=== PATIENT | female | born 1975 | race African-American/Black ===

== ENCOUNTER 2017-05-07 16:53 | Inpatient (IN) | payer BC, OTHER, SELFPAY ==
[2017-05-07 18:22] LABS: #Eosinphils 0.1 thou/uL (0.0-0.7); #Lymphocytes 1.4 thou/uL (1.20-3.40); #Monocytes 0.5 thou/uL (0.11-0.59); #Neutrophils 3.9 thou/uL (1.40-6.50); %Basophils 0.2 % (0.0-1.0); %Eosinophils 0.9 % (0.0-10.0); %Lymphocytes 23.3 % (21.0-51.0); %Monocytes 8.3 % (0.0-10.0); %Neutrophils 67.3 % (42.0-75.0); Hemoglobin 13.8 g/dL (12.0-16.0); Mean Corpuscular HGB CONC 28.8 g/dL (32.0-36.0); Mean Corpuscular Hemoglobin 28.3 pg (27.0-31.0); Mean Corpuscular Volume 98.5 fl (81.0-99.0); Mean Platelet Volume 9.6 fL (7.4-10.4); Platelet Count 177 thou/uL (130-400); RBC Distribution Width 19.5 % (11.5-14.5); Red Blood Cell (RBC) Count 4.88 mill/uL (4.20-5.40); White Blood Cell (WBC) Count 5.8 thou/uL (4.8-10.8)
[2017-05-07 18:35] LABS: ALT (SGPT) 21 U/L (8-55); AST (SGOT) 17 U/L (5-34); Albumin 3.6 g/dL (3.5-5.0); Alkaline Phosphatase 88 U/L (40-150); Anion Gap 17 mmol/L (10-20); BUN (Urea Nitrogen) 10 mg/dL (7.0-18.7); Bilirubin, Total 16.3 mg/dL (0.2-1.2); CK (CPK) 46 U/L (29-168); Calc. Creatinine Clearance 0 mL/min (70-130); Calcium 9.3 mg/dL (7.8-10.44); Carbon Dioxide 29 mmol/L (22-29); Chloride 101 mmol/L (98-107); Estimated GFR-MDRD 64; Globulin 2.8 g/dL (2.4-3.5); Glucose 80 mg/dL (70-105); Lipase 5 U/L (8-78); Magnesium 1.7 mg/dL (1.6-2.6); Phosphorus 3.1 mg/dL (2.3-4.7); Potassium 3.2 mmol/L (3.5-5.1); Protein, Total 6.4 g/dL (6.0-8.3); Sodium 144 mmol/L (136-145)
[2017-05-07 18:43] LABS: Base Excess-Venous -3.4 mmol/L (-30.0-30.0); Bicarbonate (HCO3v) 21.4 mmol/L (1.0-85.0); CO2 Tension (PvCO2) 36.6 mmHg (41.0-51.0); Calcium, Ionized 0.74 mmol/L (1.12-1.32); O2 Tension (PvO2) 35.2 mmHg (35.0-45.0); Potassium 3.1 mmol/L (3.4-4.7); T. Carbon Dioxide 22.5 mmol/L (1.0-85.0); pH (Venous) 7.374 (7.35-7.45); vO2 Saturation-calc 66.5 % (0.0-100.0)
[2017-05-07 18:45] LABS: Anisocytosis SLIGHT = 6-15 cells (100X) (0-5/hpf); MDiff Complete? YES; Ovalocytes SLIGHT = 2-5 cells (100X) (0-1/hpf); PLT Morphology Comment Appears Adequate; Polychromasia SLIGHT = 2-3 cells (100X) (0-2/hpf); Target Cells SLIGHT = 2-5 cells (100X) (0-1/hpf)
[2017-05-07 18:47] LABS: CKMB 1.5 ng/mL (0-6.6)
--- NOTE | 2017-05-07 19:09 | RAD ---
PORTABLE CHEST: 05/07/17 HISTORY: Mental status change. No comparison. There is cardiomegaly. There is vascular congestion. The lungs are poorly evaluated on this portable projection due to soft tissue attenuation. The lung bases cannot be adequately assessed. IMPRESSION: Suboptimal exam. There is cardiomegaly with evidence of vascular congestion. Upright PA and lateral v iews are recommended. POS: [facility]
[2017-05-07 19:30] LABS: Bilirubin Large (Negative); Blood, Urine Moderate (Negative); Clarity CLOUDY (Clear); Glucose, Urine (Dipstick) Negative (Negative); Leukocyte Small (Negative); Protein, Urine (Dipstick) 300 mg/dL (Neg-Trace); Specific Gravity, Urine 1.027 (1.002-1.036)
[2017-05-07 19:34] LABS: Bacteria/HPF None Seen HPF (None Seen)
[2017-05-07 19:39] LABS: Pathc Cast-AUWi Flag 5.01 (0-2.49)
[2017-05-07] MEDS ORDERED: Furosemide 100 MG/10 ML VIAL ONE (19:40)
[2017-05-07 19:51] LABS: Nitrite Unable to Interpret (Negative)
[2017-05-07 19:52] LABS: Hyaline Casts/LPF 7-10 HYALINE CAST LPF (0-3 Hyaline)
[2017-05-07] MEDS ORDERED: Nitroglycerin 2% Ointment 1 INCH/1 GM Packet ONE (20:10)
[2017-05-07 21:22] LABS: Troponin I 0.029 ng/mL (< 0.028)
[2017-05-07] MEDS ORDERED: Ondansetron ODT 4 MG TAB SL PRN (22:24)
[2017-05-07] MEDS ORDERED: Ondansetron HCl/PF 4 MG/2 ML Vial IVP PRN (22:24)
[2017-05-07] MEDS ORDERED: Potassium Chloride 20 MEQ TAB PO SCH (22:30)
[2017-05-07 23:53] LABS: BHCG - Serum Negative (NEGATIVE); Pregs Control Background? CLEAR/WHITE (CLR/WHITE); Pregs Control Bar Appear? YES (CONTROL BAR)
[2017-05-07] MEDS ORDERED: Insulin Regular 300 UNITS/3 ML VIAL SC PRN ×2 (23:54)
[2017-05-07] MEDS ORDERED: Bisacodyl 10 MG SUPP PR PRN (23:54)
[2017-05-07] MEDS ORDERED: Dextrose 50% Abboject 50 ML SYRINGE SLOW IVP PRN (23:54)
[2017-05-07] MEDS ORDERED: Dextrose 5% in Water 1,000 ML IV PRN (23:54)
[2017-05-07] MEDS ORDERED: Senokot 8.6 MG TAB PO PRN (23:54)
[2017-05-07] MEDS ORDERED: Calcium Carbonate 500 MG ChewTAB PO PRN (23:54)
[2017-05-08] MEDS ORDERED: hydrALAZINE 20 MG/ML VIAL SLOW IVP PRN (00:12)
--- NOTE | 2017-05-08 00:28 | HP ---
DATE OF ADMISSION: 05/07/2017 The patient was seen and examined on 05/07/2017. PRIMARY CARE PHYSICIAN: Dr. Skinner. CHIEF COMPLAINT: Generalized weakness with anasarca of 2-3 months' duration. HISTORY OF PRESENT ILLNESS: The patient is a 42-year-old morbidly obese -Trist[place] female with a BMI 80.5; diabetes mellitus, type 2; hypertension; hyperlipidemia; and suspected obstructive sleep apnea, not on CPAP; who presented to the emergency room with above complaints. Over the last 3 months or so, the patient has generalized weakness with shortness of breath on exerti on and generalized body swelling. Six months ago, she could walk. Over the last few weeks, the day ent is unable to walk due to shortness of breath. The shortness of breath comes on mild exertion. S he also noticed bilateral lower extremity swelling along with abdominal distention. Her shortness of breath was also worse on lying down. Over the last three weeks. The patient also noticed some yell owness of her eye. She felt nauseous; however, denies any vomiting. She denies any chest pain, palp itations, lightheadedness, dizziness or syncope. She also had mechanical fall in the last few weeks without any loss of consciousness. She also reports losing hair. PAST MEDICAL HISTORY: 1. Hypertension. 2. Diabetes mellitus, type 2. 3. Anxiety. 4. Degenerative joint disease. 5. Depression. 6. Morbid obesity. 7. Suspected obstructive sleep apnea. PAST SURGICAL HISTORY: Reviewed with the patient and none. ALLERGIES: No known drug allergies. CURRENT HOME MEDICATIONS: The patient does not remember any of her home medications. According to [facility] ER list, the patient is on lisinopril, metformin, clonazepam, meloxicam, iron, aspirin, fish oil, and Paxil. SOCIAL HISTORY: The patient currently lives at home. No smoking, alcohol or drug use. She has neve r been admitted to the hospital. FAMILY HISTORY: Negative for premature coronary artery disease. REVIEW OF SYSTEMS: The following complete review of systems was negative, unless otherwise mentioned in the HPI or below: Constitutional: Weight loss or gain, ability to conduct usual activities. Skin: Rash, itching. Eyes: Double vision, pain. ENT/Mouth: Nose bleeding, neck stiffness, pain, tenderness. Cardiovascular: Palpitations, dyspnea on exertion, orthopnea. Respiratory: Shortness of breath, wheezing, cough, hemoptysis, fever or night sweats. Gastrointestinal: Poor appetite, abdominal pain, heartburn, nausea, vomiting, constipation, or diarr hea. Genitourinary: Urgency, frequency, dysuria, nocturia. Musculoskeletal: Pain, swelling. Neurologic/Psychiatric: Anxiety, depression. Allergy/Immunologic: Skin rash, bleeding tendency. PHYSICAL EXAMINATION: VITAL SIGNS: In the emergency room showed temperature 98.1, respirations 22, pulse of 110, blood pre ssure 146/102 with O2 saturation 95% on 2 liter nasal cannula. GENERAL: A 42-year-old female, in mild respiratory distress, able to complete short sentences. She is saturating 95% on 2 liter nasal cannula at this time. HEENT: Head atraumatic, normocephalic. Sclerae anicteric. Moist mucous membrane, no oral lesion. NECK: Supple. No JVD appreciated, probably due to body habitus. No carotid bruits. LUNGS: Showed diminished air entry at bases. No significant accessory muscles use noted. There was scattered rhonchi and without any wheezing. Lungs were symmetrical. CARDIOVASCULAR: Heart S1, S2 present, regular. Heart sounds were distant, probably due to body habi tus. No murmur, rubs, or gallops appreciated. ABDOMEN: Soft, nontender, bowel sounds present, no rebound, guarding. No costovertebral angle tende rness. EXTREMITIES: 2-3+ edema in bilateral lower extremities with some questionable calf tenderness. SKIN: Warm and dry. LYMPH NODES: No palpable lymph nodes in the neck. PERIPHERAL VASCULAR: Radial pulses palpable bilaterally. MUSCULOSKELETAL: No joint swelling or tenderness. LABORATORY FINDINGS AND IMAGING: Troponins in the indeterminate range. BNP 1643. Total bilirubin 1 6.3 with normal AST, ALT, alkaline phosphatase. Potassium of 3.1 with normal magnesium. WBC was 5.8 with hemoglobin 13.8. Urinalysis showed 7-10 wbc's with hyaline casts, large amount of bilirubin, s mall leukocyte esterase. EKG by my review showed sinus rhythm with low voltage. Chest x-ray by my r lilia showed pulmonary vascular congestion with cardiomegaly. Exam was suboptimal. IMPRESSION: 1. Generalized weakness, multifactorial. 2. New onset congestive heart failure. 3. Elevated bilirubin, probably due to passive hepatic congestion, rule out hepatic pathology. 4. Hypokalemia. 5. Indeterminate troponins. 6. Morbid obesity with a BMI 80.5. 7. Suspected sleep apnea. The patient never had a sleep study done. 8. Recent immobilization with bilateral lower extremity swelling with tenderness rule out deep venou s thrombosis. 9. Diabetes mellitus, type 2. 10. Anxiety. 11. Hypertension. 12. Hyperlipidemia. 13. Degenerative joint disease. 14. Chronic kidney disease, stage 2. PLAN: The patient will be monitored on the telemetry unit. Cardiology, GI will be consulted. We wi ll get right upper quadrant ultrasound with Doppler to rule out hepatic pathology. Echocardiogram wi ll be done on an urgent basis in a.m. We will also rule out DVT. We will monitor labs on a daily ba sis. We will check TSH, cortisol, iron profile as well as hepatitis panel. Replace potassium. We w ill continue diuretics. Fluid restriction. Repeat troponins in a.m. Plan of care was discussed with the patient in detail. She stated understanding.
[2017-05-08] MEDS ORDERED: traMADol HCl 50 MG TAB PO SCH (04:45)
[2017-05-08 05:33] LABS: INR-International Normal Ratio 1.3; PTT 27.6 SEC (22.9-36.1); Prothrombin Time 16.2 SEC (12.0-14.7)
[2017-05-08 05:39] LABS: ALT (SGPT) 23 U/L (8-55); AST (SGOT) 16 U/L (5-34); Albumin 3.6 g/dL (3.5-5.0); Alkaline Phosphatase 85 U/L (40-150); Anion Gap 16 mmol/L (10-20); BUN (Urea Nitrogen) 10 mg/dL (7.0-18.7); BUN/Creatinine Ratio 9.26; Bilirubin, Direct Greater than 10.0 mg/dL (0.1-0.3); Calc. Creatinine Clearance 237 mL/min (70-130); Calcium 9.3 mg/dL (7.8-10.44); Carbon Dioxide 30 mmol/L (22-29); Chloride 101 mmol/L (98-107); Estimated GFR-MDRD 67; Glucose 84 mg/dL (70-105); Iron 73 ug/dL (50-170); Iron Binding Capacity, Total 315 mcg/dL (265-497); Magnesium 1.5 mg/dL (1.6-2.6); Potassium 2.8 mmol/L (3.5-5.1); Protein, Total 6.3 g/dL (6.0-8.3); Sodium 144 mmol/L (136-145); Troponin I 0.021 ng/mL (< 0.028)
[2017-05-08 05:57] LABS: Eosinophils 1 % (0-10); Ferritin 83.58 ng/mL (10-291); Hemoglobin 13.9 g/dL (12.0-16.0); Hypochromia SLIGHT = 6-15 cells (100X) (0-5/hpf); Lymphocytes 18 % (21-51); MDiff Complete? YES; Mean Corpuscular HGB CONC 29.5 g/dL (32.0-36.0); Mean Corpuscular Volume 98.3 fl (81.0-99.0); Mean Platelet Volume 9.9 fL (7.4-10.4); Monocytes 15 % (0-10); Neutrophil 66 % (42-75); PLT Morphology Comment Appears Adequate; Platelet Count 155 thou/uL (130-400); RBC Distribution Width 19.4 % (11.5-14.5); Red Blood Cell (RBC) Count 4.79 mill/uL (4.20-5.40); White Blood Cell (WBC) Count 5.6 thou/uL (4.8-10.8)
[2017-05-08] MEDS ORDERED: Furosemide 40 MG/4 ML VIAL SLOW IVP SCH (06:00)
[2017-05-08] MEDS ORDERED: Magnesium Sulfate 2 GM in Sodium Chloride 0.9% 100 ML IVPB SCH (06:00)
[2017-05-08] MEDS ORDERED: Potassium Chloride 20 MEQ TAB PO SCH ×5 (06:00→09:30)
[2017-05-08 06:10] LABS: HBCM Index 0.06 S/CO (0-0.79); HBSAg Index 0.21 S/CO (0-0.99); Hep A IgM AB Non-Reactive (NonReactive); Hep A IgM S/CO 0.09 S/CO (0-0.79); Hep B Surf Ag Non-Reactive S/CO (NonReactive); Hep C IgG Ab Non-Reactive (NonReactive); Hep C Index 0.31 S/CO (0-0.79); Hepatitis B Core IGM Abs Non-Reactive (NonReactive)
[2017-05-08] MEDS ORDERED: Magnesium 2 GM/NS 0.9% 100 ML 2 GM in Premix Bag 1 BAG IVPB SCH (06:30)
[2017-05-08] MEDS: Furosemide 20 MG/2 ML VIAL SLOW IVP SCH ×2 (06:40→16:26)
--- NOTE | 2017-05-08 07:40 | ULT ---
BILATERAL LOWER EXTREMITY VENOUS DOPPLER ULTRASOUND: HISTORY: Bilateral lower extremity edema and pain. TECHNIQUE: Stephenson scale ultrasound with color flow and spectral Doppler imaging of the deep venous systems of the lower extremities performed bilaterally. FINDINGS: There is good flow, compression, and augmentation noted in the common femoral, femoral, deep femoral, popliteal, posterior tibial, and greater saphenous veins. IMPRESSION: No evidence of deep vein thrombosis in either lower extremity. POS: [facility]
--- NOTE | 2017-05-08 09:11 | ULT ---
GALLBLADDER ULTRASOUND: INDICATION: Abnormal liver function enzymes with abdominal distention and nausea. FINDINGS: Abnormal increased echogenicity of the gallbladder lumen present indicating sludge and stones. There is gallbladder wall thickening at 5 mm with evidence of pericholecystic fluid. Naik's sign is rep orted as positive by the chamber worker. The common duct is normal at 3 mm. There is prominent volume within the liver without a discrete liver lesion evident. There is mild ascites. Incidental right p leural fluid is seen. IMPRESSION: 1. Abnormal gallbladder as above, with positive Naik's sign elicited. Recommended clinical correl ation for signs/symptoms of acute cholecystitis. 2. Additional details are described above. POS: [facility]
--- NOTE | 2017-05-08 09:13 | PDOC.PN ---
- Subjective Encounter Start Date: 05/08/17 Encounter Start Time: 08:45 Subjective: f/u for dyspnea and LE edema and concern for CHF. Receiving Lasix -: IV and diuresing with less SOB. No prior hx of CHF, CAD but admits to d/c -: of home BP and DM meds in last 3 weeks. - Objective Resuscitation Status: Resuscitation Status FULL:Full Resuscitation MAR Reviewed: Yes Vital Signs & Weight: Vital Signs (12 hours) Temp Pulse Resp BP Pulse Ox 05/08/17 08:00 97.6 F 85 18 135/86 98 05/08/17 03:35 97.9 F 88 18 136/79 92 L 05/07/17 23:44 95 05/07/17 22:30 97.6 F 89 18 95 05/07/17 22:27 97.6 F 89 18 156/97 H 95 Weight Weight 498 lb 14.497 oz I&O: 05/07/17 05/08/17 05/09/17 06:59 06:59 06:59 Intake Total 600 Output Total 3275 Balance -2675 Result Diagrams: 05/08/17 04:18 05/08/17 04:18 Additional Labs: Accuchecks 05/08/17 05:31 POC Glucose 86 Laboratory Tests 05/07/17 05/07/17 05/07/17 18:03 18:03 18:03 POC Venous Potassium Creatinine 1.12 H Total Bilirubin 16.3 H Troponin I 0.040 H B-Natriuretic Peptide 1643.6 H TSH 3rd Generation Cortisol Hepatitis A IgM Ab Hep Bs Antigen Hep B Core IgM Ab Hepatitis C Antibody 05/07/17 05/07/17 05/08/17 18:40 20:32 04:18 POC Venous Potassium 3.1 L Creatinine Total Bilirubin 16.0 H Troponin I 0.029 H B-Natriuretic Peptide TSH 3rd Generation Cortisol Hepatitis A IgM Ab Hep Bs Antigen Hep B Core IgM Ab Hepatitis C Antibody 05/08/17 05/08/17 05/08/17 04:18 04:18 04:18 POC Venous Potassium Creatinine Total Bilirubin Troponin I 0.021 B-Natriuretic Peptide TSH 3rd Generation 2.0483 Cortisol 13.30 Hepatitis A IgM Ab Non-Reactive Hep Bs Antigen Non-Reactive Hep B Core IgM Ab Non-Reactive Hepatitis C Antibody Non-Reactive Radiology Reviewed by me: Yes (LE venous dopp - neg; 2D echo - pending) EKG Reviewed by me: Yes (Tele - SR) Phys Exam - Physical Examination Constitutional: NAD HEENT: PERRLA, oral pharynx no lesions Neck: no JVD, supple diminished in bases, basilar crackles Cardiovascular: RRR landmarks difficult to palpate due to body habitus Gastrointestinal: soft, non-tender, positive bowel sounds Musculoskeletal: pulses present, edema present Neurological: normal sensation, moves all 4 limbs Psychiatric: A&O x 3 Skin: normal turgor, cap refill <2 seconds Dx/Plan (1) CHF (congestive heart failure) Code(s): I50.9 - HEART FAILURE, UNSPECIFIED Status: Acute Qualifiers: Congestive heart failure type: unspecified congestive heart failure type Congestive heart failure chronicity: acute Qualified Code(s): I50.9 - Heart failure, unspecified Comment: 2D Echo pending, Lasix 20mg IV q12h, Cardiology consult, ? cardiac cath , ASA daily (2) Dyspnea Code(s): R06.00 - DYSPNEA, UNSPECIFIED Status: Acute Qualifiers: Dyspnea type: dyspnea on exertion Qualified Code(s): R06.09 - Other forms of dyspnea Comment: Multifactorial given morbid obesity and likely CHF, 02 supplementation and Lasix (3) Hypokalemia Code(s): E87.6 - HYPOKALEMIA Status: Acute Comment: KCL 40meq TID, repeat K + level in am (4) HTN (hypertension) Code(s): I10 - ESSENTIAL (PRIMARY) HYPERTENSION Status: Chronic Qualifiers: Hypertension type: essential hypertension Qualified Code(s): I10 - Essential (primary) hypertension Comment: Non-compliance with home regimen, titrate BP meds and adjust as clinically indicated (5) DM II (diabetes mellitus, type II), controlled Code(s): E11.9 - TYPE 2 DIABETES MELLITUS WITHOUT COMPLICATIONS Status: Chronic Comment: Check A1C, ISS, ADA, hold Metformin given hyperbilirubinemia (6) Morbid (severe) obesity due to excess calories Code(s): E66.01 - MORBID (SEVERE) OBESITY DUE TO EXCESS CALORIES Status: Chronic (7) Hyperbilirubinemia Code(s): E80.6 - OTHER DISORDERS OF BILIRUBIN METABOLISM Status: Acute Comment: ? etiology, likely due to hepatic congestion as LFT's and Lipase wnl, serial monitoring, GI consult for recommendations, SABRINA luu pending - Plan PT/OT, respiratory therapy, out of bed/ambulate Stable overall -: 2D echo pending -: SABRINA luu pending -: Cardiology and GI consult pending -: Continue Lasix 20mg IV q12h * KCL 40meq TID * AM lab: CMP, A1C
[2017-05-08] MEDS: Docusate 100 MG CAP PO SCH ×2 (09:55→22:17)
[2017-05-08] MEDS: Aspirin 325 MG TAB PO SCH (09:55)
[2017-05-08] MEDS: Famotidine 20 MG TAB PO SCH ×2 (09:55→22:17)
[2017-05-08] MEDS: Enoxaparin Sodium 40 MG/0.4 ML SYRINGE SC SCH (09:56)
[2017-05-08] MEDS: Nystatin Powder 15 GM BOT TOP SCH ×2 (11:30→22:18)
--- NOTE | 2017-05-08 13:47 | CON ---
DATE OF SERVICE: 05/08/2017 REASON FOR CONSULTATION: Possible heart failure. HISTORY OF PRESENT ILLNESS: Ms. Townsend is a 42-year-old female who comes to the hospital for a sensation of increased bloating and just retaining fluid all over. She is about 500 pounds and 5 feet 3 inches tall with a BMI above 80. She states for the last 2-3 days she has notice d that there is a lot of fluid accumulating in her belly, in her face, in her arms and legs. She saw her PCP who sent her over to the hospital for admission. She was admitted and blood work showed an elevated BNP at 1643. She was getting some IV diuresis and Cardiology has been consulted. On my tatiana luation, she denies any chest pain, tightness, pressure. She only admits to abdominal bloating and j ust a feeling like she is accumulating fluid. After some diuresis she already feels better. PAST MEDICAL HISTORY: 1. Hypertension. 2. Type 2 diabetes. 3. Anxiety. 4. Osteoarthritis. 5. Depression. 6. Morbid obesity, BMI above 80. 7. Obstructive sleep apnea, most likely severe. PAST SURGICAL HISTORY: None. ALLERGIES: No known drug allergies. OUTPATIENT MEDICATIONS: 1. Metformin 500 mg b.i.d. 2. Clonazepam. 3. Paxil. 4. Woodruff 3 fish oil. 5. Mobic. 6. Lisinopril 40 mg a day. 7. Iron 325 mg. 8. Aspirin 81 a day. ALLERGIES: No known drug allergies. SOCIAL HISTORY: No alcohol, tobacco or drugs. Lives at home on her own. FAMILY HISTORY: Noncontributory. REVIEW OF SYSTEMS: Twelve point review of systems are noted, it is all negative unless noted in the history of present illness. PHYSICAL EXAMINATION: VITAL SIGNS: Temperature 97.6, pulse 85, respiration rate 18, satting 98% on 2 liters, blood pressur e 129/79. GENERAL: Awake, alert, oriented x3, in no distress. HEENT: Normocephalic, atraumatic. NECK: Supple, but short, cannot assess for JVD. LUNGS: Lungs are so distant I cannot really hear them. CARDIOVASCULAR: Distant heart sounds, cannot really assess accurately any heart sounds. ABDOMEN: Prominent, did not appreciate any tenderness on palpation, but it is difficult to assess wh ere the actual organs are. EXTREMITIES: 3+ edema, this seems chronic. LABORATORY WORK: Reviewed. Sodium 144, potassium is 3.2, down to 2.8, chloride 101, carbon dioxide 30, anion gap of 16, BUN of 10, creatinine 1.08, GFR 67, glucose of 84, calcium 9.3, phosphorus 4.0, magnesium 1.5. Iron 73, total iron binding capacity of 315, total bilirubin of 16, direct bilirubin was greater than assay limit. Troponin was 0.04, 0.02. BNP was 1643. TSH was 2. Cortisol was 13. was negative. Albumin of 3.6. Lipase was less than assay limit. UA showed trace ketones , moderate blood, large amount of bilirubin, 7-10 white cells, 7-10 red cells, no bacteria. Beta hyd roxybutyrate was normal. Hepatitis B serologies were normal. Lower extremity ultrasound was reviewed. No DVTs. Abdominal ultrasound, positive for cholecystitis. Chest x-ray; suboptimal exam, cardiomegaly with vascular congestion. ASSESSMENT AND PLAN: 1. Congestive heart failure, unclear if this is systolic or diastolic. Echocardiogram is very poor quality given the patient's body habitus and I am unable to evaluate any other major cardiac structur es with any accuracy. Would recommend a MUGA scan to evaluate this further. I already spoke with [facility], we may be able to do this despite her weight. 2. Elevated bilirubin: This is much higher than expected for just hepatic congestion from heart jayy lure. Most likely this is related to the issues with her gallbladder. Would recommend consultation with Gastroenterology. She may not be a good candidate for surgery given her size. 3. I would continue IV diuresis for now. 4. Further recommendations per results of MUGA scan. Thank you for letting us participate in the care of your patient. We will follow.
--- NOTE | 2017-05-08 15:23 | NM ---
MUGA SCAN: Date: 05/08/17 HISTORY: LV function. RADIOPHARMACEUTICAL: 27 mCi technetium-99m labeled RBCs injected intravenously. FINDINGS: A satisfactory separation of the ventricles was not possible to evaluate left ventricular ejection fr action. No definite evidence of significant left ventricular wall motion abnormalities is seen. IMPRESSION: Nondiagnostic exam. POS: [facility]
[2017-05-08] MEDS: Potassium Chloride 20 MEQ TAB PO SCH ×2 (16:27→22:17)
[2017-05-08] MEDS: Acetaminophen 325 MG TAB PO PRN (17:53)
[2017-05-08] MEDS ORDERED: FLU VACC QS2017-18 36 mo. & older 0.5 ML SYRINGE IM ONE (21:00)
--- NOTE | 2017-05-08 23:41 | CON ---
DATE OF CONSULTATION: 05/08/2017 REFERRING PHYSICIAN: Dr. Renato Vásquez. REASON FOR CONSULTATION: Hyperbilirubinemia. HISTORY OF PRESENT ILLNESS: Ms. Earnestine Townsend is a very pleasant 42-year-old black female who i s morbidly obese. She says she used to weigh more than 350 pounds before. The patient developed inc reasing pedal edema and anasarca over the last one month. She also gives history of orthopnea and dy spnea. She is not ambulating for the last couple of weeks. Before 2 weeks, she has ambulated reason ably well. The patient has no abdominal pain, no nausea and vomiting. She was hospitalized basicall y because of the generalized anasarca and weakness. On admission, her liver function tests showed a bilirubin of 60 mg percent and direct bilirubin 10 mg. Interestingly, her AST, ALT and alkaline phos phatase normal. She had an abdominal sonogram which shows biliary sludge and possible small stones. The patient has no prior history of liver disease. There is no family history of liver disease. Th e patient does not smoke or drink alcohol. Since admission, she has been aggressively diuresed and s he is actually feeling better at the present time. She tells me she did have some mild abdominal dis comfort yesterday, but since the diuresis, she is actually feeling better. She has no relevant histo ry. ALLERGIES: None. SOCIAL HISTORY: The patient does not smoke or drink alcohol. MEDICAL ILLNESSES: 1. Morbid obesity. 2. Hypertension. 3. Diabetes. 4. Anxiety. 5. Depression. 6. Degenerative joint disease. 7. Possible sleep apnea. SURGERIES: None. FAMILY HISTORY: Her obesity runs inside of the family. No history of any cancer or liver disease in the family. MEDICATIONS: List reviewed here in the hospital. REVIEW OF SYSTEMS: Ten-point system reviewed. Constitutional: No history of weight loss, no fever, but does have evidence of weight gain and fatigue. Respiratory: No history of chronic cough, hemop tysis, but does have shortness of breath. Cardiovascular: History of dyspnea on exertion and also o rthopnea. No PND. No chest pain. No palpitations. Gastrointestinal: No abdominal pain, no nausea , no vomiting. Her bowel movements are fairly regular. No hematochezia or melena. Genitourinary: No frequent urination, nocturia, or dysuria. Musculoskeletal: Has some back pain and arthralgias. Neuropsychiatric: Anxiety and depression. PHYSICAL EXAMINATION: GENERAL: She is morbidly obese. Her weight is probably more than 500 pounds. She actually appears comfortable. She is awake, alert, and communicative. She is deeply jaundiced. VITAL SIGNS: Afebrile, pulse is 85, blood pressure 135/86. HEENT: Conjunctivae are deeply icteric. NECK: Supple. CARDIAC: First and second heart sounds normal. LUNGS: Fairly clear except for basilar rales. ABDOMEN: A pendulous and flabby. Abdomen is nontender even on deep palpation. There is no organome zayra or masses. EXTREMITIES: Reveal no edema. LABORATORY DATA: Shows CBC: WBC today was 5600, hemoglobin 13.9, hematocrit 47.1, MCV 98.3, platele t count 155,000, polymorphs 66, lymphocytes 18, monocytes 15%. Chemistry panel shows sodium 144, pot assium slightly low at 2.8, chloride 101, bicarb 30, BUN 10, creatinine 1.08, glucose is 84, calcium 9.3, bilirubin is 16, direct bilirubin is 10 mg percent, AST 16, ALT 23, alkaline phosphatase 85, tro ponin 0.029. Abdominal sonogram shows biliary sludge and small stones. CLINICAL IMPRESSION: 1. A 42-year-old morbidly obese black female with anasarca over the last month or so. She has gaine d large amount of weight probably a month or two months ago. She was ambulating before, but she is n ot able to ambulate because of anasarca and weight gain. 2. Abnormal LFTs, especially hyperbilirubinemia without any elevation of liver enzymes. 3. Anasarca. 4. Diabetes. 5. Hypertension. 6. Depression/anxiety. OVERALL IMPRESSION: The patient has normal LFTs except for high bilirubin level. She is also deeply jaundiced. I am not sure the reason for her hyperbilirubinemia. She does not hemolyze as she has n ormal CBC. It is possible that she could have, sounds like Anne-Julio C syndrome. Other possibilit ies include drug-induced elevation of bilirubin. I really cannot think of the condition where the pe ople present with hyperbilirubinemia except for Gilbert's or Anne-Julio C syndrome. 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 At the present time, I see no reason to r erliny worry about this. I will follow along with you and make further recommendations [facility].
[2017-05-09] MEDS: Furosemide 20 MG/2 ML VIAL SLOW IVP SCH ×2 (05:50→14:43)
[2017-05-09 06:21] LABS: Hemoglobin A1c 4.7 % (4.0-6.0)
[2017-05-09 06:23] LABS: #Eosinphils 0.1 thou/uL (0.0-0.7); #Lymphocytes 1.7 thou/uL (1.20-3.40); #Monocytes 0.7 thou/uL (0.11-0.59); #Neutrophils 3.4 thou/uL (1.40-6.50); %Basophils 0.2 % (0.0-1.0); %Eosinophils 1.3 % (0.0-10.0); %Lymphocytes 28.8 % (21.0-51.0); %Monocytes 11.4 % (0.0-10.0); %Neutrophils 58.3 % (42.0-75.0); Hemoglobin 12.2 g/dL (12.0-16.0); Mean Corpuscular HGB CONC 28.9 g/dL (32.0-36.0); Mean Corpuscular Hemoglobin 29.1 pg (27.0-31.0); Mean Platelet Volume 9.4 fL (7.4-10.4); Platelet Count 169 thou/uL (130-400); RBC Distribution Width 19.8 % (11.5-14.5); Red Blood Cell (RBC) Count 4.18 mill/uL (4.20-5.40); White Blood Cell (WBC) Count 5.9 thou/uL (4.8-10.8)
[2017-05-09 06:31] LABS: ALT (SGPT) 21 U/L (8-55); AST (SGOT) 14 U/L (5-34); Albumin 3.6 g/dL (3.5-5.0); Alkaline Phosphatase 87 U/L (40-150); Anion Gap 12 mmol/L (10-20); BUN (Urea Nitrogen) 11 mg/dL (7.0-18.7); Bilirubin, Total 14.6 mg/dL (0.2-1.2); Calc. Creatinine Clearance 203 mL/min (70-130); Calcium 9.3 mg/dL (7.8-10.44); Carbon Dioxide 35 mmol/L (22-29); Chloride 101 mmol/L (98-107); Estimated GFR-MDRD 58; Globulin 2.5 g/dL (2.4-3.5); Glucose 89 mg/dL (70-105); Magnesium 1.5 mg/dL (1.6-2.6); Potassium 3.5 mmol/L (3.5-5.1); Protein, Total 6.1 g/dL (6.0-8.3); Sodium 144 mmol/L (136-145)
[2017-05-09] MEDS: Ondansetron ODT 4 MG TAB PO PRN ×2 (07:44→22:55)
[2017-05-09] MEDS: Potassium Chloride 20 MEQ TAB PO SCH ×3 (09:06→17:58)
[2017-05-09] MEDS: Docusate 100 MG CAP PO SCH ×2 (09:06→22:56)
[2017-05-09] MEDS: Famotidine 20 MG TAB PO SCH ×2 (09:06→22:55)
[2017-05-09] MEDS: Aspirin 325 MG TAB PO SCH (09:06)
[2017-05-09] MEDS: Enoxaparin Sodium 40 MG/0.4 ML SYRINGE SC SCH (09:06)
[2017-05-09] MEDS: Nystatin Powder 15 GM BOT TOP SCH ×2 (09:07→22:57)
--- NOTE | 2017-05-09 12:40 | PDOC.PN ---
- Subjective Encounter Start Date: 05/09/17 Encounter Start Time: 10:00 Subjective: feels weak, no sob -: has amb nearly 160ft with rw -: no chest pain or palp - Objective Resuscitation Status: Resuscitation Status FULL:Full Resuscitation MAR Reviewed: Yes Vital Signs & Weight: Vital Signs (12 hours) Temp Pulse Resp BP Pulse Ox 05/09/17 11:15 97.8 F 94 20 120/68 93 L 05/09/17 07:30 97.5 F L 83 122/84 99 05/09/17 03:34 97.8 F 86 16 130/97 H 92 L Weight Weight 480 lb 9.723 oz I&O: 05/08/17 05/09/17 05/10/17 06:59 06:59 06:59 Intake Total 1640 Output Total 6125 Balance -4485 Result Diagrams: 05/09/17 05:43 05/09/17 05:43 Additional Labs: Accuchecks 05/09/17 05/09/17 05/08/17 11:15 05:53 20:51 POC Glucose 91 101 88 05/08/17 05/08/17 17:16 11:07 POC Glucose 93 93 Phys Exam - Physical Examination HEENT: PERRLA, moist MMs Neck: no JVD, supple Respiratory: no wheezing, no rales distant breath sounds Cardiovascular: RRR, no significant murmur Gastrointestinal: soft, non-tender, positive bowel sounds Musculoskeletal: pulses present, edema present Neurological: non-focal, moves all 4 limbs lethargic but oriented well Dx/Plan (1) CHF (congestive heart failure) Code(s): I50.9 - HEART FAILURE, UNSPECIFIED Status: Acute Qualifiers: Congestive heart failure type: unspecified congestive heart failure type Congestive heart failure chronicity: acute Qualified Code(s): I50.9 - Heart failure, unspecified (2) Hyperbilirubinemia Code(s): E80.6 - OTHER DISORDERS OF BILIRUBIN METABOLISM Status: Acute Comment: unclear etiology (3) DM II (diabetes mellitus, type II), controlled Code(s): E11.9 - TYPE 2 DIABETES MELLITUS WITHOUT COMPLICATIONS Status: Chronic Qualifiers: Diabetes mellitus complication status: with other specified complication Diabetes mellitus prison insulin use: without buttermaker use Qualified Code( s): E11.69 - Type 2 diabetes mellitus with other specified complication (4) HTN (hypertension) Code(s): I10 - ESSENTIAL (PRIMARY) HYPERTENSION Status: Chronic Qualifiers: Hypertension type: essential hypertension Qualified Code(s): I10 - Essential (primary) hypertension Comment: Non-compliance with home regimen, titrate BP meds and adjust as clinically indicated (5) Morbid (severe) obesity due to excess calories Code(s): E66.01 - MORBID (SEVERE) OBESITY DUE TO EXCESS CALORIES Status: Chronic - Plan on lasix 20mg iv q12h -: will add small dose of coreg and lisinopril -: mobilize more as tolerated -: further w/u per cardiology advice * . Review of Systems - Medications/Allergies Allergies/Adverse Reactions: Allergies Allergy/AdvReac Type Severity Reaction Status Date / Time No Known Allergies Allergy Verified 05/07/17 22:49 Medications: Current Medications Acetaminophen (Tylenol) 650 mg PO Q6H PRN PRN Reason: Pain Last Admin: 05/08/17 17:53 Dose: 650 mg Aspirin (Aspirin) 325 mg PO DAILY [facility] Last Admin: 05/09/17 09:06 Dose: 325 mg Bisacodyl (Dulcolax) 10 mg [place] Q24H PRN PRN Reason: Constipation Calcium Carbonate (Tums) 1,000 mg PO Q4H PRN PRN Reason: Heartburn or Indigestion Dextrose/Water (Dextrose 50%) 25 gm SLOW IVP PRN PRN PRN Reason: Hypoglycemia Docusate Sodium (Colace) 100 mg PO BID [facility] Last Admin: 05/09/17 09:06 Dose: 100 mg Enoxaparin Sodium (Lovenox) 40 mg SC 0900 [facility] Last Admin: 05/09/17 09:06 Dose: 40 mg Famotidine (Pepcid) 20 mg PO BID [facility] Last Admin: 05/09/17 09:06 Dose: 20 mg Furosemide (Lasix) 20 mg SLOW IVP 0600,1400 [facility] Last Admin: 05/09/17 05:50 Dose: 20 mg Glucagon (Glucagon) 1 mg IM PRN PRN PRN Reason: Hypoglycemia Hydralazine HCl (Apresoline) 10 mg SLOW IVP Q4H PRN PRN Reason: SBP Greater Than 180 Dextrose/Water (D5w) 1,000 mls @ 0 mls/hr IV .Q0M PRN; As Directed PRN Reason: Hypoglycemia Insulin Human Regular (Humulin R) 0 units SC .MILD SLIDING SCALE PRN PRN Reason: Mild Correctional Scale Insulin Human Regular (Humulin R) 0 units SC .BEDTIME SLIDING SC PRN PRN Reason: Bedtime Correctional Scale Nystatin (Mycostatin Powder) 0 gm TOP BID [facility] Last Admin: 05/09/17 09:07 Dose: 1 applic Ondansetron HCl (Zofran Odt) 4 mg PO Q6H PRN PRN Reason: Nausea/Vomiting Last Admin: 05/09/17 07:44 Dose: 4 mg Ondansetron HCl (Zofran) 4 mg IVP Q6H PRN PRN Reason: Nausea/Vomiting Potassium Chloride (K-Dur) 40 meq PO TID-WM [facility] Last Admin: 05/09/17 11:58 Dose: 40 meq Senna (Senokot) 2 tab PO HSPRN PRN PRN Reason: Constipation Sodium Chloride (Flush - Normal Saline) 10 ml IVF Q12HR [facility] Last Admin: 05/09/17 07:47 Dose: 10 ml Sodium Chloride (Flush - Normal Saline) 10 ml IVF PRN PRN PRN Reason: Saline Flush
--- NOTE | 2017-05-09 16:31 | PDOC.CTH ---
Cardiology Progress Note - Subjective She is doing better. She has diuresed well. - Objective Vital Signs Temp Pulse Resp BP Pulse Ox 05/09/17 11:15 97.8 F 94 20 120/68 93 L 05/09/17 07:30 97.5 F L 83 18 122/84 99 Weight 480 lb 9.723 oz 05/08/17 05/09/17 05/10/17 06:59 06:59 06:59 Intake Total 1640 Output Total 6125 Balance -4485 - Physical Examination General/Neuro: alert & oriented x3, NAD Neck: no JVD present Lungs: unlabored respirations Heart: RRR Abdomen: NT/ND Extremities: + edema B (2+) - Telemetry Telemetry Rhythm: NSR - Labs Result Diagrams: 05/09/17 05:43 05/09/17 05:43 Troponin/CKMB CK-MB (CK-2) 1.5 ng/mL (0-6.6) 05/07/17 18:03 Troponin I 0.021 ng/mL (< 0.028) 05/08/17 04:18 - Assessment/Plan 1. Anasarca 2. Possible LV dysfunction however LV function difficult to assess given body habitus 3. Morbid obesity 4. Hyperbilirrubinemia 5. Gallstones. PLAN: - Conitnue IV diuresis. - Will treat for LV dysfunction with BB and ACEI as BP allows. - Cannot risk stratify with any stress testing modality or [facility] due to her weight. - Conservative therapy. LENCHO would be too risky due to her weight. - The little amount of LV that is seen on echo would suggest that if there is LV dysfunction it is mild to moderate.
[2017-05-09] MEDS: Carvedilol 3.125 MG TAB PO SCH (17:58)
[2017-05-09] MEDS: Acetaminophen 325 MG TAB PO PRN (22:55)
--- NOTE | 2017-05-10 00:21 | PRG ---
DATE OF SERVICE: 05/09/2017 SUBJECTIVE: This is a 42-year-old female who is morbidly obese. She was hospitaliz ed because of anasarca, recent weight gain. She was noted to have an elevated bilirubin level and sh e also jaundice. The jaundice is painless. She has no abdominal pain. No nausea or vomiting. Her bilirubin level is slightly coming down today. WBC down to 14.6 from 16. Her liver enzymes are norm al. AST 14, ALT 21, alkaline phosphatase of 87. PHYSICAL EXAMINATION: GENERAL: She is morbidly obese, appears comfortable. She is not short-winded, afebrile. VITAL SIGN S: Pulse is 94, blood pressure 120/68. CARDIOVASCULAR AND LUNGS: Within normal limits. ABDOMEN: Soft. Nontender. No organomegaly. CLINICAL IMPRESSION: Hyperbilirubinemia, etiology unclear. The patient could have possibly somethin g like Anne-Julio C syndrome. is completely normal. There may be some element of hepatic con gestion on top of her other problems. The patient is asymptomatic, dyspnea, no further recommendatio ns except for watching her LFTs periodically.
[2017-05-10] MEDS: Ondansetron HCl/PF 4 MG/2 ML Vial IVP PRN (02:36)
[2017-05-10] MEDS: Furosemide 20 MG/2 ML VIAL SLOW IVP SCH ×2 (04:52→14:18)
[2017-05-10 09:23] LABS: ALT (SGPT) 20 U/L (8-55); AST (SGOT) 12 U/L (5-34); Albumin 3.7 g/dL (3.5-5.0); Alkaline Phosphatase 83 U/L (40-150); Anion Gap 14 mmol/L (10-20); BUN (Urea Nitrogen) 13 mg/dL (7.0-18.7); Bilirubin, Total 13.6 mg/dL (0.2-1.2); Calc. Creatinine Clearance 179 mL/min (70-130); Calcium 9.6 mg/dL (7.8-10.44); Carbon Dioxide 34 mmol/L (22-29); Chloride 100 mmol/L (98-107); Estimated GFR-MDRD 51; Globulin 2.7 g/dL (2.4-3.5); Glucose 83 mg/dL (70-105); Protein, Total 6.4 g/dL (6.0-8.3); Sodium 144 mmol/L (136-145)
[2017-05-10] MEDS: Lisinopril 2.5 MG TAB PO SCH (09:40)
[2017-05-10] MEDS: Docusate 100 MG CAP PO SCH ×2 (09:40→20:11)
[2017-05-10] MEDS: Potassium Chloride 20 MEQ TAB PO SCH (09:40)
[2017-05-10] MEDS: Aspirin 325 MG TAB PO SCH (09:40)
[2017-05-10] MEDS: Carvedilol 3.125 MG TAB PO SCH ×2 (09:40→17:42)
[2017-05-10] MEDS: Ondansetron ODT 4 MG TAB PO PRN (09:40)
[2017-05-10] MEDS: Famotidine 20 MG TAB PO SCH ×2 (09:40→20:10)
[2017-05-10] MEDS: Enoxaparin Sodium 40 MG/0.4 ML SYRINGE SC SCH (09:41)
[2017-05-10] MEDS: Nystatin Powder 15 GM BOT TOP SCH ×2 (09:41→20:11)
--- NOTE | 2017-05-10 11:11 | PDOC.PN ---
- Subjective Encounter Start Date: 05/10/17 Encounter Start Time: 10:00 Subjective: breathing better, no chest pain or palp - Objective Resuscitation Status: Resuscitation Status FULL:Full Resuscitation MAR Reviewed: Yes Vital Signs & Weight: Vital Signs (12 hours) Temp Pulse Resp BP Pulse Ox 05/10/17 09:40 81 05/10/17 08:59 97.3 F L 81 21 H 126/90 98 05/10/17 03:57 98.0 F 94 20 126/76 96 Weight Weight 478 lb 3.2 oz I&O: 05/09/17 05/10/17 05/11/17 06:59 06:59 06:59 Intake Total 1640 1200 Output Total 6194 2050 Balance -2456 -850 Result Diagrams: 05/09/17 05:43 05/10/17 05:04 Additional Labs: Accuchecks 05/10/17 05/09/17 05/09/17 05:32 20:51 17:08 POC Glucose 103 109 103 05/09/17 11:15 POC Glucose 91 Phys Exam - Physical Examination HEENT: PERRLA, moist MMs Neck: no JVD, supple Respiratory: no wheezing, no rales Cardiovascular: RRR, no significant murmur Gastrointestinal: soft, non-tender, positive bowel sounds Musculoskeletal: pulses present, edema present Neurological: non-focal, moves all 4 limbs Psychiatric: A&O x 3 Dx/Plan (1) CHF (congestive heart failure) Code(s): I50.9 - HEART FAILURE, UNSPECIFIED Status: Acute Qualifiers: Congestive heart failure type: unspecified congestive heart failure type Congestive heart failure chronicity: acute Qualified Code(s): I50.9 - Heart failure, unspecified (2) Hyperbilirubinemia Code(s): E80.6 - OTHER DISORDERS OF BILIRUBIN METABOLISM Status: Acute Comment: unclear etiology (3) DM II (diabetes mellitus, type II), controlled Code(s): E11.9 - TYPE 2 DIABETES MELLITUS WITHOUT COMPLICATIONS Status: Chronic Qualifiers: Diabetes mellitus complication status: with other specified complication Diabetes mellitus fpc insulin use: without dedicated intermodal truck driver use Qualified Code( s): E11.69 - Type 2 diabetes mellitus with other specified complication (4) HTN (hypertension) Code(s): I10 - ESSENTIAL (PRIMARY) HYPERTENSION Status: Chronic Qualifiers: Hypertension type: essential hypertension Qualified Code(s): I10 - Essential (primary) hypertension Comment: Non-compliance with home regimen, titrate BP meds and adjust as clinically indicated (5) Morbid (severe) obesity due to excess calories Code(s): E66.01 - MORBID (SEVERE) OBESITY DUE TO EXCESS CALORIES Status: Chronic Comment: bmi of 77 - Plan is on asp, coreg, lisinopril -: may switch iv lasix to po -: to ambulate as tolerated, oob to chair -: dc plan per cardio advice -: has life threatening obesity * . Review of Systems - Medications/Allergies Allergies/Adverse Reactions: Allergies Allergy/AdvReac Type Severity Reaction Status Date / Time No Known Allergies Allergy Verified 05/07/17 22:49 Medications: Current Medications Acetaminophen (Tylenol) 650 mg PO Q6H PRN PRN Reason: Pain Last Admin: 05/09/17 22:55 Dose: 650 mg Aspirin (Aspirin) 325 mg PO DAILY [facility] Last Admin: 05/10/17 09:40 Dose: 325 mg Bisacodyl (Dulcolax) 10 mg [place] Q24H PRN PRN Reason: Constipation Calcium Carbonate (Tums) 1,000 mg PO Q4H PRN PRN Reason: Heartburn or Indigestion Carvedilol (Coreg) 3.125 mg PO BID[facility] Last Admin: 05/10/17 09:40 Dose: 3.125 mg Dextrose/Water (Dextrose 50%) 25 gm SLOW IVP PRN PRN PRN Reason: Hypoglycemia Docusate Sodium (Colace) 100 mg PO BID [facility] Last Admin: 05/10/17 09:40 Dose: 100 mg Enoxaparin Sodium (Lovenox) 40 mg SC 0900 [facility] Last Admin: 05/10/17 09:41 Dose: 40 mg Famotidine (Pepcid) 20 mg PO BID [facility] Last Admin: 05/10/17 09:40 Dose: 20 mg Furosemide (Lasix) 20 mg SLOW IVP 0600,1400 [facility] Last Admin: 05/10/17 04:52 Dose: 20 mg Glucagon (Glucagon) 1 mg IM PRN PRN PRN Reason: Hypoglycemia Hydralazine HCl (Apresoline) 10 mg SLOW IVP Q4H PRN PRN Reason: SBP Greater Than 180 Dextrose/Water (D5w) 1,000 mls @ 0 mls/hr IV .Q0M PRN; As Directed PRN Reason: Hypoglycemia Insulin Human Regular (Humulin R) 0 units SC .MILD SLIDING SCALE PRN PRN Reason: Mild Correctional Scale Insulin Human Regular (Humulin R) 0 units SC .BEDTIME SLIDING SC PRN PRN Reason: Bedtime Correctional Scale Lisinopril (Zestril) 2.5 mg PO DAILY [facility] Last Admin: 05/10/17 09:40 Dose: 2.5 mg Nystatin (Mycostatin Powder) 0 gm TOP BID [facility] Last Admin: 05/10/17 09:41 Dose: 1 applic Ondansetron HCl (Zofran Odt) 4 mg PO Q6H PRN PRN Reason: Nausea/Vomiting Last Admin: 05/10/17 09:40 Dose: 4 mg Ondansetron HCl (Zofran) 4 mg IVP Q6H PRN PRN Reason: Nausea/Vomiting Last Admin: 05/10/17 02:36 Dose: 4 mg Potassium Chloride (K-Dur) 40 meq PO TID-WM [facility] Last Admin: 05/10/17 09:40 Dose: 40 meq Senna (Senokot) 2 tab PO HSPRN PRN PRN Reason: Constipation Last Admin: 05/10/17 09:40 Dose: 2 tab Sodium Chloride (Flush - Normal Saline) 10 ml IVF Q12HR [facility] Last Admin: 05/10/17 09:41 Dose: 10 ml Sodium Chloride (Flush - Normal Saline) 10 ml IVF PRN PRN PRN Reason: Saline Flush Last Admin: 05/09/17 14:43 Dose: 10 ml
--- NOTE | 2017-05-10 14:52 | PRG ---
DATE OF SERVICE: 05/10/2017 HOSPITAL VISIT NOTE HISTORY OF PRESENT ILLNESS: This is a 42-year-old black female, who was morbidly obese, admitted to the hospital with anasarca and recent weight gain. The patient had abdominal pain. No nausea or vom iting. On admission, she was found to have hyperbilirubinemia. Her serum bilirubin 60 mg percent. Interestingly, her liver function tests were normal. The patient does have a biliary sludge and poss ible gallstones. However, she is not tender over the right upper quadrant. She has been diuresed ag gressively. She was feeling short-winded when she came in, but now her breathing is much better. As mentioned earlier, she has no abdominal pain, no nausea, no vomiting. PHYSICAL EXAMINATION: GENERAL: She is morbidly obese. She is icteric. VITAL SIGNS: Afebrile. Pulse is 80 and blood pressure is 112/77. CARDIOVASCULAR SYSTEM AND LUNGS: Within normal limits. ABDOMEN: Soft. Abdomen is nontender. LABORATORY DATA: Today shows chem.-7 is normal. Potassium 4. Her bilirubin down to 13.6. Her AST is 12, ALT is 20, alkaline phosphatase is 83. CLINICAL IMPRESSION: 1. Hyperbilirubinemia, etiology unclear. 2. No abdominal pain, nausea, vomiting. RECOMMENDATIONS: Follow up liver function tests and continue diuresis.
--- NOTE | 2017-05-10 16:39 | PDOC.CTH ---
Cardiology Progress Note - Subjective She is doing better. Her breathing is better. - Objective Vital Signs Temp Pulse Resp BP Pulse Ox 05/10/17 12:27 97.4 F L 80 19 112/77 100 05/10/17 09:40 81 05/10/17 08:59 97.3 F L 81 21 H 126/90 98 Weight 478 lb 3.2 oz 05/09/17 05/10/17 05/11/17 06:59 06:59 06:59 Intake Total 1640 1200 Output Total 0547 2054 Balance -2915 -850 - Physical Examination General/Neuro: alert & oriented x3, NAD Neck: no JVD present Lungs: unlabored respirations Heart: RRR Abdomen: NT/ND Extremities: + edema B (2+) - Telemetry Telemetry Rhythm: NSR - Labs Result Diagrams: 05/09/17 05:43 05/10/17 05:04 Troponin/CKMB CK-MB (CK-2) 1.5 ng/mL (0-6.6) 05/07/17 18:03 Troponin I 0.021 ng/mL (< 0.028) 05/08/17 04:18 - Assessment/Plan 1. Anasarca 2. Possible LV dysfunction however LV function difficult to assess given body habitus 3. Morbid obesity 4. Hyperbilirrubinemia 5. Gallstones. PLAN: - Creatinine is starting to rise, likely getting dry, difficult to say due to body habitus. Will hold lasix. Repeat BNP. - Will treat for LV dysfunction with BB and ACEI as BP allows. - Cannot risk stratify with any stress testing modality or [facility] due to her weight. - Conservative therapy.
[2017-05-11] MEDS: Acetaminophen 325 MG TAB PO PRN ×2 (03:58→11:41)
[2017-05-11 05:09] LABS: ALT (SGPT) 19 U/L (8-55); AST (SGOT) 15 U/L (5-34); Albumin 3.5 g/dL (3.5-5.0); Alkaline Phosphatase 78 U/L (40-150); Anion Gap 10 mmol/L (10-20); BUN (Urea Nitrogen) 14 mg/dL (7.0-18.7); Bilirubin, Total 11.8 mg/dL (0.2-1.2); Calc. Creatinine Clearance 194 mL/min (70-130); Calcium 9.6 mg/dL (7.8-10.44); Carbon Dioxide 37 mmol/L (22-29); Chloride 100 mmol/L (98-107); Estimated GFR-MDRD 55; Globulin 2.6 g/dL (2.4-3.5); Glucose 99 mg/dL (70-105); Potassium 4.4 mmol/L (3.5-5.1); Protein, Total 6.1 g/dL (6.0-8.3); Sodium 143 mmol/L (136-145)
[2017-05-11] MEDS: Enoxaparin Sodium 40 MG/0.4 ML SYRINGE SC SCH (08:44)
[2017-05-11] MEDS: Famotidine 20 MG TAB PO SCH ×2 (08:44→21:50)
[2017-05-11] MEDS: Docusate 100 MG CAP PO SCH ×2 (08:45→21:50)
[2017-05-11] MEDS: Aspirin 325 MG TAB PO SCH (08:45)
[2017-05-11] MEDS: Lisinopril 2.5 MG TAB PO SCH (08:45)
[2017-05-11] MEDS: Carvedilol 3.125 MG TAB PO SCH ×2 (08:45→16:56)
[2017-05-11] MEDS: Potassium Chloride 20 MEQ TAB PO SCH (08:45)
[2017-05-11] MEDS: Furosemide 40 MG TAB PO SCH ×2 (08:45→14:46)
[2017-05-11] MEDS: Nystatin Powder 15 GM BOT TOP SCH ×2 (08:46→21:51)
[2017-05-11] MEDS ORDERED: Furosemide 20 MG TAB PO SCH (09:00)
--- NOTE | 2017-05-11 13:04 | PDOC.PN ---
- Subjective Encounter Start Date: 05/11/17 Encounter Start Time: 10:30 Subjective: more awake now, no sob - Objective Resuscitation Status: Resuscitation Status FULL:Full Resuscitation MAR Reviewed: Yes Vital Signs & Weight: Vital Signs (12 hours) Temp Pulse Resp BP BP Pulse Ox 05/11/17 12:00 97.6 F 79 18 107/72 99 05/11/17 08:45 76 132/94 H 05/11/17 08:00 97.7 F 76 12 132/94 H 98 05/11/17 06:31 96 05/11/17 04:26 97.7 F 96 20 115/77 99 Weight Weight 464 lb 1 oz I&O: 05/10/17 05/11/17 05/12/17 06:59 06:59 06:59 Intake Total 1200 1500 Output Total 2050 1875 Balance -850 -375 Result Diagrams: 05/09/17 05:43 05/11/17 03:59 Additional Labs: Accuchecks 05/11/17 05/11/17 05/10/17 11:40 06:37 19:55 POC Glucose 94 95 104 05/10/17 16:09 POC Glucose 99 Phys Exam - Physical Examination HEENT: PERRLA, moist MMs Neck: no JVD, supple Respiratory: no wheezing, no rales Cardiovascular: RRR, no significant murmur Gastrointestinal: soft, non-tender, positive bowel sounds Musculoskeletal: pulses present, edema present Neurological: non-focal, moves all 4 limbs Psychiatric: A&O x 3 Dx/Plan (1) CHF (congestive heart failure) Code(s): I50.9 - HEART FAILURE, UNSPECIFIED Status: Acute Qualifiers: Congestive heart failure type: unspecified congestive heart failure type Congestive heart failure chronicity: acute Qualified Code(s): I50.9 - Heart failure, unspecified (2) Hyperbilirubinemia Code(s): E80.6 - OTHER DISORDERS OF BILIRUBIN METABOLISM Status: Acute Comment: unclear etiology (3) DM II (diabetes mellitus, type II), controlled Code(s): E11.9 - TYPE 2 DIABETES MELLITUS WITHOUT COMPLICATIONS Status: Chronic Qualifiers: Diabetes mellitus complication status: with other specified complication Diabetes mellitus half-way insulin use: without half-way use Qualified Code( s): E11.69 - Type 2 diabetes mellitus with other specified complication (4) HTN (hypertension) Code(s): I10 - ESSENTIAL (PRIMARY) HYPERTENSION Status: Chronic Qualifiers: Hypertension type: essential hypertension Qualified Code(s): I10 - Essential (primary) hypertension Comment: Non-compliance with home regimen, titrate BP meds and adjust as clinically indicated (5) Morbid (severe) obesity due to excess calories Code(s): E66.01 - MORBID (SEVERE) OBESITY DUE TO EXCESS CALORIES Status: Chronic Comment: bmi of 77 - Plan oral lasix -: to amb more with PT -: dc plan in 24hrs -: has lost 34lbs and is down to 464 lbs from 498lbs -: jil is 11, continue asp, coreg and lisinopril * . Review of Systems - Medications/Allergies Allergies/Adverse Reactions: Allergies Allergy/AdvReac Type Severity Reaction Status Date / Time No Known Allergies Allergy Verified 05/07/17 22:49 Medications: Current Medications Acetaminophen (Tylenol) 650 mg PO Q6H PRN PRN Reason: Pain Last Admin: 05/11/17 11:41 Dose: 650 mg Aspirin (Aspirin) 325 mg PO DAILY [facility] Last Admin: 05/11/17 08:45 Dose: 325 mg Bisacodyl (Dulcolax) 10 mg [place] Q24H PRN PRN Reason: Constipation Calcium Carbonate (Tums) 1,000 mg PO Q4H PRN PRN Reason: Heartburn or Indigestion Carvedilol (Coreg) 3.125 mg PO BID-[facility] Last Admin: 05/11/17 08:45 Dose: 3.125 mg Dextrose/Water (Dextrose 50%) 25 gm SLOW IVP PRN PRN PRN Reason: Hypoglycemia Docusate Sodium (Colace) 100 mg PO BID [facility] Last Admin: 05/11/17 08:45 Dose: 100 mg Enoxaparin Sodium (Lovenox) 40 mg SC 0900 [facility] Last Admin: 05/11/17 08:44 Dose: 40 mg Famotidine (Pepcid) 20 mg PO BID [facility] Last Admin: 05/11/17 08:44 Dose: 20 mg Furosemide (Lasix) 40 mg PO 0900,1400 [facility] Last Admin: 05/11/17 08:45 Dose: 40 mg Glucagon (Glucagon) 1 mg IM PRN PRN PRN Reason: Hypoglycemia Hydralazine HCl (Apresoline) 10 mg SLOW IVP Q4H PRN PRN Reason: SBP Greater Than 180 Dextrose/Water (D5w) 1,000 mls @ 0 mls/hr IV .Q0M PRN; As Directed PRN Reason: Hypoglycemia Insulin Human Regular (Humulin R) 0 units SC .MILD SLIDING SCALE PRN PRN Reason: Mild Correctional Scale Insulin Human Regular (Humulin R) 0 units SC .BEDTIME SLIDING SC PRN PRN Reason: Bedtime Correctional Scale Lisinopril (Zestril) 2.5 mg PO DAILY [facility] Last Admin: 05/11/17 08:45 Dose: 2.5 mg Nystatin (Mycostatin Powder) 0 gm TOP BID [facility] Last Admin: 05/11/17 08:46 Dose: 1 applic Ondansetron HCl (Zofran Odt) 4 mg PO Q6H PRN PRN Reason: Nausea/Vomiting Last Admin: 05/10/17 09:40 Dose: 4 mg Ondansetron HCl (Zofran) 4 mg IVP Q6H PRN PRN Reason: Nausea/Vomiting Last Admin: 05/10/17 02:36 Dose: 4 mg Potassium Chloride (K-Dur) 20 meq PO QAM-WM [facility] Last Admin: 05/11/17 08:45 Dose: 20 meq Senna (Senokot) 2 tab PO HSPRN PRN PRN Reason: Constipation Last Admin: 05/10/17 09:40 Dose: 2 tab Sodium Chloride (Flush - Normal Saline) 10 ml IVF Q12HR [facility] Last Admin: 05/11/17 08:46 Dose: 10 ml Sodium Chloride (Flush - Normal Saline) 10 ml IVF PRN PRN PRN Reason: Saline Flush Last Admin: 05/09/17 14:43 Dose: 10 ml
--- NOTE | 2017-05-11 17:36 | PDOC.CTH ---
Cardiology Progress Note - Subjective She is doing better. No new issues. She has been walking with PT. - Objective Vital Signs Temp Pulse Resp BP BP Pulse Ox 05/11/17 16:00 97.6 F 81 16 101/70 100 05/11/17 12:00 97.6 F 79 18 107/72 99 05/11/17 08:45 76 132/94 H 05/11/17 08:00 97.7 F 76 12 132/94 H 98 05/11/17 06:31 96 Weight 464 lb 1 oz 05/10/17 05/11/17 05/12/17 06:59 06:59 06:59 Intake Total 1200 1500 Output Total 2050 1875 Balance -850 -375 - Physical Examination General/Neuro: alert & oriented x3, NAD, other: (jaundiced.) Neck: no JVD present Lungs: unlabored respirations Heart: RRR Abdomen: NT/ND Extremities: + edema B (1+) - Labs Result Diagrams: 05/09/17 05:43 05/11/17 03:59 Troponin/CKMB CK-MB (CK-2) 1.5 ng/mL (0-6.6) 05/07/17 18:03 Troponin I 0.021 ng/mL (< 0.028) 05/08/17 04:18 - Assessment/Plan 1. Anasarca 2. Possible LV dysfunction however LV function difficult to assess given body habitus 3. Morbid obesity 4. Hyperbilirrubinemia 5. Gallstones. PLAN: - BNP better, creatinine stable. She is feeling better. - Continue BB and ACEI. Cannot up titrate due to borderline low BP. - Cannot risk stratify with any stress testing modality or [facility] due to her weight. - Conservative therapy. - Bilirrubin till high. - May discharge home at any time from cardiac perspective. - Follow up in one month.
[2017-05-11] MEDS: Ondansetron ODT 4 MG TAB PO PRN (17:38)
[2017-05-12] MEDS: Acetaminophen 325 MG TAB PO PRN (00:49)
--- NOTE | 2017-05-12 04:26 | PRG ---
DATE OF SERVICE: 05/11/2017 SUBJECTIVE: This is a 42-year-old black female who is morbidly obese with hypertension, diabetes robert litus. The patient was hospitalized because of anasarca. She was found to have elevated bilirubin l evel of 16 mg percent. Her liver transaminases are normal. She has no abdominal pain, no nausea or vomiting. Her bilirubin is trending down from 16 to 11.6 today. Her liver function tests remain nor mal. PHYSICAL EXAMINATION: GENERAL: She is obese, appears comfortable. VITAL SIGNS: Stable. She is still icteric. CARDIOVASCULAR: Within normal limits. LUNGS: Within normal limits. ABDOMEN: Soft to palpate. No organomegaly. No tenderness. No masses. CLINICAL IMPRESSION: Hyperbilirubinemia, etiology unclear. Her liver function tests are normal. Bi lirubin seems to be coming down with her diuresis. RECOMMENDATIONS: No GI further recommendations, follow up the bilirubin level periodically to make s ure it comes back to normal.
[2017-05-12 05:11] LABS: ALT (SGPT) 19 U/L (8-55); AST (SGOT) 15 U/L (5-34); Albumin 3.5 g/dL (3.5-5.0); Alkaline Phosphatase 71 U/L (40-150); Anion Gap 12 mmol/L (10-20); BUN (Urea Nitrogen) 16 mg/dL (7.0-18.7); Bilirubin, Total 11.1 mg/dL (0.2-1.2); Calc. Creatinine Clearance 189 mL/min (70-130); Calcium 9.6 mg/dL (7.8-10.44); Carbon Dioxide 37 mmol/L (22-29); Chloride 98 mmol/L (98-107); Estimated GFR-MDRD 56; Globulin 2.5 g/dL (2.4-3.5); Glucose 94 mg/dL (70-105); Potassium 4.5 mmol/L (3.5-5.1); Sodium 142 mmol/L (136-145)
[2017-05-12] MEDS: Carvedilol 3.125 MG TAB PO SCH ×2 (08:41→17:15)
[2017-05-12] MEDS: Furosemide 40 MG TAB PO SCH (08:41)
[2017-05-12] MEDS: Aspirin 325 MG TAB PO SCH (08:41)
[2017-05-12] MEDS: Docusate 100 MG CAP PO SCH ×2 (08:42→20:27)
[2017-05-12] MEDS: Lisinopril 2.5 MG TAB PO SCH (08:42)
[2017-05-12] MEDS: Potassium Chloride 20 MEQ TAB PO SCH (08:43)
[2017-05-12] MEDS: Enoxaparin Sodium 40 MG/0.4 ML SYRINGE SC SCH (08:43)
[2017-05-12] MEDS: Famotidine 20 MG TAB PO SCH ×2 (08:43→20:27)
[2017-05-12] MEDS: Nystatin Powder 15 GM BOT TOP SCH ×2 (08:43→20:28)
--- NOTE | 2017-05-12 11:27 | PDOC.PN ---
- Subjective Encounter Start Date: 05/12/17 Encounter Start Time: 10:00 Subjective: c/o right breast extreme swelling and abd swelling -: is amb in room now - Objective Resuscitation Status: Resuscitation Status FULL:Full Resuscitation MAR Reviewed: Yes Vital Signs & Weight: Vital Signs (12 hours) Temp Pulse Resp BP BP Pulse Ox 05/12/17 08:42 77 105/73 05/12/17 07:55 97.9 F 77 16 105/73 96 05/12/17 05:12 97.9 F 77 18 102/71 97 05/12/17 00:54 97.8 F 75 18 108/81 98 Weight Weight 464 lb 1 oz I&O: 05/11/17 05/12/17 05/13/17 06:59 06:59 06:59 Intake Total 1500 1560 Output Total 1875 2600 Balance -375 -1040 Result Diagrams: 05/09/17 05:43 05/12/17 04:44 Additional Labs: Accuchecks 05/12/17 05/11/17 05/11/17 05:43 19:48 16:34 POC Glucose 84 100 79 05/11/17 11:40 POC Glucose 94 Phys Exam - Physical Examination HEENT: PERRLA, moist MMs Neck: no JVD, supple Respiratory: no wheezing, no rales Cardiovascular: RRR, no significant murmur Gastrointestinal: soft, non-tender, positive bowel sounds edema of abd wall and right breast Musculoskeletal: pulses present, edema present Neurological: non-focal, moves all 4 limbs Psychiatric: A&O x 3 Dx/Plan (1) CHF (congestive heart failure) Code(s): I50.9 - HEART FAILURE, UNSPECIFIED Status: Acute Qualifiers: Congestive heart failure type: unspecified congestive heart failure type Congestive heart failure chronicity: acute Qualified Code(s): I50.9 - Heart failure, unspecified (2) Hyperbilirubinemia Code(s): E80.6 - OTHER DISORDERS OF BILIRUBIN METABOLISM Status: Acute Comment: unclear etiology (3) DM II (diabetes mellitus, type II), controlled Code(s): E11.9 - TYPE 2 DIABETES MELLITUS WITHOUT COMPLICATIONS Status: Chronic Qualifiers: Diabetes mellitus complication status: with other specified complication Diabetes mellitus rn long term care insulin use: without rn long term care use Qualified Code( s): E11.69 - Type 2 diabetes mellitus with other specified complication (4) HTN (hypertension) Code(s): I10 - ESSENTIAL (PRIMARY) HYPERTENSION Status: Chronic Qualifiers: Hypertension type: essential hypertension Qualified Code(s): I10 - Essential (primary) hypertension Comment: Non-compliance with home regimen, titrate BP meds and adjust as clinically indicated (5) Morbid (severe) obesity due to excess calories Code(s): E66.01 - MORBID (SEVERE) OBESITY DUE TO EXCESS CALORIES Status: Chronic Comment: bmi of 77 - Plan start lasix drip as sbp is around 100-110 -: still has lot of anasarca, has lost nearly 34lbs this hosp -: has started to amb now -: will need diuresis for another 36hrs with close monitoring of her renal fun -: -ction, she lives alone with min support at home * . Review of Systems - Medications/Allergies Allergies/Adverse Reactions: Allergies Allergy/AdvReac Type Severity Reaction Status Date / Time No Known Allergies Allergy Verified 05/07/17 22:49 Medications: Current Medications Acetaminophen (Tylenol) 650 mg PO Q6H PRN PRN Reason: Pain Last Admin: 05/12/17 00:49 Dose: 650 mg Aspirin (Aspirin) 325 mg PO DAILY [facility] Last Admin: 05/12/17 08:41 Dose: 325 mg Bisacodyl (Dulcolax) 10 mg [place] Q24H PRN PRN Reason: Constipation Calcium Carbonate (Tums) 1,000 mg PO Q4H PRN PRN Reason: Heartburn or Indigestion Carvedilol (Coreg) 3.125 mg PO BID-[facility] Last Admin: 05/12/17 08:41 Dose: 3.125 mg Dextrose/Water (Dextrose 50%) 25 gm SLOW IVP PRN PRN PRN Reason: Hypoglycemia Docusate Sodium (Colace) 100 mg PO BID [facility] Last Admin: 05/12/17 08:42 Dose: 100 mg Enoxaparin Sodium (Lovenox) 40 mg SC 0900 [facility] Last Admin: 05/12/17 08:43 Dose: 40 mg Famotidine (Pepcid) 20 mg PO BID [facility] Last Admin: 05/12/17 08:43 Dose: 20 mg Glucagon (Glucagon) 1 mg IM PRN PRN PRN Reason: Hypoglycemia Hydralazine HCl (Apresoline) 10 mg SLOW IVP Q4H PRN PRN Reason: SBP Greater Than 180 Dextrose/Water (D5w) 1,000 mls @ 0 mls/hr IV .Q0M PRN; As Directed PRN Reason: Hypoglycemia Furosemide 100 mg/ Sodium (Chloride) 110 mls @ 4.4 mls/hr IVPB INF [facility] PRN Reason: 4 MG/HR Insulin Human Regular (Humulin R) 0 units SC .MILD SLIDING SCALE PRN PRN Reason: Mild Correctional Scale Insulin Human Regular (Humulin R) 0 units SC .BEDTIME SLIDING SC PRN PRN Reason: Bedtime Correctional Scale Lisinopril (Zestril) 2.5 mg PO DAILY [facility] Last Admin: 05/12/17 08:42 Dose: 2.5 mg Nystatin (Mycostatin Powder) 0 gm TOP BID [facility] Last Admin: 05/12/17 08:43 Dose: 1 applic Ondansetron HCl (Zofran Odt) 4 mg PO Q6H PRN PRN Reason: Nausea/Vomiting Last Admin: 05/11/17 17:38 Dose: 4 mg Ondansetron HCl (Zofran) 4 mg IVP Q6H PRN PRN Reason: Nausea/Vomiting Last Admin: 05/10/17 02:36 Dose: 4 mg Potassium Chloride (K-Dur) 20 meq PO QAM-WM [facility] Last Admin: 05/12/17 08:43 Dose: 20 meq Senna (Senokot) 2 tab PO HSPRN PRN PRN Reason: Constipation Last Admin: 05/10/17 09:40 Dose: 2 tab Sodium Chloride (Flush - Normal Saline) 10 ml IVF Q12HR [facility] Last Admin: 05/11/17 21:51 Dose: 10 ml Sodium Chloride (Flush - Normal Saline) 10 ml IVF PRN PRN PRN Reason: Saline Flush Last Admin: 05/09/17 14:43 Dose: 10 ml
[2017-05-12] MEDS ORDERED: Furosemide 100 MG in Sodium Chloride 0.9% 100 ML IVPB SCH (11:30)
[2017-05-12] MEDS ORDERED: Bumetanide 1 MG/4 ML VIAL IVP SCH (11:45)
[2017-05-12] MEDS ORDERED: Furosemide 100 mg/100 ml in NS IVPB SCH (15:15)
[2017-05-12 16:34] LABS: Anion Gap 13 mmol/L (10-20); BUN (Urea Nitrogen) 17 mg/dL (7.0-18.7); Calc. Creatinine Clearance 197 mL/min (70-130); Calcium 9.7 mg/dL (7.8-10.44); Carbon Dioxide 35 mmol/L (22-29); Chloride 98 mmol/L (98-107); Estimated GFR-MDRD 58; Glucose 96 mg/dL (70-105); Potassium 4.6 mmol/L (3.5-5.1); Sodium 141 mmol/L (136-145)
[2017-05-12] MEDS: Ondansetron ODT 4 MG TAB PO PRN (17:15)
[2017-05-12 17:40] LABS: Creatinine, Urine Less than 20.00 mg/dL (47-110); Protein, Urine Random Quant 24 mg/dL
--- NOTE | 2017-05-13 01:04 | CON ---
DATE OF CONSULTATION: 05/12/2017 REASON FOR CONSULTATION: Proteinuria, elevated creatinine, and massive anasarca. HISTORY OF PRESENT ILLNESS: This is a very pleasant 42-year-old female, who was admitted on 05/07/19 8 with a creatinine of around 1 with generalized weakness and anasarca. The patient has a history of diabetes mellitus and severe morbid obesity. The patient had the failed diuretic therapy. The day ent has orthopnea, PND, and severe dyspnea on minimal exertion. PAST MEDICAL HISTORY: Significant for morbid obesity, hypertension, anxiety, degenerative joint dise ase, depression, and sleep apnea. PAST SURGICAL HISTORY: HOME MEDICATIONS: Reviewed. ALLERGIES: Reviewed. REVIEW OF SYSTEMS: Fifteen-point review of systems was performed and negative except positives noted above GENERAL: Weakness. HEAD: Headache- NECK: No swelling or lumps. NOSE: No epistaxis or discharge. EYES: No diplopia or pain. 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 NEUROPSYCHIATIC SYSTEMS: No suicidal ideation. No ideation. SKIN: Denies any rash or ulcer. CONSTITUTIONAL: No fever or chills. PHYSICAL EXAMINATION: GENERAL: Patient is awake and alert. VITAL SIGNS: Afebrile, pulse 70, breathing 16, blood pressure was 110/70. GENERAL APPEARANCE AND MENTAL STATUS: Fair. HEAD/NECK: Normocephalic. Atraumatic. EYES: EOMI. No deformity. EARS: Clear. No ulcers. NOSE: Intact. No lesions. MOUTH: Clear. No discharge. THROAT: Clear. No exudate. LUNGS: Clear. No crackles. CARDIAC: S1, S2. No rub. ABDOMEN: Benign. BS+. GENITALIA/RECTUM: Olson absent. BACK/EXTREMITIES: Lower extremities 4+ edema. Ulcer-. NEUROLOGICAL: Alert and motor intact. SKIN: Rash- Bruise-. LYMPHATICS: Edema- Ulcer-. LABORATORY DATA: Show creatinine was 1.2, potassium was 4.5. ASSESSMENT AND RECOMMENDATIONS: 1. Acute kidney injury with chronic kidney disease due to massive edema and proteinuria, most likely due to diabetic nephropathy versus underlying . I agree with Lasix drip at 4-6 mg per hour and gradually titrate upward as tolerated by blood pressure and also start Bumex. 2. Anemia, stable. 3. Hypertension, stable. 4. Metabolic alkalosis. We would recommend getting a blood gas. 5. Anemia, stable. 6. Medications based on glomerular filtration rate are appropriate. No indication for dialysis at t his time. Overall, prognosis is extremely poor.
[2017-05-13] MEDS: Acetaminophen 325 MG TAB PO PRN (05:50)
[2017-05-13 06:27] LABS: ALT (SGPT) 20 U/L (8-55); AST (SGOT) 16 U/L (5-34); Albumin 3.6 g/dL (3.5-5.0); Alkaline Phosphatase 75 U/L (40-150); Anion Gap 14 mmol/L (10-20); BUN (Urea Nitrogen) 17 mg/dL (7.0-18.7); Bilirubin, Total 10.4 mg/dL (0.2-1.2); Calc. Creatinine Clearance 191 mL/min (70-130); Calcium 9.9 mg/dL (7.8-10.44); Carbon Dioxide 36 mmol/L (22-29); Chloride 97 mmol/L (98-107); Estimated GFR-MDRD 56; Globulin 2.7 g/dL (2.4-3.5); Glucose 90 mg/dL (70-105); Potassium 4.6 mmol/L (3.5-5.1); Protein, Total 6.3 g/dL (6.0-8.3); Sodium 142 mmol/L (136-145)
[2017-05-13] MEDS: Famotidine 20 MG TAB PO SCH ×2 (07:58→20:49)
[2017-05-13] MEDS: Enoxaparin Sodium 40 MG/0.4 ML SYRINGE SC SCH (07:58)
[2017-05-13] MEDS: Docusate 100 MG CAP PO SCH ×2 (07:58→20:49)
[2017-05-13] MEDS: Carvedilol 3.125 MG TAB PO SCH ×2 (07:58→18:15)
[2017-05-13] MEDS: Potassium Chloride 20 MEQ TAB PO SCH (07:58)
[2017-05-13] MEDS: Aspirin 325 MG TAB PO SCH (07:59)
[2017-05-13] MEDS: Lisinopril 2.5 MG TAB PO SCH (07:59)
[2017-05-13] MEDS: Nystatin Powder 15 GM BOT TOP SCH ×2 (08:00→20:49)
--- NOTE | 2017-05-13 10:15 | PDOC.PN ---
- Subjective Encounter Start Date: 05/13/17 Encounter Start Time: 07:15 Subjective: no sob, has diuresed overnight well -: adviced to turn towards right lat position to let her left breast edema rec -: -ramin - Objective Resuscitation Status: Resuscitation Status FULL:Full Resuscitation MAR Reviewed: Yes Vital Signs & Weight: Vital Signs (12 hours) Temp Pulse Resp BP BP Pulse Ox 05/13/17 08:00 98.2 F 79 05/13/17 07:59 78 97/65 05/13/17 06:00 97.9 F 80 18 96/64 99 05/13/17 04:00 98.1 F 82 18 95/65 99 05/13/17 02:00 97.9 F 89 18 94/64 98 05/13/17 00:00 98.1 F 90 18 96/64 98 Weight Weight 464 lb 1 oz I&O: 05/12/17 05/13/17 05/14/17 06:59 06:59 06:59 Intake Total 1560 1409.2 Output Total 2600 7650 Balance -1040 -6240.8 Result Diagrams: 05/09/17 05:43 05/13/17 05:32 Additional Labs: Accuchecks 05/13/17 05/12/17 05/12/17 05:49 20:11 16:49 POC Glucose 94 77 104 05/12/17 11:29 POC Glucose 85 Phys Exam - Physical Examination HEENT: PERRLA, moist MMs Neck: no JVD, supple Respiratory: no wheezing, no rales Cardiovascular: RRR, no significant murmur Gastrointestinal: soft, non-tender, positive bowel sounds Musculoskeletal: pulses present, edema present Neurological: non-focal, moves all 4 limbs Psychiatric: A&O x 3 Dx/Plan (1) CHF (congestive heart failure) Code(s): I50.9 - HEART FAILURE, UNSPECIFIED Status: Acute Qualifiers: Qualified Code(s): I50.9 - Heart failure, unspecified (2) Hyperbilirubinemia Code(s): E80.6 - OTHER DISORDERS OF BILIRUBIN METABOLISM Status: Acute Comment: unclear etiology (3) DM II (diabetes mellitus, type II), controlled Code(s): E11.9 - TYPE 2 DIABETES MELLITUS WITHOUT COMPLICATIONS Status: Chronic Qualifiers: Diabetes mellitus complication status: with other specified complication Diabetes mellitus [facility] insulin use: without supervisor intermediates use Qualified Code( s): E11.69 - Type 2 diabetes mellitus with other specified complication (4) HTN (hypertension) Code(s): I10 - ESSENTIAL (PRIMARY) HYPERTENSION Status: Chronic Qualifiers: Hypertension type: essential hypertension Qualified Code(s): I10 - Essential (primary) hypertension Comment: Non-compliance with home regimen, titrate BP meds and adjust as clinically indicated (5) Morbid (severe) obesity due to excess calories Code(s): E66.01 - MORBID (SEVERE) OBESITY DUE TO EXCESS CALORIES Status: Chronic Comment: bmi of 77 (6) Anasarca Code(s): R60.1 - GENERALIZED EDEMA Status: Acute - Plan still has massive anasarca -: continue lasix drip, watch for renal function -: sbp around 90's and stable -: to mobilize oob to chair and ambulate -: small dose of coreg, hold lisinopril for now * . Review of Systems - Medications/Allergies Allergies/Adverse Reactions: Allergies Allergy/AdvReac Type Severity Reaction Status Date / Time No Known Allergies Allergy Verified 05/07/17 22:49 Medications: Current Medications Acetaminophen (Tylenol) 650 mg PO Q6H PRN PRN Reason: Pain Last Admin: 05/13/17 05:50 Dose: 650 mg Aspirin (Aspirin) 325 mg PO DAILY [facility] Last Admin: 05/13/17 07:59 Dose: 325 mg Bisacodyl (Dulcolax) 10 mg [place] Q24H PRN PRN Reason: Constipation Calcium Carbonate (Tums) 1,000 mg PO Q4H PRN PRN Reason: Heartburn or Indigestion Carvedilol (Coreg) 3.125 mg PO BID-[facility] Last Admin: 05/13/17 07:58 Dose: 3.125 mg Dextrose/Water (Dextrose 50%) 25 gm SLOW IVP PRN PRN PRN Reason: Hypoglycemia Docusate Sodium (Colace) 100 mg PO BID [facility] Last Admin: 05/13/17 07:58 Dose: 100 mg Enoxaparin Sodium (Lovenox) 40 mg SC 0900 [facility] Last Admin: 05/13/17 07:58 Dose: 40 mg Famotidine (Pepcid) 20 mg PO BID [facility] Last Admin: 05/13/17 07:58 Dose: 20 mg Glucagon (Glucagon) 1 mg IM PRN PRN PRN Reason: Hypoglycemia Hydralazine HCl (Apresoline) 10 mg SLOW IVP Q4H PRN PRN Reason: SBP Greater Than 180 Dextrose/Water (D5w) 1,000 mls @ 0 mls/hr IV .Q0M PRN; As Directed PRN Reason: Hypoglycemia Furosemide 100 mg/ Sodium (Chloride) 110 mls @ 3.3 mls/hr IVPB INF [facility] PRN Reason: 3 MG/HR Insulin Human Regular (Humulin R) 0 units SC .MILD SLIDING SCALE PRN PRN Reason: Mild Correctional Scale Insulin Human Regular (Humulin R) 0 units SC .BEDTIME SLIDING SC PRN PRN Reason: Bedtime Correctional Scale Lisinopril (Zestril) 2.5 mg PO DAILY [facility] Last Admin: 05/13/17 07:59 Dose: 2.5 mg Nystatin (Mycostatin Powder) 0 gm TOP BID [facility] Last Admin: 05/13/17 08:00 Dose: 1 applic Ondansetron HCl (Zofran Odt) 4 mg PO Q6H PRN PRN Reason: Nausea/Vomiting Last Admin: 05/12/17 17:15 Dose: 4 mg Ondansetron HCl (Zofran) 4 mg IVP Q6H PRN PRN Reason: Nausea/Vomiting Last Admin: 05/10/17 02:36 Dose: 4 mg Potassium Chloride (K-Dur) 20 meq PO QAM-WM [facility] Last Admin: 05/13/17 07:58 Dose: 20 meq Senna (Senokot) 2 tab PO HSPRN PRN PRN Reason: Constipation Last Admin: 05/10/17 09:40 Dose: 2 tab Sodium Chloride (Flush - Normal Saline) 10 ml IVF Q12HR [facility] Last Admin: 05/13/17 08:00 Dose: 10 ml Sodium Chloride (Flush - Normal Saline) 10 ml IVF PRN PRN PRN Reason: Saline Flush Last Admin: 05/09/17 14:43 Dose: 10 ml
--- NOTE | 2017-05-13 10:27 | PRG ---
DATE OF SERVICE: 05/13/2017 SUBJECTIVE: This is a 42-year-old female being seen for acute kidney injury and massive edema. The patient denies any nausea, vomiting or chest pain. The patient has lost 6 pounds. PHYSICAL EXAMINATION: GENERAL: The patient is awake, alert. VITAL SIGNS: Afebrile, pulse 79, breathing at 16, blood pressure 97/65. OBJECTIVE: See above. Awake, alert, in no acute distress. GENERAL APPEARANCE AND MENTAL STATUS: Fair. HEAD/NECK: Normocephalic. Atraumatic. EYES: EOMI. No deformity. EARS: Clear. No ulcers. NOSE: Intact. No lesions. MOUTH: Clear. No discharge. THROAT: Clear. No exudate. LUNGS: Clear. No crackles. CARDIAC: S1, S2. No rub. ABDOMEN: Benign. BS+. GENITALIA/RECTUM: Olson absent. BACK/EXTREMITIES: Edema 3+ which appears improved. Ulcer- NEUROLOGICAL: Alert and motor intact. SKIN: Rash- Bruise- LYMPHATICS: Edema- Ulcer- LABORATORY: Creatinine 1.2, potassium 4.6, bicarbonate 36. ASSESSMENT AND RECOMMENDATIONS: 1. Chronic kidney disease stage 3, stable. 2. Hypertension, stable. 3. Edema, decrease the Lasix to 4 mg per hour.
[2017-05-14] MEDS: Ondansetron HCl/PF 4 MG/2 ML Vial IVP PRN ×2 (00:10→22:46)
[2017-05-14] MEDS: Acetaminophen 325 MG TAB PO PRN ×2 (05:41→10:00)
[2017-05-14] MEDS: Furosemide 100 MG in Sodium Chloride 0.9% 100 ML IVPB SCH (05:41)
[2017-05-14 06:27] LABS: Anion Gap 13 mmol/L (10-20); BUN (Urea Nitrogen) 17 mg/dL (7.0-18.7); Calc. Creatinine Clearance 191 mL/min (70-130); Calcium 9.9 mg/dL (7.8-10.44); Carbon Dioxide 37 mmol/L (22-29); Chloride 94 mmol/L (98-107); Estimated GFR-MDRD 57; Glucose 87 mg/dL (70-105); Potassium 4.3 mmol/L (3.5-5.1); Sodium 140 mmol/L (136-145)
[2017-05-14] MEDS: Carvedilol 3.125 MG TAB PO SCH ×2 (09:27→18:10)
[2017-05-14] MEDS: Potassium Chloride 20 MEQ TAB PO SCH (09:27)
[2017-05-14] MEDS: Aspirin 325 MG TAB PO SCH (09:28)
[2017-05-14] MEDS: Docusate 100 MG CAP PO SCH ×2 (09:28→21:30)
[2017-05-14] MEDS: Enoxaparin Sodium 40 MG/0.4 ML SYRINGE SC SCH (09:28)
[2017-05-14] MEDS: Famotidine 20 MG TAB PO SCH ×2 (09:28→21:30)
[2017-05-14] MEDS: Nystatin Powder 15 GM BOT TOP SCH ×2 (09:29→21:30)
--- NOTE | 2017-05-14 12:46 | PDOC.PN ---
- Subjective Encounter Start Date: 05/14/17 Encounter Start Time: 10:00 Subjective: feels better -: is sitting on bed - Objective Resuscitation Status: Resuscitation Status FULL:Full Resuscitation MAR Reviewed: Yes Vital Signs & Weight: Vital Signs (12 hours) Temp Pulse Resp BP Pulse Ox 05/14/17 11:52 97.7 F 77 18 134/84 98 05/14/17 10:07 78 113/78 05/14/17 08:00 98.2 F 84 14 120/74 94 L 05/14/17 06:00 97.8 F 87 16 99/65 94 L 05/14/17 04:41 97.8 F 81 16 94/60 98 05/14/17 02:34 99/65 05/14/17 00:50 97.8 F 81 16 105/70 91 L Weight Weight 461 lb 8 oz I&O: 05/13/17 05/14/17 05/15/17 06:59 06:59 06:59 Intake Total 1409.2 1288 Output Total 7650 4075 Balance -6240.8 -2787 Result Diagrams: 05/09/17 05:43 05/14/17 05:32 Additional Labs: Accuchecks 05/14/17 05/13/17 05/13/17 05:29 20:44 15:53 POC Glucose 91 109 100 Phys Exam - Physical Examination HEENT: PERRLA, moist MMs Neck: no nodes, no JVD Respiratory: no wheezing, no rales Cardiovascular: RRR, no significant murmur Gastrointestinal: soft, non-tender, positive bowel sounds Musculoskeletal: pulses present, edema present Neurological: non-focal, moves all 4 limbs Psychiatric: A&O x 3 Dx/Plan (1) CHF (congestive heart failure) Code(s): I50.9 - HEART FAILURE, UNSPECIFIED Status: Acute Qualifiers: Qualified Code(s): I50.9 - Heart failure, unspecified (2) Hyperbilirubinemia Code(s): E80.6 - OTHER DISORDERS OF BILIRUBIN METABOLISM Status: Acute Comment: unclear etiology (3) DM II (diabetes mellitus, type II), controlled Code(s): E11.9 - TYPE 2 DIABETES MELLITUS WITHOUT COMPLICATIONS Status: Chronic Qualifiers: Diabetes mellitus complication status: with other specified complication Diabetes mellitus penitentiary insulin use: without visual merchandiser use Qualified Code( s): E11.69 - Type 2 diabetes mellitus with other specified complication (4) HTN (hypertension) Code(s): I10 - ESSENTIAL (PRIMARY) HYPERTENSION Status: Chronic Qualifiers: Hypertension type: essential hypertension Qualified Code(s): I10 - Essential (primary) hypertension Comment: Non-compliance with home regimen, titrate BP meds and adjust as clinically indicated (5) Morbid (severe) obesity due to excess calories Code(s): E66.01 - MORBID (SEVERE) OBESITY DUE TO EXCESS CALORIES Status: Chronic Comment: bmi of 77 (6) Anasarca Code(s): R60.1 - GENERALIZED EDEMA Status: Acute - Plan continue lasix drip -: is diuresing well -: still has lot of edema everywhere including right breast -: to amb as tolerated -: small dose of coreg, labs in am * . Review of Systems - Medications/Allergies Allergies/Adverse Reactions: Allergies Allergy/AdvReac Type Severity Reaction Status Date / Time No Known Allergies Allergy Verified 05/07/17 22:49 Medications: Current Medications Acetaminophen (Tylenol) 650 mg PO Q6H PRN PRN Reason: Pain Last Admin: 05/14/17 10:00 Dose: 650 mg Aspirin (Aspirin) 325 mg PO DAILY [facility] Last Admin: 05/14/17 09:28 Dose: 325 mg Bisacodyl (Dulcolax) 10 mg [place] Q24H PRN PRN Reason: Constipation Calcium Carbonate (Tums) 1,000 mg PO Q4H PRN PRN Reason: Heartburn or Indigestion Carvedilol (Coreg) 3.125 mg PO BID-[facility] Last Admin: 05/14/17 09:27 Dose: 3.125 mg Dextrose/Water (Dextrose 50%) 25 gm SLOW IVP PRN PRN PRN Reason: Hypoglycemia Docusate Sodium (Colace) 100 mg PO BID [facility] Last Admin: 05/14/17 09:28 Dose: 100 mg Enoxaparin Sodium (Lovenox) 40 mg SC 0900 [facility] Last Admin: 05/14/17 09:28 Dose: 40 mg Famotidine (Pepcid) 20 mg PO BID [facility] Last Admin: 05/14/17 09:28 Dose: 20 mg Glucagon (Glucagon) 1 mg IM PRN PRN PRN Reason: Hypoglycemia Hydralazine HCl (Apresoline) 10 mg SLOW IVP Q4H PRN PRN Reason: SBP Greater Than 180 Dextrose/Water (D5w) 1,000 mls @ 0 mls/hr IV .Q0M PRN; As Directed PRN Reason: Hypoglycemia Furosemide 100 mg/ Sodium (Chloride) 110 mls @ 3.3 mls/hr IVPB INF [facility] PRN Reason: 3 MG/HR Last Admin: 05/14/17 05:41 Dose: 110 mls Insulin Human Regular (Humulin R) 0 units SC .MILD SLIDING SCALE PRN PRN Reason: Mild Correctional Scale Insulin Human Regular (Humulin R) 0 units SC .BEDTIME SLIDING SC PRN PRN Reason: Bedtime Correctional Scale Nystatin (Mycostatin Powder) 0 gm TOP BID [facility] Last Admin: 05/14/17 09:29 Dose: 1 applic Ondansetron HCl (Zofran Odt) 4 mg PO Q6H PRN PRN Reason: Nausea/Vomiting Last Admin: 05/12/17 17:15 Dose: 4 mg Ondansetron HCl (Zofran) 4 mg IVP Q6H PRN PRN Reason: Nausea/Vomiting Last Admin: 05/14/17 00:10 Dose: 4 mg Potassium Chloride (K-Dur) 20 meq PO QAM-WM [facility] Last Admin: 05/14/17 09:27 Dose: 20 meq Senna (Senokot) 2 tab PO HSPRN PRN PRN Reason: Constipation Last Admin: 05/10/17 09:40 Dose: 2 tab Sodium Chloride (Flush - Normal Saline) 10 ml IVF Q12HR [facility] Last Admin: 05/14/17 09:56 Dose: Not Given Sodium Chloride (Flush - Normal Saline) 10 ml IVF PRN PRN PRN Reason: Saline Flush Last Admin: 05/09/17 14:43 Dose: 10 ml
--- NOTE | 2017-05-14 17:13 | PRG ---
DATE OF SERVICE: 05/14/2017 SUBJECTIVE: This is a 42-year-old female being seen for CKD stage 3 and edema. The patient denies a ny nausea, vomiting, or chest pain. OBJECTIVE: GENERAL: Patient is awake, alert. VITAL SIGNS: Afebrile, pulse 75, respirations 16, blood pressure 180/77. GENERAL APPEARANCE AND MENTAL STATUS: Fair. HEAD/NECK: Normocephalic. Atraumatic. EYES: EOMI. No deformity. EARS: Clear. No ulcers. NOSE: Intact. No lesions. MOUTH: Clear. No discharge. THROAT: Clear. No exudate. LUNGS: Clear. No crackles. CARDIAC: S1, S2. No rub. ABDOMEN: Benign. BS+. GENITALIA/RECTUM: Olson absent. BACK/EXTREMITIES: Edema 0+ Ulcer- NEUROLOGICAL: Alert and motor intact. SKIN: Rash- Bruise- LYMPHATICS: Edema- Ulcer- LABORATORY: Lab show hemoglobin 12.2, creatinine 1.2. ASSESSMENT AND RECOMMENDATIONS: 1. Chronic kidney disease stage 3, stable. 2. Hypertension, stable. 3. Congestive heart failure. 4. Edema, stable. Continue diuresis and Lasix. Can change the Lasix to p.o. in the morning.
[2017-05-15 06:28] LABS: BUN (Urea Nitrogen) 18 mg/dL (7.0-18.7); Calc. Creatinine Clearance 172 mL/min (70-130); Calcium 9.8 mg/dL (7.8-10.44); Estimated GFR-MDRD 52; Glucose 97 mg/dL (70-105)
[2017-05-15 06:37] LABS: Anion Gap 16 mmol/L (10-20); Carbon Dioxide 35 mmol/L (22-29); Chloride 94 mmol/L (98-107); Potassium 4.2 mmol/L (3.5-5.1); Sodium 141 mmol/L (136-145)
[2017-05-15] MEDS: Ondansetron HCl/PF 4 MG/2 ML Vial IVP PRN ×2 (07:14→21:33)
[2017-05-15] MEDS: Potassium Chloride 20 MEQ TAB PO SCH (08:14)
[2017-05-15] MEDS: Carvedilol 3.125 MG TAB PO SCH ×2 (08:14→16:39)
[2017-05-15] MEDS: Docusate 100 MG CAP PO SCH ×2 (08:39→21:33)
[2017-05-15] MEDS: Aspirin 325 MG TAB PO SCH (08:39)
[2017-05-15] MEDS: Nystatin Powder 15 GM BOT TOP SCH ×2 (08:40→21:34)
[2017-05-15] MEDS: Famotidine 20 MG TAB PO SCH ×2 (08:40→21:33)
[2017-05-15] MEDS: Enoxaparin Sodium 40 MG/0.4 ML SYRINGE SC SCH (08:40)
--- NOTE | 2017-05-15 09:47 | PRG ---
DATE OF SERVICE: 05/15/2017 SUBJECTIVE: This is a 42-year-old female being seen for congestive heart failure and massive edema. The patient denies any nausea, vomiting or chest pain. OBJECTIVE: GENERAL: Patient is awake, alert. VITAL SIGNS: Afebrile, pulse 75, breathing 16, blood pressure 102/65. GENERAL APPEARANCE AND MENTAL STATUS: Fair. HEAD/NECK: Normocephalic. Atraumatic. EYES: EOMI. No deformity. EARS: Clear. No ulcers. NOSE: Intact. No lesions. MOUTH: Clear. No discharge. THROAT: Clear. No exudate. LUNGS: Clear. No crackles. CARDIAC: S1, S2. No rub. ABDOMEN: Benign. BS+. GENITALIA/RECTUM: Olson absent. BACK/EXTREMITIES: Edema 0+ Ulcer- NEUROLOGICAL: Alert and motor intact. SKIN: Rash- Bruise- LYMPHATICS: Edema- Ulcer- LABORATORY: Hemoglobin 12.2, creatinine 1.2. RECOMMENDATIONS: 1. Acute kidney injury with chronic kidney disease due to cardiorenal syndrome. 2. Massive edema. Continue diuresis. Proteinuria controlled. The patient is not a candidate for a renal biopsy. 3. Hypertension, stable. Continue Lasix drip, can be changed to p.o. at appropriate time. I would follow the creatinine closely. If creatinine increases to more than 1.6, I would decrease the Lasix.
[2017-05-15] MEDS: Furosemide 100 MG in Sodium Chloride 0.9% 100 ML IVPB SCH (11:15)
--- NOTE | 2017-05-15 12:19 | PDOC.PN ---
- Subjective Encounter Start Date: 05/15/17 Encounter Start Time: 08:45 Subjective: feels better - Objective Resuscitation Status: Resuscitation Status FULL:Full Resuscitation MAR Reviewed: Yes Vital Signs & Weight: Vital Signs (12 hours) Temp Pulse Resp BP Pulse Ox 05/15/17 11:50 97.7 F 84 18 123/85 05/15/17 08:00 97.6 F 75 18 108/65 99 05/15/17 04:20 95 05/15/17 04:11 98.1 F 78 18 100/68 96 05/15/17 00:43 97.9 F 80 18 110/68 97 Weight Weight 452 lb 4.8 oz I&O: 05/14/17 05/15/17 05/16/17 06:59 06:59 06:59 Intake Total 1288 830 Output Total 4285 6075 [id number] Result Diagrams: 05/09/17 05:43 05/15/17 05:39 Additional Labs: Accuchecks 05/15/17 05/15/17 05/14/17 11:04 04:14 19:43 POC Glucose 116 H 112 H 114 H 05/14/17 05/14/17 15:53 11:30 POC Glucose 105 89 Phys Exam - Physical Examination HEENT: PERRLA, moist MMs Neck: no JVD, supple Respiratory: no wheezing, no rales Cardiovascular: RRR, no significant murmur Gastrointestinal: soft, non-tender, positive bowel sounds Musculoskeletal: pulses present, edema present Neurological: non-focal, moves all 4 limbs Psychiatric: A&O x 3 Dx/Plan (1) CHF (congestive heart failure) Code(s): I50.9 - HEART FAILURE, UNSPECIFIED Status: Acute Qualifiers: Qualified Code(s): I50.9 - Heart failure, unspecified (2) Hyperbilirubinemia Code(s): E80.6 - OTHER DISORDERS OF BILIRUBIN METABOLISM Status: Acute Comment: unclear etiology (3) DM II (diabetes mellitus, type II), controlled Code(s): E11.9 - TYPE 2 DIABETES MELLITUS WITHOUT COMPLICATIONS Status: Chronic Qualifiers: Diabetes mellitus complication status: with other specified complication Diabetes mellitus continuous churn buttermaker insulin use: without shelter use Qualified Code( s): E11.69 - Type 2 diabetes mellitus with other specified complication (4) HTN (hypertension) Code(s): I10 - ESSENTIAL (PRIMARY) HYPERTENSION Status: Chronic Qualifiers: Hypertension type: essential hypertension Qualified Code(s): I10 - Essential (primary) hypertension Comment: Non-compliance with home regimen, titrate BP meds and adjust as clinically indicated (5) Morbid (severe) obesity due to excess calories Code(s): E66.01 - MORBID (SEVERE) OBESITY DUE TO EXCESS CALORIES Status: Chronic Comment: bmi of 77 (6) Anasarca Code(s): R60.1 - GENERALIZED EDEMA Status: Acute - Plan continue lasix drip -: diuresing well -: has lost a total of around 50lbs since admission -: small dose of coreg -: to amb as tolerated * . Review of Systems - Medications/Allergies Allergies/Adverse Reactions: Allergies Allergy/AdvReac Type Severity Reaction Status Date / Time No Known Allergies Allergy Verified 05/07/17 22:49 Medications: Current Medications Acetaminophen (Tylenol) 650 mg PO Q6H PRN PRN Reason: Pain Last Admin: 05/14/17 10:00 Dose: 650 mg Aspirin (Aspirin) 325 mg PO DAILY [facility] Last Admin: 05/15/17 08:39 Dose: 325 mg Bisacodyl (Dulcolax) 10 mg [place] Q24H PRN PRN Reason: Constipation Calcium Carbonate (Tums) 1,000 mg PO Q4H PRN PRN Reason: Heartburn or Indigestion Carvedilol (Coreg) 3.125 mg PO BID-[facility] Last Admin: 05/15/17 08:14 Dose: 3.125 mg Dextrose/Water (Dextrose 50%) 25 gm SLOW IVP PRN PRN PRN Reason: Hypoglycemia Docusate Sodium (Colace) 100 mg PO BID [facility] Last Admin: 05/15/17 08:39 Dose: 100 mg Enoxaparin Sodium (Lovenox) 40 mg SC 0900 [facility] Last Admin: 05/15/17 08:40 Dose: 40 mg Famotidine (Pepcid) 20 mg PO BID [facility] Last Admin: 05/15/17 08:40 Dose: 20 mg Glucagon (Glucagon) 1 mg IM PRN PRN PRN Reason: Hypoglycemia Hydralazine HCl (Apresoline) 10 mg SLOW IVP Q4H PRN PRN Reason: SBP Greater Than 180 Dextrose/Water (D5w) 1,000 mls @ 0 mls/hr IV .Q0M PRN; As Directed PRN Reason: Hypoglycemia Furosemide 100 mg/ Sodium (Chloride) 110 mls @ 3.3 mls/hr IVPB INF MAKENZIE PRN Reason: 3 MG/HR Last Admin: 05/15/17 11:15 Dose: 110 mls Insulin Human Regular (Humulin R) 0 units SC .MILD SLIDING SCALE PRN PRN Reason: Mild Correctional Scale Insulin Human Regular (Humulin R) 0 units SC .BEDTIME SLIDING SC PRN PRN Reason: Bedtime Correctional Scale Nystatin (Mycostatin Powder) 0 gm TOP BID [facility] Last Admin: 05/15/17 08:40 Dose: 1 applic Ondansetron HCl (Zofran Odt) 4 mg PO Q6H PRN PRN Reason: Nausea/Vomiting Last Admin: 05/12/17 17:15 Dose: 4 mg Ondansetron HCl (Zofran) 4 mg IVP Q6H PRN PRN Reason: Nausea/Vomiting Last Admin: 05/15/17 07:14 Dose: 4 mg Potassium Chloride (K-Dur) 20 meq PO QAM-WM [facility] Last Admin: 05/15/17 08:14 Dose: 20 meq Senna (Senokot) 2 tab PO HSPRN PRN PRN Reason: Constipation Last Admin: 05/10/17 09:40 Dose: 2 tab Sodium Chloride (Flush - Normal Saline) 10 ml IVF Q12HR [facility] Last Admin: 05/15/17 10:21 Dose: Not Given Sodium Chloride (Flush - Normal Saline) 10 ml IVF PRN PRN PRN Reason: Saline Flush Last Admin: 05/09/17 14:43 Dose: 10 ml
[2017-05-16] MEDS: Acetaminophen 325 MG TAB PO PRN ×2 (00:09→21:25)
[2017-05-16 06:14] LABS: BUN (Urea Nitrogen) 18 mg/dL (7.0-18.7); Calc. Creatinine Clearance 168 mL/min (70-130); Estimated GFR-MDRD 50; Glucose 77 mg/dL (70-105)
[2017-05-16 06:24] LABS: Anion Gap 17 mmol/L (10-20); Carbon Dioxide 36 mmol/L (22-29); Chloride 92 mmol/L (98-107); Sodium 141 mmol/L (136-145)
[2017-05-16] MEDS: Docusate 100 MG CAP PO SCH ×2 (07:55→21:25)
[2017-05-16] MEDS: Aspirin 325 MG TAB PO SCH (07:55)
[2017-05-16] MEDS: Enoxaparin Sodium 40 MG/0.4 ML SYRINGE SC SCH (07:55)
[2017-05-16] MEDS: Carvedilol 3.125 MG TAB PO SCH ×2 (07:55→17:14)
[2017-05-16] MEDS: Famotidine 20 MG TAB PO SCH ×2 (07:55→21:25)
[2017-05-16] MEDS: Potassium Chloride 20 MEQ TAB PO SCH (07:55)
[2017-05-16] MEDS: Nystatin Powder 15 GM BOT TOP SCH ×2 (07:56→21:26)
[2017-05-16] MEDS ORDERED: Furosemide 100 MG in Sodium Chloride 0.9% 100 ML IVPB SCH (09:17)
[2017-05-16] MEDS ORDERED: Furosemide 100 MG in Sodium Chloride 0.9% 90 ML IVPB SCH (09:30)
--- NOTE | 2017-05-16 10:50 | PDOC.PN ---
- Subjective Encounter Start Date: 05/16/17 Encounter Start Time: 10:00 Subjective: breathing better, has amb once in the hallway yesterday -: no dizziness -: left breast edema is receding - Objective Resuscitation Status: Resuscitation Status FULL:Full Resuscitation MAR Reviewed: Yes Vital Signs & Weight: Vital Signs (12 hours) Temp Pulse Resp BP Pulse Ox 05/16/17 08:30 97.6 F 78 20 97 05/16/17 07:44 97.6 F 78 20 115/76 97 05/16/17 05:23 97.9 F 56 L 18 115/79 93 L 05/16/17 05:19 97 05/16/17 00:20 97.8 F 85 18 126/80 97 Weight Weight 441 lb 1.014 oz I&O: 05/15/17 05/16/17 05/17/17 06:59 06:59 06:59 Intake Total 830 1279.2 Output Total 6075 6900 Balance -5245 -5620.8 Result Diagrams: 05/09/17 05:43 05/16/17 04:43 Additional Labs: Accuchecks 05/16/17 05/15/17 05/15/17 03:24 20:50 16:18 POC Glucose 101 101 88 05/15/17 11:04 POC Glucose 116 H Phys Exam - Physical Examination HEENT: PERRLA, moist MMs Neck: no JVD, supple Respiratory: no wheezing, no rales Cardiovascular: RRR, no significant murmur Gastrointestinal: soft, non-tender, positive bowel sounds Musculoskeletal: pulses present, edema present Neurological: non-focal, moves all 4 limbs Psychiatric: A&O x 3 Dx/Plan (1) CHF (congestive heart failure) Code(s): I50.9 - HEART FAILURE, UNSPECIFIED Status: Acute (2) Hyperbilirubinemia Code(s): E80.6 - OTHER DISORDERS OF BILIRUBIN METABOLISM Status: Acute Comment: unclear etiology (3) DM II (diabetes mellitus, type II), controlled Code(s): E11.9 - TYPE 2 DIABETES MELLITUS WITHOUT COMPLICATIONS Status: Chronic Qualifiers: Diabetes mellitus complication status: with other specified complication Diabetes mellitus terminal supervisor insulin use: without terminal supervisor use Qualified Code( s): E11.69 - Type 2 diabetes mellitus with other specified complication (4) HTN (hypertension) Code(s): I10 - ESSENTIAL (PRIMARY) HYPERTENSION Status: Chronic Qualifiers: Hypertension type: essential hypertension Qualified Code(s): I10 - Essential (primary) hypertension Comment: Non-compliance with home regimen, titrate BP meds and adjust as clinically indicated (5) Morbid (severe) obesity due to excess calories Code(s): E66.01 - MORBID (SEVERE) OBESITY DUE TO EXCESS CALORIES Status: Chronic Comment: bmi of 77 (6) Anasarca Code(s): R60.1 - GENERALIZED EDEMA Status: Acute - Plan continue lasix drip, is diuresing well -: renal function is holding up -: has lost sig amount of anasarca, still has around the upper thighs, abd and -: -left breast area -: small dose of coreg, watch for electrolytes * . Review of Systems - Medications/Allergies Allergies/Adverse Reactions: Allergies Allergy/AdvReac Type Severity Reaction Status Date / Time No Known Allergies Allergy Verified 05/07/17 22:49 Medications: Current Medications Acetaminophen (Tylenol) 650 mg PO Q6H PRN PRN Reason: Pain Last Admin: 05/16/17 00:09 Dose: 650 mg Aspirin (Aspirin) 325 mg PO DAILY [facility] Last Admin: 05/16/17 07:55 Dose: 325 mg Bisacodyl (Dulcolax) 10 mg SC Q24H PRN PRN Reason: Constipation Calcium Carbonate (Tums) 1,000 mg PO Q4H PRN PRN Reason: Heartburn or Indigestion Carvedilol (Coreg) 3.125 mg PO BID-[facility] Last Admin: 05/16/17 07:55 Dose: 3.125 mg Dextrose/Water (Dextrose 50%) 25 gm SLOW IVP PRN PRN PRN Reason: Hypoglycemia Docusate Sodium (Colace) 100 mg PO BID [facility] Last Admin: 05/16/17 07:55 Dose: 100 mg Enoxaparin Sodium (Lovenox) 40 mg SC 0900 [facility] Last Admin: 05/16/17 07:55 Dose: 40 mg Famotidine (Pepcid) 20 mg PO BID [facility] Last Admin: 05/16/17 07:55 Dose: 20 mg Glucagon (Glucagon) 1 mg IM PRN PRN PRN Reason: Hypoglycemia Hydralazine HCl (Apresoline) 10 mg SLOW IVP Q4H PRN PRN Reason: SBP Greater Than 180 Dextrose/Water (D5w) 1,000 mls @ 0 mls/hr IV .Q0M PRN; As Directed PRN Reason: Hypoglycemia Furosemide 100 mg/ Sodium (Chloride) 100 mls @ 2 mls/hr IVPB INF MAKENZIE PRN Reason: 2 MG/HR Insulin Human Regular (Humulin R) 0 units SC .MILD SLIDING SCALE PRN PRN Reason: Mild Correctional Scale Insulin Human Regular (Humulin R) 0 units SC .BEDTIME SLIDING SC PRN PRN Reason: Bedtime Correctional Scale Nystatin (Mycostatin Powder) 0 gm TOP BID [facility] Last Admin: 05/16/17 07:56 Dose: 1 applic Ondansetron HCl (Zofran Odt) 4 mg PO Q6H PRN PRN Reason: Nausea/Vomiting Last Admin: 05/12/17 17:15 Dose: 4 mg Ondansetron HCl (Zofran) 4 mg IVP Q6H PRN PRN Reason: Nausea/Vomiting Last Admin: 05/15/17 21:33 Dose: 4 mg Potassium Chloride (K-Dur) 20 meq PO QAM-WM [facility] Last Admin: 05/16/17 07:55 Dose: 20 meq Senna (Senokot) 2 tab PO HSPRN PRN PRN Reason: Constipation Last Admin: 05/10/17 09:40 Dose: 2 tab Sodium Chloride (Flush - Normal Saline) 10 ml IVF Q12HR [facility] Last Admin: 05/15/17 21:47 Dose: 10 ml Sodium Chloride (Flush - Normal Saline) 10 ml IVF PRN PRN PRN Reason: Saline Flush Last Admin: 05/09/17 14:43 Dose: 10 ml
--- NOTE | 2017-05-16 12:10 | PRG ---
DATE OF SERVICE: 05/16/2017 SUBJECTIVE: This is a 42-year-old female being seen for massive edema. The patient continues to diu rese and feels better. PHYSICAL EXAMINATION: GENERAL: Patient is awake, alert. VITAL SIGNS: Afebrile, pulse 70, breathing at 16, blood pressure 115/76. HEAD/NECK: Normocephalic. Atraumatic. EYES: EOMI. No deformity. EARS: Clear. No ulcers. NOSE: Intact. No lesions. MOUTH: Clear. No discharge. THROAT: Clear. No exudate. LUNGS: Clear. No crackles. CARDIAC: S1, S2. No rub. ABDOMEN: Benign. BS+. GENITALIA/RECTUM: Olson absent. BACK/EXTREMITIES: Edema 0+ Ulcer- NEUROLOGICAL: Alert and motor intact. SKIN: Rash- Bruise- LYMPHATICS: Edema- Ulcer- LABORATORY DATA: Show hemoglobin 12.2, creatinine 1.3. ASSESSMENT AND PLAN: 1. Chronic kidney disease stage 3, stable. 2. Hypertension, stable. 3. Edema, improving. Continue Lasix drip. We will book jacket cover machine operator to p.o. Lasix Thursday.
[2017-05-16] MEDS: Ondansetron ODT 4 MG TAB PO PRN (21:25)
[2017-05-17 05:22] LABS: BUN (Urea Nitrogen) 18 mg/dL (7.0-18.7); Calc. Creatinine Clearance 160 mL/min (70-130); Calcium 10.1 mg/dL (7.8-10.44); Estimated GFR-MDRD 49; Glucose 83 mg/dL (70-105)
[2017-05-17 05:31] LABS: Anion Gap 16 mmol/L (10-20); Carbon Dioxide 36 mmol/L (22-29); Chloride 93 mmol/L (98-107); Sodium 141 mmol/L (136-145)
[2017-05-17] MEDS: Carvedilol 3.125 MG TAB PO SCH ×2 (08:09→16:48)
[2017-05-17] MEDS: Aspirin 325 MG TAB PO SCH (08:09)
[2017-05-17] MEDS: Famotidine 20 MG TAB PO SCH ×2 (08:09→21:19)
[2017-05-17] MEDS: Enoxaparin Sodium 40 MG/0.4 ML SYRINGE SC SCH (08:10)
[2017-05-17] MEDS: Potassium Chloride 20 MEQ TAB PO SCH (08:10)
[2017-05-17] MEDS: Docusate 100 MG CAP PO SCH ×2 (08:10→21:19)
--- NOTE | 2017-05-17 10:00 | PRG ---
DATE OF SERVICE: 05/17/2017 SUBJECTIVE: This is a 42-year-old female being seen for acute kidney injury. The patient denies any nausea, vomiting or chest pain. PHYSICAL EXAMINATION: GENERAL: Patient is awake, alert. VITAL SIGNS: Afebrile, pulse 84, breathing at 16, blood pressure 105/60. OBJECTIVE: See above. Awake, alert, in no acute distress. GENERAL APPEARANCE AND MENTAL STATUS: Fair. HEAD/NECK: Normocephalic. Atraumatic. EYES: EOMI. No deformity. EARS: Clear. No ulcers. NOSE: Intact. No lesions. MOUTH: Clear. No discharge. THROAT: Clear. No exudate. LUNGS: Clear. No crackles. CARDIAC: S1, S2. No rub. ABDOMEN: Benign. BS+. GENITALIA/RECTUM: Olson absent. BACK/EXTREMITIES: Lower extremities show 3+ edema. Ulcer-. NEUROLOGICAL: Alert and motor intact. SKIN: Rash- Bruise-. LYMPHATICS: Edema- Ulcer-. LABORATORY DATA: Show creatinine was 1.4. ASSESSMENT AND RECOMMENDATIONS: 1. Acute kidney injury with chronic kidney disease stage 3, stable. 2. Hypertension, stable. 3. Congestive heart failure, improving. Continue IV Lasix. Can change to p.o. Lasix 20 b.i.d.
[2017-05-17] MEDS: Nystatin Powder 15 GM BOT TOP SCH ×2 (10:57→21:19)
--- NOTE | 2017-05-17 11:05 | PDOC.PN ---
- Subjective Encounter Start Date: 05/17/17 Encounter Start Time: 09:30 Subjective: no sob, has amb in hallway yesterday -: LE edema has almost resolved, still has right breast and abd wall edema - Objective Resuscitation Status: Resuscitation Status FULL:Full Resuscitation MAR Reviewed: Yes Vital Signs & Weight: Vital Signs (12 hours) Temp Pulse Resp BP Pulse Ox 05/17/17 07:15 98.0 F 84 16 105/68 93 L 05/17/17 04:34 96 05/17/17 04:24 98.3 F 80 20 147/84 H 96 05/17/17 00:00 98.3 F 82 20 111/74 96 Weight Weight 439 lb I&O: 05/16/17 05/17/17 05/18/17 06:59 06:59 06:59 Intake Total 1279.2 1608 Output Total 6900 4250 Balance -5620.8 -2642 Result Diagrams: 05/09/17 05:43 05/17/17 04:30 Additional Labs: Accuchecks 05/17/17 05/16/17 05/16/17 05:32 19:59 16:08 POC Glucose 90 102 93 05/16/17 11:06 POC Glucose 95 Phys Exam - Physical Examination HEENT: PERRLA, moist MMs Neck: no JVD, supple Respiratory: no wheezing, no rales Cardiovascular: RRR, no significant murmur Gastrointestinal: soft, no distention, positive bowel sounds Musculoskeletal: pulses present, edema present Neurological: non-focal, moves all 4 limbs Psychiatric: A&O x 3 Dx/Plan (1) CHF (congestive heart failure) Code(s): I50.9 - HEART FAILURE, UNSPECIFIED Status: Acute (2) Hyperbilirubinemia Code(s): E80.6 - OTHER DISORDERS OF BILIRUBIN METABOLISM Status: Acute Comment: unclear etiology (3) DM II (diabetes mellitus, type II), controlled Code(s): E11.9 - TYPE 2 DIABETES MELLITUS WITHOUT COMPLICATIONS Status: Chronic Qualifiers: Diabetes mellitus complication status: with other specified complication Diabetes mellitus jail insulin use: without rn palliative care use Qualified Code( s): E11.69 - Type 2 diabetes mellitus with other specified complication (4) HTN (hypertension) Code(s): I10 - ESSENTIAL (PRIMARY) HYPERTENSION Status: Chronic Qualifiers: Hypertension type: essential hypertension Qualified Code(s): I10 - Essential (primary) hypertension Comment: Non-compliance with home regimen, titrate BP meds and adjust as clinically indicated (5) Morbid (severe) obesity due to excess calories Code(s): E66.01 - MORBID (SEVERE) OBESITY DUE TO EXCESS CALORIES Status: Chronic Comment: bmi of 77 (6) Anasarca Code(s): R60.1 - GENERALIZED EDEMA Status: Acute - Plan is diuresing well -: will switch to oral lasix in am -: slight change in creatinine this am -: to amb more -: dc plan in 24-36hrs, has lifethreatening obesity with anasarca * . Review of Systems - Medications/Allergies Allergies/Adverse Reactions: Allergies Allergy/AdvReac Type Severity Reaction Status Date / Time No Known Allergies Allergy Verified 05/07/17 22:49 Medications: Current Medications Acetaminophen (Tylenol) 650 mg PO Q6H PRN PRN Reason: Pain Last Admin: 05/16/17 21:25 Dose: 650 mg Aspirin (Aspirin) 325 mg PO DAILY [facility] Last Admin: 05/17/17 08:09 Dose: 325 mg Bisacodyl (Dulcolax) 10 mg [place] Q24H PRN PRN Reason: Constipation Calcium Carbonate (Tums) 1,000 mg PO Q4H PRN PRN Reason: Heartburn or Indigestion Carvedilol (Coreg) 3.125 mg PO BID-[facility] Last Admin: 05/17/17 08:09 Dose: 3.125 mg Dextrose/Water (Dextrose 50%) 25 gm SLOW IVP PRN PRN PRN Reason: Hypoglycemia Docusate Sodium (Colace) 100 mg PO BID [facility] Last Admin: 05/17/17 08:10 Dose: 100 mg Enoxaparin Sodium (Lovenox) 40 mg SC 0900 [facility] Last Admin: 05/17/17 08:10 Dose: 40 mg Famotidine (Pepcid) 20 mg PO BID [facility] Last Admin: 05/17/17 08:09 Dose: 20 mg Glucagon (Glucagon) 1 mg IM PRN PRN PRN Reason: Hypoglycemia Hydralazine HCl (Apresoline) 10 mg SLOW IVP Q4H PRN PRN Reason: SBP Greater Than 180 Dextrose/Water (D5w) 1,000 mls @ 0 mls/hr IV .Q0M PRN; As Directed PRN Reason: Hypoglycemia Furosemide 100 mg/ Sodium (Chloride) 100 mls @ 2 mls/hr IVPB INF MAKENZIE PRN Reason: 2 MG/HR Last Admin: 05/16/17 15:20 Dose: 100 mls Insulin Human Regular (Humulin R) 0 units SC .MILD SLIDING SCALE PRN PRN Reason: Mild Correctional Scale Insulin Human Regular (Humulin R) 0 units SC .BEDTIME SLIDING SC PRN PRN Reason: Bedtime Correctional Scale Nystatin (Mycostatin Powder) 0 gm TOP BID [facility] Last Admin: 05/17/17 10:57 Dose: 1 applic Ondansetron HCl (Zofran Odt) 4 mg PO Q6H PRN PRN Reason: Nausea/Vomiting Last Admin: 05/16/17 21:25 Dose: 4 mg Ondansetron HCl (Zofran) 4 mg IVP Q6H PRN PRN Reason: Nausea/Vomiting Last Admin: 05/15/17 21:33 Dose: 4 mg Potassium Chloride (K-Dur) 20 meq PO QAM-WM [facility] Last Admin: 05/17/17 08:10 Dose: 20 meq Senna (Senokot) 2 tab PO HSPRN PRN PRN Reason: Constipation Last Admin: 05/10/17 09:40 Dose: 2 tab Sodium Chloride (Flush - Normal Saline) 10 ml IVF Q12HR [facility] Last Admin: 05/17/17 10:54 Dose: Not Given Sodium Chloride (Flush - Normal Saline) 10 ml IVF PRN PRN PRN Reason: Saline Flush Last Admin: 05/09/17 14:43 Dose: 10 ml
[2017-05-17] MEDS: Ondansetron HCl/PF 4 MG/2 ML Vial IVP PRN (14:35)
[2017-05-17] MEDS: Acetaminophen 325 MG TAB PO PRN (21:26)
[2017-05-18 05:35] LABS: Anion Gap 14 mmol/L (10-20); BUN (Urea Nitrogen) 18 mg/dL (7.0-18.7); Calc. Creatinine Clearance 158 mL/min (70-130); Calcium 9.9 mg/dL (7.8-10.44); Carbon Dioxide 35 mmol/L (22-29); Chloride 94 mmol/L (98-107); Estimated GFR-MDRD 48; Glucose 75 mg/dL (70-105); Sodium 139 mmol/L (136-145)
[2017-05-18] MEDS: Aspirin 325 MG TAB PO SCH (08:36)
[2017-05-18] MEDS: Ondansetron ODT 4 MG TAB PO PRN (08:36)
[2017-05-18] MEDS: Carvedilol 3.125 MG TAB PO SCH ×2 (08:36→16:13)
[2017-05-18] MEDS: Potassium Chloride 20 MEQ TAB PO SCH (08:36)
[2017-05-18] MEDS: Famotidine 20 MG TAB PO SCH ×2 (08:37→20:29)
[2017-05-18] MEDS: Docusate 100 MG CAP PO SCH ×2 (08:37→20:29)
[2017-05-18] MEDS: Enoxaparin Sodium 40 MG/0.4 ML SYRINGE SC SCH (08:37)
[2017-05-18] MEDS: Nystatin Powder 15 GM BOT TOP SCH ×2 (09:45→20:29)
[2017-05-18 11:14] VITALS: BMI 68.5
--- NOTE | 2017-05-18 12:23 | PDOC.PN ---
- Subjective Encounter Start Date: 05/18/17 Encounter Start Time: 10:20 Subjective: feels better, is sitting in chair -: no sob - Objective Resuscitation Status: Resuscitation Status FULL:Full Resuscitation MAR Reviewed: Yes Vital Signs & Weight: Vital Signs (12 hours) Temp Pulse Resp BP BP Pulse Ox 05/18/17 08:00 97.9 F 81 16 125/82 94 L 05/18/17 04:45 97.6 F 74 18 113/75 99 Weight Admit Weight 498 lb 15 oz Weight 424 lb 8 oz I&O: 05/17/17 05/18/17 05/19/17 06:59 06:59 06:59 Intake Total 1608 984 Output Total 2404 3634 P4RC -5542 -1265 Result Diagrams: 05/09/17 05:43 05/18/17 04:28 Additional Labs: Accuchecks 05/18/17 05/18/17 05/17/17 11:58 03:49 20:05 POC Glucose 103 90 207 H 05/17/17 16:11 POC Glucose 79 Phys Exam - Physical Examination HEENT: PERRLA, moist MMs Neck: no JVD, supple Respiratory: no wheezing, no rales Cardiovascular: RRR, no significant murmur Gastrointestinal: soft, non-tender, no distention, positive bowel sounds abd wall edema is receding Musculoskeletal: pulses present, edema present Neurological: non-focal, moves all 4 limbs Psychiatric: A&O x 3 Dx/Plan (1) CHF (congestive heart failure) Code(s): I50.9 - HEART FAILURE, UNSPECIFIED Status: Acute (2) Hyperbilirubinemia Code(s): E80.6 - OTHER DISORDERS OF BILIRUBIN METABOLISM Status: Acute Comment: unclear etiology (3) DM II (diabetes mellitus, type II), controlled Code(s): E11.9 - TYPE 2 DIABETES MELLITUS WITHOUT COMPLICATIONS Status: Chronic Qualifiers: Diabetes mellitus complication status: with other specified complication Diabetes mellitus assistant terminal manager insulin use: without assistant terminal manager use Qualified Code( s): E11.69 - Type 2 diabetes mellitus with other specified complication (4) HTN (hypertension) Code(s): I10 - ESSENTIAL (PRIMARY) HYPERTENSION Status: Chronic Qualifiers: Hypertension type: essential hypertension Qualified Code(s): I10 - Essential (primary) hypertension Comment: Non-compliance with home regimen, titrate BP meds and adjust as clinically indicated (5) Morbid (severe) obesity due to excess calories Code(s): E66.01 - MORBID (SEVERE) OBESITY DUE TO EXCESS CALORIES Status: Chronic Comment: bmi of 77 (6) Anasarca Code(s): R60.1 - GENERALIZED EDEMA Status: Acute - Plan will switch to oral lasix bid -: has responded well to iv lasix drip with loss of nearly 64lbs -: still has abd wall edema mostly post aspect and left breast tip areas -: is amb in hallway -: dc plan in am, has life threatening obesity and needs bariatric surgery * . Counselled her to obtain med insurance, strict diet control and fluid intake as well. Will eventually need cardiac w/u as outpt and needs to f/u with . Has stable hyperbilirubinemia likely passive congestion due to massive anasarca. Will check T.bili in am to see if it has receded, outpt f/u with if needed. Review of Systems - Medications/Allergies Allergies/Adverse Reactions: Allergies Allergy/AdvReac Type Severity Reaction Status Date / Time No Known Allergies Allergy Verified 05/07/17 22:49 Medications: Current Medications Acetaminophen (Tylenol) 650 mg PO Q6H PRN PRN Reason: Pain Last Admin: 05/17/17 21:26 Dose: 650 mg Aspirin (Aspirin) 325 mg PO DAILY [facility] Last Admin: 05/18/17 08:36 Dose: 325 mg Bisacodyl (Dulcolax) 10 mg [place] Q24H PRN PRN Reason: Constipation Calcium Carbonate (Tums) 1,000 mg PO Q4H PRN PRN Reason: Heartburn or Indigestion Carvedilol (Coreg) 3.125 mg [facility]ID[facility] Last Admin: 05/18/17 08:36 Dose: 3.125 mg Dextrose/Water (Dextrose 50%) 25 gm SLOW IVP PRN PRN PRN Reason: Hypoglycemia Docusate Sodium (Colace) 100 mg PO BID [facility] Last Admin: 05/18/17 08:37 Dose: 100 mg Enoxaparin Sodium (Lovenox) 40 mg SC 0900 [facility] Last Admin: 05/18/17 08:37 Dose: 40 mg Famotidine (Pepcid) 20 mg PO BID [facility] Last Admin: 05/18/17 08:37 Dose: 20 mg Glucagon (Glucagon) 1 mg IM PRN PRN PRN Reason: Hypoglycemia Hydralazine HCl (Apresoline) 10 mg SLOW IVP Q4H PRN PRN Reason: SBP Greater Than 180 Dextrose/Water (D5w) 1,000 mls @ 0 mls/hr IV .Q0M PRN; As Directed PRN Reason: Hypoglycemia Furosemide 100 mg/ Sodium (Chloride) 100 mls @ 2 mls/hr IVPB INF MAKENZIE PRN Reason: 2 MG/HR Last Admin: 05/16/17 15:20 Dose: 100 mls Insulin Human Regular (Humulin R) 0 units SC .MILD SLIDING SCALE PRN PRN Reason: Mild Correctional Scale Insulin Human Regular (Humulin R) 0 units SC .BEDTIME SLIDING SC PRN PRN Reason: Bedtime Correctional Scale Last Admin: 05/17/17 21:22 Dose: 2 units Nystatin (Mycostatin Powder) 0 gm TOP BID [facility] Last Admin: 05/17/17 21:19 Dose: Not Given Ondansetron HCl (Zofran Odt) 4 mg PO Q6H PRN PRN Reason: Nausea/Vomiting Last Admin: 05/18/17 08:36 Dose: 4 mg Ondansetron HCl (Zofran) 4 mg IVP Q6H PRN PRN Reason: Nausea/Vomiting Last Admin: 05/17/17 14:35 Dose: 4 mg Potassium Chloride (K-Dur) 20 meq PO QAM-WM [facility] Last Admin: 05/18/17 08:36 Dose: 20 meq Senna (Senokot) 2 tab PO HSPRN PRN PRN Reason: Constipation Last Admin: 05/10/17 09:40 Dose: 2 tab Sodium Chloride (Flush - Normal Saline) 10 ml IVF Q12HR [facility] Last Admin: 05/17/17 21:19 Dose: Not Given Sodium Chloride (Flush - Normal Saline) 10 ml IVF PRN PRN PRN Reason: Saline Flush Last Admin: 05/09/17 14:43 Dose: 10 ml
--- NOTE | 2017-05-19 00:06 | PRG ---
DATE OF SERVICE: 05/18/2017 SUBJECTIVE: Patient was seen and examined at bedside and overnight events noted. Patient denies any shortness of breath or chest pain or palpitation. No history of nausea or vomiting or diarrhea or fever or chills or cramps. OBJECTIVE: GENERAL: This is a morbidly obese female, in no apparent distress. VITAL SIGNS: Temperature 97.9, pulse 80, respiratory rate 16, blood pressure 137/83. HEENT: Atraumatic, normocephalic. Oral mucosa is moist. NECK: Supple. CARDIOVASCULAR: S1, S2 heard. Rate and rhythm regular. RESPIRATORY: Clear to auscultation. GASTROINTESTINAL: Abdomen is soft. MUSCULOSKELETAL: No tenderness. No edema. DERMATOLOGIC: No skin rash. NEUROLOGIC: Alert and awake and oriented x3. No focal neurologic deficits. Moving all the extremities. PSYCHIATRIC: Mood and affect normal. LABORATORY DATA: Potassium is 4.0, BUN is 80, creatinine is 1.4. ASSESSMENT AND PLAN: 1. Acute kidney injury on chronic kidney disease. Renal function is stable. 2. Cardiorenal syndrome, on Lasix. 3. Hypertension. 4. Edema. 5. Overall seems to be better. Monitor renal function. MTDD
[2017-05-19] MEDS: Acetaminophen 325 MG TAB PO PRN ×2 (03:34→10:51)
[2017-05-19 06:35] LABS: Anion Gap 12 mmol/L (10-20); BUN (Urea Nitrogen) 17 mg/dL (7.0-18.7); Calc. Creatinine Clearance 160 mL/min (70-130); Calcium 10.1 mg/dL (7.8-10.44); Carbon Dioxide 37 mmol/L (22-29); Chloride 94 mmol/L (98-107); Estimated GFR-MDRD 51; Glucose 82 mg/dL (70-105); Sodium 139 mmol/L (136-145)
[2017-05-19] MEDS: Furosemide 20 MG TAB PO SCH ×2 (07:45→16:14)
[2017-05-19] MEDS: Aspirin 325 MG TAB PO SCH (07:45)
[2017-05-19] MEDS: Docusate 100 MG CAP PO SCH ×2 (07:45→20:05)
[2017-05-19] MEDS: Famotidine 20 MG TAB PO SCH ×2 (07:45→20:05)
[2017-05-19] MEDS: Enoxaparin Sodium 40 MG/0.4 ML SYRINGE SC SCH (07:46)
[2017-05-19] MEDS: Potassium Chloride 20 MEQ TAB PO SCH (07:46)
[2017-05-19] MEDS: Carvedilol 3.125 MG TAB PO SCH ×2 (07:46→16:15)
[2017-05-19] MEDS: Nystatin Powder 15 GM BOT TOP SCH ×2 (08:53→20:05)
--- NOTE | 2017-05-19 11:47 | PRG ---
Patient Name: ALVARO ARCHIBALD Date of service: 05/19/2017 Subjective: Patient was seen and examined at bedside and overnight events noted. Patient denies any shortness of breath or chest pain or palpitation. No history of nausea or vomiting or diarrhea or fever or chills or cramps. Objective: General: This is a morbidly obese female in no apparent distress. Vital signs: Temperature 97.6, pulse 70, respirations 18, blood pressure 103/60. HEENT: Atraumatic, normocephalic. Oral mucosa is moist. Neck: Supple. Cardiovascular: S1 S2 heard. Rate and rhythm regular. Respiratory: Clear to auscultation. Gastrointestinal: Abdomen is soft. Musculoskeletal: No tenderness. No edema. Dermatologic: No skin rash. Neurologic: Alert and awake and oriented X3. No focal neurologic deficits. Moving all the extremit ies. Psychiatric: Mood and affect normal. LABORATORY DATA: Potassium 4.0, BUN 17, creatinine 1.36. ASSESSMENT AND PLAN: 1. Acute kidney injury on chronic kidney disease stage 3. Renal function shows some improvement wit h good diuresis. Agree with IV Lasix for now and limit fluid and salt intake. 2. Cardiorenal syndrome with good diuresis on Lasix. Renal function is stable. 3. Hypertension. 4. Edema. 5. Morbid obesity. Continue on Lasix, limit fluid and salt intake. We will follow. Monitor renal function and electrol ytes closely.
--- NOTE | 2017-05-19 14:06 | PDOC.PN ---
- Subjective Encounter Start Date: 05/19/17 Encounter Start Time: 09:30 pAtient is seen today, alert and oriented, No other concerns noted. She removed oxygen for pt/OT, she is not on home oxygen,Also on Olson cath, will be reoved. - Objective Resuscitation Status: Resuscitation Status FULL:Full Resuscitation MAR Reviewed: Yes Vital Signs & Weight: Vital Signs (12 hours) Temp Pulse Resp BP BP Pulse Ox 05/19/17 12:00 97.2 F L 83 20 121/79 94 L 05/19/17 08:00 97.6 F 79 16 103/68 98 05/19/17 03:54 98.2 F 86 16 108/73 92 L Weight Admit Weight 498 lb 15 oz Weight 422 lb I&O: 05/18/17 05/19/17 05/20/17 06:59 06:59 06:59 Intake Total 984 480 Output Total 5255 6175 [facility] -[phone] Result Diagrams: 05/09/17 05:43 05/19/17 05:22 Additional Labs: Accuchecks 05/19/17 05/19/17 05/18/17 11:32 05:25 19:31 POC Glucose 87 97 104 05/18/17 16:30 POC Glucose 77 Radiology Reviewed by me: Yes Phys Exam - Physical Examination HEENT: PERRLA, moist MMs Neck: no nodes, no JVD Respiratory: wheezing present (lower base crackles both lungs) Cardiovascular: RRR, no significant murmur Gastrointestinal: soft, non-tender Musculoskeletal: edema present Neurological: non-focal, normal sensation Lymphatic: no nodes Psychiatric: normal affect, A&O x 3 Skin: no rash, normal turgor Dx/Plan (1) Anasarca Code(s): R60.1 - GENERALIZED EDEMA Status: Acute (2) CHF (congestive heart failure) Code(s): I50.9 - HEART FAILURE, UNSPECIFIED Status: Acute Comment: Patient is on Po lasix today, she is diuresing well, She remains on oxygen will wean her off of it, encourage to walk. Continue to Monitor urine output, will d/c Olson, plan discharge home tomorrow. (3) Dyspnea Code(s): R06.00 - DYSPNEA, UNSPECIFIED Status: Acute Qualifiers: Dyspnea type: dyspnea on exertion Qualified Code(s): R06.09 - Other forms of dyspnea Comment: Multifactorial given morbid obesity and likely CHF, 02 supplementation and Lasix (4) Hyperbilirubinemia Code(s): E80.6 - OTHER DISORDERS OF BILIRUBIN METABOLISM Status: Acute Comment: unclear etiology (5) DM II (diabetes mellitus, type II), controlled Code(s): E11.9 - TYPE 2 DIABETES MELLITUS WITHOUT COMPLICATIONS Status: Chronic Qualifiers: Diabetes mellitus complication status: with other specified complication Diabetes mellitus buttermaker insulin use: without intermediate use Qualified Code( s): E11.69 - Type 2 diabetes mellitus with other specified complication Comment: continue with SSI, advised to loose weight for better DM control. (6) HTN (hypertension) Code(s): I10 - ESSENTIAL (PRIMARY) HYPERTENSION Status: Chronic Qualifiers: Hypertension type: essential hypertension Qualified Code(s): I10 - Essential (primary) hypertension Comment: Non-compliance with home regimen, titrate BP meds and adjust as clinically indicated (7) Morbid (severe) obesity due to excess calories Code(s): E66.01 - MORBID (SEVERE) OBESITY DUE TO EXCESS CALORIES Status: Chronic Comment: bmi of 77 - Plan cont current plan of care, PT/OT, social director, respiratory therapy, incentive spirometry, out of bed/ambulate, DVT proph w/lovenox * . - Discharge Day Encounter end time: 09:35 Review of Systems - Review of Systems Constitutional: negative: fever, chills, sweats, weakness, malaise, other Eyes: negative: Pain, Vision Change, Conjunctivae Inflammation, Eyelid Inflammation, Redness, Other ENT: negative: Ear Pain, Ear Discharge, Nose Pain, Nose Discharge, Nose Congestion, Mouth Pain, Mouth Swelling, Throat Pain, Throat Swelling, Other Respiratory: Shortness of Breath, SOB with Excertion, Wheezing. negative: Cough , Dry, Hemoptysis, Pleuritic Pain, Sputum Cardiovascular: negative: chest pain, palpitations, orthopnea, paroxysmal nocturnal dyspnea, edema, light headedness, other Gastrointestinal: negative: Nausea, Vomiting, Abdominal Pain, Diarrhea, Constipation, Melena, Hematochezia, Other Genitourinary: negative: Dysuria, Frequency, Incontinence, Hematuria, Retention , Other Musculoskeletal: negative: Neck Pain, Shoulder Pain, Arm Pain, Back Pain, Hand Pain, Leg Pain, Foot Pain, Other Skin: negative: Rash, Lesions, Boyd, Bruising, Other - Medications/Allergies Allergies/Adverse Reactions: Allergies Allergy/AdvReac Type Severity Reaction Status Date / Time No Known Allergies Allergy Verified 05/07/17 22:49 Medications: Current Medications Acetaminophen (Tylenol) 650 mg PO Q6H PRN PRN Reason: Pain Last Admin: 05/19/17 10:51 Dose: 650 mg Aspirin (Aspirin) 325 mg PO DAILY [facility] Last Admin: 05/19/17 07:45 Dose: 325 mg Bisacodyl (Dulcolax) 10 mg ND Q24H PRN PRN Reason: Constipation Calcium Carbonate (Tums) 1,000 mg PO Q4H PRN PRN Reason: Heartburn or Indigestion Carvedilol (Coreg) 3.125 mg PO BID-[facility] Last Admin: 05/19/17 07:46 Dose: 3.125 mg Dextrose/Water (Dextrose 50%) 25 gm SLOW IVP PRN PRN PRN Reason: Hypoglycemia Docusate Sodium (Colace) 100 mg PO BID [facility] Last Admin: 05/19/17 07:45 Dose: 100 mg Enoxaparin Sodium (Lovenox) 40 mg SC 0900 [facility] Last Admin: 05/19/17 07:46 Dose: 40 mg Famotidine (Pepcid) 20 mg PO BID [facility] Last Admin: 05/19/17 07:45 Dose: 20 mg Furosemide (Lasix) 40 mg PO 0900,1400 [facility] Last Admin: 05/19/17 07:45 Dose: 40 mg Glucagon (Glucagon) 1 mg IM PRN PRN PRN Reason: Hypoglycemia Hydralazine HCl (Apresoline) 10 mg SLOW IVP Q4H PRN PRN Reason: SBP Greater Than 180 Dextrose/Water (D5w) 1,000 mls @ 0 mls/hr IV .Q0M PRN; As Directed PRN Reason: Hypoglycemia Insulin Human Regular (Humulin R) 0 units SC .MILD SLIDING SCALE PRN PRN Reason: Mild Correctional Scale Insulin Human Regular (Humulin R) 0 units SC .BEDTIME SLIDING SC PRN PRN Reason: Bedtime Correctional Scale Last Admin: 05/17/17 21:22 Dose: 2 units Nystatin (Mycostatin Powder) 0 gm TOP BID [facility] Last Admin: 05/19/17 08:53 Dose: 1 applic Ondansetron HCl (Zofran Odt) 4 mg PO Q6H PRN PRN Reason: Nausea/Vomiting Last Admin: 05/18/17 08:36 Dose: 4 mg Ondansetron HCl (Zofran) 4 mg IVP Q6H PRN PRN Reason: Nausea/Vomiting Last Admin: 05/17/17 14:35 Dose: 4 mg Potassium Chloride (K-Dur) 20 meq PO QAM-WM MAKEN[facility] Last Admin: 05/19/17 07:46 Dose: 20 meq Senna (Senokot) 2 tab PO HSPRN PRN PRN Reason: Constipation Last Admin: 05/10/17 09:40 Dose: 2 tab Sodium Chloride (Flush - Normal Saline) 10 ml IVF Q12HR MAKEN[facility]IE Last Admin: 05/19/17 08:53 Dose: 10 ml Sodium Chloride (Flush - Normal Saline) 10 ml IVF PRN PRN PRN Reason: Saline Flush Last Admin: 05/09/17 14:43 Dose: 10 ml
[2017-05-20] MEDS: Ondansetron ODT 4 MG TAB PO PRN (03:34)
[2017-05-20 04:50] LABS: Anion Gap 13 mmol/L (10-20); BUN (Urea Nitrogen) 18 mg/dL (7.0-18.7); Calc. Creatinine Clearance 144 mL/min (70-130); Calcium 10.1 mg/dL (7.8-10.44); Carbon Dioxide 37 mmol/L (22-29); Chloride 94 mmol/L (98-107); Estimated GFR-MDRD 45; Glucose 87 mg/dL (70-105); Potassium 4.1 mmol/L (3.5-5.1); Sodium 140 mmol/L (136-145)
[2017-05-20] MEDS ORDERED: Furosemide 40 MG TAB PO SCH (09:00)
[2017-05-20] MEDS ORDERED: Furosemide 20 MG TAB PO SCH (09:00)
[2017-05-20] MEDS: Enoxaparin Sodium 40 MG/0.4 ML SYRINGE SC SCH (09:33)
[2017-05-20] MEDS: Famotidine 20 MG TAB PO SCH (09:33)
[2017-05-20] MEDS: Docusate 100 MG CAP PO SCH (09:33)
[2017-05-20] MEDS: Potassium Chloride 20 MEQ TAB PO SCH (09:33)
[2017-05-20] MEDS: Carvedilol 3.125 MG TAB PO SCH ×2 (09:33→16:26)
[2017-05-20] MEDS: Aspirin 325 MG TAB PO SCH (09:33)
[2017-05-20] MEDS: Nystatin Powder 15 GM BOT TOP SCH (09:34)
[2017-05-20 11:54] VITALS: BP 145/70; TEMP 97.8
--- NOTE | 2017-05-20 15:38 | DIS ---
DATE OF ADMISSION: 05/07/2017 DATE OF DISCHARGE: 05/20/2017 ADMITTING DIAGNOSIS: Acute hypoxic respiratory failure secondary to volume overload state. DISCHARGE DIAGNOSIS: Acute hypoxic respiratory failure secondary to volume overload state. SECONDARY DIAGNOSES: 1. Anasarca. 2. Hypokalemia. 3. Ydi-YY-iqwixsxvo myocardial infarction. 4. Morbid obesity. 5. Sleep apnea. 6. Type 2 diabetes mellitus. 7. Hypertension. 8. Hyperlipidemia. 9. Chronic kidney disease stage 2. CONSULTANTS INVOLVED IN THIS CARE: 1. Dr. Renetta Britt. 2. Dr. Bianca Mcghee from Cardiology. 3. Dr. Skye Stewart from Nephrology. INVESTIGATIONS DONE DURING THIS ADMISSION: Abdominal ultrasound showing abnormal gallbladder with po sitive Naik sign. The gallbladder wall showed 5 mm thickening. The patient had a MUGA scan left ventricular function, which was nondiagnostic. There was no evidenc e of left wall motion was seen. HISTORY OF PRESENT ILLNESS/HOSPITAL COURSE: In brief, this is a 42-year-old female, morbidly obese, who was weighing more than 350 pounds. The patient developed increasing pedal edema and anasarca over the past 1 month and also has a history of orthopnea and dyspnea. The patient has no abdominal pain, no nausea, no vomiting when she came in but she was hospitalized because of the g eneralized anasarca and weakness and was having low saturations on admission. The patient showed shan irubin of 60 mg percent and direct bilirubin of 10 mg. Her AST and ALT were normal. She had an abdo paris sonogram, which shows biliary sludge and possible small stones, but there was no evidence of ac alatna cholecystitis. There was no suggestion was made for any surgery at that time. GI was consulted for the same reason, who advised to closely follow up, but no surgery was indicated. The patient als o had elevated troponins, most likely from demand ischemia, so the patient was started on aspirin and beta amira. During this admission, the patient was started on a high dose of Lasix of 80 mg IV b. i.d., and showed significant improvement with her diuresis and she was able to lose almost 80 pounds with IV Lasix. So slowly it was changed to p.o. Lasix 40 mg and the patient continued to lose weigh t and had good diuresis. Her breathing also improved and she was able to breathe on room air on the day of the discharge. She was on 40 mg of Lasix with potassium and was continued on beta-blockers an d aspirin. The patient is discharged home in stable condition after physical therapy has evaluated a nd the patient was safe to go home. PHYSICAL EXAMINATION: VITAL SIGNS: Blood pressures are 145/70, heart rate is 87, respiratory rate 16, saturation 97% on ro om air. GENERAL: The patient is a moderately built, morbidly obese. She is alert and oriented x3. HEENT: Atraumatic, normocephalic. PERRLA. Extraocular movements intact. CARDIOVASCULAR: S1, S2 normal. No murmurs, rubs or gallops. LUNGS: Bilateral air entry was equal. No wheezing, no crackles. ABDOMEN: Soft, nontender. No guarding, no rebound tenderness. Bowel sounds normal. MUSCULOSKELETAL: No calf tenderness. No pedal edema. No joint redness. No joint swelling. DISCHARGE MEDICATIONS: 1. Aspirin 81 mg daily. 2. Clonazepam 0.5 mg p.o. b.i.d. 3. Lisinopril 40 mg daily. 4. Paroxetine 40 mg p.o. b.i.d. 5. Coreg 3.125 mg p.o. b.i.d. 6. Lasix 40 mg p.o. daily. 7. Potassium chloride 20 mEq p.o. daily. DISCHARGE INSTRUCTIONS: Continue activity as tolerated. Advised to avoid salt. Advised to continue with the Lasix and be compliant and advised to return to the ER if the patient develops increasing w eight gain of more than 2 pounds in 2-3 days. Advised to continue activity as tolerated. I spent 35 minutes of the patient on the day of discharge.
--- NOTE | 2017-05-20 22:17 | PRG ---
DATE OF SERVICE: 05/20/2017 SUBJECTIVE: Patient was seen and examined at bedside and overnight events noted. Patient denies any shortness of breath or chest pain or palpitation. No history of nausea or vomiting or diarrhea or f ever or chills or cramps. OBJECTIVE: GENERAL: This is a morbidly obese -[place] female in no apparent distress. VITAL SIGNS: Temperature 97.8, pulse 87, respirations 17, blood pressure 161/99. HEENT: Atraumatic, normocephalic. Oral mucosa is moist. NECK: Supple. CARDIOVASCULAR: S1, S2 heard. Rate and rhythm regular. RESPIRATORY: Clear to auscultation. GASTROINTESTINAL: Abdomen is soft. MUSCULOSKELETAL: No tenderness. No edema. DERMATOLOGIC: No skin rash. NEUROLOGIC: Alert and awake and oriented x3. No focal neurologic deficits. Moving all the extremit ies. PSYCHIATRIC: Mood and affect normal. LABORATORY DATA: Potassium is 4.1, BUN is 18, creatinine is 1.5. ASSESSMENT AND PLAN: 1. Acute kidney injury on chronic kidney disease stage 3. Renal function with slight bump in creati nine. We will recommend Lasix 40 mg p.o. daily. 2. Cardiorenal syndrome. Lasix 40 mg daily. 3. Hypertension. 4. Edema. 5. Morbid obesity. 6. Recommend Lasix 40 mg p.o. daily .
--- NOTE | 2017-05-26 07:48 | PQF ---
Cary UMAIRRACHELAN [id number] [place] [id number] CLINICAL DOCUMENTATION CLARIFICATION FORM: POST DISCHARGE Addendum to original discharge summary date: 05/20/2017 Cary [id number] GRIFFIN YE PLEASE DOCUMENT YOUR RESPONSE BELOW YOUR INPUT IS NEEDED TO CORRECTLY CODE A DIAGNOSIS FOR YOUR PATIENT. DATE: 05/26/2017 ATTN: Dr. Ye Please exercise your independent, professional judgment in responding to the clarification form. Clinical indicators are provided on the bottom of this form for your review Please check appropriate box(s) to clarify if the following diagnosis has been ruled in our ruled out: [ ] NSTEMI was a Ruled in diagnosis [x ] NSTEMI due to demand ischemia [ ] Continue to treat [ ] Resolved [ ] NSTEMI was a Ruled out diagnosis [ ] Cannot rule out diagnosis [ ] Other diagnosis (please specify) [ ] Unable to determine In addition, please specify: Present on Admission (POA): [ ] Yes [ ] No [ ] Unable to determine For continuity of documentation, please document condition throughout progress notes and discharge summary. Thank You. CLINICAL INDICATORS - SIGNS / SYMPTOMS / LABS Per discharge summary: Paj-CL-sxpifftku myocardial infarction. Per body of discharge summary: The patient also had elevated troponins, most likely from demand ischemia. RISK FACTORS (per H&P) CHF--Volume Overload. TREATMENTS (per discharge summary) Started on Aspirin and Beta Sabine. (This form is maintained as a part of the permanent medical record) 2014 [employer] All Rights Reserved Adela [email or web address] [phone] YUKI
== END 2017-05-20 17:20 | disposition home or self-care (01) | DRG 280 ==
LOC: ERS 16:53 → 2NO 22:17 → SJJU 05-10 21:53
PROVIDERS: ADMIT Internal Medicine; ATTEND Internal Medicine
DX: I13.0 Hypertensive heart and chronic kidney disease with heart failure and stage 1 through stage 4 chronic kidney disease, or unspecified chronic kidney disease (principal); J96.01 Acute respiratory failure with hypoxia; I21.A1 Myocardial infarction type 2; N17.9 Acute kidney failure, unspecified; Z68.45 Body mass index [BMI] 70 or greater, adult; E11.22 Type 2 diabetes mellitus with diabetic chronic kidney disease; E66.01 Morbid (severe) obesity due to excess calories; I50.9 Heart failure, unspecified; N18.3 Chronic kidney disease, stage 3 (moderate); E78.5 Hyperlipidemia, unspecified; F41.9 Anxiety disorder, unspecified; F32.9 Major depressive disorder, single episode, unspecified; E87.6 Hypokalemia; G47.30 Sleep apnea, unspecified; Z79.84 Long term (current) use of oral hypoglycemic drugs; Z79.82 Long term (current) use of aspirin; Z79.899 Other long term (current) drug therapy
CPT/HCPCS: 36415; 36416; 51702; 71045; 76705; 78472; 80048; 80053; 80069; 80074; 80076; 81003; 81015; 82010; 82330; 82533; 82553; 82570; 82728; 82803; 83036; 83540; 83550; 83690; 83735; 83880; 84100; 84156; 84443; 84484; 84703; 85025; 85610; 85730; 90471; 90682; 90732; 93005; 93010; 93306; 93798; 93970; 94760; 96374; A4216; A9604; G0008; G0009; G8978-GP-CK; G8978-GP-CL; G8979-GP-CI; G8979-GP-CJ; G8987-GO-CL; G8988-GO-CJ; J1650; J1815; J1940; J2405; J3475; J3490; J7050; Q0162; Q2036

== ENCOUNTER 2017-10-12 11:05 | Inpatient (IN) | payer OTHER, SELFPAY ==
[2017-10-12 13:10] LABS: #Basophils 0.1 thou/uL (0.0-0.2); #Eosinphils 0.1 thou/uL (0.0-0.7); #Lymphocytes 1.5 thou/uL (1.20-3.40); #Monocytes 0.6 thou/uL (0.11-0.59); #Neutrophils 3.3 thou/uL (1.40-6.50); %Lymphocytes 26.7 % (21.0-51.0); %Monocytes 10.9 % (0.0-10.0); %Neutrophils 60.4 % (42.0-75.0); Hemoglobin 12.3 g/dL (12.0-16.0); Mean Corpuscular HGB CONC 31.1 g/dL (32.0-36.0); Mean Corpuscular Hemoglobin 30.9 pg (27.0-31.0); Mean Corpuscular Volume 99.5 fL (78.0-98.0); Mean Platelet Volume 8.4 fL (7.4-10.4); Platelet Count 155 thou/uL (130-400); RBC Distribution Width 15.1 % (11.5-14.5); Red Blood Cell (RBC) Count 3.98 mill/uL (4.20-5.40); White Blood Cell (WBC) Count 5.5 thou/uL (4.8-10.8)
[2017-10-12 13:36] LABS: ALT (SGPT) Less than 7 U/L (8-55); AST (SGOT) 9 U/L (5-34); Albumin 3.6 g/dL (3.5-5.0); Alkaline Phosphatase 98 U/L (40-150); Anion Gap 15 mmol/L (10-20); BUN (Urea Nitrogen) 12 mg/dL (7.0-18.7); Bilirubin, Total 15.3 mg/dL (0.2-1.2); CK (CPK) 23 U/L (29-168); Calc. Creatinine Clearance 0 mL/min (70-130); Calcium 9.5 mg/dL (7.8-10.44); Carbon Dioxide 28 mmol/L (22-29); Chloride 105 mmol/L (98-107); Estimated GFR-MDRD 67; Globulin 2.9 g/dL (2.4-3.5); Glucose 74 mg/dL (70-105); Potassium 4.2 mmol/L (3.5-5.1); Protein, Total 6.5 g/dL (6.0-8.3); Sodium 144 mmol/L (136-145)
[2017-10-12 13:42] LABS: CKMB 0.6 ng/mL (0-6.6); Troponin I Less than 0.010 ng/mL (< 0.028)
--- NOTE | 2017-10-12 13:42 | RAD ---
AP VIEW CHEST: HISTORY: Edema, respiratory distress. FINDINGS: AP view chest is obtained on 10/12/17. Comparison is made to previous exam from 05/07/17. FINDINGS: AP view chest demonstrates a suboptimal quality exam due to patient motion and patient's body habitus . Cardiomegaly is seen. Pulmonary vascular congestion is seen. The lateral aspect of the left jackie thorax is not adequately visualized. Repeat chest radiograph recommended. IMPRESSION: Suboptimal chest radiograph. POS: [facility]
[2017-10-12 13:51] LABS: Bilirubin Large (Negative); Blood, Urine Moderate (Negative); Glucose, Urine (Dipstick) Negative (Negative); Leukocyte Trace (Negative); Nitrite Positive (Negative); Protein, Urine (Dipstick) 100 mg/dL (Neg-Trace)
[2017-10-12 13:53] LABS: Clarity Hazy (Clear)
[2017-10-12 13:59] LABS: Specific Gravity, Urine 1.019 (1.002-1.036)
[2017-10-12 14:00] LABS: Bacteria/HPF 4+ HPF (None Seen); Hyaline Casts/LPF NONE SEEN LPF (0-3 Hyaline); WBC/HPF 21-50 HPF (0-3)
[2017-10-12] MEDS ORDERED: Promethazine HCl 25 MG/ML VIAL ONE (16:14)
--- NOTE | 2017-10-12 17:02 | RAD ---
SINGLE VIEW PELVIS: Date: 10/12/17 COMPARISON: None. HISTORY: Pain after rolling off of seat. FINDINGS: Single view of the pelvis shows no evidence of acute fracture or dislocation. No degenerative changes are seen. IMPRESSION: Unremarkable exam. POS: [facility]
--- NOTE | 2017-10-12 17:04 | RAD ---
3 VIEWS LUMBOSACRAL SPINE: Date: 10/12/17 COMPARISON: None. HISTORY: Rolled off seat. Back pain. FINDINGS: Three views of the lumbosacral spine are limited secondary to the patient's large body habitus. The v ertebral bodies demonstrate normal height and alignment without obvious fracture or subluxation. Ther e appears to be intervertebral disc space narrowing at L5-S1, which may represent degenerative change . There also may be small osteophytes at L4-5. IMPRESSION: Degenerative changes of the lumbar spine without acute osseous abnormality. POS: [facility]
[2017-10-12] MEDS ORDERED: Senokot 8.6 MG TAB PO PRN (19:22)
[2017-10-12] MEDS ORDERED: Guaifenesin DM 100-10/5 ML UDCUP PO PRN (19:22)
[2017-10-12] MEDS: Famotidine 20 MG TAB PO SCH (21:58)
[2017-10-12] MEDS: PARoxetine 20 MG TAB PO SCH (21:58)
[2017-10-12] MEDS: Docusate 100 MG CAP PO SCH (21:58)
[2017-10-12 22:17] VITALS: BMI 58.7
[2017-10-12] MEDS: Furosemide 100 MG in Sodium Chloride 0.9% 90 ML IVPB SCH (23:41)
--- NOTE | 2017-10-13 02:31 | HP ---
REASON FOR ADMISSION: Anasarca, likely CHF with diastolic dysfunction. HISTORY OF PRESENT ILLNESS: The patient gives history of feeling hot on her bed and went to sleep on the couch. She normally wakes up at around 7 in the morning. This morning she woke up on the floor and did not realize she was on the floor. She has been also having increasing shortness of breath and fluid retention from last two weeks. The patient complains that her left breast is fully filled with fluid. No complaints of cough or expectoration. No complaints of fever. She normally ambulates inside the house with a rolling walker. She has no complaints of chest pain or palpitation. PAST MEDICAL AND SURGICAL HISTORY: Morbid obesity, prior history of anasarca and being hospitalized here in the month of April and being on Lasix drip with loss of nearly 80 pounds. Hypertension, anxiety, depression, possible sleep apnea. The patient had a MUGA scan to assess for LV function in 04/2017, but was technically difficult and was nondiagnostic. Her echo done in the same month was technically difficult and her ejection fraction could not be assessed on that as well. CURRENT MEDICATIONS: Fish oil daily, citalopram 40 mg twice daily, lisinopril 40 mg daily, Ultram 50 mg twice daily, ferrous sulfate 325 mg daily, potassium chloride 20 mEq daily, clonazepam 0.5 mg twice daily p.r.n. for anxiety, Lasix 40 mg daily, Coreg 3.125 mg daily. ALLERGIES: No known drug allergies. PERSONAL HISTORY: Does not abuse alcohol or drugs. No history of smoking. FAMILY HISTORY: Mother has history of CHF and hypertension. Father has history of prostate cancer. Both parents are living. CODE STATUS: FULL. Power of green belt is her mom, her name is Ms. Chapman. REVIEW OF SYSTEMS: The following complete review of systems was negative, unless otherwise mentioned in the HPI or below: Constitutional: Weight loss or gain, ability to conduct usual activities. Skin: Rash, itching. Eyes: Double vision, pain. ENT/Mouth: Nose bleeding, neck stiffness, pain, tenderness. Cardiovascular: Palpitations, dyspnea on exertion, orthopnea. Respiratory: Shortness of breath, wheezing, cough, hemoptysis, fever or night sweats. Gastrointestinal: Poor appetite, abdominal pain, heartburn, nausea, vomiting, constipation, or diarrhea. Genitourinary: Urgency, frequency, dysuria, nocturia. Musculoskeletal: Pain, swelling. Neurologic/Psychiatric: Anxiety, depression. Allergy/Immunologic: Skin rash, bleeding tendency. PHYSICAL EXAMINATION: GENERAL: The patient is a 42-year-old female who is currently not in any acute distress. VITAL SIGNS: Blood pressure 132/96, pulse 100 per minute, respiratory rate 18 per minute, temperature 97.6 degrees Fahrenheit, saturating 95% on room air. NECK: Supple. No elevated JVD. HEENT: Eyes: Extraocular muscles intact. Pupils reacting to light. Oral cavity mucous membranes are moist. No exudates or congestion. CARDIOVASCULAR: S1, S2 heard. Regular rhythm. RESPIRATORY: Air entry 1+ bilaterally. No rales or rhonchi. ABDOMEN: Soft. Bowel sounds heard. There is abdominal wall edema. EXTREMITIES: There is 2+ peripheral edema. VASCULAR: Peripheral pulses are 1+ bilateral in the upper extremities. No obvious ischemic ulcerations or gangrene seen. CENTRAL NERVOUS SYSTEM: No gross focal deficits noted. The patient moves all 4 extremities. PSYCHIATRIC: The patient is a bit anxious, otherwise no hallucinations or delusions. BREASTS: The patient has enormous dependent edema in the left breast and has gjhz-op-pujbhrjw amount of edema in her right breast as well. LABORATORY AND X-RAY FINDINGS: White count of 5.5, H and H 12 and 39, platelet count 155 with 60% neutrophils, MCV is 99, BUN 12, creatinine 1.0. Total bilirubin 15.3. AST, ALT, alkaline phosphatase within normal limits. First set of cardiac enzymes are negative. BNP is 2778, albumin is 3.6. Chest x-ray done, it is suboptimal, there is cardiomegaly, pulmonary vascular congestion is seen. Lumbar spine three view x-ray shows degenerative changes. Single view pelvic x-ray done was unremarkable. CLINICAL IMPRESSION AND PLAN: The patient will be admitted to telemetry for massive anasarca. The patient likely has diastolic dysfunction. Due to poor body habitus, ejection fraction could not be ascertained even with MUGA scan during her last admission here. She diuresed well with a Lasix drip during her last admission here. Patient's systolic blood pressures usually trends around 100 when she started diuresing. She will be on Lasix drip at 3 or 4 mg an hour. I have discussed her findings with Dr. Cheung who has evaluated the patient during her previous admission here in April. We will continue her on aspirin, Coreg, ferrous sulfate, Paxil as before. Her electrolytes will be closely monitored. The patient on discharge was 413 pounds on 05/20 with admission weight of 498 pounds then. We will try to obtain accurate weight at present. Likely patient has gone back to her original weight based on clinical findings with massive anasarca. The patient has hyperbilirubinemia likely due to Gilbert's?. She has had normal liver enzymes. She has had prior consultation with Dr. Britt as well for the same. Her hepatitis panel was negative then. She has had abdominal ultrasound done then, which showed sludge in her gallbladder and her common duct was 3 mm then. The patient is morbidly obese with multiple medical conditions. I have discussed code status with her, she is currently FULL CODE, but is contemplating DNR once she speaks to her family members. YUKI
[2017-10-13] MEDS: Acetaminophen 325 MG TAB PO PRN ×3 (05:32→22:53)
[2017-10-13 06:05] LABS: #Eosinphils 0.1 thou/uL (0.0-0.7); #Lymphocytes 1.5 thou/uL (1.20-3.40); #Monocytes 0.5 thou/uL (0.11-0.59); #Neutrophils 3.2 thou/uL (1.40-6.50); %Basophils 0.5 % (0.0-1.0); %Eosinophils 2.3 % (0.0-10.0); %Lymphocytes 27.8 % (21.0-51.0); %Monocytes 8.9 % (0.0-10.0); %Neutrophils 60.5 % (42.0-75.0); Mean Corpuscular HGB CONC 30.6 g/dL (32.0-36.0); Mean Corpuscular Hemoglobin 30.9 pg (27.0-31.0); Mean Platelet Volume 8.3 fL (7.4-10.4); Platelet Count 146 thou/uL (130-400); RBC Distribution Width 15.1 % (11.5-14.5); Red Blood Cell (RBC) Count 3.87 mill/uL (4.20-5.40); White Blood Cell (WBC) Count 5.3 thou/uL (4.8-10.8)
[2017-10-13 06:13] LABS: Albumin 3.5 g/dL (3.5-5.0); Anion Gap 11 mmol/L (10-20); BUN (Urea Nitrogen) 12 mg/dL (7.0-18.7); BUN/Creatinine Ratio 11.43; Calc. Creatinine Clearance 167 mL/min (70-130); Calcium 9.5 mg/dL (7.8-10.44); Carbon Dioxide 31 mmol/L (22-29); Chloride 104 mmol/L (98-107); Estimated GFR-MDRD 69; Glucose 95 mg/dL (70-105); Potassium 4.3 mmol/L (3.5-5.1); Sodium 142 mmol/L (136-145)
[2017-10-13] MEDS: Carvedilol 3.125 MG TAB PO SCH ×2 (08:28→18:18)
[2017-10-13] MEDS: Potassium Chloride 20 MEQ TAB PO SCH ×2 (08:28→18:17)
[2017-10-13] MEDS: Ferrous Sulfate 325 MG TAB PO SCH (08:28)
[2017-10-13] MEDS: Docusate 100 MG CAP PO SCH ×2 (08:29→20:21)
[2017-10-13] MEDS: Aspirin 81 mg Enteric Coated Tablet PO SCH (08:29)
[2017-10-13] MEDS: Famotidine 20 MG TAB PO SCH ×2 (08:29→20:21)
[2017-10-13] MEDS: Enoxaparin Sodium 40 MG/0.4 ML SYRINGE SC SCH (08:29)
[2017-10-13] MEDS: Fish Oil 1,000 MG CAP PO SCH (08:30)
[2017-10-13] MEDS: PARoxetine 20 MG TAB PO SCH ×2 (08:30→20:21)
--- NOTE | 2017-10-13 10:33 | PRG ---
DATE OF SERVICE: 10/13/2017 SUBJECTIVE: This is a 42-year-old female being seen for anasarca and edema. The patient denies any nausea, vomiting or chest pain. PHYSICAL EXAMINATION: GENERAL: Patient is resting. VITAL SIGNS: Afebrile, pulse 60, breathing 16, blood pressure 134/91. OBJECTIVE: See above. Awake, alert, in no acute distress. GENERAL APPEARANCE AND MENTAL STATUS: Fair. HEAD/NECK: Normocephalic. Atraumatic. EYES: EOMI. No deformity. EARS: Clear. No ulcers. NOSE: Intact. No lesions. MOUTH: Clear. No discharge. THROAT: Clear. No exudate. LUNGS: Clear. No crackles. CARDIAC: S1, S2. No rub. ABDOMEN: Benign. BS+. GENITALIA/RECTUM: Olson absent. BACK/EXTREMITIES: Edema 0+ Ulcer- NEUROLOGICAL: Alert and motor intact. SKIN: Rash- Bruise- LYMPHATICS: Edema- Ulcer- LABORATORY: Hemoglobin 12. creatinine 1.05. ASSESSMENT AND RECOMMENDATIONS: 1. Chronic kidney disease stage 2, stable. 2. Hypertension, stable. 3. Anasarca. Continue Lasix IV. Can add Zaroxolyn as needed.
--- NOTE | 2017-10-13 11:14 | CON ---
DATE OF CONSULTATION: 10/12/2017 REASON FOR CONSULTATION: Edema. HISTORY OF PRESENT ILLNESS: This is a very pleasant 42-year-old female with a history of recurrent a dmissions, presented to the hospital with anasarca and diastolic dysfunction. The patient was starte d on IV diuretic therapy. The patient denies chest pain, orthopnea, PND. Denies any nausea, vomitin g or chest pain. PAST MEDICAL HISTORY: Morbid obesity, congestive heart failure, hypertension, anemia, anxiety disord er. HOME MEDICATIONS: Reviewed. FAMILY HISTORY: Negative for ESRD. ALLERGIES: Reviewed. REVIEW OF SYSTEMS: Fifteen point review of systems was performed and negative except positives noted above. GENERAL: Weakness- HEAD: Headache- NECK: No swelling or lumps. NOSE: No epistaxis or discharge. EYES: No diplopia or pain. RESPIRATORY: Dyspnea- CARDIOVASCULAR: Chest pain- GASTROINTESTINAL: Nausea- /SENIOR MARKET RESEARCH ANALYST: Hematuria- MUSCULOSKELETAL: No joint pain. NEUROPSYCHIATIC SYSTEMS: No suicidal ideation. No ideation. SKIN: Denies any rash or ulcer. CONSTITUTIONAL: No fever or chills. PHYSICAL EXAMINATION: GENERAL: Patient is awake, alert. VITAL SIGNS: Afebrile, pulse 75, breathing 16, blood pressure was 132/96. OBJECTIVE: See above. Awake, alert, in no acute distress. GENERAL APPEARANCE AND MENTAL STATUS: Fair. HEAD/NECK: Normocephalic. Atraumatic. EYES: EOMI. No deformity. EARS: Clear. No ulcers. NOSE: Intact. No lesions. MOUTH: Clear. No discharge. THROAT: Clear. No exudate. LUNGS: Clear. No crackles. CARDIAC: S1, S2. No rub. ABDOMEN: Benign. BS+. GENITALIA/RECTUM: Olson absent. BACK/EXTREMITIES: Edema 2+ Ulcer- NEUROLOGICAL: Alert and motor intact. SKIN: Rash- Bruise- LYMPHATICS: Edema- Ulcer- LABORATORY: Creatinine 1. ASSESSMENT AND RECOMMENDATIONS: 1. Acute kidney injury with diastolic dysfunction. Start Lasix drip, can give Zaroxolyn as needed. 2. Anemia, stable. 3. Medication based on glomerular filtration rate are appropriate. No indication for dialysis at this time. Overall, prognosis is extremely poor. I would recommend [facility].
--- NOTE | 2017-10-13 12:35 | PDOC.PN ---
- Subjective Encounter Start Date: 10/13/17 Encounter Start Time: 10:00 Subjective: no sob, is feeling better - Objective Resuscitation Status: Resuscitation Status FULL:Full Resuscitation MAR Reviewed: Yes Vital Signs & Weight: Vital Signs (12 hours) Temp Pulse Resp BP Pulse Ox 10/13/17 11:50 97.5 F L 82 18 137/96 H 93 L 10/13/17 08:27 97.4 F L 88 18 138/100 H 98 10/13/17 04:00 97.9 F 86 86 H 134/91 H 95 I&O: 10/12/17 10/13/17 10/14/17 06:59 06:59 06:59 Intake Total 498.6 Output Total 750 Balance -251.4 Result Diagrams: 10/13/17 05:46 10/13/17 05:46 Additional Labs: Accuchecks 10/13/17 10/13/17 10:38 06:05 POC Glucose 91 105 Phys Exam - Physical Examination HEENT: PERRLA, moist MMs Neck: no JVD, supple Respiratory: no wheezing, no rales Cardiovascular: RRR, no significant murmur Gastrointestinal: soft, non-tender, positive bowel sounds Musculoskeletal: pulses present, edema present Neurological: non-focal, moves all 4 limbs Psychiatric: A&O x 3 Dx/Plan (1) Anasarca Code(s): R60.1 - GENERALIZED EDEMA Status: Acute (2) CHF (congestive heart failure) Code(s): I50.9 - HEART FAILURE, UNSPECIFIED Status: Chronic (3) Hyperbilirubinemia Code(s): E80.6 - OTHER DISORDERS OF BILIRUBIN METABOLISM Status: Chronic Comment: unclear etiology (4) DM II (diabetes mellitus, type II), controlled Code(s): E11.9 - TYPE 2 DIABETES MELLITUS WITHOUT COMPLICATIONS Status: Chronic Qualifiers: Diabetes mellitus watermaster insulin use: without watermaster use Diabetes mellitus complication status: with other specified complication Qualified Code (s): E11.69 - Type 2 diabetes mellitus with other specified complication (5) HTN (hypertension) Code(s): I10 - ESSENTIAL (PRIMARY) HYPERTENSION Status: Chronic Qualifiers: Hypertension type: essential hypertension Qualified Code(s): I10 - Essential (primary) hypertension (6) Morbid (severe) obesity due to excess calories Code(s): E66.01 - MORBID (SEVERE) OBESITY DUE TO EXCESS CALORIES Status: Chronic - Plan is on lasix drip -: watch for hypotension -: is diuresing well, to ambulate as tolerated with PT -: not sure if her current weight is accurate -: is on small dose of coreg, asp and iron replacement * . elevate breast over pillows to help drain edema. Review of Systems - Medications/Allergies Allergies/Adverse Reactions: Allergies Allergy/AdvReac Type Severity Reaction Status Date / Time No Known Allergies Allergy Verified 05/07/17 22:49 Medications: Current Medications Acetaminophen (Tylenol) 650 mg PO Q4H PRN PRN Reason: Headache/Fever or Pain Last Admin: 10/13/17 05:32 Dose: 650 mg Aspirin (Ecotrin) 81 mg PO DAILY [facility] Last Admin: 10/13/17 08:29 Dose: 81 mg [facility] Last Admin: 10/13/17 08:28 Dose: 3.125 mg Docusate Sodium (Colace) 100 mg PO BID [facility] Last Admin: 10/13/17 08:29 Dose: 100 mg Enoxaparin Sodium (Lovenox) 40 mg SC 0900 [facility] Last Admin: 10/13/17 08:29 Dose: 40 mg Famotidine (Pepcid) 20 mg PO BID [facility] Last Admin: 10/13/17 08:29 Dose: 20 mg Ferrous Sulfate (Feosol) 325 mg PO QA-[facility] Last Admin: 10/13/17 08:28 Dose: 325 mg Fish Oil (Fish Oil) 1,000 mg PO DAILY [facility] Last Admin: 10/13/17 08:30 Dose: 1,000 mg Guaifenesin/Dextromethorphan (Robitussin Dm) 15 ml PO Q4H PRN PRN Reason: Cough Furosemide 100 mg/ Sodium (Chloride) 100 mls @ 4 mls/hr IVPB INF [facility] PRN Reason: 4 MG/HR Last Admin: 10/12/17 23:41 Dose: 100 mls Paroxetine HCl (Paxil) 40 mg PO BID [facility] Last Admin: 10/13/17 08:30 Dose: 40 mg Potassium Chloride (K-Dur) [facility] Last Admin: 10/13/17 08:28 Dose: 40 meq Senna (Senokot) 2 tab PO HSPRN PRN PRN Reason: Constipation Sodium Chloride (Flush - Normal Saline) 10 ml IVF Q12HR [facility] Last Admin: 10/13/17 08:30 Dose: 10 ml Sodium Chloride (Flush - Normal Saline) 10 ml IVF PRN PRN PRN Reason: Saline Flush
[2017-10-13] MEDS ORDERED: Dextrose 5% in Water 1,000 ML IV PRN (16:09)
[2017-10-13] MEDS ORDERED: Dextrose 50% Abboject 50 ML SYRINGE IVP PRN (16:09)
[2017-10-13] MEDS ORDERED: HumaLOG 300 UNITS/3 ML VIAL SC PRN (16:09)
[2017-10-13] MEDS: Furosemide 100 MG in Sodium Chloride 0.9% 90 ML IVPB SCH (20:17)
[2017-10-14] MEDS: Acetaminophen 325 MG TAB PO PRN ×3 (05:26→20:13)
[2017-10-14 05:47] LABS: Albumin 3.4 g/dL (3.5-5.0); Anion Gap 12 mmol/L (10-20); BUN (Urea Nitrogen) 12 mg/dL (7.0-18.7); BUN/Creatinine Ratio 11.32; Calc. Creatinine Clearance 166 mL/min (70-130); Calcium 9.3 mg/dL (7.8-10.44); Carbon Dioxide 32 mmol/L (22-29); Chloride 102 mmol/L (98-107); Estimated GFR-MDRD 68; Glucose 92 mg/dL (70-105); Phosphorus 3.9 mg/dL (2.3-4.7); Potassium 4.4 mmol/L (3.5-5.1); Sodium 142 mmol/L (136-145)
[2017-10-14] MEDS: Potassium Chloride 20 MEQ TAB PO SCH ×2 (08:35→16:44)
[2017-10-14] MEDS: PARoxetine 20 MG TAB PO SCH ×2 (08:35→20:10)
[2017-10-14] MEDS: Fish Oil 1,000 MG CAP PO SCH (08:35)
[2017-10-14] MEDS: Ferrous Sulfate 325 MG TAB PO SCH (08:35)
[2017-10-14] MEDS: Famotidine 20 MG TAB PO SCH ×2 (08:36→20:10)
[2017-10-14] MEDS: Carvedilol 3.125 MG TAB PO SCH ×2 (08:36→16:44)
[2017-10-14] MEDS: Enoxaparin Sodium 40 MG/0.4 ML SYRINGE SC SCH (08:38)
[2017-10-14] MEDS: Docusate 100 MG CAP PO SCH ×2 (08:38→20:10)
[2017-10-14] MEDS: Aspirin 81 mg Enteric Coated Tablet PO SCH (08:38)
--- NOTE | 2017-10-14 10:39 | PRG ---
DATE OF SERVICE: SUBJECTIVE: This is a 42-year-old female being seen for anasarca. The patient denies any nausea, vo miting or chest pain. PHYSICAL EXAMINATION: GENERAL: Patient is awake, alert. VITAL SIGNS: Afebrile, pulse 87, breathing 16, blood pressure 127/83. OBJECTIVE: See above. Awake, alert, in no acute distress. GENERAL APPEARANCE AND MENTAL STATUS: Fair. HEAD/NECK: Normocephalic. Atraumatic. EYES: EOMI. No deformity. EARS: Clear. No ulcers. NOSE: Intact. No lesions. MOUTH: Clear. No discharge. THROAT: Clear. No exudate. LUNGS: Clear. No crackles. CARDIAC: S1, S2. No rub. ABDOMEN: Benign. BS+. GENITALIA/RECTUM: Olson absent. BACK/EXTREMITIES: Edema 0+ Ulcer- NEUROLOGICAL: Alert and motor intact. SKIN: Rash- Bruise- LYMPHATICS: Edema- Ulcer- LABORATORY: Creatinine 1.06, potassium 4.1. ASSESSMENT AND RECOMMENDATIONS: 1. Stage 1 chronic kidney disease, stable. 2. Hypertension, stable. 3. Anemia, stable. 4. Anasarca, improving. The patient can be changed over to p.o. Lasix in 3 divided doses. I will sign off on this patient. Please reconsult as needed.
--- NOTE | 2017-10-14 11:53 | PDOC.PN ---
- Subjective Encounter Start Date: 10/14/17 Encounter Start Time: 09:10 Subjective: no sob, feels better -: no chest pain or palp - Objective Resuscitation Status: Resuscitation Status DNR:Do Not Resuscitate MAR Reviewed: Yes Vital Signs & Weight: Vital Signs (12 hours) Temp Pulse Resp BP Pulse Ox 10/14/17 08:23 98.6 F 87 20 151/96 H 97 10/14/17 04:00 97.7 F 81 18 127/88 97 10/14/17 01:03 94 L 10/14/17 00:00 98.0 F 102 H 22 H 130/85 97 I&O: 10/13/17 10/14/17 10/15/17 06:59 06:59 06:59 Intake Total 498.6 2238 Output Total 750 4650 Balance -251.4 -2412 Result Diagrams: 10/13/17 05:46 10/14/17 05:03 Additional Labs: Accuchecks 10/14/17 10/13/17 10/13/17 11:25 19:24 16:21 POC Glucose 96 129 H 126 H Phys Exam - Physical Examination HEENT: PERRLA, moist MMs Neck: no JVD, supple Respiratory: no wheezing, no rales Cardiovascular: RRR, no significant murmur Gastrointestinal: soft, positive bowel sounds abd wall edema Musculoskeletal: edema present Neurological: non-focal, moves all 4 limbs -: severe anasarca including b/l breasts, worse on left Dx/Plan (1) Anasarca Code(s): R60.1 - GENERALIZED EDEMA Status: Acute (2) CHF (congestive heart failure) Code(s): I50.9 - HEART FAILURE, UNSPECIFIED Status: Suspected (3) Hyperbilirubinemia Code(s): E80.6 - OTHER DISORDERS OF BILIRUBIN METABOLISM Status: Chronic Comment: unclear etiology (4) DM II (diabetes mellitus, type II), controlled Code(s): E11.9 - TYPE 2 DIABETES MELLITUS WITHOUT COMPLICATIONS Status: Chronic Qualifiers: Diabetes mellitus nursing home insulin use: without terminal operator use Diabetes mellitus complication status: with other specified complication Qualified Code (s): E11.69 - Type 2 diabetes mellitus with other specified complication (5) HTN (hypertension) Code(s): I10 - ESSENTIAL (PRIMARY) HYPERTENSION Status: Chronic Qualifiers: Hypertension type: essential hypertension Qualified Code(s): I10 - Essential (primary) hypertension (6) Morbid (severe) obesity due to excess calories Code(s): E66.01 - MORBID (SEVERE) OBESITY DUE TO EXCESS CALORIES Status: Chronic - Plan diuresing well, on lasix drip, u.output last 24hrs 4650mls -: on asp, coreg -: will likely need cardiac cath to assess lv function and to r/o acs -: previous echo and MUGA was tech not good to assess lv function -: not sure if her weight is ok for cath table * . To ambulate with PT as tolerated. Review of Systems - Medications/Allergies Allergies/Adverse Reactions: Allergies Allergy/AdvReac Type Severity Reaction Status Date / Time No Known Allergies Allergy Verified 05/07/17 22:49 Medications: Current Medications Acetaminophen (Tylenol) 650 mg PO Q4H PRN PRN Reason: Headache/Fever or Pain Last Admin: 10/14/17 05:26 Dose: 650 mg Aspirin (Ecotrin) 81 mg PO DAILY [facility] Last Admin: 10/14/17 08:38 Dose: 81 mg Carvedilol (Coreg) 3.125 mg PO BID-[facility] Last Admin: 10/14/17 08:36 Dose: 3.125 mg Dextrose/Water (Dextrose 50%) 25 gm IVP PRN PRN PRN Reason: HYPOGLYCEMIA PROTOCOL Docusate Sodium (Colace) 100 mg PO BID [facility] Last Admin: 10/14/17 08:38 Dose: 100 mg Enoxaparin Sodium (Lovenox) 40 mg SC 0900 [facility] Last Admin: 10/14/17 08:38 Dose: 40 mg Famotidine (Pepcid) 20 mg PO BID [facility] Last Admin: 10/14/17 08:36 Dose: 20 mg Ferrous Sulfate (Feosol) 325 mg PO QAM-[facility] Last Admin: 10/14/17 08:35 Dose: 325 mg Fish Oil (Fish Oil) 1,000 mg PO DAILY [facility] Last Admin: 10/14/17 08:35 Dose: 1,000 mg Glucagon (Glucagon) 1 mg IM PRN PRN PRN Reason: HYPOGLYCEMIA PROTOCOL Guaifenesin/Dextromethorphan (Robitussin Dm) 15 ml PO Q4H PRN PRN Reason: Cough Furosemide 100 mg/ Sodium (Chloride) 100 mls @ 4 mls/hr IVPB INF [facility] PRN Reason: 4 MG/HR Last Admin: 10/13/17 20:17 Dose: 100 mls Dextrose/Water (D5w) 1,000 mls @ 0 mls/hr IV INF PRN; As Directed PRN Reason: HYPOGLYCEMIA PROTOCOL Insulin Human Lispro (Humalog) 0 units SC .MILD SLIDING SCALE PRN; Protocol PRN Reason: MILD SLIDING SCALE Paroxetine HCl (Paxil) 40 mg PO BID [facility] Last Admin: 10/14/17 08:35 Dose: 40 mg Potassium Chloride (K-Dur) 40 meq PO BID-[facility] Last Admin: 10/14/17 08:35 Dose: 40 meq Senna (Senokot) 2 tab PO HSPRN PRN PRN Reason: Constipation Sodium Chloride (Flush - Normal Saline) 10 ml IVF Q12HR [facility] Last Admin: 10/14/17 08:42 Dose: Not Given Sodium Chloride (Flush - Normal Saline) 10 ml IVF PRN PRN PRN Reason: Saline Flush
--- NOTE | 2017-10-14 18:45 | CON ---
DATE OF SERVICE: 10/14/2017 REASON FOR CONSULTATION: Edema. HISTORY OF PRESENT ILLNESS: Mr. Townsend is a pleasant 42-year-old -[place] female who com es to the hospital for increased swelling. She was admitted back in April for a similar situation . She was placed on a Lasix drip and diuresed about 30 pounds off. She was sent home with p.jun Crow x and actually continued to diurese from what she can tell me about 30 or more pounds. She had an ec hocardiogram back in April which could not see significant LV function. We also ordered a MUGA sc an and because of body habitus, we could not see her LV at all. We could not really give accurate LV function. She is back as she has slowly been accumulating more fluid. She did not even realize beltran t she does not do much. It was her mother who noticed that her legs were more swollen. She was more puffy, so she was brought in for this. She denies any chest pain, tightness, or pressure. Her shor tness of breath is at baseline. PAST MEDICAL HISTORY: 1. Hypertension. 2. Type 2 diabetes. 3. Anxiety. 4. Osteoarthritis. 5. Depression. 6. Morbid obesity. 7. Obstructive sleep apnea, severe, likely. PAST SURGICAL HISTORY: None. ALLERGIES: No known drug allergies. OUTPATIENT MEDICATIONS: Include: 1. Clonazepam. 2. Fish oil. 3. Iron sulfate. 4. Tramadol. 5. Ibuprofen. 6. Celexa 40 mg a day. 7. Carvedilol 3.125 mg b.i.d. 8. Aspirin 81 a day. 9. Lisinopril 40 mg a day. 10. Furosemide 40 mg a day. 11. Potassium chloride 20 mEq every morning. ALLERGIES: No known drug allergies. SOCIAL HISTORY: No alcohol, tobacco or drugs. FAMILY HISTORY: Noncontributory. REVIEW OF SYSTEMS: A 12-point review of systems was done and is all negative unless stated in the hi story of present illness. PHYSICAL EXAMINATION: VITAL SIGNS: Temperature 97.6, pulse 86, respiration rate 20, satting 96% on 2 liters, blood pressur e 156/95. GENERAL: Awake, alert, oriented x3, in no distress. HEENT: Normocephalic, atraumatic. NECK: Supple. LUNGS: Clear. CARDIOVASCULAR: S1, S2, no S3, S4, no murmurs, no rubs. ABDOMEN: Soft, positive bowel sounds. EXTREMITIES: 3+ edema. SKIN: Warm and dry. LABORATORY WORK: Reviewed. CBC was reviewed. Coags were reviewed. Chemistries were reviewed. BNP was 2778, albumin of 3.4. Troponin was negative x1. Since admission, she has diuresed about 10 liters so far. She is negative 2-1/2 liters yesterday, ne gative 5-1/2 liters today. ASSESSMENT AND PLAN: 1. Anasarca. 2. Likely severe diastolic dysfunction. 3. Likely severe obstructive sleep apnea. 4. Morbid obesity. BMI at 58.7 on measurement. She is 342 pounds. She is actually in the 490 poun ds last time when she was seen. I am not sure if this weight is accurate this time or if the inaccur ate one was last time. We would try to get an accurate reading at this point. If her weight is in f act 240, we may be able to do a heart catheterization to make sure that she does not have any ischemi a and also do an LV gram to see we were able to see anything through her body habitus. Otherwise, francisca rob can do this right now, she is unable to lay flat. She may also just be too big for the table not b ecause of the weight because she is so short and the table was very thin and she may fall off the tab le and that would be catastrophic. 5. Continue Lasix for now. 6. Daily basic metabolic profile to make sure she is not getting too hypokalemic and replace as need ed. Thank you for letting us to participate in the care of your patient. We will follow.
[2017-10-14 19:17] LABS: Bilirubin Small (Negative); Blood, Urine Small (Negative); Clarity CLOUDY (Clear); Glucose, Urine (Dipstick) Negative (Negative); Leukocyte Large (Negative); Nitrite Negative (Negative); Protein, Urine (Dipstick) Negative (Neg-Trace); Specific Gravity, Urine 1.009 (1.002-1.036)
[2017-10-14 19:22] LABS: Bacteria/HPF 3+ HPF (None Seen); Hyaline Casts/LPF 0-3 HYALINE CAST LPF (0-3 Hyaline); Squamous Epithelial None Seen HPF (0-3)
[2017-10-14] MEDS: Furosemide 100 MG in Sodium Chloride 0.9% 90 ML IVPB SCH (20:10)
[2017-10-15] MEDS: Acetaminophen 325 MG TAB PO PRN ×3 (00:17→20:03)
[2017-10-15] MEDS: Ciprofloxacin 500 MG TAB PO SCH ×2 (05:30→20:01)
[2017-10-15 05:59] LABS: Albumin 3.3 g/dL (3.5-5.0); Anion Gap 14 mmol/L (10-20); BUN (Urea Nitrogen) 11 mg/dL (7.0-18.7); BUN/Creatinine Ratio 11.46; Calc. Creatinine Clearance 183 mL/min (70-130); Calcium 9.2 mg/dL (7.8-10.44); Carbon Dioxide 31 mmol/L (22-29); Chloride 98 mmol/L (98-107); Estimated GFR-MDRD 76; Glucose 86 mg/dL (70-105); Phosphorus 3.8 mg/dL (2.3-4.7); Potassium 4.2 mmol/L (3.5-5.1); Sodium 139 mmol/L (136-145)
--- NOTE | 2017-10-15 08:58 | PRG ---
DATE OF SERVICE: 10/15/2017 SUBJECTIVE: This is a 42-year-old female being seen for anasarca. The patient denies any nausea, vo miting or chest pain. PHYSICAL EXAMINATION: GENERAL: Patient is awake, alert. VITAL SIGNS: Afebrile, pulse is 81, breathing 16, blood pressure 149/95. OBJECTIVE: See above. Awake, alert, in no acute distress. GENERAL APPEARANCE AND MENTAL STATUS: Fair. HEAD/NECK: Normocephalic. Atraumatic. EYES: EOMI. No deformity. EARS: Clear. No ulcers. NOSE: Intact. No lesions. MOUTH: Clear. No discharge. THROAT: Clear. No exudate. LUNGS: Clear. No crackles. CARDIAC: S1, S2. No rub. ABDOMEN: Benign. BS+. GENITALIA/RECTUM: Olson absent. BACK/EXTREMITIES: Edema 0+ Ulcer- NEUROLOGICAL: Alert and motor intact. SKIN: Rash- Bruise- LYMPHATICS: Edema- Ulcer- LABORATORY: Hemoglobin 12, creatinine 0.96. ASSESSMENT AND RECOMMENDATIONS: 1. Chronic kidney disease stage 2, stable. 2. Hypertension, stable. 3. Edema, improving. Continue p.o. diuretics. I will sign off.
[2017-10-15] MEDS: Potassium Chloride 20 MEQ TAB PO SCH ×2 (09:10→17:39)
[2017-10-15] MEDS: Docusate 100 MG CAP PO SCH ×2 (09:11→20:01)
[2017-10-15] MEDS: Fish Oil 1,000 MG CAP PO SCH (09:12)
[2017-10-15] MEDS: Ferrous Sulfate 325 MG TAB PO SCH (09:12)
[2017-10-15] MEDS: Carvedilol 3.125 MG TAB PO SCH ×2 (09:13→17:38)
[2017-10-15] MEDS: Aspirin 81 mg Enteric Coated Tablet PO SCH (09:13)
[2017-10-15] MEDS: Famotidine 20 MG TAB PO SCH ×2 (09:13→20:01)
[2017-10-15] MEDS: PARoxetine 20 MG TAB PO SCH ×2 (09:13→20:00)
[2017-10-15] MEDS: Enoxaparin Sodium 40 MG/0.4 ML SYRINGE SC SCH (09:14)
--- NOTE | 2017-10-15 11:10 | PDOC.CTH ---
Cardiology Progress Note - Subjective She has diuresed very well on the lasix drip, total of 9L out. - Objective Vital Signs Temp Pulse Resp BP Pulse Ox 10/15/17 08:00 97.7 F 81 22 H 145/95 H 99 10/15/17 07:49 97.7 F 81 22 H 99 10/15/17 03:54 99 Weight 342 lb 1 oz 10/14/17 10/15/17 10/16/17 06:59 06:59 06:59 Intake Total 2238 1617 Output Total 7286 9843 Balance -9491 -8974 - Physical Examination General/Neuro: alert & oriented x3, NAD Neck: no JVD present Lungs: CTA, unlabored respirations Heart: RRR Abdomen: NT/ND Extremities: + edema B (2+) - Labs Result Diagrams: 10/13/17 05:46 10/15/17 04:42 Troponin/CKMB CK-MB (CK-2) 0.6 ng/mL (0-6.6) 10/12/17 13:01 Troponin I Less than 0.010 ng/mL (< 0.028) 10/12/17 13:01 - Assessment/Plan 1. Anasarca. 2. Morbid obesity 3. Likely severe CHAD. 4. Likely diastolic heart faliure 5. Likely RV dysfunction evidenced by hepatic congestion on blood work. PLAN: - Continue IV diuresis. - Her body habitus would make it extremely hard to do a LHC as most of her weight is to the sides. Will hold off on this for now and will only do if emergent. - Will add ACEI to regimen. - Will switch Lasix drip to IV pushes to start to see what dose she will need on discharge.
--- NOTE | 2017-10-15 11:48 | PDOC.PN ---
- Subjective Encounter Start Date: 10/15/17 Encounter Start Time: 09:00 Subjective: no sob or chest pain or palp -: has not ambulated or stood so far - Objective Resuscitation Status: Resuscitation Status DNR:Do Not Resuscitate MAR Reviewed: Yes Vital Signs & Weight: Vital Signs (12 hours) Temp Pulse Resp BP Pulse Ox 10/15/17 08:00 97.7 F 81 22 H 145/95 H 99 10/15/17 07:49 97.7 F 81 22 H 99 10/15/17 03:54 99 Weight Weight 342 lb 1 oz I&O: 10/14/17 10/15/17 10/16/17 06:59 06:59 06:59 Intake Total 2230 1747 Output Total 0789 3046 [facility] -2075 -9202 Result Diagrams: 10/13/17 05:46 10/15/17 04:42 Additional Labs: Accuchecks 10/15/17 10/15/17 10/14/17 11:27 05:46 21:03 POC Glucose 94 96 98 10/14/17 10/14/17 16:39 05:56 POC Glucose 100 96 Phys Exam - Physical Examination HEENT: PERRLA, moist MMs Neck: no JVD, supple Respiratory: no wheezing, no rales Cardiovascular: RRR, no significant murmur Gastrointestinal: soft, non-tender, positive bowel sounds Musculoskeletal: pulses present, edema present Neurological: non-focal, moves all 4 limbs Psychiatric: A&O x 3 -: massive edema of left breast Dx/Plan (1) Anasarca Code(s): R60.1 - GENERALIZED EDEMA Status: Acute (2) CHF (congestive heart failure) Code(s): I50.9 - HEART FAILURE, UNSPECIFIED Status: Suspected (3) Hyperbilirubinemia Code(s): E80.6 - OTHER DISORDERS OF BILIRUBIN METABOLISM Status: Chronic Comment: unclear etiology (4) DM II (diabetes mellitus, type II), controlled Code(s): E11.9 - TYPE 2 DIABETES MELLITUS WITHOUT COMPLICATIONS Status: Chronic Qualifiers: Diabetes mellitus long-term insulin use: without intermediate school teacher use Diabetes mellitus complication status: with other specified complication Qualified Code (s): E11.69 - Type 2 diabetes mellitus with other specified complication (5) HTN (hypertension) Code(s): I10 - ESSENTIAL (PRIMARY) HYPERTENSION Status: Chronic Qualifiers: Hypertension type: essential hypertension Qualified Code(s): I10 - Essential (primary) hypertension (6) Morbid (severe) obesity due to excess calories Code(s): E66.01 - MORBID (SEVERE) OBESITY DUE TO EXCESS CALORIES Status: Chronic - Plan is diuresing very well almost 10lts out last 24hrs -: watch for electrolytes and renal function -: still has massive edema of left breast, counselled to lay on right with darrian -: -vation of left breast to drain fluid away -: PT to ambulate pt in hallway as tolerated (was walking prior to hosp) * . Continue lasix drip need accurate weight of patient, has lost 14 liters in past 48hrs now. will scale back on lasix once she get near euvolemic status. on cipro for uti, asp, coreg. For likely cath on thursday when her orthopnea will be clearing up. Review of Systems - Medications/Allergies Allergies/Adverse Reactions: Allergies Allergy/AdvReac Type Severity Reaction Status Date / Time No Known Allergies Allergy Verified 05/07/17 22:49 Medications: Current Medications Acetaminophen (Tylenol) 650 mg PO Q4H PRN PRN Reason: Headache/Fever or Pain Last Admin: 10/15/17 09:11 Dose: 650 mg Aspirin (Ecotrin) 81 mg PO DAILY [facility] Last Admin: 10/15/17 09:13 Dose: 81 mg Carvedilol (Coreg) 3.125 mg PO BID-[facility] Last Admin: 10/15/17 09:13 Dose: 3.125 mg Ciprofloxacin (Cipro) 500 mg PO 06,1999 [facility] Last Admin: 10/15/17 05:30 Dose: 500 mg Dextrose/Water (Dextrose 50%) 25 gm IVP PRN PRN PRN Reason: HYPOGLYCEMIA PROTOCOL Docusate Sodium (Colace) 100 mg PO BID [facility] Last Admin: 10/15/17 09:11 Dose: Not Given Enoxaparin Sodium (Lovenox) 40 mg SC 899 [facility] Last Admin: 10/15/17 09:14 Dose: 40 mg Famotidine (Pepcid) 20 mg PO BID [facility] Last Admin: 10/15/17 09:13 Dose: 20 mg Ferrous Sulfate (Feosol) 325 mg PO QAM-[facility] Last Admin: 10/15/17 09:12 Dose: 325 mg Fish Oil (Fish Oil) 1,000 mg PO DAILY [facility] Last Admin: 10/15/17 09:12 Dose: Not Given Furosemide (Lasix) 40 mg SLOW IVP 0600,1400 [facility] Glucagon (Glucagon) 1 mg IM PRN PRN PRN Reason: HYPOGLYCEMIA PROTOCOL Guaifenesin/Dextromethorphan (Robitussin Dm) 15 ml PO Q4H PRN PRN Reason: Cough Dextrose/Water (D5w) 1,000 mls @ 0 mls/hr IV INF PRN; As Directed PRN Reason: HYPOGLYCEMIA PROTOCOL Insulin Human Lispro (Humalog) 0 units SC .MILD SLIDING SCALE PRN; Protocol PRN Reason: MILD SLIDING SCALE Paroxetine HCl (Paxil) 40 mg PO BID [facility] Last Admin: 10/15/17 09:13 Dose: 40 mg Potassium Chloride (K-Dur) 40 meq PO BID-[facility] Last Admin: 10/15/17 09:10 Dose: 40 meq Senna (Senokot) 2 tab PO HSPRN PRN PRN Reason: Constipation Sodium Chloride (Flush - Normal Saline) 10 ml IVF Q12HR [facility] Last Admin: 10/15/17 09:16 Dose: Not Given Sodium Chloride (Flush - Normal Saline) 10 ml IVF PRN PRN PRN Reason: Saline Flush
[2017-10-15] MEDS: Furosemide 40 MG/4 ML VIAL SLOW IVP SCH (13:46)
[2017-10-15] MEDS ORDERED: Nitroglycerin 2% Ointment 1 INCH/1 GM Packet TOP SCH (20:00)
[2017-10-16] MEDS: Nitroglycerin 2% Ointment 1 INCH/1 GM Packet TOP SCH ×2 (00:06→05:36)
[2017-10-16] MEDS: Acetaminophen 325 MG TAB PO PRN ×2 (01:41→08:25)
[2017-10-16 05:03] LABS: Albumin 3.3 g/dL (3.5-5.0); Anion Gap 14 mmol/L (10-20); BUN (Urea Nitrogen) 13 mg/dL (7.0-18.7); BUN/Creatinine Ratio 13.54; Calc. Creatinine Clearance 183 mL/min (70-130); Calcium 9.5 mg/dL (7.8-10.44); Carbon Dioxide 35 mmol/L (22-29); Chloride 95 mmol/L (98-107); Estimated GFR-MDRD 76; Glucose 87 mg/dL (70-105); Phosphorus 3.9 mg/dL (2.3-4.7); Potassium 4.5 mmol/L (3.5-5.1); Sodium 139 mmol/L (136-145)
[2017-10-16] MEDS: Ciprofloxacin 500 MG TAB PO SCH ×2 (05:35→20:04)
[2017-10-16] MEDS: Furosemide 40 MG/4 ML VIAL SLOW IVP SCH ×3 (05:35→20:05)
[2017-10-16] MEDS: Potassium Chloride 20 MEQ TAB PO SCH ×2 (08:14→17:13)
[2017-10-16] MEDS: Carvedilol 3.125 MG TAB PO SCH ×2 (08:14→17:13)
[2017-10-16] MEDS: Famotidine 20 MG TAB PO SCH ×2 (08:14→20:05)
[2017-10-16] MEDS: Ferrous Sulfate 325 MG TAB PO SCH (08:15)
[2017-10-16] MEDS: Docusate 100 MG CAP PO SCH ×2 (08:15→20:04)
[2017-10-16] MEDS: Fish Oil 1,000 MG CAP PO SCH (08:15)
[2017-10-16] MEDS: PARoxetine 20 MG TAB PO SCH ×2 (08:15→20:04)
[2017-10-16] MEDS: Aspirin 81 mg Enteric Coated Tablet PO SCH (08:15)
[2017-10-16] MEDS: Enoxaparin Sodium 40 MG/0.4 ML SYRINGE SC SCH (08:15)
--- NOTE | 2017-10-16 15:16 | PDOC.CTH ---
Cardiology Progress Note - Subjective No complaints. Feels she is diuresing. No accurate weight though - Objective Vital Signs Temp Pulse Resp BP Pulse Ox 10/16/17 12:00 97.7 F 81 20 134/81 97 10/16/17 08:10 97.8 F 89 20 98 10/16/17 08:09 97.8 F 89 20 129/83 98 10/16/17 04:00 97.6 F 99 18 114/78 94 L Weight 342 lb 1 oz 10/15/17 10/16/17 10/17/17 06:59 06:59 06:59 Intake Total 1617 1050 Output Total 9850 8400 Balance -5512 -4155 - Physical Examination General/Neuro: alert & oriented x3, NAD Neck: carotid US brisk, no JVD present Heart: RRR Abdomen: NT/ND, soft Extremities: + femoral B Other PE findings: morbidly obese - Labs Result Diagrams: 10/13/17 05:46 10/16/17 04:11 Troponin/CKMB CK-MB (CK-2) 0.6 ng/mL (0-6.6) 10/12/17 13:01 Troponin I Less than 0.010 ng/mL (< 0.028) 10/12/17 13:01 - Assessment/Plan 1. Anasarca. 2. Morbid obesity 3. Likely severe CHAD. 4. Likely diastolic heart faliure 5. Likely RV dysfunction evidenced by hepatic congestion on blood work. No angio at this time per Dr. Valenzuela Continue to diurese. On lasix Add zaroxylyn if no significnat changes
--- NOTE | 2017-10-16 15:34 | PDOC.PN ---
- Subjective Encounter Start Date: 10/16/17 Encounter Start Time: 11:00 Subjective: no sob or palpitation -: has back pain - Objective Resuscitation Status: Resuscitation Status DNR:Do Not Resuscitate MAR Reviewed: Yes Vital Signs & Weight: Vital Signs (12 hours) Temp Pulse Resp BP Pulse Ox 10/16/17 12:00 97.7 F 81 20 134/81 97 10/16/17 08:10 97.8 F 89 20 98 10/16/17 08:09 97.8 F 89 20 129/83 98 10/16/17 04:00 97.6 F 99 18 114/78 94 L Weight Weight 342 lb 1 oz I&O: 10/15/17 10/16/17 10/17/17 06:59 06:59 06:59 Intake Total 1617 1050 Output Total 9850 8400 Balance -8233 -7350 Result Diagrams: 10/13/17 05:46 10/16/17 04:11 Additional Labs: Accuchecks 10/16/17 10/16/17 10/15/17 11:55 06:28 20:38 POC Glucose 103 91 98 10/15/17 16:14 POC Glucose 108 Phys Exam - Physical Examination HEENT: PERRLA, moist MMs Neck: no JVD, supple Respiratory: no wheezing, no rales Cardiovascular: RRR, no significant murmur Gastrointestinal: soft, positive bowel sounds edema++ Musculoskeletal: pulses present, edema present Neurological: non-focal, moves all 4 limbs Psychiatric: A&O x 3 -: massive left breast edema Dx/Plan (1) Anasarca Code(s): R60.1 - GENERALIZED EDEMA Status: Acute (2) CHF (congestive heart failure) Code(s): I50.9 - HEART FAILURE, UNSPECIFIED Status: Suspected (3) Hyperbilirubinemia Code(s): E80.6 - OTHER DISORDERS OF BILIRUBIN METABOLISM Status: Chronic Comment: unclear etiology (4) DM II (diabetes mellitus, type II), controlled Code(s): E11.9 - TYPE 2 DIABETES MELLITUS WITHOUT COMPLICATIONS Status: Chronic Qualifiers: Diabetes mellitus mcc insulin use: without long line teamster use Diabetes mellitus complication status: with other specified complication Qualified Code (s): E11.69 - Type 2 diabetes mellitus with other specified complication (5) HTN (hypertension) Code(s): I10 - ESSENTIAL (PRIMARY) HYPERTENSION Status: Chronic Qualifiers: Hypertension type: essential hypertension Qualified Code(s): I10 - Essential (primary) hypertension (6) Morbid (severe) obesity due to excess calories Code(s): E66.01 - MORBID (SEVERE) OBESITY DUE TO EXCESS CALORIES Status: Chronic - Plan has diuresed a total of 23 liters from admission on iv lasix drip -: switch to lasix iv q8h -: electrolytes and renal function are stable -: still has massive ascites specially her left breast, abd wall & right leg -: accurate weight has not been done so far this admission * . Review of Systems - Medications/Allergies Allergies/Adverse Reactions: Allergies Allergy/AdvReac Type Severity Reaction Status Date / Time No Known Allergies Allergy Verified 05/07/17 22:49 Medications: Current Medications Acetaminophen (Tylenol) 650 mg PO Q4H PRN PRN Reason: Headache/Fever or Pain Last Admin: 10/16/17 08:25 Dose: 650 mg Aspirin (Ecotrin) 81 mg PO DAILY [facility] Last Admin: 10/16/17 08:15 Dose: 81 mg Carvedilol (Coreg) 3.125 mg PO BID-[facility] Last Admin: 10/16/17 08:14 Dose: 3.125 mg Ciprofloxacin (Cipro) 500 mg PO 599,1999 [facility] Last Admin: 10/16/17 05:35 Dose: 500 mg Dextrose/Water (Dextrose 50%) 25 gm IVP PRN PRN PRN Reason: HYPOGLYCEMIA PROTOCOL Docusate Sodium (Colace) 100 mg PO BID [facility] Last Admin: 10/16/17 08:15 Dose: 100 mg Enoxaparin Sodium (Lovenox) 40 mg SC 0900 [facility] Last Admin: 10/16/17 08:15 Dose: 40 mg Famotidine (Pepcid) 20 mg PO BID [facility] Last Admin: 10/16/17 08:14 Dose: 20 mg Ferrous Sulfate (Feosol) 325 mg PO QAM-[facility] Last Admin: 10/16/17 08:15 Dose: 325 mg Fish Oil (Fish Oil) 1,000 mg PO DAILY [facility] Last Admin: 10/16/17 08:15 Dose: 1,000 mg Furosemide (Lasix) 40 mg SLOW IVP Q8HR [facility] Last Admin: 10/16/17 14:09 Dose: 40 mg Glucagon (Glucagon) 1 mg IM PRN PRN PRN Reason: HYPOGLYCEMIA PROTOCOL Guaifenesin/Dextromethorphan (Robitussin Dm) 15 ml PO Q4H PRN PRN Reason: Cough Dextrose/Water (D5w) 1,000 mls @ 0 mls/hr IV INF PRN; As Directed PRN Reason: HYPOGLYCEMIA PROTOCOL Insulin Human Lispro (Humalog) 0 units SC .MILD SLIDING SCALE PRN; Protocol PRN Reason: MILD SLIDING SCALE Paroxetine HCl (Paxil) 40 mg PO BID [facility] Last Admin: 10/16/17 08:15 Dose: 40 mg Potassium Chloride (K-Dur) 40 meq PO BID-[facility] Last Admin: 10/16/17 08:14 Dose: 40 meq Senna (Senokot) 2 tab PO HSPRN PRN PRN Reason: Constipation Sodium Chloride (Flush - Normal Saline) 10 ml IVF Q12HR [facility] Last Admin: 10/16/17 08:16 Dose: 10 ml Sodium Chloride (Flush - Normal Saline) 10 ml IVF PRN PRN PRN Reason: Saline Flush Last Admin: 10/16/17 14:09 Dose: 10 ml Tramadol HCl (Ultram) 50 mg PO Q6H PRN PRN Reason: Moderate Pain (4-6)
[2017-10-16] MEDS: traMADol HCl 50 MG TAB PO PRN (20:09)
[2017-10-17] MEDS: Ciprofloxacin 500 MG TAB PO SCH ×2 (04:18→20:53)
[2017-10-17] MEDS: traMADol HCl 50 MG TAB PO PRN ×3 (04:18→18:18)
[2017-10-17] MEDS: Furosemide 40 MG/4 ML VIAL SLOW IVP SCH (04:18)
[2017-10-17 05:26] LABS: Albumin 3.7 g/dL (3.5-5.0); Anion Gap 15 mmol/L (10-20); BUN (Urea Nitrogen) 14 mg/dL (7.0-18.7); BUN/Creatinine Ratio 13.21; Calc. Creatinine Clearance 166 mL/min (70-130); Calcium 9.6 mg/dL (7.8-10.44); Carbon Dioxide 37 mmol/L (22-29); Chloride 90 mmol/L (98-107); Estimated GFR-MDRD 68; Glucose 79 mg/dL (70-105); Potassium 4.4 mmol/L (3.5-5.1); Sodium 138 mmol/L (136-145)
[2017-10-17] MEDS: Acetaminophen 325 MG TAB PO PRN ×2 (07:52→15:11)
[2017-10-17] MEDS: Docusate 100 MG CAP PO SCH ×2 (07:52→20:53)
[2017-10-17] MEDS: Potassium Chloride 20 MEQ TAB PO SCH ×2 (07:52→18:18)
[2017-10-17] MEDS: PARoxetine 20 MG TAB PO SCH ×2 (07:53→20:54)
[2017-10-17] MEDS: Ferrous Sulfate 325 MG TAB PO SCH (07:53)
[2017-10-17] MEDS: Carvedilol 3.125 MG TAB PO SCH ×2 (07:53→18:19)
[2017-10-17] MEDS: Fish Oil 1,000 MG CAP PO SCH (07:53)
[2017-10-17] MEDS: Aspirin 81 mg Enteric Coated Tablet PO SCH (07:53)
[2017-10-17] MEDS: Famotidine 20 MG TAB PO SCH ×2 (07:54→20:54)
[2017-10-17] MEDS: Enoxaparin Sodium 40 MG/0.4 ML SYRINGE SC SCH (07:54)
[2017-10-17] MEDS: Furosemide 40 MG TAB PO SCH ×2 (10:24→15:11)
--- NOTE | 2017-10-17 12:39 | PDOC.PN ---
- Subjective Encounter Start Date: 10/17/17 Encounter Start Time: 10:00 Subjective: no dizziness or sob -: has not ambulated yet - Objective Resuscitation Status: Resuscitation Status DNR:Do Not Resuscitate MAR Reviewed: Yes Vital Signs & Weight: Vital Signs (12 hours) Temp Pulse Resp BP Pulse Ox 10/17/17 11:36 98.0 F 88 22 H 123/73 98 10/17/17 07:56 98.2 F 104 H 22 H 118/82 92 L 10/17/17 07:45 98.2 F 104 H 22 H 93 L 10/17/17 04:00 98.1 F 102 H 20 141/83 H 96 10/17/17 00:51 96 Weight Weight 342 lb 1 oz I&O: 10/16/17 10/17/17 10/18/17 06:59 06:59 06:59 Intake Total 1050 720 Output Total 8400 43312 [facility] -0702 -54556 Result Diagrams: 10/13/17 05:46 10/17/17 04:03 Additional Labs: Accuchecks 10/17/17 10/17/17 10/16/17 11:39 04:15 20:05 POC Glucose 105 89 109 10/16/17 16:43 POC Glucose 87 Phys Exam - Physical Examination HEENT: PERRLA, moist MMs Neck: no JVD, supple Respiratory: no wheezing, no rales Cardiovascular: RRR, no significant murmur Gastrointestinal: soft, non-tender, positive bowel sounds Musculoskeletal: pulses present, edema present Neurological: non-focal, moves all 4 limbs Psychiatric: normal affect, A&O x 3 -: massive left breast edema still present Dx/Plan (1) Anasarca Code(s): R60.1 - GENERALIZED EDEMA Status: Acute (2) CHF (congestive heart failure) Code(s): I50.9 - HEART FAILURE, UNSPECIFIED Status: Suspected (3) Hyperbilirubinemia Code(s): E80.6 - OTHER DISORDERS OF BILIRUBIN METABOLISM Status: Chronic Comment: unclear etiology (4) DM II (diabetes mellitus, type II), controlled Code(s): E11.9 - TYPE 2 DIABETES MELLITUS WITHOUT COMPLICATIONS Status: Chronic Qualifiers: Diabetes mellitus terminal operations supervisor insulin use: without terminal operations supervisor use Diabetes mellitus complication status: with other specified complication Qualified Code (s): E11.69 - Type 2 diabetes mellitus with other specified complication (5) HTN (hypertension) Code(s): I10 - ESSENTIAL (PRIMARY) HYPERTENSION Status: Chronic Qualifiers: Hypertension type: essential hypertension Qualified Code(s): I10 - Essential (primary) hypertension (6) Morbid (severe) obesity due to excess calories Code(s): E66.01 - MORBID (SEVERE) OBESITY DUE TO EXCESS CALORIES Status: Chronic - Plan has diuresed well on iv lasix, will switch to po bid -: PT needs to ambulate pt as tolerated, she was amb prior to arrival -: still has massive edema over left dependent portions of body incl breast -: pt favours to lay on left side due to right hip pain -: dc planning, prognosis guarded * . Review of Systems - Medications/Allergies Allergies/Adverse Reactions: Allergies Allergy/AdvReac Type Severity Reaction Status Date / Time No Known Allergies Allergy Verified 05/07/17 22:49 Medications: Current Medications Acetaminophen (Tylenol) 650 mg PO Q4H PRN PRN Reason: Headache/Fever or Pain Last Admin: 10/17/17 07:52 Dose: 650 mg Aspirin (Ecotrin) 81 mg PO DAILY [facility] Last Admin: 10/17/17 07:53 Dose: 81 mg Carvedilol (Coreg) 3.125 mg PO BID-[facility] Last Admin: 10/17/17 07:53 Dose: 3.125 mg Ciprofloxacin (Cipro) 500 mg PO 0600,2000 [facility] Last Admin: 10/17/17 04:18 Dose: 500 mg Dextrose/Water (Dextrose 50%) 25 gm IVP PRN PRN PRN Reason: HYPOGLYCEMIA PROTOCOL Docusate Sodium (Colace) 100 mg PO BID [facility] Last Admin: 10/17/17 07:52 Dose: 100 mg Enoxaparin Sodium (Lovenox) 40 mg SC 0900 [facility] Last Admin: 10/17/17 07:54 Dose: 40 mg Famotidine (Pepcid) 20 mg PO BID [facility] Last Admin: 10/17/17 07:54 Dose: 20 mg Ferrous Sulfate (Feosol) 325 mg PO QAM-[facility] Last Admin: 10/17/17 07:53 Dose: 325 mg Fish Oil (Fish Oil) 1,000 mg PO DAILY [facility] Last Admin: 10/17/17 07:53 Dose: 1,000 mg Furosemide (Lasix) 40 mg PO 0900,1400 [facility] Last Admin: 10/17/17 10:24 Dose: 40 mg Glucagon (Glucagon) 1 mg IM PRN PRN PRN Reason: HYPOGLYCEMIA PROTOCOL Guaifenesin/Dextromethorphan (Robitussin Dm) 15 ml PO Q4H PRN PRN Reason: Cough Dextrose/Water (D5w) 1,000 mls @ 0 mls/hr IV INF PRN; As Directed PRN Reason: HYPOGLYCEMIA PROTOCOL Insulin Human Lispro (Humalog) 0 units SC .MILD SLIDING SCALE PRN; Protocol PRN Reason: MILD SLIDING SCALE Paroxetine HCl (Paxil) 40 mg PO BID [facility] Last Admin: 10/17/17 07:53 Dose: 40 mg Potassium Chloride (K-Dur) 40 meq PO BID-[facility] Last Admin: 10/17/17 07:52 Dose: 40 meq Senna (Senokot) 2 tab PO HSPRN PRN PRN Reason: Constipation Sodium Chloride (Flush - Normal Saline) 10 ml IVF Q12HR [facility] Last Admin: 10/17/17 07:54 Dose: 10 ml Sodium Chloride (Flush - Normal Saline) 10 ml IVF PRN PRN PRN Reason: Saline Flush Last Admin: 10/16/17 14:09 Dose: 10 ml Tramadol HCl (Ultram) 50 mg PO Q6H PRN PRN Reason: Moderate Pain (4-6) Last Admin: 10/17/17 10:23 Dose: 50 mg
--- NOTE | 2017-10-17 21:12 | PRG ---
DATE OF SERVICE: 10/17/2017 SUBJECTIVE: Ms. Townsend said she is feeling fine. She breathes fine unless she lays flat on her back. OBJECTIVE: VITAL SIGNS: Blood pressure 125/72, pulse 85 and regular. LUNGS: Clear. CARDIAC: Normal S1, normal S2. ABDOMEN: Soft, nontender. EXTREMITIES: There is only mild edema. The I&O still 5 liters negative yesterday, the day before that she was 13.8 liters negative. ASSESSMENT: Congestive heart failure. Continue to diurese. CO2 is beginning to rise compatible wit h metabolic alkalosis. PLAN: 1. Aspirin. 2. Carvedilol. 3. Furosemide. 4. Potassium. 5. Recommend 1 dose of Diamox tomorrow to help with the metabolic alkalosis.
[2017-10-18] MEDS: traMADol HCl 50 MG TAB PO PRN ×2 (05:39→12:34)
[2017-10-18] MEDS: Ciprofloxacin 500 MG TAB PO SCH ×2 (05:39→19:45)
[2017-10-18 05:43] LABS: Albumin 3.4 g/dL (3.5-5.0); Anion Gap 14 mmol/L (10-20); BUN (Urea Nitrogen) 13 mg/dL (7.0-18.7); BUN/Creatinine Ratio 12.62; Calc. Creatinine Clearance 171 mL/min (70-130); Calcium 9.9 mg/dL (7.8-10.44); Carbon Dioxide 37 mmol/L (22-29); Chloride 90 mmol/L (98-107); Estimated GFR-MDRD 70; Glucose 77 mg/dL (70-105); Phosphorus 3.9 mg/dL (2.3-4.7); Potassium 4.9 mmol/L (3.5-5.1); Sodium 136 mmol/L (136-145)
[2017-10-18] MEDS: Fish Oil 1,000 MG CAP PO SCH (08:17)
[2017-10-18] MEDS: Potassium Chloride 20 MEQ TAB PO SCH ×2 (08:17→16:51)
[2017-10-18] MEDS: Carvedilol 3.125 MG TAB PO SCH ×2 (08:17→16:52)
[2017-10-18] MEDS: Ferrous Sulfate 325 MG TAB PO SCH (08:18)
[2017-10-18] MEDS: Docusate 100 MG CAP PO SCH ×2 (08:18→20:00)
[2017-10-18] MEDS: Aspirin 81 mg Enteric Coated Tablet PO SCH (08:18)
[2017-10-18] MEDS: PARoxetine 20 MG TAB PO SCH ×2 (08:18→20:00)
[2017-10-18] MEDS: Famotidine 20 MG TAB PO SCH ×2 (08:18→20:00)
[2017-10-18] MEDS: Furosemide 40 MG TAB PO SCH ×2 (08:18→14:34)
[2017-10-18] MEDS: Enoxaparin Sodium 40 MG/0.4 ML SYRINGE SC SCH (08:19)
[2017-10-18] MEDS ORDERED: acetaZOLAMIDE Sodium 500 MG in Sodium Chloride 0.9% 50 ML IVPB SCH (09:00)
--- NOTE | 2017-10-18 11:07 | PDOC.PN ---
- Subjective Encounter Start Date: 10/18/17 Encounter Start Time: 10:40 Subjective: no sob or palp -: feels better - Objective Resuscitation Status: Resuscitation Status DNR:Do Not Resuscitate MAR Reviewed: Yes Vital Signs & Weight: Vital Signs (12 hours) Temp Pulse Resp BP BP Pulse Ox 10/18/17 08:00 98.4 F 88 18 121/82 95 10/18/17 04:00 98.6 F 93 18 114/83 95 10/18/17 00:29 95 10/18/17 00:00 98.4 F 65 18 135/83 98 Weight Weight 342 lb 1 oz I&O: 10/17/17 10/18/17 10/19/17 06:59 06:59 06:59 Intake Total 720 1100 Output Total 62236 02549 [facility] -97459 -9039 Result Diagrams: 10/13/17 05:46 10/18/17 04:31 Additional Labs: Accuchecks 10/18/17 10/18/17 10/17/17 10:48 04:31 21:04 POC Glucose 94 84 98 10/17/17 10/17/17 16:32 11:39 POC Glucose 93 105 Phys Exam - Physical Examination HEENT: PERRLA, moist MMs Neck: no JVD, supple Respiratory: no wheezing, no rales Cardiovascular: RRR, no significant murmur Gastrointestinal: soft, no distention, positive bowel sounds Musculoskeletal: pulses present, edema present Neurological: non-focal, moves all 4 limbs Psychiatric: normal affect, A&O x 3 -: left breast edema is better but still present Dx/Plan (1) Anasarca Code(s): R60.1 - GENERALIZED EDEMA Status: Acute (2) CHF (congestive heart failure) Code(s): I50.9 - HEART FAILURE, UNSPECIFIED Status: Suspected (3) Hyperbilirubinemia Code(s): E80.6 - OTHER DISORDERS OF BILIRUBIN METABOLISM Status: Chronic Comment: unclear etiology (4) DM II (diabetes mellitus, type II), controlled Code(s): E11.9 - TYPE 2 DIABETES MELLITUS WITHOUT COMPLICATIONS Status: Chronic Qualifiers: Diabetes mellitus assistant terminal manager insulin use: without assistant terminal manager use Diabetes mellitus complication status: with other specified complication Qualified Code (s): E11.69 - Type 2 diabetes mellitus with other specified complication (5) HTN (hypertension) Code(s): I10 - ESSENTIAL (PRIMARY) HYPERTENSION Status: Chronic Qualifiers: Hypertension type: essential hypertension Qualified Code(s): I10 - Essential (primary) hypertension (6) Morbid (severe) obesity due to excess calories Code(s): E66.01 - MORBID (SEVERE) OBESITY DUE TO EXCESS CALORIES Status: Chronic - Plan is on oral lasix from past 36hrs, still diuresing large amounts of urine -: she still has massive edema but better than before -: counselled her to start ambulating from today -: accurate weight to be checked today when she stands up with PT -: continue current bid lasix, asp, coreg and lisinopril from today * . Review of Systems - Medications/Allergies Allergies/Adverse Reactions: Allergies Allergy/AdvReac Type Severity Reaction Status Date / Time No Known Allergies Allergy Verified 05/07/17 22:49 Medications: Current Medications Acetaminophen (Tylenol) 650 mg PO Q4H PRN PRN Reason: Headache/Fever or Pain Last Admin: 10/17/17 15:11 Dose: 650 mg Aspirin (Ecotrin) 81 mg PO DAILY [facility] Last Admin: 10/18/17 08:18 Dose: 81 mg Carvedilol (Coreg) 3.125 mg PO BID-[facility] Last Admin: 10/18/17 08:17 Dose: 3.125 mg Ciprofloxacin (Cipro) 500 mg PO 0600,2000 [facility] Last Admin: 10/18/17 05:39 Dose: 500 mg Dextrose/Water (Dextrose 50%) 25 gm IVP PRN PRN PRN Reason: HYPOGLYCEMIA PROTOCOL Docusate Sodium (Colace) 100 mg PO BID [facility] Last Admin: 10/18/17 08:18 Dose: 100 mg Enoxaparin Sodium (Lovenox) 40 mg SC 0900 [facility] Last Admin: 10/18/17 08:19 Dose: 40 mg Famotidine (Pepcid) 20 mg PO BID [facility] Last Admin: 10/18/17 08:18 Dose: 20 mg Ferrous Sulfate (Feosol) 325 mg PO QAM-[facility] Last Admin: 10/18/17 08:18 Dose: 325 mg Fish Oil (Fish Oil) 1,000 mg PO DAILY [facility] Last Admin: 10/18/17 08:17 Dose: 1,000 mg Furosemide (Lasix) 40 mg PO 0900,1400 [facility] Last Admin: 10/18/17 08:18 Dose: 40 mg Glucagon (Glucagon) 1 mg IM PRN PRN PRN Reason: HYPOGLYCEMIA PROTOCOL Guaifenesin/Dextromethorphan (Robitussin Dm) 15 ml PO Q4H PRN PRN Reason: Cough Dextrose/Water (D5w) 1,000 mls @ 0 mls/hr IV INF PRN; As Directed PRN Reason: HYPOGLYCEMIA PROTOCOL Acetazolamide Sodium 500 mg/ (Sodium Chloride) 50 mls @ 100 mls/hr IVPB DAILY [facility] Stop: 10/19/17 05:00 Last Admin: 10/18/17 10:13 Dose: 50 mls Insulin Human Lispro (Humalog) 0 units SC .MILD SLIDING SCALE PRN; Protocol PRN Reason: MILD SLIDING SCALE Paroxetine HCl (Paxil) 40 mg PO BID [facility] Last Admin: 10/18/17 08:18 Dose: 40 mg Potassium Chloride (K-Dur) 40 meq PO BID-[facility] Last Admin: 10/18/17 08:17 Dose: 40 meq Senna (Senokot) 2 tab PO HSPRN PRN PRN Reason: Constipation Sodium Chloride (Flush - Normal Saline) 10 ml IVF Q12HR [facility] Last Admin: 10/18/17 08:19 Dose: 10 ml Sodium Chloride (Flush - Normal Saline) 10 ml IVF PRN PRN PRN Reason: Saline Flush Last Admin: 10/16/17 14:09 Dose: 10 ml Tramadol HCl (Ultram) 50 mg PO Q6H PRN PRN Reason: Moderate Pain (4-6) Last Admin: 10/18/17 05:39 Dose: 50 mg
--- NOTE | 2017-10-18 14:58 | PDOC.CTH ---
Cardiology Progress Note - Subjective Feels good, only has shortness of breath if she lays flat on her back. Denies cough, chest pain, N/V/D. Continues to have swelling, improved but persistent. No overnight events. - ROS shortness of breath - Objective Vital Signs Temp Pulse Resp BP BP Pulse Ox 10/18/17 12:00 98.5 F 91 18 120/81 95 10/18/17 08:00 98.4 F 88 18 121/82 95 10/18/17 04:00 98.6 F 93 18 114/83 95 Weight 342 lb 1 oz 10/17/17 10/18/17 10/19/17 06:59 06:59 06:59 Intake Total 720 1100 Output Total 14338 48620 Balance -30452 -8181 - Physical Examination General/Neuro: alert & oriented x3, NAD Neck: no JVD present Lungs: unlabored respirations, other: (Diminished t/o, shallow effort) Heart: RRR, other: (Distant) Abdomen: soft Extremities: other: (Moderate BLE edema, Left breast edema) - Labs Result Diagrams: 10/13/17 05:46 10/18/17 04:31 Troponin/CKMB CK-MB (CK-2) 0.6 ng/mL (0-6.6) 10/12/17 13:01 Troponin I Less than 0.010 ng/mL (< 0.028) 10/12/17 13:01 - Assessment/Plan 1. Anasarca. 2. Morbid obesity 3. Likely severe CHAD. 4. Likely diastolic heart faliure 5. Likely RV dysfunction evidenced by hepatic congestion on blood work. Continues to diurese in large amounts on PO furosemide, x1 dose Diamox, >10 L off last 24 hours. Edema improved, persistent. No angio at this time per .
[2017-10-18] MEDS: Lisinopril 5 MG TAB PO SCH (20:00)
[2017-10-19] MEDS: Ciprofloxacin 500 MG TAB PO SCH ×2 (05:53→21:09)
[2017-10-19 05:55] LABS: Albumin 3.4 g/dL (3.5-5.0); Anion Gap 14 mmol/L (10-20); BUN (Urea Nitrogen) 14 mg/dL (7.0-18.7); Calc. Creatinine Clearance 157 mL/min (70-130); Calcium 9.9 mg/dL (7.8-10.44); Carbon Dioxide 34 mmol/L (22-29); Chloride 90 mmol/L (98-107); Estimated GFR-MDRD 64; Glucose 74 mg/dL (70-105); Phosphorus 3.7 mg/dL (2.3-4.7); Potassium 4.6 mmol/L (3.5-5.1); Sodium 133 mmol/L (136-145)
[2017-10-19] MEDS: traMADol HCl 50 MG TAB PO PRN ×2 (07:40→21:12)
[2017-10-19] MEDS: Ferrous Sulfate 325 MG TAB PO SCH (07:41)
[2017-10-19] MEDS: Docusate 100 MG CAP PO SCH ×2 (07:41→21:09)
[2017-10-19] MEDS: PARoxetine 20 MG TAB PO SCH ×2 (07:41→21:09)
[2017-10-19] MEDS: Aspirin 81 mg Enteric Coated Tablet PO SCH (07:41)
[2017-10-19] MEDS: Fish Oil 1,000 MG CAP PO SCH (07:41)
[2017-10-19] MEDS: Lisinopril 5 MG TAB PO SCH ×2 (07:41→21:09)
[2017-10-19] MEDS: Famotidine 20 MG TAB PO SCH ×2 (07:42→21:09)
[2017-10-19] MEDS: Carvedilol 3.125 MG TAB PO SCH ×2 (07:42→17:18)
[2017-10-19] MEDS: Furosemide 40 MG TAB PO SCH ×2 (07:42→13:22)
[2017-10-19] MEDS: Enoxaparin Sodium 40 MG/0.4 ML SYRINGE SC SCH (07:43)
[2017-10-19] MEDS: Potassium Chloride 20 MEQ TAB PO SCH ×2 (07:45→17:17)
--- NOTE | 2017-10-19 12:26 | PDOC.PN ---
- Subjective Encounter Start Date: 10/19/17 Encounter Start Time: 07:30 Subjective: no sob or dizziness -: she is happy her edema is coming down specially left breast - Objective Resuscitation Status: Resuscitation Status DNR:Do Not Resuscitate MAR Reviewed: Yes Vital Signs & Weight: Vital Signs (12 hours) Temp Pulse Resp BP BP BP Pulse Ox 10/19/17 12:00 98.4 F 89 24 H 142/84 H 95 10/19/17 07:41 91 113/69 10/19/17 07:40 98.4 F 91 20 94 L 10/19/17 07:37 98.4 F 91 20 113/69 94 L 10/19/17 05:00 98.8 F 90 18 121/79 96 Weight Weight 342 lb 1 oz I&O: 10/18/17 10/19/17 10/20/17 06:59 06:59 06:59 Intake Total 1100 1200 Output Total 76963 9600 Balance -9025 -8400 Result Diagrams: 10/13/17 05:46 10/19/17 04:09 Additional Labs: Accuchecks 10/19/17 10/18/17 10/18/17 06:01 19:45 16:54 POC Glucose 78 102 92 Phys Exam - Physical Examination HEENT: PERRLA, moist MMs Neck: no JVD, supple Respiratory: no wheezing, no rales Cardiovascular: RRR, no significant murmur Gastrointestinal: soft, non-tender, positive bowel sounds Musculoskeletal: pulses present, edema present Neurological: non-focal, moves all 4 limbs Psychiatric: normal affect, A&O x 3 -: anasarca is resolving, still has some left breast edema Dx/Plan (1) Anasarca Code(s): R60.1 - GENERALIZED EDEMA Status: Acute (2) CHF (congestive heart failure) Code(s): I50.9 - HEART FAILURE, UNSPECIFIED Status: Suspected (3) Hyperbilirubinemia Code(s): E80.6 - OTHER DISORDERS OF BILIRUBIN METABOLISM Status: Chronic Comment: unclear etiology (4) DM II (diabetes mellitus, type II), controlled Code(s): E11.9 - TYPE 2 DIABETES MELLITUS WITHOUT COMPLICATIONS Status: Chronic Qualifiers: Diabetes mellitus parts counterman insulin use: without parts counterman use Diabetes mellitus complication status: with other specified complication Qualified Code (s): E11.69 - Type 2 diabetes mellitus with other specified complication (5) HTN (hypertension) Code(s): I10 - ESSENTIAL (PRIMARY) HYPERTENSION Status: Chronic Qualifiers: Hypertension type: essential hypertension Qualified Code(s): I10 - Essential (primary) hypertension (6) Morbid (severe) obesity due to excess calories Code(s): E66.01 - MORBID (SEVERE) OBESITY DUE TO EXCESS CALORIES Status: Chronic - Plan has diuresed well (initially on lasix drip then iv now po lasix) -: PT to amb as tolerated -: dc pt when she can ambulate -: change lasix to 40mg at 8am and 20mg at 2pm, this needs to be continued for -: -dc plan. Prognosis guarded, pt body habitus precludes cath to asses cad/ef * . Pt still has not had an accurate weight this admission. Has had massive diuresis and would want to know her weight for dc planning. Needs further counselling reg weight based lasix increase dosing at home to prevent hospitalization or to record thigh or abd circumference as a measure. CM for help with home weighing machine that can record her weight? Review of Systems - Medications/Allergies Allergies/Adverse Reactions: Allergies Allergy/AdvReac Type Severity Reaction Status Date / Time No Known Allergies Allergy Verified 05/07/17 22:49 Medications: Current Medications Acetaminophen (Tylenol) 650 mg PO Q4H PRN PRN Reason: Headache/Fever or Pain Last Admin: 10/17/17 15:11 Dose: 650 mg Aspirin (Ecotrin) 81 mg PO DAILY [facility] Last Admin: 10/19/17 07:41 Dose: 81 mg Carvedilol (Coreg) 3.125 mg PO BID-[facility] Last Admin: 10/19/17 07:42 Dose: 3.125 mg Ciprofloxacin (Cipro) 500 mg PO 599,1999 [facility] Stop: 10/20/17 10:00 Last Admin: 10/19/17 05:53 Dose: 500 mg Dextrose/Water (Dextrose 50%) 25 gm IVP PRN PRN PRN Reason: HYPOGLYCEMIA PROTOCOL Docusate Sodium (Colace) 100 mg PO BID [facility] Last Admin: 10/19/17 07:41 Dose: 100 mg Enoxaparin Sodium (Lovenox) 40 mg SC 0900 [facility] Last Admin: 10/19/17 07:43 Dose: 40 mg Famotidine (Pepcid) 20 mg PO BID [facility] Last Admin: 10/19/17 07:42 Dose: 20 mg Ferrous Sulfate (Feosol) 325 mg PO QAM-[facility] Last Admin: 10/19/17 07:41 Dose: 325 mg Fish Oil (Fish Oil) 1,000 mg PO DAILY [facility] Last Admin: 10/19/17 07:41 Dose: 1,000 mg Furosemide (Lasix) 40 mg PO 0900,1400 [facility] Last Admin: 10/19/17 07:42 Dose: 40 mg Glucagon (Glucagon) 1 mg IM PRN PRN PRN Reason: HYPOGLYCEMIA PROTOCOL Guaifenesin/Dextromethorphan (Robitussin Dm) 15 ml PO Q4H PRN PRN Reason: Cough Dextrose/Water (D5w) 1,000 mls @ 0 mls/hr IV INF PRN; As Directed PRN Reason: HYPOGLYCEMIA PROTOCOL Insulin Human Lispro (Humalog) 0 units SC .MILD SLIDING SCALE PRN; Protocol PRN Reason: MILD SLIDING SCALE Lisinopril (Zestril) 5 mg PO BID [facility] Last Admin: 10/19/17 07:41 Dose: 5 mg Paroxetine HCl (Paxil) 40 mg PO BID [facility] Last Admin: 10/19/17 07:41 Dose: 40 mg Potassium Chloride (K-Dur) 40 meq PO BID-[facility] Last Admin: 10/19/17 07:45 Dose: 40 meq Senna (Senokot) 2 tab PO HSPRN PRN PRN Reason: Constipation Sodium Chloride (Flush - Normal Saline) 10 ml IVF Q12HR [facility] Last Admin: 10/19/17 07:43 Dose: 10 ml Sodium Chloride (Flush - Normal Saline) 10 ml IVF PRN PRN PRN Reason: Saline Flush Last Admin: 10/16/17 14:09 Dose: 10 ml Tramadol HCl (Ultram) 50 mg PO Q6H PRN PRN Reason: Moderate Pain (4-6) Last Admin: 10/19/17 07:40 Dose: 50 mg
--- NOTE | 2017-10-19 17:42 | PDOC.CTH ---
Cardiology Progress Note - Subjective Doing much better. - Objective Vital Signs Temp Pulse Resp BP BP BP Pulse Ox 10/19/17 16:00 98.4 F 98 20 119/75 97 10/19/17 12:00 98.4 F 89 24 H 142/84 H 95 10/19/17 07:41 91 113/69 10/19/17 07:40 98.4 F 91 20 94 L 10/19/17 07:37 98.4 F 91 20 113/69 94 L Weight 342 lb 1 oz 10/18/17 10/19/17 10/20/17 06:59 06:59 06:59 Intake Total 1100 1200 750 Output Total 26530 9600 3150 Balance -5536 -0600 -2400 - Physical Examination General/Neuro: alert & oriented x3, NAD Neck: no JVD present Lungs: CTA, unlabored respirations Heart: RRR Abdomen: NT/ND Extremities: + edema B (1+) - Labs Result Diagrams: 10/13/17 05:46 10/19/17 04:09 Troponin/CKMB CK-MB (CK-2) 0.6 ng/mL (0-6.6) 10/12/17 13:01 Troponin I Less than 0.010 ng/mL (< 0.028) 10/12/17 13:01 - Assessment/Plan 1. Anasarca. 2. Morbid obesity 3. Likely severe CHAD. 4. Likely diastolic heart faliure 5. Likely RV dysfunction evidenced by hepatic congestion on blood work. 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 - Would continue current PO lasix dose and cut back on the fluid restriction to 1999. - May discharge at any time from cardiac perspective.
[2017-10-20 05:27] LABS: Albumin 3.3 g/dL (3.5-5.0); Anion Gap 15 mmol/L (10-20); BUN (Urea Nitrogen) 15 mg/dL (7.0-18.7); BUN/Creatinine Ratio 13.89; Calc. Creatinine Clearance 163 mL/min (70-130); Calcium 9.8 mg/dL (7.8-10.44); Carbon Dioxide 29 mmol/L (22-29); Chloride 93 mmol/L (98-107); Estimated GFR-MDRD 67; Glucose 82 mg/dL (70-105); Potassium 4.3 mmol/L (3.5-5.1); Sodium 133 mmol/L (136-145)
[2017-10-20] MEDS: Ciprofloxacin 500 MG TAB PO SCH (05:54)
[2017-10-20] MEDS: Famotidine 20 MG TAB PO SCH ×2 (08:11→20:48)
[2017-10-20] MEDS: Fish Oil 1,000 MG CAP PO SCH (08:11)
[2017-10-20] MEDS: Furosemide 40 MG TAB PO SCH ×2 (08:11→14:50)
[2017-10-20] MEDS: Docusate 100 MG CAP PO SCH ×2 (08:11→20:43)
[2017-10-20] MEDS: Carvedilol 3.125 MG TAB PO SCH ×2 (08:12→16:19)
[2017-10-20] MEDS: Lisinopril 5 MG TAB PO SCH ×2 (08:13→20:47)
[2017-10-20] MEDS: Aspirin 81 mg Enteric Coated Tablet PO SCH (08:13)
[2017-10-20] MEDS: Potassium Chloride 20 MEQ TAB PO SCH ×2 (08:13→16:19)
[2017-10-20] MEDS: PARoxetine 20 MG TAB PO SCH ×2 (08:13→20:48)
[2017-10-20] MEDS: Ferrous Sulfate 325 MG TAB PO SCH (08:13)
[2017-10-20] MEDS: Enoxaparin Sodium 40 MG/0.4 ML SYRINGE SC SCH (08:14)
[2017-10-20] MEDS: traMADol HCl 50 MG TAB PO PRN (20:48)
--- NOTE | 2017-10-20 22:08 | PDOC.PN ---
- Subjective Encounter Start Date: 10/20/17 Encounter Start Time: 16:15 Doing well. No complaints. Still has Olson and nasal canula oxygen. Has ambulated with PT. - Objective Resuscitation Status: Resuscitation Status DNR:Do Not Resuscitate Vital Signs & Weight: Vital Signs (12 hours) Temp Pulse Resp BP BP BP Pulse Ox 10/20/17 20:47 86 125/80 10/20/17 20:00 98.3 F 86 20 125/80 99 10/20/17 16:14 98.3 F 85 16 127/73 97 10/20/17 11:27 97.9 F 85 20 106/71 96 Weight Weight 342 lb 1 oz I&O: 10/19/17 10/20/17 10/21/17 06:59 06:59 06:59 Intake Total 1200 1000 750 Output Total 9600 7600 3500 Balance -8400 -7630 -1970 Result Diagrams: 10/13/17 05:46 10/20/17 03:50 Additional Labs: Accuchecks 10/20/17 10/20/17 10/20/17 16:17 11:34 04:40 POC Glucose 106 91 88 Phys Exam - Physical Examination Constitutional: NAD Neck: no JVD, supple Respiratory: no wheezing, no rales, no rhonchi Cardiovascular: RRR, no significant murmur Gastrointestinal: soft, non-tender, no distention Dx/Plan (1) Anasarca Code(s): R60.1 - GENERALIZED EDEMA Status: Acute (2) Dyspnea Code(s): R06.00 - DYSPNEA, UNSPECIFIED Status: Acute Qualifiers: Dyspnea type: dyspnea on exertion Qualified Code(s): R06.09 - Other forms of dyspnea Comment: Multifactorial given morbid obesity and likely CHF, 02 supplementation and Lasix (3) DM II (diabetes mellitus, type II), controlled Code(s): E11.9 - TYPE 2 DIABETES MELLITUS WITHOUT COMPLICATIONS Status: Chronic Qualifiers: Diabetes mellitus termite exterminator insulin use: without termite exterminator use Diabetes mellitus complication status: with other specified complication Qualified Code (s): E11.69 - Type 2 diabetes mellitus with other specified complication (4) HTN (hypertension) Code(s): I10 - ESSENTIAL (PRIMARY) HYPERTENSION Status: Chronic Qualifiers: Hypertension type: essential hypertension Qualified Code(s): I10 - Essential (primary) hypertension (5) Hyperbilirubinemia Code(s): E80.6 - OTHER DISORDERS OF BILIRUBIN METABOLISM Status: Chronic Comment: unclear etiology (6) Morbid (severe) obesity due to excess calories Code(s): E66.01 - MORBID (SEVERE) OBESITY DUE TO EXCESS CALORIES Status: Chronic - Plan * Massive volume diuresis. Continuing to diurese. Continue to monitor lytes. * Elevated D-dimer. Doppler. * Need to wean oxygen and DC Olson. * Reviewed records. History of elevated bili. Previously evaluated by GI. Had some GB sludge and thickening. Asymptomatic and numbers are actually better now.
[2017-10-21] MEDS: traMADol HCl 50 MG TAB PO PRN ×3 (04:26→18:58)
[2017-10-21 05:26] LABS: Albumin 3.3 g/dL (3.5-5.0); Anion Gap 15 mmol/L (10-20); BUN (Urea Nitrogen) 17 mg/dL (7.0-18.7); BUN/Creatinine Ratio 16.04; Calc. Creatinine Clearance 166 mL/min (70-130); Calcium 9.8 mg/dL (7.8-10.44); Carbon Dioxide 30 mmol/L (22-29); Chloride 93 mmol/L (98-107); Estimated GFR-MDRD 68; Glucose 94 mg/dL (70-105); Phosphorus 4.4 mg/dL (2.3-4.7); Potassium 4.4 mmol/L (3.5-5.1); Sodium 134 mmol/L (136-145)
--- NOTE | 2017-10-21 07:56 | ULT ---
ULTRASOUND WITH DOPPLER DUPLEX VENOUS LOWER EXTREMITY BILATERAL: Date: 10/21/17 CPT: 92756 ICD-10-PCS: B54D INDICATION: Elevated D-Dimer. Lower extremity edema. TECHNIQUE: Color flow Doppler, spectral waveform analysis of pulsed Doppler, and waggoner-scale imaging with lydia elida and augmentation, were used to evaluate the bilateral common femoral, femoral, popliteal, resident doctor ior tibial, and superficial femoral, veins; and the proximal portions of the profunda femoral and gre ater saphenous, veins. FINDINGS: Appropriate compressibility and flow within the imaged deep vein system of each lower extremity. IMPRESSION: 1. No deep venous thrombosis. 2. Incidental note of mildly prominent lymph nodes of the right inguinal region. Correlate clinicall y. POS: TRENT
[2017-10-21] MEDS: Fish Oil 1,000 MG CAP PO SCH (08:51)
[2017-10-21] MEDS: Furosemide 40 MG TAB PO SCH ×2 (08:52→14:10)
[2017-10-21] MEDS: Ferrous Sulfate 325 MG TAB PO SCH (08:52)
[2017-10-21] MEDS: Lisinopril 5 MG TAB PO SCH ×2 (08:53→20:08)
[2017-10-21] MEDS: Potassium Chloride 20 MEQ TAB PO SCH ×2 (08:53→16:14)
[2017-10-21] MEDS: Carvedilol 3.125 MG TAB PO SCH ×2 (08:53→16:31)
[2017-10-21] MEDS: PARoxetine 20 MG TAB PO SCH ×2 (08:53→20:08)
[2017-10-21] MEDS: Famotidine 20 MG TAB PO SCH ×2 (08:53→20:08)
[2017-10-21] MEDS: Docusate 100 MG CAP PO SCH ×2 (08:53→20:07)
[2017-10-21] MEDS: Aspirin 81 mg Enteric Coated Tablet PO SCH (08:54)
[2017-10-21] MEDS: Ondansetron ODT 4 MG TAB PO PRN ×2 (08:54→16:14)
[2017-10-21] MEDS: Enoxaparin Sodium 40 MG/0.4 ML SYRINGE SC SCH (08:55)
--- NOTE | 2017-10-21 11:50 | PDOC.CTH ---
Cardiology Progress Note - Subjective She is doing much better. She has continued to diurese. - Objective Vital Signs Temp Pulse Resp BP BP BP Pulse Ox 10/21/17 08:53 86 113/80 10/21/17 07:48 98.1 F 86 18 113/80 96 10/21/17 04:00 97.7 F 82 20 107/74 96 10/21/17 00:54 98.4 F 100 20 98/67 93 L Weight 342 lb 1 oz 10/20/17 10/21/17 10/22/17 06:59 06:59 06:59 Intake Total 1000 1200 Output Total 7600 7515 Balance -4611 -1858 - Physical Examination General/Neuro: alert & oriented x3, NAD Neck: no JVD present Lungs: CTA, unlabored respirations Heart: RRR Abdomen: NT/ND Extremities: other: (no edema) - Labs Result Diagrams: 10/13/17 05:46 10/21/17 04:56 Troponin/CKMB CK-MB (CK-2) 0.6 ng/mL (0-6.6) 10/12/17 13:01 Troponin I Less than 0.010 ng/mL (< 0.028) 10/12/17 13:01 - Assessment/Plan 1. Anasarca. 2. Morbid obesity 3. Likely severe CHAD. 4. Likely diastolic heart failure 5. Likely RV dysfunction evidenced by hepatic congestion on blood work. PLAN: - Significant improvement in her edema. - Would switch her Lasix to 40 mg once daily and continue flui9d restriction to 2000 ml daily. - My discharge home any time from cardiac perspective. - Will sign off, please call with any questions.
[2017-10-21] MEDS: Acetaminophen 325 MG TAB PO PRN (20:08)
--- NOTE | 2017-10-21 21:13 | PDOC.PN ---
- Subjective Encounter Start Date: 10/21/17 Encounter Start Time: 14:00 - Objective Resuscitation Status: Resuscitation Status DNR:Do Not Resuscitate MAR Reviewed: Yes Vital Signs & Weight: Vital Signs (12 hours) Temp Pulse Resp BP Pulse Ox 10/21/17 20:08 91 10/21/17 19:59 98.9 F 91 22 H 109/79 94 L Weight Weight 342 lb 1 oz I&O: 10/20/17 10/21/17 10/22/17 06:59 06:59 06:59 Intake Total 1000 1200 720 Output Total 7600 7560 3000 Balance -6600 -6360 -2280 Result Diagrams: 10/13/17 05:46 10/21/17 04:56 Additional Labs: Accuchecks 10/21/17 10/21/17 10/21/17 16:16 11:24 11:18 POC Glucose 82 100 521 H 10/21/17 10/20/17 04:06 20:40 POC Glucose 86 100 Phys Exam - Physical Examination Constitutional: NAD Morbidly obese. HEENT: oral pharynx no lesions Neck: no JVD, supple Respiratory: no wheezing, no rales, no rhonchi Cardiovascular: RRR, no significant murmur Gastrointestinal: soft, non-tender, no distention Musculoskeletal: no edema Psychiatric: normal affect Dx/Plan (1) Anasarca Code(s): R60.1 - GENERALIZED EDEMA Status: Acute (2) Dyspnea Code(s): R06.00 - DYSPNEA, UNSPECIFIED Status: Resolved Qualifiers: Dyspnea type: dyspnea on exertion Qualified Code(s): R06.09 - Other forms of dyspnea (3) DM II (diabetes mellitus, type II), controlled Code(s): E11.9 - TYPE 2 DIABETES MELLITUS WITHOUT COMPLICATIONS Status: Chronic Qualifiers: Diabetes mellitus terminal operator insulin use: without terminal operator use Diabetes mellitus complication status: with other specified complication Qualified Code (s): E11.69 - Type 2 diabetes mellitus with other specified complication Comment: Well controlled. Continue accuchecks. (4) HTN (hypertension) Code(s): I10 - ESSENTIAL (PRIMARY) HYPERTENSION Status: Chronic Qualifiers: Hypertension type: essential hypertension Qualified Code(s): I10 - Essential (primary) hypertension (5) Hyperbilirubinemia Code(s): E80.6 - OTHER DISORDERS OF BILIRUBIN METABOLISM Status: Chronic Comment: unclear etiology. Has been previously evaluated by GI. Suspected Gilbert's or Anne-Julio C. (6) Morbid (severe) obesity due to excess calories Code(s): E66.01 - MORBID (SEVERE) OBESITY DUE TO EXCESS CALORIES Status: Chronic - Plan * DC Wesley today. * Wean oxygen. * Anticipate discharge tomorrow.
[2017-10-22 05:00] LABS: Albumin 3.3 g/dL (3.5-5.0); Anion Gap 14 mmol/L (10-20); BUN (Urea Nitrogen) 17 mg/dL (7.0-18.7); BUN/Creatinine Ratio 16.83; Calc. Creatinine Clearance 174 mL/min (70-130); Calcium 9.8 mg/dL (7.8-10.44); Carbon Dioxide 28 mmol/L (22-29); Chloride 94 mmol/L (98-107); Estimated GFR-MDRD 72; Glucose 70 mg/dL (70-105); Phosphorus 4.1 mg/dL (2.3-4.7); Potassium 4.3 mmol/L (3.5-5.1); Sodium 132 mmol/L (136-145)
[2017-10-22] MEDS: Docusate 100 MG CAP PO SCH (08:41)
[2017-10-22] MEDS: Aspirin 81 mg Enteric Coated Tablet PO SCH (08:41)
[2017-10-22] MEDS: Enoxaparin Sodium 40 MG/0.4 ML SYRINGE SC SCH (08:41)
[2017-10-22] MEDS: Potassium Chloride 20 MEQ TAB PO SCH (08:42)
[2017-10-22] MEDS: PARoxetine 20 MG TAB PO SCH (08:42)
[2017-10-22] MEDS: Ferrous Sulfate 325 MG TAB PO SCH (08:42)
[2017-10-22] MEDS: Carvedilol 3.125 MG TAB PO SCH (08:42)
[2017-10-22] MEDS: Furosemide 40 MG TAB PO SCH (08:42)
[2017-10-22] MEDS: Fish Oil 1,000 MG CAP PO SCH (08:46)
[2017-10-22] MEDS: Famotidine 20 MG TAB PO SCH (10:13)
[2017-10-22 13:18] VITALS: BP 124/81; TEMP 97.8
== END 2017-10-22 13:15 | disposition home or self-care (01) | DRG 291 ==
LOC: ERS 11:05 → 2NO 19:17 → T4-A 10-13 15:38
PROVIDERS: ADMIT Internal Medicine; ATTEND Internal Medicine
DX: I13.0 Hypertensive heart and chronic kidney disease with heart failure and stage 1 through stage 4 chronic kidney disease, or unspecified chronic kidney disease (principal); I50.33 Acute on chronic diastolic (congestive) heart failure; Z68.43 Body mass index [BMI] 50.0-59.9, adult; E87.3 Alkalosis; N17.9 Acute kidney failure, unspecified; E66.01 Morbid (severe) obesity due to excess calories; F41.9 Anxiety disorder, unspecified; F32.9 Major depressive disorder, single episode, unspecified; Z79.82 Long term (current) use of aspirin; E80.6 Other disorders of bilirubin metabolism; N18.2 Chronic kidney disease, stage 2 (mild); D64.9 Anemia, unspecified; E11.22 Type 2 diabetes mellitus with diabetic chronic kidney disease; G47.33 Obstructive sleep apnea (adult) (pediatric); M19.90 Unspecified osteoarthritis, unspecified site; Z79.4 Long term (current) use of insulin
CPT/HCPCS: 36415; 36416; 51702; 71045; 72100; 72170; 80053; 80069; 81001; 81003; 81015; 82553; 83880; 84484; 85025; 85379; 93005; 93010; 93970; 96365; 96375; A4216; G8978-GP-CM; G8979-GP-CK; G8987-GO-CM; G8988-GO-CK; J1120; J1650; J1940; J2270; J2550; J7050; Q0162

== ENCOUNTER 2017-12-10 01:43 | Inpatient (IN) | payer MEDICAID, OTHER ==
[2017-12-10] MEDS ORDERED: Morphine 4 MG/ML VIAL ONE (02:05)
[2017-12-10 02:51] LABS: #Basophils 0.1 thou/uL (0.0-0.2); #Eosinphils 0.1 thou/uL (0.0-0.7); #Lymphocytes 3.6 thou/uL (1.20-3.40); #Monocytes 1.1 thou/uL (0.11-0.59); %Basophils 0.5 % (0.0-1.0); %Eosinophils 0.7 % (0.0-10.0); %Lymphocytes 20.1 % (21.0-51.0); %Monocytes 6.1 % (0.0-10.0); %Neutrophils 72.5 % (42.0-75.0); Hemoglobin 6.7 g/dL (12.0-16.0); Mean Corpuscular HGB CONC 31.9 g/dL (32.0-36.0); Mean Corpuscular Hemoglobin 30.8 pg (27.0-31.0); Mean Corpuscular Volume 96.4 fL (78.0-98.0); Mean Platelet Volume 6.5 fL (7.4-10.4); Platelet Count 589 thou/uL (130-400); RBC Distribution Width 15.4 % (11.5-14.5); Red Blood Cell (RBC) Count 2.17 mill/uL (4.20-5.40); White Blood Cell (WBC) Count 17.9 thou/uL (4.8-10.8)
[2017-12-10 03:05] LABS: ALT (SGPT) 16 U/L (8-55); AST (SGOT) 20 U/L (5-34); Albumin 3.4 g/dL (3.5-5.0); Alkaline Phosphatase 152 U/L (40-150); Anion Gap 15 mmol/L (10-20); BUN (Urea Nitrogen) 53 mg/dL (7.0-18.7); Bilirubin, Total 2.3 mg/dL (0.2-1.2); Calc. Creatinine Clearance 0 mL/min (70-130); Calcium 9.7 mg/dL (7.8-10.44); Carbon Dioxide 16 mmol/L (22-29); Chloride 106 mmol/L (98-107); Estimated GFR-MDRD 32; Glucose 93 mg/dL (70-105); Protein, Total 8.4 g/dL (6.0-8.3); Sodium 130 mmol/L (136-145)
[2017-12-10 03:08] LABS: Potassium 7.2 mmol/L (3.5-5.1)
[2017-12-10 03:09] LABS: CKMB 0.7 ng/mL (0-6.6); Troponin I Less than 0.010 ng/mL (< 0.028)
[2017-12-10] MEDS ORDERED: Lorazepam 2 MG/ML VIAL ONE (03:17)
[2017-12-10] MEDS ORDERED: Calcium Chloride 1 GM/10 ML Abboject SYRINGE ONE (03:31)
[2017-12-10] MEDS ORDERED: Insulin Regular 300 UNITS/3 ML VIAL ONE (03:31)
[2017-12-10] MEDS ORDERED: Dextrose 50% Abboject 50 ML SYRINGE ONE (03:31)
[2017-12-10] MEDS ORDERED: Sodium Bicarb 50 MEQ/50 ML Abboject 8.4% SYRINGE ONE (03:31)
[2017-12-10] MEDS ORDERED: Vancomycin HCl 750 MG in Sodium Chloride 0.9% 250 ML 250 ML IVPB SCH (06:15)
[2017-12-10] MEDS ORDERED: Piperacillin/Tazobactam 3.375 GM in Sodium Chloride 0.9% 100 ML IVPB SCH (06:15)
[2017-12-10 07:58] LABS: Anion Gap 15 mmol/L (10-20); BUN (Urea Nitrogen) 50 mg/dL (7.0-18.7); Calc. Creatinine Clearance 75 mL/min (70-130); Calcium 10.1 mg/dL (7.8-10.44); Carbon Dioxide 18 mmol/L (22-29); Chloride 108 mmol/L (98-107); Estimated GFR-MDRD 38; Glucose 78 mg/dL (70-105); Sodium 134 mmol/L (136-145)
[2017-12-10] MEDS ORDERED: Vancomycin HCl 1.75 GM in Sodium Chloride 0.9% 500 ML IVPB SCH ×2 (08:00→20:00)
[2017-12-10 08:07] LABS: Potassium 6.9 mmol/L (3.5-5.1)
[2017-12-10] MEDS ORDERED: Sodium Chloride 0.9% 1,000 ML IV SCH (08:31)
[2017-12-10] MEDS ORDERED: hydrALAZINE 20 MG/ML VIAL SLOW IVP PRN (08:31)
[2017-12-10] MEDS ORDERED: Acetaminophen 325 MG TAB PO PRN (08:31)
--- NOTE | 2017-12-10 08:38 | HP ---
PRIMARY CARE PHYSICIAN: Dr. Louie Skinner. CHIEF COMPLAINT: Shortness of breath and pain in my hips. HISTORY OF PRESENT ILLNESS: Ms. Moncada is a very pleasant 42-year-old female that has history of hypertension and severe obesity. She was in her usual state of health until about a couple of days ago when she says she has been having severe pain in both of her hips, her right she says is worse th an the left. She says she sees a ad operations specialist in [place], [place], but she believes the wo unds are getting worse and she says the one on the right side tends to bleed all the time. She also has trouble walking and has been off balance. She also says that she woke up this morning short of b reath and could hardly breathe. The pain was also worse and for this reason, she came to the ER for evaluation. In the ER, she was found to be anemic with a hemoglobin of 6.7. She was also found to b e in acute renal failure with a creatinine of twice her baseline and potassium of 7.2. She has been transfused since then, the hyperkalemia has been treated with Kayexalate, calcium chloride, glucose a nd insulin and she is being admitted for further evaluation. When asked if she has heavy cycles, she says it varies depending on "what it is going on". She believes that she is anemic, because of the chronic bleeding from the wound on her right hip. Her mother is at the bedside and believes the same . She denies having any blood in her stools or dark stools and she denies any vomiting. She does ad mahin to some nausea. When asked about her cycle, she is very nonspecific about how many pads she uses per day and in fact she is actually falling asleep off and on during the history. She denies any ch est pain and she denies any lower extremity edema. Otherwise, no other information is obtainable oth er than occasional fevers and chills and she does admit that she has been restricting her fluids. REVIEW OF SYSTEMS: All systems were reviewed and are negative except for that mentioned in history o f present illness. PAST MEDICAL HISTORY: Significant for morbid obesity with a BMI of 44, hypertension, generalized anx iety and depression, probable obesity hypoventilation. PAST SURGICAL HISTORY: Negative. ALLERGIES: No known drug allergies. SOCIAL HISTORY: She is a nonsmoker, nondrinker, no drug use. No children. Her mother lives with he nica and her mother, Adela is her medical power of tax attorney and she wishes to be a FULL CODE. FAMILY HISTORY: Significant for congestive heart failure and hypertension in her mother as well as p rostate cancer. MEDICATIONS: She is not sure of her medications, but says they are the same as when she was recently discharged and these include tramadol 50 mg as needed, clonazepam 0.5 mg twice a day, potassium chlo ride 20 mEq daily, Zestril 40 mg daily, ibuprofen 200 mg daily, Lasix 40 mg daily, iron sulfate 325 m g twice a day, Celexa 40 mg daily, carvedilol 3.125 mg twice a day, aspirin 81 mg a day. PHYSICAL EXAMINATION: GENERAL: She is awake. She is oriented x3; however, very drowsy. She is well-developed. She appea rs well-nourished. VITAL SIGNS: Blood pressure was 122/73, heart rate 96, respiratory rate of 16, temperature is 97.6, O2 sats 97% on room air. HEENT: Pupils are equal, round, and reactive. Extraocular muscles are intact. Her sclerae are anic teric. Throat: There is no erythema, no exudates. NECK: No adenopathy, no bruits. LUNGS: Clear to auscultation. There is no wheezing, no rales, no rhonchi. CARDIOVASCULAR: She had a normal S1, S2. I did not appreciate an S3 or S4. She did have a grade 2/ 6 systolic murmur at the base. No gallops. ABDOMEN: Soft. She had some diffuse tenderness. There is no rebound, no guarding. Positive for fela wel sounds. EXTREMITIES: She had a fairly deep decubitus on the right hip. It is large and there is some what a ppears to be purulent drainage from it and on the left hip, there is a large possibly 10 cm in ellipt ical shaped black eschar. There is also surrounding induration on both of these decubitus and they a re very tender to palpation. In her lower extremities, she has got some mild venous stasis and varic ose veins. Her dorsalis pedis pulses are palpable. NEUROLOGIC: She is a bit drowsy, but the exam is nonfocal. Her muscle strength is 5/5 in both her u pper and lower extremities. SKIN AND INTEGUMENT: She has got fairly good skin turgor and other than the decubitus, there are no other skin lesions. LABORATORY DATA AND IMAGING: Sodium is 130, potassium 7.2, chloride is 106, CO2 is 16, BUN is 53, cr eatinine 2.06, glucose is 93. White blood cell count 17.9, hemoglobin 6.7, hematocrit is 20.9, plate let count is 589. D-dimer is 2.17. She had a chest x-ray that I read by my reading, she had some ca rdiomegaly with some increased pulmonary vascular markings and in her EKG, again my reading, sinus rh ythm, rate was 107, Q-wave in 3 and AVF. ASSESSMENT AND PLAN: This is a pleasant 42-year-old female that came into the hospital with shortnes s of breath and also was found to be severely anemic. Her shortness of breath is likely due to sympt omatic anemia. She also has acute renal failure with hyperkalemia. I suspect the hyperkalemia is a combination of the acute renal failure from volume depletion as well as being on an GAETANO inhibitor and potassium supplementation. She also appears to have an infected decubitus ulcer, which may be contr ibuting to the anemia. 1. Hyperkalemia. She has already received Kayexalate, glucose and insulin in the ER. We will triston nue Kayexalate and also continue to monitor her potassium. Lisinopril and potassium supplementation will be held. 2. Acute renal failure. This is likely due to volume depletion. We will give her IV fluid resuscit ation carefully; however, given her propensity to volume overload and also consult Nephrology. 3. Symptomatic anemia. This appears to be a normocytic normochromic anemia likely due to blood loss from the chronic wounds. We will get iron studies on her, stool guaiac and continue to monitor. Sh darron has already been transfused. 4. Decubitus ulcer. We will get a general surgery consult. Continue Zosyn, which has been started in the ER and add vancomycin. 5. Hypertension. We will treat her with p.r.n. medications and continue carvedilol for now. Lisino pril is on hold. 6. Morbid obesity. She has actually lost some weight from her last hospital stay and this can be fu rther managed as an outpatient and currently it is actually stable. She will also be placed on gastr ointestinal and deep venous thrombosis prophylaxis.
[2017-12-10] MEDS ORDERED: VANCO/ABX IVPB PRN (08:40)
[2017-12-10] MEDS ORDERED: Sodium Bicarbonate 150 MEQ in Dextrose 5% in Water 1,000 ML IV SCH (08:45)
[2017-12-10] MEDS ORDERED: Morphine 4 MG/ML VIAL SLOW IVP PRN (08:45)
--- NOTE | 2017-12-10 08:50 | RAD ---
CHEST 1 VIEW PORTABLE: HISTORY: A 42-year-old female with a history of chest pain and shortness of breath. FINDINGS: Cardiomegaly. Mild vascular congestion without confluent pneumonia or overt edema. IMPRESSION: Cardiomegaly with mild vascular congestion without other acute process. POS: OFF
[2017-12-10 09:09] LABS: Actual Bicarbonate (HCO3a) 20.6 mEq/L (22-28); Base Excess (BEa) -5.3 mEq/L (-2.0 to +3.0); CO2 Tension 42.1 mmHg (35.0-45.0); Hemoglobin (Hb) 7.3 g/dL (12.0-16.0); O2 Tension (PaO2) 78.6 mmHg (80.0-100.0); pH, Arterial 7.31 (7.35-7.45)
[2017-12-10 09:10] LABS: ALV-art Gradient 18.505 (0-20); Calcium, Ionized 1.29 mmol/L (1.12-1.30); Carboxyhemoglobin (COHb) 0.9 gm% (0.0-3.0); Potassium - ABG Lab 6.82 mmol/L (3.70-5.30); Puncture Site L.R
[2017-12-10 09:16] LABS: Iron 17 ug/dL (50-170); Iron Binding Capacity, Total 196 mcg/dL (265-497)
[2017-12-10] MEDS: Heparin 5,000 UNITS/ML VIAL SC SCH ×2 (09:20→21:05)
[2017-12-10] MEDS: Famotidine 20 MG TAB PO SCH ×2 (09:20→21:03)
[2017-12-10] MEDS: Docusate 100 MG CAP PO SCH ×2 (09:20→21:04)
[2017-12-10 09:23] LABS: Potassium 6.8 mmol/L (3.5-5.1)
[2017-12-10] MEDS: Vancomycin HCl 1.75 GM in Sodium Chloride 0.9% 500 ML IVPB SCH ×2 (10:55→21:04)
[2017-12-10 12:49] LABS: Hemoglobin 7.9 g/dL (12.0-16.0)
[2017-12-10 13:04] LABS: Anion Gap 15 mmol/L (10-20); BUN (Urea Nitrogen) 43 mg/dL (7.0-18.7); Calc. Creatinine Clearance 83 mL/min (70-130); Calcium 10.1 mg/dL (7.8-10.44); Carbon Dioxide 16 mmol/L (22-29); Chloride 109 mmol/L (98-107); Estimated GFR-MDRD 42; Glucose 83 mg/dL (70-105); Sodium 133 mmol/L (136-145)
[2017-12-10 13:12] LABS: Potassium 6.9 mmol/L (3.5-5.1)
[2017-12-10] MEDS: Piperacillin/Tazobactam 3.375 GM in Sodium Chloride 0.9% 100 ML IVPB SCH ×2 (14:21→19:36)
[2017-12-10] MEDS: Sodium Bicarbonate 150 MEQ in Dextrose 5% in Water 1,000 ML IV SCH (14:40)
[2017-12-10 18:30] LABS: Hemoglobin 6.9 g/dL (12.0-16.0)
[2017-12-10 18:57] LABS: Iron 20 ug/dL (50-170); Iron Binding Capacity, Total 183 mcg/dL (265-497); LDH 190 U/L (125-220)
[2017-12-10 19:14] LABS: HIV (1/2) Antibody/Antigen Non-Reactive (NonReactive); HIV 1/2 INDEX 0.18 S/CO (<1.00)
[2017-12-10] MEDS: HYDROcodone/Acetaminophen 10/325 mg Tablet PO PRN (19:34)
[2017-12-11 00:23] LABS: Hemoglobin 6.8 g/dL (12.0-16.0)
--- NOTE | 2017-12-11 00:25 | CON ---
DATE OF CONSULTATION: 12/10/2017 CONSULTING PHYSICIAN: Gallo Nguyen M.D. REQUESTING PHYSICIAN: Dionicio Covarrubias M.D. REASON FOR CONSULTATION: Hyperkalemia. IMPRESSION: 1. Hyperkalemia out of proportion with the degree of renal insufficiency in this patient, this hyperkalemia is likely in the context of use of lisinopril compounded by continuous potassium supplementation. 2. Chronic kidney disease, stage 3. 3. Morbid obesity. PLAN: 1. Permanently discontinue potassium supplementation and lisinopril in this patient for now. 2. Discontinue current IV fluid normal saline because of potential re- expansion acidosis that will worsen the hyperkalemia and start this patient on bicarbonate based infusion. This infusion will help to drive the potassium into the cells. 3. Kayexalate. 4. Repeat the potassium level. 5. The patient to be on low potassium diet. 6. If after all the above medical maneuvers has been carried out and over the next 24 hours if patient still remains severely hyperkalemic, hemodialysis might be indicated on a temporary basis. HISTORY OF PRESENT ILLNESS: History is that of a 42-year-old female patient who was brought in with shortness of breath and pain in her hips. The patient noted to have been on lisinopril and potassium supplementation. On presentation , the patient was noted with potassium above 7. The patient has been started on medical treatment for this. However, the potassium still remains around 6.9. As a result of this, decision has been taken to involve Renal in the management of this case. PAST MEDICAL HISTORY: Significant for morbid obesity, hypertension, generalized anxiety, depression. ALLERGIES: No known drug allergies. SOCIAL HISTORY: No alcohol, no tobacco, no illicit drug use. The patient lives with her mother. REVIEW OF SYSTEMS: As documented in the body of the history. The rest highly limited given the fact this patient seems to be very sleepy. LABORATORY INVESTIGATIONS: Significant for the following: Potassium of 7.2 on presentation, creatinine 2.06 with BUN of 53. Sodium of 130, total bilirubin of 2.3. PHYSICAL EXAMINATION: GENERAL: The patient was found to be very somnolent. Noted with the following vital signs. VITAL SIGNS: Afebrile with temperature 98.5, pulse 94, respiratory rate of 18, O2 saturation of 100% with blood pressure 115/56. HEENT: Unremarkable with moist oral mucosa. No conjunctival injection or icterus. NECK: Supple CARDIOVASCULAR SYSTEM: First and second heart sounds were heard. RESPIRATORY SYSTEM: Clear to auscultation. DIGESTIVE SYSTEM: Revealed a benign abdomen with positive bowel sounds. EXTREMITIES: No peripheral edema. SKIN: No new gross rash. LYMPHATICS: No peripheral lymphadenopathy. SUMMARY: A 42-year-old female patient, who presented here with shortness of breath, noted with severe hyperkalemia. Thank you for this consultation. We will follow with you. MTDD
[2017-12-11] MEDS: Piperacillin/Tazobactam 3.375 GM in Sodium Chloride 0.9% 100 ML IVPB SCH ×4 (01:07→17:50)
--- NOTE | 2017-12-11 01:41 | CON ---
DATE OF CONSULTATION: 12/10/2017 REASON FOR CONSULTATION: Pressure ulcerations with fever. HISTORY OF PRESENT ILLNESS: A 42-year-old who has a history of coronary artery disease with previous non-ST segment elevation VT, morbid obesity, type 2 diabetes, and renal insufficiency stage 2, who was admitted in April this year with evidence of volume overload and acute hypoxic respiratory failure. The patient had evaluation by Cardiology who felt that she had severe diastolic dysfunction and severe obstructive sleep apnea. At that time, Nephrology consultation was obtained as well. The impression was acute kidney injury, massive edema, proteinuria, and diabetic nephropathy. She was given Lasix intravenously. The patient had an evaluation by gastroenterology for evaluation of hyperbilirubinemia. 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 Then, in 11/19, she was readmitted with CHF and severe obstructive sleep apnea, anasarca. Previous laboratory results included a negative hepatitis C, chlamydia. Urinalysis showed negative protein. According to the patient's own recollection, she has had chronic ulcerations in the lateral aspect of her gluteal regions and pelvis skin in both right and left side for the past 10 months had been managed by Wound Care over the past few weeks. Reportedly she fell a few times, it is not clear to her why she felt, it looks like she loses her mental state briefly and falls down and has a difficulty in getting up. This time, she is admitted because of pain in the ulcerated areas in the right and left gluteal/hip/pelvis skin region. She had been going to wound care per doctor in [place], [place]. She also had some dyspnea associated with that. She was found to be anemic with a hemoglobin of 6.7 and an increase in creatinine. PAST MEDICAL HISTORY: Includes morbid obesity, diastolic dysfunction associated with cardiomyopathy and edema, renal insufficiency with transient exacerbation, type 2 diabetes. ALLERGIES: None. SOCIAL HISTORY: Used to work for a [employer] and lost her job about a year and a half ago. Lives, I believe in [place] by herself. She is ambulatory and pretty much takes care of her ADLs by herself. She has some family members in the city, who will help her out sometimes. According to the family, she will smoke every other day and no drug use, does not drink alcoholic beverages. FAMILY HISTORY: Some form of cardiomyopathy, hypertension, prostate cancer. CURRENT MEDICATIONS: Tylenol, Colace, Pepcid, heparin, Apresoline, morphine, Zosyn, and vancomycin. PHYSICAL EXAMINATION: VITAL SIGNS: T-max 98.5, BP 115/56, pulse 94, respirations 18, O2 sat 100. SKIN: Shows this ulcerated area in the right hip skin site. There is a yellow scab covering about two-thirds of the wound, some sort of an irregular wound measuring 3 x 2 cm. Surrounding this area, there is a much bigger rim of induration with marked tenderness, might be some cellulitis associated with it as well. In the opposite side and the left side, there is a wider area of dark eschar more round shaped measuring 5 x 5 cm, also with a rim of induration in the skin surrounding this area with marked tenderness. She has a peripheral IV access and she is voiding spontaneously. HEENT: Ocular movements are conjugate. Conjunctivae are somewhat pale. Oral cavity moist with numerous teeth in place with some decay and gum disease. NECK: Supple with no jugular vein distention. No thyromegaly. There is no lymphadenopathy. LUNGS: With symmetric air entry. No wheezing. HEART: S1, S2, regular rate. No S3, S4. ABDOMEN: Soft, not distended or tender, prominent panniculus. No bladder distention. EXTREMITIES: She is able to lift her legs from the bed and fold her knees. She has pretty good strength in the feet and the thigh muscles. LABORATORY DATA: The white cell count 17.9, hemoglobin 6.7, MCV 96, platelets 589 with 72% neutrophils. pH 7.31, pCO2 of 42, pO2 of 78. Sodium 133, creatinine was 1.6, potassium 6.9. GFR 142, bilirubin 2.3. Transaminases normal. Alkaline phosphatase 152 and albumin 3.4. ASSESSMENT: Type 2 diabetes, cardiomyopathy with diastolic dysfunction, hyperbilirubinemia of unknown etiology, severe anemia, ulcerated lesions in the lateral aspect of the hip skin right and left side of unclear etiology, chronic with surrounding induration associated with neutrophilia and a left shift and thrombocytosis, renal insufficiency. DISCUSSION: The differential diagnosis includes the possibility of separate problems associated with her chronic illnesses. For example, diabetic cardiomyopathy and nephropathy and the separate ulcerated areas in the skin of the pelvis secondary to falls and mobility issues versus a complicated inflammatory process in the pelvis with abscess formation, versus a more unifying diagnosis; for example, the patient has hyperbilirubinemia and could have hemolytic anemia and now either an autoimmune process causing this. Her other processes such as sarcoidosis, for example, which can be associated with chronic skin ulcers. At this point, I would recommend a CT and MRI of pelvis without contrast to evaluate the soft tissues. She cannot have contrast CT study because of renal function. We will check anemia workup including a workup for hemolysis and check HIV and an antinuclear antibody as well as rheumatoid factor. Dr. Hatch has been consulted and I would think that biopsy of the areas with submission of the specimen from microscopic pathology evaluation would be helpful to rule out vasculitis or sarcoidosis. YUKI
[2017-12-11 05:41] LABS: #Eosinphils 0.2 thou/uL (0.0-0.7); #Lymphocytes 2.8 thou/uL (1.20-3.40); #Monocytes 0.9 thou/uL (0.11-0.59); #Neutrophils 9.4 thou/uL (1.40-6.50); %Basophils 0.2 % (0.0-1.0); %Eosinophils 1.4 % (0.0-10.0); %Lymphocytes 20.9 % (21.0-51.0); %Neutrophils 70.4 % (42.0-75.0); Hemoglobin 6.8 g/dL (12.0-16.0); Mean Corpuscular HGB CONC 32.3 g/dL (32.0-36.0); Mean Corpuscular Hemoglobin 30.2 pg (27.0-31.0); Mean Corpuscular Volume 93.5 fL (78.0-98.0); Platelet Count 406 thou/uL (130-400); RBC Distribution Width 14.8 % (11.5-14.5); Red Blood Cell (RBC) Count 2.26 mill/uL (4.20-5.40); White Blood Cell (WBC) Count 13.3 thou/uL (4.8-10.8)
[2017-12-11 05:42] LABS: Hemoglobin 6.8 g/dL (12.0-16.0)
[2017-12-11] MEDS: HYDROcodone/Acetaminophen 10/325 mg Tablet PO PRN ×2 (05:44→21:25)
[2017-12-11 06:04] LABS: Anion Gap 11 mmol/L (10-20); BUN (Urea Nitrogen) 32 mg/dL (7.0-18.7); Calc. Creatinine Clearance 98 mL/min (70-130); Calcium 8.6 mg/dL (7.8-10.44); Carbon Dioxide 23 mmol/L (22-29); Chloride 104 mmol/L (98-107); Estimated GFR-MDRD 52; Glucose 88 mg/dL (70-105); Potassium 5.3 mmol/L (3.5-5.1); Sodium 133 mmol/L (136-145)
[2017-12-11] MEDS: Famotidine 20 MG TAB PO SCH ×2 (08:29→21:25)
[2017-12-11] MEDS: Vancomycin HCl 1.75 GM in Sodium Chloride 0.9% 500 ML IVPB SCH ×2 (08:29→23:05)
[2017-12-11] MEDS: Sodium Bicarbonate 150 MEQ in Dextrose 5% in Water 1,000 ML IV SCH ×2 (08:29→23:16)
[2017-12-11] MEDS: Docusate 100 MG CAP PO SCH ×2 (08:30→21:25)
--- NOTE | 2017-12-11 09:41 | PDOC.PN ---
- Subjective Encounter Start Date: 12/11/17 Encounter Start Time: 09:39 Ms. Moncada was seen today in follow-up of hperkalemia, and acute renal failure. she says she feels a bit drowsy. She continues to have pain in both hips. - Objective Resuscitation Status: Resuscitation Status FULL:Full Resuscitation MAR Reviewed: Yes Vital Signs & Weight: Vital Signs (12 hours) Temp Pulse Pulse Resp BP BP Pulse Ox 12/11/17 07:30 98.7 F 103 H 18 95/54 L 96 12/11/17 05:30 97.9 F 98 14 102/57 L 98 12/11/17 04:00 99.3 F 103 H 24 H 124/58 L 92 L 12/11/17 01:47 98.2 F 99 16 112/56 L 98 Weight Admit Weight 257 lb 9.6 oz Weight 257 lb I&O: 12/10/17 12/11/17 12/12/17 06:59 06:59 06:59 Intake Total 1372 240 Output Total 260 Balance 1112 240 Result Diagrams: 12/11/17 05:28 12/11/17 05:28 Phys Exam - Physical Examination Constitutional: NAD HEENT: PERRLA pale sclera Neck: no nodes Respiratory: no wheezing, no rales, no rhonchi, clear to auscultation bilateral Cardiovascular: RRR, no significant murmur, no rub no gallop Gastrointestinal: soft, non-tender, no distention, positive bowel sounds trace pedal edema, she has subcutaneous nodules in the thighs, and abdomen, which are hard Neurological: non-focal, moves all 4 limbs Dx/Plan (1) Hyperkalemia Code(s): E87.5 - HYPERKALEMIA Status: Acute (2) Acute renal failure Status: Acute (3) Decubitus ulcer of hip, right, unstageable Code(s): L89.210 - PRESSURE ULCER OF RIGHT HIP, UNSTAGEABLE Status: Acute (4) Decubitus ulcer of left hip, stage 3 Code(s): L89.223 - PRESSURE ULCER OF LEFT HIP, STAGE 3 Status: Acute (5) Acute blood loss anemia Code(s): D62 - ACUTE POSTHEMORRHAGIC ANEMIA Status: Acute (6) HTN (hypertension) Code(s): I10 - ESSENTIAL (PRIMARY) HYPERTENSION Status: Chronic Qualifiers: Hypertension type: essential hypertension Qualified Code(s): I10 - Essential (primary) hypertension - Plan * Hyperkalemia- improved after kayexalate and IV fluids * Acute kidney injury- improved- but not at baseline- continue IV fluids * Acute blood loss anemia- ? all from the decubitus- she does have iron deficiency anemia, and her stool for occult blood is negative. LDH is normal, and Haptoglobin is pending( to rule out hemolysis). agree with another transfusion of RBC's * Decubitus ulcers- agree with MRI of pelvis to determine the extent, and await surgical debridement * HTN- blood pressure is low ( not controlled)- will therefore hold Carvediolol * Subcutaneous nodule- these are hard, and diffuse, they do not have the usual characteristic of a lipoma- will ask the Surgeon if he/she could biopsy these during the debridement
[2017-12-11 12:21] LABS: Hemoglobin 7.8 g/dL (12.0-16.0)
--- NOTE | 2017-12-11 15:12 | CON ---
DATE OF CONSULTATION: 12/11/2017 CHIEF COMPLAINT: Decubitus wounds. HISTORY OF PRESENT ILLNESS: This is a 42-year-old female with a history of multiple medical problems including morbid obesity who presents with nonhealing wounds to her left and right hips, posterior s acral area. She has had significant weight loss in the last year. She has a history of type 2 diabe bandar, renal insufficiency, and MT. She is only 42 years old. She has been seen in Wound Care for the se chronic wounds, but there is some history of falls secondary to decreased mental status. She is a dmitted for more pain and evidence of infection at these sites. I was consulted for debridement. PAST MEDICAL HISTORY: Morbid obesity, CHF, cardiomyopathy, diastolic dysfunction, renal insufficienc y, type 2 diabetes, chronic open wounds, chronic anemia. MEDICINES: See list. ALLERGIES: None. SOCIAL HISTORY: Lives in [place] by herself. Does smoke. No other drugs. REVIEW OF SYSTEMS: Otherwise, negative. PHYSICAL EXAMINATION: VITAL SIGNS: Blood pressure is 106/57, pulse 90, respirations 18, O2 sat 100% on room air. She is a febrile. HEENT: Sclerae are anicteric. Oropharynx clear. NECK: No lymphadenopathy. CHEST: Clear. HEART: Regular rate and rhythm. ABDOMEN: Soft, nontender. There are multiple subcu masses in the lower abdomen and in the bilateral thighs. There is a large eschar on her left lateral hip without evidence of purulence. There are m ultiple open wounds to the right gluteal area, sacral area with no obvious necrotic tissue. EXTREMITIES: No ischemia or edema to extremities. LABORATORY: White blood cell count is 13, hemoglobin 6.8, platelet count is 406. Sodium 133, potass ium 5.3, creatinine 1.35. ASSESSMENT: Chronic failure to thrive, chronic anemia, chronic renal insufficiency and diastolic hea rt dysfunction, now with nonhealing wounds of uncertain etiology. Her mobility is somewhat limited, but she is not bedbound all the time. PLAN: Dr. Mejia wanted an MRI. She had not been able to tolerate that. We will plan debridement of these wounds and biopsy tomorrow in the operating room.
--- NOTE | 2017-12-11 17:41 | PRG ---
DATE OF SERVICE: 12/11/2017 SUBJECTIVE: The patient is seen and examined, seems to be very sleepy, but arousable, noted with the following vital signs. PHYSICAL EXAMINATION: VITAL SIGNS: Afebrile with temperature 98.2, pulse 103, respiratory rate of 18, O2 sat 100%, blood p ressure 130/59. HEENT: Unremarkable with moist oral mucosa. NECK: Supple, no conjunctival injection or icterus. CARDIOVASCULAR: First and second heart sounds were heard. RESPIRATORY: Clear to auscultation. DIGESTIVE: Revealed a benign abdomen with positive bowel sounds. EXTREMITIES: No peripheral edema. SKIN: No new gross rash. LYMPHATICS: No peripheral lymphadenopathy. LABORATORY INVESTIGATION: Showed hemoglobin of 6.8 with a repeat of 7.8. Chemistry showed a potassi um of 5.3, down from 6.9, creatinine 1.35, BUN of 32. Sodium 133. IMPRESSION: 1. Acute on chronic kidney disease which seems to be improving. 2. Hyperkalemia, which is improving. 3. Hyponatremia. PLAN: 1. Continue current renal supportive measures. 2. The patient may need further transfusion of blood or iron infusion. 3. Patient to continue with low potassium diet. 4. Further management to be dependent on the clinical course.
[2017-12-11 19:13] LABS: Hemoglobin 7.8 g/dL (12.0-16.0)
[2017-12-11 21:36] LABS: Vancomycin, Trough 34.9 ug/mL
[2017-12-11] MEDS: Heparin 5,000 UNITS/ML VIAL SC SCH (21:36)
[2017-12-12] MEDS: Piperacillin/Tazobactam 3.375 GM in Sodium Chloride 0.9% 100 ML IVPB SCH ×5 (00:23→23:44)
[2017-12-12] MEDS: HYDROcodone/Acetaminophen 10/325 mg Tablet PO PRN ×3 (04:00→21:06)
[2017-12-12 06:15] LABS: Anion Gap 12 mmol/L (10-20); BUN (Urea Nitrogen) 19 mg/dL (7.0-18.7); Calc. Creatinine Clearance 125 mL/min (70-130); Calcium 8.5 mg/dL (7.8-10.44); Carbon Dioxide 28 mmol/L (22-29); Chloride 100 mmol/L (98-107); Estimated GFR-MDRD 67; Glucose 87 mg/dL (70-105); Potassium 4.2 mmol/L (3.5-5.1); Sodium 136 mmol/L (136-145)
[2017-12-12] MEDS ORDERED: Fentanyl 100 MCG/2 ML VIAL ONE ×2 (08:00→09:33)
[2017-12-12] MEDS ORDERED: Midazolam HCl 2 mg/2 ml Vial ONE (08:00)
[2017-12-12] MEDS: Docusate 100 MG CAP PO SCH ×2 (09:00→20:56)
[2017-12-12] MEDS ORDERED: PHENYLEPHRINE-NS 100 MCG/ML 10 ML SYRINGE ONE ×2 (09:02→14:50)
[2017-12-12] MEDS ORDERED: SUGAMMADEX SODIUM 200 MG/2 ML VIAL ONE (09:02)
[2017-12-12] MEDS ORDERED: Ondansetron HCl/PF 4 MG/2 ML Vial IVP PRN (09:26)
[2017-12-12] MEDS ORDERED: Promethazine HCl 25 MG/ML VIAL IM PRN (09:26)
[2017-12-12] MEDS ORDERED: Promethazine HCl 25 MG/ML VIAL SLOW IVP PRN (09:26)
[2017-12-12] MEDS: Famotidine 20 MG TAB PO SCH ×2 (10:48→20:56)
[2017-12-12] MEDS: Heparin 5,000 UNITS/ML VIAL SC SCH ×2 (10:55→20:56)
[2017-12-12] MEDS: Sodium Bicarbonate 150 MEQ in Dextrose 5% in Water 1,000 ML IV SCH (11:07)
--- NOTE | 2017-12-12 12:36 | OP ---
DATE OF PROCEDURE: 12/12/2017 PREOPERATIVE DIAGNOSES: Left posterior gluteal sacral decubitus wound and left thigh mass. POSTOPERATIVE DIAGNOSES: Left posterior gluteal sacral decubitus wound and left thigh mass. PROCEDURES: 1. Debridement of skin, subcutaneous tissue, and fat left gluteal sacral decubitus wound. 2. Core needle biopsy of left thigh mass. SURGEON: John Hatch M.D. ANESTHESIA: General. ESTIMATED BLOOD LOSS: Minimal. COMPLICATIONS: None. SPECIMEN: Tissue biopsy cultures sent of left thigh mass and core biopsy obtained of left thigh mass . DESCRIPTION OF PROCEDURE: The patient was taken to the operating room and placed supine on the oper ating room table. After general anesthetic was obtained, she was placed in right lateral decubitus p osition. Her decubitus wound area is prepped and draped in a sterile fashion. Decubitus skin, subcu taneous tissue, and fat debrided down to viable fat. Hemostasis is obtained. The wound was irrigate d. Wet to dry dressing is placed. The patient was then placed supine and has palpable abnormalities in her left thigh. The skin over one of them is prepped and draped in a sterile fashion. A small n ick was made with the scalpel and 3 cores of good tissue were obtained of the palpable abnormality an d sent to path for final diagnosis. The patient is en route to recovery in stable condition. All in strument counts, needle counts, lap counts were correct.
--- NOTE | 2017-12-12 12:36 | PDOC.PN ---
- Subjective Encounter Start Date: 12/12/17 Encounter Start Time: 12:00 Subjective: had debridement this am -: no pain or sob -: eating her lunch - Objective Resuscitation Status: Resuscitation Status FULL:Full Resuscitation MAR Reviewed: Yes Vital Signs & Weight: Vital Signs (12 hours) Temp Pulse Resp BP Pulse Ox 12/12/17 10:35 97.2 F L 83 16 109/63 100 12/12/17 03:45 98.4 F 95 17 108/69 100 Weight Admit Weight 257 lb 9.6 oz Weight 260 lb I&O: 12/11/17 12/12/17 12/13/17 06:59 06:59 06:59 Intake Total 1372 2499 Output Total 260 1700 Balance 1112 799 Result Diagrams: 12/11/17 19:07 12/12/17 05:12 Phys Exam - Physical Examination HEENT: PERRLA, moist MMs Neck: no JVD, supple Respiratory: no wheezing, no rales Cardiovascular: RRR, no significant murmur Gastrointestinal: soft, non-tender, positive bowel sounds Musculoskeletal: no edema, pulses present Neurological: non-focal, moves all 4 limbs Psychiatric: normal affect, A&O x 3 Dx/Plan (1) Decubitus ulcer of hip, right, unstageable Code(s): L89.210 - PRESSURE ULCER OF RIGHT HIP, UNSTAGEABLE Status: Acute Comment: s/p debridement 12/12/17 (2) Decubitus ulcer of left hip, stage 3 Code(s): L89.223 - PRESSURE ULCER OF LEFT HIP, STAGE 3 Status: Acute Comment : s/p debridement 12/12/17 (3) DM II (diabetes mellitus, type II), controlled Code(s): E11.9 - TYPE 2 DIABETES MELLITUS WITHOUT COMPLICATIONS Status: Chronic Qualifiers: Diabetes mellitus fpc insulin use: without superintendent terminal use Diabetes mellitus complication status: with other specified complication Qualified Code (s): E11.69 - Type 2 diabetes mellitus with other specified complication Comment: Well controlled. Continue accuchecks. (4) HTN (hypertension) Code(s): I10 - ESSENTIAL (PRIMARY) HYPERTENSION Status: Chronic Qualifiers: Hypertension type: essential hypertension Qualified Code(s): I10 - Essential (primary) hypertension (5) Hyperbilirubinemia Code(s): E80.6 - OTHER DISORDERS OF BILIRUBIN METABOLISM Status: Chronic Comment: unclear etiology. Has been previously evaluated by GI. Suspected [place] (6) Morbid (severe) obesity due to excess calories Code(s): E66.01 - MORBID (SEVERE) OBESITY DUE TO EXCESS CALORIES Status: Chronic (7) CHF (congestive heart failure) Code(s): I50.9 - HEART FAILURE, UNSPECIFIED Status: Chronic Comment: likely diastolic - Plan is on vanc and zosyn -: likely might need wound vac -: to ambulate as tolerated and to keep off press ulcers -: diabetes is diet controlled -: morphine prn for pain, watch for resp depression, may tx to med floor * . Review of Systems - Medications/Allergies Allergies/Adverse Reactions: Allergies Allergy/AdvReac Type Severity Reaction Status Date / Time No Known Allergies Allergy Verified 05/07/17 22:49 Medications: Current Medications Acetaminophen (Tylenol) 650 mg PO Q4H PRN PRN Reason: Headache/Fever or MILD Pain Hydrocodone Bitart/Acetaminophen ([place] 10/325) 1 tab PO Q4H PRN PRN Reason: Moderate Pain (4-6) Last Admin: 12/12/17 04:00 Dose: 1 tab Hydrocodone Bitart/Acetaminophen ([place] 10/325) 2 tab PO Q4H PRN PRN Reason: Severe Pain (7-10) Last Admin: 12/12/17 10:56 Dose: 2 tab Docusate Sodium (Colace) 100 mg PO BID [facility] Last Admin: 12/12/17 09:00 Dose: Not Given Famotidine (Pepcid) 20 mg PO BID [facility] Last Admin: 12/12/17 10:48 Dose: 20 mg Heparin Sodium (Porcine) (Heparin) 5,000 units SC BID [facility] Last Admin: 12/12/17 10:55 Dose: 5,000 units Hydralazine HCl (Apresoline) 10 mg SLOW IVP Q4H PRN PRN Reason: Systolic BP > 180 Piperacillin Sod/Tazobactam (Sod 3.375 gm/ Sodium Chloride) 100 mls @ 200 mls/ hr IVPB Q6HR [facility] Last Admin: 12/12/17 11:06 Dose: 100 mls Sodium Bicarbonate 150 meq/ (Dextrose/Water) 1,150 mls @ 100 mls/hr IV .[id number] [facility] Last Admin: 12/12/17 11:07 Dose: 1,150 mls Miscellaneous Medication (Pharmacy To Dose) 0 each IVPB DAILYPRN PRN PRN Reason: LABS Morphine Sulfate (Morphine) 2 mg SLOW IVP Q4H PRN PRN Reason: BREAKTHRU MODERATE Pain Last Admin: 12/12/17 04:01 Dose: 2 mg Morphine Sulfate (Morphine) 4 mg SLOW IVP Q4H PRN PRN Reason: BREAKTHRU SEVERE PAIN Last Admin: 12/11/17 12:55 Dose: 4 mg Sodium Chloride (Flush - Normal Saline) 10 ml IVF Q12HR [facility] Last Admin: 12/12/17 10:50 Dose: 10 ml Sodium Chloride (Flush - Normal Saline) 10 ml IVF PRN PRN PRN Reason: Saline Flush
[2017-12-12] MEDS ORDERED: PROPOFOL 200 MG/20 ML VIAL ONE (14:50)
[2017-12-12] MEDS: Morphine 4 MG/ML VIAL SLOW IVP PRN (23:45)
--- NOTE | 2017-12-13 01:17 | PRG ---
DATE OF SERVICE: 12/12/2017 SUBJECTIVE: The patient was seen and examined with no new complaint, had debridement this morning an d noted with the following vital signs. PHYSICAL EXAMINATION: VITAL SIGNS: Afebrile with temperature 97.2, pulse 83, respiratory rate of 16, blood pressure , O2 sat 100%. HEENT: Unremarkable. CARDIOVASCULAR SYSTEM: First and second heart sounds were heard. RESPIRATORY SYSTEM: Clear to auscultation. DIGESTIVE SYSTEM: Revealed a benign abdomen. EXTREMITIES: No peripheral edema. SKIN: No new gross rash. LYMPHATICS: No peripheral lymphadenopathy. IMPRESSION: 1. Acute kidney injury, which seems to have showed some improvement. 2. Anemia, unfortunately no hemoglobin checked today. 3. Decubitus ulcer, status post debridement. PLAN: 1. The patient's hemoglobin needs to be reevaluated, especially status post debridement in this day ent who has been having issues with anemia. 2. Further management to be dependent on the clinical course.
[2017-12-13 05:15] VITALS: BMI 52.7
[2017-12-13] MEDS: Piperacillin/Tazobactam 3.375 GM in Sodium Chloride 0.9% 100 ML IVPB SCH ×4 (05:55→23:16)
[2017-12-13] MEDS: Famotidine 20 MG TAB PO SCH ×2 (09:02→19:59)
[2017-12-13] MEDS: Heparin 5,000 UNITS/ML VIAL SC SCH ×2 (09:02→19:58)
[2017-12-13] MEDS: Morphine 4 MG/ML VIAL SLOW IVP PRN ×3 (09:02→18:34)
[2017-12-13] MEDS: Docusate 100 MG CAP PO SCH ×2 (09:02→19:59)
--- NOTE | 2017-12-13 09:34 | PDOC.GSPN ---
Surgery Progress Note: Subj - Subjective Patient reports: no new complaints Surgery Progress Note: Obj - Vital signs Vital signs: Vital Signs - Most Recent Temp Pulse Resp BP Pulse Ox 98.2 F 92 18 129/74 95 12/13/17 08:00 12/13/17 08:00 12/13/17 08:00 12/13/17 08:00 12/13/17 08:00 - Physical Exam General: no distress Wound: dressing clean,dry,intact Surgery Progress Note: Results - Labs Result Diagrams: 12/11/17 19:07 12/12/17 05:12 Lab results: Laboratory Results - last 24 hr 12/13/17 06:50 POC Glucose 96 Surgery Progress Note: A/P - Problem (1) Decubitus ulcer of left hip, stage 3 Current Visit: Yes Code(s): L89.223 - PRESSURE ULCER OF LEFT HIP, STAGE 3 Status: Acute - Plan Plan: POD 1 debridement decubitus, core biopsy thigh mass -await path -dressing changes
--- NOTE | 2017-12-13 10:51 | PDOC.PN ---
- Subjective Encounter Start Date: 12/13/17 Encounter Start Time: 09:10 Subjective: no sob, pain at surg debridement site is better - Objective Resuscitation Status: Resuscitation Status FULL:Full Resuscitation MAR Reviewed: Yes Vital Signs & Weight: Vital Signs (12 hours) Temp Pulse Resp BP BP BP Pulse Ox 12/13/17 08:00 98.2 F 92 18 129/74 95 12/13/17 05:15 98.1 F 95 16 111/74 93 L 12/13/17 00:00 98.7 F 104 H 20 103/71 96 Weight Admit Weight 257 lb 9.6 oz Weight 309 lb 1.409 oz I&O: 12/12/17 12/13/17 12/14/17 06:59 06:59 06:59 Intake Total 2499 1676 Output Total 1700 1280 Balance 799 396 Result Diagrams: 12/11/17 19:07 12/12/17 05:12 Additional Labs: Accuchecks 12/13/17 06:50 POC Glucose 96 Phys Exam - Physical Examination HEENT: PERRLA, moist MMs Neck: no JVD, supple Respiratory: no wheezing, no rales Cardiovascular: RRR, no significant murmur Gastrointestinal: soft, non-tender, positive bowel sounds Musculoskeletal: pulses present, edema present Neurological: non-focal, moves all 4 limbs Psychiatric: normal affect, A&O x 3 Dx/Plan (1) Decubitus ulcer of left hip, stage 3 Code(s): L89.223 - PRESSURE ULCER OF LEFT HIP, STAGE 3 Status: Acute Comment : s/p debridement 12/12/17 (2) Decubitus ulcer of hip, right, unstageable Code(s): L89.210 - PRESSURE ULCER OF RIGHT HIP, UNSTAGEABLE Status: Acute (3) DM II (diabetes mellitus, type II), controlled Code(s): E11.9 - TYPE 2 DIABETES MELLITUS WITHOUT COMPLICATIONS Status: Chronic Qualifiers: Diabetes mellitus terminal operator insulin use: without residential use Diabetes mellitus complication status: with other specified complication Qualified Code (s): E11.69 - Type 2 diabetes mellitus with other specified complication Comment: Well controlled. Continue accuchecks. (4) HTN (hypertension) Code(s): I10 - ESSENTIAL (PRIMARY) HYPERTENSION Status: Chronic Qualifiers: Hypertension type: essential hypertension Qualified Code(s): I10 - Essential (primary) hypertension (5) Hyperbilirubinemia Code(s): E80.6 - OTHER DISORDERS OF BILIRUBIN METABOLISM Status: Chronic Comment: unclear etiology. Has been previously evaluated by GI. Suspected [place] (6) Morbid (severe) obesity due to excess calories Code(s): E66.01 - MORBID (SEVERE) OBESITY DUE TO EXCESS CALORIES Status: Chronic (7) CHF (congestive heart failure) Code(s): I50.9 - HEART FAILURE, UNSPECIFIED Status: Chronic Comment: likely diastolic - Plan is on zosyn, await culture results -: continue morphine and norco prn, colace, pepcid -: to ambulate in hallway as tolerated -: CM for help with dc plan, has b/l hip decub/lives alone -: ?wound vac per gen surg advice, will place her back on oral lasix * . Review of Systems - Medications/Allergies Allergies/Adverse Reactions: Allergies Allergy/AdvReac Type Severity Reaction Status Date / Time No Known Allergies Allergy Verified 05/07/17 22:49 Medications: Current Medications Acetaminophen (Tylenol) 650 mg PO Q4H PRN PRN Reason: Headache/Fever or MILD Pain Hydrocodone Bitart/Acetaminophen ([place] 10/325) 1 tab PO Q4H PRN PRN Reason: Moderate Pain (4-6) Last Admin: 12/12/17 04:00 Dose: 1 tab Hydrocodone Bitart/Acetaminophen ([place] 10/325) 2 tab PO Q4H PRN PRN Reason: Severe Pain (7-10) Last Admin: 12/12/17 21:06 Dose: 2 tab Docusate Sodium (Colace) 100 mg PO BID [facility] Last Admin: 12/13/17 09:02 Dose: 100 mg Famotidine (Pepcid) 20 mg PO BID [facility] Last Admin: 12/13/17 09:02 Dose: 20 mg Heparin Sodium (Porcine) (Heparin) 5,000 units SC BID [facility] Last Admin: 12/13/17 09:02 Dose: 5,000 units Hydralazine HCl (Apresoline) 10 mg SLOW IVP Q4H PRN PRN Reason: Systolic BP > 180 Piperacillin Sod/Tazobactam (Sod 3.375 gm/ Sodium Chloride) 100 mls @ 200 mls/ hr IVPB Q6HR [facility] Last Admin: 12/13/17 05:55 Dose: 100 mls Miscellaneous Medication (Pharmacy To Dose) 0 each IVPB DAILYPRN PRN PRN Reason: LABS Morphine Sulfate (Morphine) 2 mg SLOW IVP Q4H PRN PRN Reason: BREAKTHRU MODERATE Pain Last Admin: 12/12/17 18:42 Dose: 2 mg Morphine Sulfate (Morphine) 4 mg SLOW IVP Q4H PRN PRN Reason: BREAKTHRU SEVERE PAIN Last Admin: 12/13/17 09:02 Dose: 4 mg Sodium Chloride (Flush - Normal Saline) 10 ml IVF Q12HR [facility] Last Admin: 12/13/17 09:05 Dose: 10 ml Sodium Chloride (Flush - Normal Saline) 10 ml IVF PRN PRN PRN Reason: Saline Flush
[2017-12-13] MEDS: HYDROcodone/Acetaminophen 10/325 mg Tablet PO PRN ×2 (11:58→19:59)
--- NOTE | 2017-12-13 21:21 | PRG ---
DATE OF SERVICE: 12/13/2017 The patient noted with the following vital signs. PHYSICAL EXAMINATION: VITAL SIGNS: Afebrile with temperature 98.1, pulse 99, respiratory rate 18, O2 sat 95%, blood pressu re 120/73. HEENT: Unremarkable. CARDIOVASCULAR: First and second sounds were heard. RESPIRATORY: Clear to auscultation. DIGESTIVE: Revealed a benign abdomen with positive bowel sounds. EXTREMITIES: No peripheral edema. SKIN: No new gross rash. LYMPHATICS: No peripheral lymphadenopathy. IMPRESSION: 1. Acute kidney injury, which seems to have improved. 2. Anemia yet to reevaluate the hemoglobin. PLAN: 1. Check the hemoglobin tomorrow. 2. Renal supportive measures to continue.
[2017-12-14] MEDS: Morphine 4 MG/ML VIAL SLOW IVP PRN ×2 (02:09→20:47)
[2017-12-14] MEDS: HYDROcodone/Acetaminophen 10/325 mg Tablet PO PRN ×4 (04:26→20:00)
[2017-12-14 05:09] LABS: #Eosinphils 0.4 thou/uL (0.0-0.7); #Lymphocytes 2.7 thou/uL (1.20-3.40); #Monocytes 1.1 thou/uL (0.11-0.59); #Neutrophils 5.7 thou/uL (1.40-6.50); %Basophils 0.5 % (0.0-1.0); %Eosinophils 4.3 % (0.0-10.0); %Lymphocytes 26.9 % (21.0-51.0); %Monocytes 11.2 % (0.0-10.0); %Neutrophils 57.1 % (42.0-75.0); Hemoglobin 6.8 g/dL (12.0-16.0); Mean Corpuscular HGB CONC 30.9 g/dL (32.0-36.0); Mean Corpuscular Hemoglobin 29.7 pg (27.0-31.0); Mean Corpuscular Volume 96.2 fL (78.0-98.0); Mean Platelet Volume 6.2 fL (7.4-10.4); Platelet Count 439 thou/uL (130-400); RBC Distribution Width 14.3 % (11.5-14.5); Red Blood Cell (RBC) Count 2.27 mill/uL (4.20-5.40)
[2017-12-14 05:51] LABS: Anion Gap 13 mmol/L (10-20); BUN (Urea Nitrogen) 12 mg/dL (7.0-18.7); Calc. Creatinine Clearance 181 mL/min (70-130); Calcium 8.5 mg/dL (7.8-10.44); Carbon Dioxide 27 mmol/L (22-29); Chloride 103 mmol/L (98-107); Estimated GFR-MDRD 84; Glucose 95 mg/dL (70-105); Potassium 3.9 mmol/L (3.5-5.1); Sodium 139 mmol/L (136-145)
[2017-12-14] MEDS: Piperacillin/Tazobactam 3.375 GM in Sodium Chloride 0.9% 100 ML IVPB SCH ×4 (06:09→23:58)
[2017-12-14] MEDS: Heparin 5,000 UNITS/ML VIAL SC SCH ×2 (08:45→19:59)
[2017-12-14] MEDS: Famotidine 20 MG TAB PO SCH ×2 (08:45→19:59)
[2017-12-14] MEDS: Docusate 100 MG CAP PO SCH ×2 (08:45→19:59)
--- NOTE | 2017-12-14 11:16 | PDOC.PN ---
- Subjective Encounter Start Date: 12/14/17 Encounter Start Time: 11:14 -: old records requested/rev Pt seen and examined, chart reviewed in its entirety, this is my first visit with this patient follow up for pressure ulcer of the hip s/p debridement, culture and biopsy of left thigh mass by Dr schmidt Afebrile, no new complaints, no pain, no f/C, no n/V/D/C, no CP ro SOB all systems reivewed and neg x as above - Objective Resuscitation Status: Resuscitation Status FULL:Full Resuscitation MAR Reviewed: Yes Vital Signs & Weight: Vital Signs (12 hours) Temp Pulse Resp BP Pulse Ox 12/14/17 08:52 97 12/14/17 07:11 98.2 F 83 16 101/66 97 Weight Admit Weight 257 lb 9.6 oz Weight 309 lb 1.409 oz I&O: 12/13/17 12/14/17 12/15/17 06:59 06:59 06:59 Intake Total 1676 920 Output Total 1280 Balance 396 920 Result Diagrams: 12/14/17 04:02 12/14/17 04:02 Radiology Reviewed by me: Yes EKG Reviewed by me: Yes Phys Exam - Physical Examination Constitutional: NAD HEENT: PERRLA, moist MMs, sclera anicteric, oral pharynx no lesions Neck: no nodes, no JVD, supple, full ROM Respiratory: no wheezing, no rales, no rhonchi, clear to auscultation bilateral Cardiovascular: RRR, no significant murmur, no rub Gastrointestinal: soft, non-tender, no distention, positive bowel sounds Musculoskeletal: no edema BLE paraplegia Lymphatic: no nodes Psychiatric: normal affect, A&O x 3 Skin: no rash, normal turgor, cap refill <2 seconds Dx/Plan (1) Acute blood loss anemia Code(s): D62 - ACUTE POSTHEMORRHAGIC ANEMIA Status: Acute Comment: still low post transfusion, down from 7.8 to 6.8. give 2 more units (2) Acute renal failure Status: Resolved Qualifiers: Acute renal failure type: unspecified Qualified Code(s): N17.9 - Acute kidney failure, unspecified (3) Decubitus ulcer of hip, right, unstageable Code(s): L89.210 - PRESSURE ULCER OF RIGHT HIP, UNSTAGEABLE Status: Chronic (4) Decubitus ulcer of left hip, stage 3 Code(s): L89.223 - PRESSURE ULCER OF LEFT HIP, STAGE 3 Status: Chronic Comment: s/p debridement 12/12/17 (5) Hyperkalemia Code(s): E87.5 - HYPERKALEMIA Status: Acute (6) CHF (congestive heart failure) Code(s): I50.9 - HEART FAILURE, UNSPECIFIED Status: Chronic Comment: likely diastolic (7) DM II (diabetes mellitus, type II), controlled Code(s): E11.9 - TYPE 2 DIABETES MELLITUS WITHOUT COMPLICATIONS Status: Chronic Qualifiers: Diabetes mellitus snf insulin use: without rat exterminator use Diabetes mellitus complication status: with other specified complication Qualified Code (s): E11.69 - Type 2 diabetes mellitus with other specified complication Comment: Well controlled. Continue accuchecks. (8) HTN (hypertension) Code(s): I10 - ESSENTIAL (PRIMARY) HYPERTENSION Status: Chronic Qualifiers: Hypertension type: essential hypertension Qualified Code(s): I10 - Essential (primary) hypertension (9) Morbid (severe) obesity due to excess calories Code(s): E66.01 - MORBID (SEVERE) OBESITY DUE TO EXCESS CALORIES Status: Chronic - Plan cont current plan of care, continue antibiotics, social worker delinquency prevention * .
[2017-12-14 15:09] LABS: Hemoglobin 7.5 g/dL (12.0-16.0)
[2017-12-15 04:58] LABS: #Eosinphils 0.5 thou/uL (0.0-0.7); #Lymphocytes 2.6 thou/uL (1.20-3.40); #Monocytes 0.9 thou/uL (0.11-0.59); #Neutrophils 5.6 thou/uL (1.40-6.50); %Basophils 0.3 % (0.0-1.0); %Eosinophils 4.7 % (0.0-10.0); %Lymphocytes 27.3 % (21.0-51.0); %Monocytes 9.5 % (0.0-10.0); %Neutrophils 58.2 % (42.0-75.0); Hemoglobin 7.5 g/dL (12.0-16.0); Mean Corpuscular Hemoglobin 29.5 pg (27.0-31.0); Mean Corpuscular Volume 95.1 fL (78.0-98.0); Mean Platelet Volume 6.2 fL (7.4-10.4); Platelet Count 435 thou/uL (130-400); RBC Distribution Width 14.2 % (11.5-14.5); Red Blood Cell (RBC) Count 2.53 mill/uL (4.20-5.40); White Blood Cell (WBC) Count 9.7 thou/uL (4.8-10.8)
[2017-12-15] MEDS: Morphine 4 MG/ML VIAL SLOW IVP PRN ×2 (05:08→14:24)
[2017-12-15] MEDS: Piperacillin/Tazobactam 3.375 GM in Sodium Chloride 0.9% 100 ML IVPB SCH ×2 (05:08→11:21)
[2017-12-15 05:26] LABS: Anion Gap 12 mmol/L (10-20); BUN (Urea Nitrogen) 11 mg/dL (7.0-18.7); Calc. Creatinine Clearance 171 mL/min (70-130); Calcium 8.6 mg/dL (7.8-10.44); Carbon Dioxide 27 mmol/L (22-29); Chloride 104 mmol/L (98-107); Estimated GFR-MDRD 79; Glucose 77 mg/dL (70-105); Magnesium 1.7 mg/dL (1.6-2.6); Potassium 4.2 mmol/L (3.5-5.1); Sodium 139 mmol/L (136-145)
[2017-12-15 08:11] VITALS: BP 103/66
[2017-12-15] MEDS: HYDROcodone/Acetaminophen 10/325 mg Tablet PO PRN ×2 (08:37→15:00)
[2017-12-15] MEDS: Famotidine 20 MG TAB PO SCH (08:38)
[2017-12-15] MEDS: Docusate 100 MG CAP PO SCH (08:39)
[2017-12-15] MEDS: Heparin 5,000 UNITS/ML VIAL SC SCH ×2 (08:39→15:00)
[2017-12-15 08:54] VITALS: TEMP 98.2
[2017-12-15] MEDS ORDERED: Doxycycline 100 MG CAP PO SCH ×2 (11:30→21:00)
--- NOTE | 2017-12-15 13:43 | DIS ---
PRIMARY CARE PHYSICIAN: Dr. Louie Skinner DATE OF ADMISSION: 12/10/2017 DATE OF DISCHARGE: 12/15/2017 DISCHARGE DIAGNOSES: 1. Stage III pressure ulcer of the bilateral hips. 2. 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 3. Infected left hip pressure ulcer, methicillin-resistant Staphylococcus aureus. 4. Obesity. 5. Chronic diastolic congestive heart failure without acute exacerbation. 6. Moderate protein calorie malnutrition. 7. Diabetes mellitus type 2. 8. Essential hypertension. 9. Anemia of chronic disease. 10. Acute blood loss anemia. 11. Acute kidney injury, present on admission, resolved. CONSULTATIONS: 1. General Surgery, Dr. Cedric Hatch. 2. Nephrology, Dr. Gallo Nguyen. 3. Infectious Disease, Dr. Trever Mejia. PROCEDURES: Wound debridement to the left stage III pressure ulcer, excisional, and left thigh mass biopsy. HISTORY AND PHYSICAL: Ms. Moncada is a 42-year-old female with bilateral pressur e ulcers on her hip, chronic malnutrition, and infected wound. She presented to the emergency depart ment for evaluation due to pain and we were called for admission. On admission she did have a creati nine elevated above her baseline of 2.06 with a BUN of 53, sodium was low at 130. White blood cell c ount was 17.9 and she met sepsis criteria. We were subsequently called for admission. HOSPITAL COURSE: The patient was seen and examined by Dr. Soto placed in inpatient status. S he was continued on Zosyn and vancomycin was added. General Surgery was consulted. The patient was seen by Renal due to the increased creatinine, recommended hydration. She was seen b y Infectious Disease who recommended wound debridement and aggressive antibiotics and streamlined per culture results. On 12/11/2017 white blood cell count was improved. She was afebrile. She was see n by General Surgery and prepped to go to the operating room on 12/12/2017 for a debridement and biop sy. Overnight 12/11/2017 to 12/12/2017, white blood cell count normalized. Her kidney function continued to improve. She was tolerating the antibiotics well and went to the operating room. She had the wo und debrided down to healthy fat tissue and had a biopsy of her left thigh mass. From 12/13/2017 to 12/15/2017, her renal function normalized. She remained afebrile, tolerating anti biotics. Culture returned back from operative cultures with MRSA and she was transitioned to oral do xycycline based on susceptibility testing. She was able to get up out of bed and ambulate with a wal ker, and able to feed herself and was stable for discharge with outpatient followup. PHYSICAL EXAMINATION: The patient was seen and examined on the day of discharge. Discharge plan and disposition were discussed with the patient and her mother face to face at the bedside. DISCHARGE MEDICATIONS: (New medications) 1. Doxycycline 100 mg p.o. b.i.d. 2. Recommended a multivitamin. 3. Recommended zinc over the counter. HOME MEDICINES TO CONTINUE: 1. Aspirin 81 mg daily. 2. Carvedilol 3.125 mg p.o. b.i.d. 3. Celexa 40 mg daily. 4. Lorazepam 0.5 mg p.o. b.i.d.. 5. Iron sulfate 325 mg p.o. b.i.d. 6. Ibuprofen 200 mg daily p.r.n. 7. Lisinopril 40 mg daily. 8. [place] 3 fatty acid 1000 mg p.o. b.i.d. 9. Potassium chloride 20 mEq daily. 10. Tramadol 50 mg p.o. q.6 hours p.r.n. pain. FOLLOWUP APPOINTMENTS: 1. Primary care physician in [address] Hatch in 2-3 weeks. 3. Outpatient Wound Care next available. DISCHARGE INSTRUCTIONS: Diet: Heart healthy diabetic diet recommended with high protein, recommend adding multivitamin and z inc supplementation. Probably could benefit from Juan or Ensure shakes twice a day. DISCHARGE ACTIVITY: As tolerated. Wound care instructions given. DISCHARGE CONDITION: Stable. DISPOSITION: Being discharged home via private vehicle with her mother.
--- NOTE | 2017-12-19 12:18 | EKG ---
Test Reason : CHEST PAIN Blood Pressure : / mmHG Vent. Rate : 107 BPM Atrial Rate : 107 BPM P-R Int : 184 ms QRS Dur : 090 ms QT Int : 326 ms P-R-T Axes : 033 054 058 degrees QTc Int : 435 ms Sinus tachycardia Possible Left atrial enlargement Possible Anterior infarct , age undetermined Abnormal ECG Confirmed by PANFILO MCCALL ([id number]), advertising editor JAIMIE PEREZ ([id number]) on 12/19/2017 12:17:57 PM Referred By: Confirmed By:PANFILO MCCALL
== END 2017-12-15 15:44 | disposition home or self-care (01) | DRG 570 ==
LOC: ERS 01:43 → 2NO 04:38 → T4-A 12-12 17:26
PROVIDERS: ADMIT Hospitalist; ATTEND Hospitalist
PROC: 0JBL0ZZ Excision of Right Upper Leg Subcutaneous Tissue and Fascia, Open Approach (ICD-10-PCS; principal; 2017-12-12)
PROC: 0YB Anatomical Regions, Lower Extremities, Excision (ICD-10-PCS; 2017-12-12)
DX: L89.223 Pressure ulcer of left hip, stage 3 (principal); I50.32 Chronic diastolic (congestive) heart failure; E44.0 Moderate protein-calorie malnutrition; D62 Acute posthemorrhagic anemia; N17.9 Acute kidney failure, unspecified; Z68.41 Body mass index [BMI] 40.0-44.9, adult; E66.2 Morbid (severe) obesity with alveolar hypoventilation; I13.0 Hypertensive heart and chronic kidney disease with heart failure and stage 1 through stage 4 chronic kidney disease, or unspecified chronic kidney disease; E87.1 Hypo-osmolality and hyponatremia; L89.213 Pressure ulcer of right hip, stage 3; B95.62 Methicillin resistant Staphylococcus aureus infection as the cause of diseases classified elsewhere; D63.8 Anemia in other chronic diseases classified elsewhere; Z79.82 Long term (current) use of aspirin; E87.5 Hyperkalemia; Z79.4 Long term (current) use of insulin; F41.1 Generalized anxiety disorder; F32.9 Major depressive disorder, single episode, unspecified; I25.2 Old myocardial infarction; R62.7 Adult failure to thrive; E80.6 Other disorders of bilirubin metabolism; D72.0 Genetic anomalies of leukocytes; D47.3 Essential (hemorrhagic) thrombocythemia; E11.69 Type 2 diabetes mellitus with other specified complication; E11.21 Type 2 diabetes mellitus with diabetic nephropathy; E11.22 Type 2 diabetes mellitus with diabetic chronic kidney disease; N18.3 Chronic kidney disease, stage 3 (moderate); Z85.9 Personal history of malignant neoplasm, unspecified
CPT/HCPCS: 36415; 36416; 36430; 71045; 80048; 80053; 80202; 82274; 82553; 82607; 82728; 82805; 83010; 83540; 83550; 83605; 83615; 83735; 84484; 85018; 85025; 85379; 86850; 86900; 86901; 87040; 87070; 87076; 87077; 87186; 87205; 87389; 88304; 88305; 93005; 96361; 96374; 96375; A4216; J1644; J1815; J2060; J2250; J2270; J2543; J2704; J3010; J3370; J7050; J7070; P9016

== ENCOUNTER 2017-12-23 08:20 | Outpatient (CLI) | payer OTHER ==
--- NOTE | 2017-12-23 11:32 | HP ---
DATE OF ADMISSION: 12/23/2017. HISTORY OF PRESENT ILLNESS: Ms. Earnestine Moncada is a very pleasant 42-year-old who presents to the Wound Center for evaluation of wounds of the right and left hips. The patient has a wound over the left hip as well as a wound over the right hip. The patient underwent debridement of the wound o henry the left hip on 12/12/[address] Hatch. The patient was discharged to home on doxycycline, wh ich she is still taking as prescribed. The patient states she has been performing wet to dry dressin g changes for both wounds. She states that she is dressing one of her wounds with Medihoney. The pa jony has no other complaints today. She denies any fever or chills. PAST MEDICAL HISTORY: 1. Hypertension. 2. History of diabetes mellitus. 3. Degenerative joint disease. 4. Chronic kidney disease stage 2. 5. Cardiomyopathy. 6. Anemia. 7. Moderate protein-calorie malnutrition. PAST SURGICAL HISTORY: Intraoperative debridement of left decubitus wound and core needle biopsy of left thigh mass on 12/12/[address] Hatch. MEDICATIONS: 1. Multivitamin. 2. Doxycycline. 3. Lasix. 4. Iron. 5. Vitamin D. 6. Clonazepam. 7. Cyclobenzaprine. 8. Hydrocodone. 9. Aspirin. 10. Coreg. 11. Citalopram. ALLERGIES: No known diagnosed allergies. SOCIAL HISTORY: Significant for tobacco use of 1 pack of cigarettes per day for 23 years. The patie nt denies any history of ETOH use. FAMILY HISTORY: Significant for diabetes mellitus. The patient's brother was diagnosed with diabete s mellitus. Family history is also significant for coronary artery disease. The patient's brother a nd maternal grandmother were both diagnosed with coronary artery disease. PHYSICAL EXAMINATION: VITAL SIGNS: Temperature 97.9, pulse 91, respirations 20, blood pressure 134/72. GENERAL: A 42-year-old female sitting on table in examination room, in no acute distress. HEENT: Normocephalic, atraumatic. NECK: No nuchal rigidity. CHEST: Clear to auscultation. CARDIAC: Regular rate and rhythm. ABDOMEN: Soft. BACK: A wound of the right hip is present which measures approximately 7.0 x 4.0 cm. A wound of the left hip is present which measures approximately 12.5 x 10.0 cm. Nonviable tissue is present within the margins of each wound. No purulent drainage is associated with either wound. No erythema of th e skin surrounding either wound is present. No maceration of the skin of the periwound of either wou nd is noted. EXTREMITIES: No clubbing or cyanosis. NEUROLOGIC: Grossly nonfocal. ASSESSMENT AND PLAN: 1. Wounds of right and left hips as described above. Dressing changes of Medihoney will be initiate d today. The patient is to utilize gauze and ABDs as secondary dressings. The patient has been inst ructed to perform these dressing changes on a daily basis after cleansing and irrigation. Debridemen t of either wound was not attempted in clinic today as the procedure would be limited by the degree o f pain the patient might experience. The patient was instructed that once the Medihoney had develope d a suitable plane viable tissue from nonviable tissue, debridement would be a more viable option. Nonetheless, as the right hip wound was dressed with Medihoney, significant bleeding from t he wound was noted. The wound was packed with Surgicel as the wound appeared to have most of the ble eding from an area of tunneling or undermining associated with the wound. Because the point of bleed ing was not able to be exposed adequately, the wound was packed with gauze and the patient was transp orted to the emergency department. I will see Ms. Moncada again in two weeks after her discharge from [facility]. 2. Hypertension. 3. History of diabetes mellitus. 4. Degenerative joint disease. 5. Chronic kidney disease stage 2. 6. Cardiomyopathy. 7. Anemia. 8. Moderate.
[2017-12-23] MEDS ORDERED: Sodium Chloride 0.9% 15 ML NEB ONE (14:30)
== END 2017-12-23 08:21 | disposition home or self-care (01) ==
LOC: WCC 08:20
PROVIDERS: ATTEND Family Medicine
DX: T81.89XD Other complications of procedures, not elsewhere classified, subsequent encounter (principal); E11.22 Type 2 diabetes mellitus with diabetic chronic kidney disease; I12.9 Hypertensive chronic kidney disease with stage 1 through stage 4 chronic kidney disease, or unspecified chronic kidney disease; N18.2 Chronic kidney disease, stage 2 (mild); D63.1 Anemia in chronic kidney disease; I42.9 Cardiomyopathy, unspecified; M19.90 Unspecified osteoarthritis, unspecified site
CPT/HCPCS: A4218

== ENCOUNTER 2017-12-23 10:12 | Emergency (ER) | payer MEDICAID, SELFPAY ==
[2017-12-23 10:52] LABS: #Basophils 0.1 thou/uL (0.0-0.2); #Eosinphils 0.3 thou/uL (0.0-0.7); #Lymphocytes 2.9 thou/uL (1.20-3.40); #Monocytes 0.7 thou/uL (0.11-0.59); #Neutrophils 5.8 thou/uL (1.40-6.50); %Basophils 0.7 % (0.0-1.0); %Eosinophils 2.6 % (0.0-10.0); %Monocytes 7.3 % (0.0-10.0); %Neutrophils 59.4 % (42.0-75.0); Hemoglobin 7.9 g/dL (12.0-16.0); Mean Corpuscular Hemoglobin 29.7 pg (27.0-31.0); Mean Corpuscular Volume 95.6 fL (78.0-98.0); Mean Platelet Volume 6.4 fL (7.4-10.4); Platelet Count 399 thou/uL (130-400); RBC Distribution Width 14.2 % (11.5-14.5); Red Blood Cell (RBC) Count 2.67 mill/uL (4.20-5.40); White Blood Cell (WBC) Count 9.8 thou/uL (4.8-10.8)
[2017-12-23 10:54] LABS: INR-International Normal Ratio 1.1; PTT 30.7 SEC (22.9-36.1); Prothrombin Time 14.5 SEC (12.0-14.7)
== END 2017-12-23 12:14 | disposition home or self-care (01) ==
LOC: ERS 10:12
DX: S31.819A Unspecified open wound of right buttock, initial encounter (principal); D64.9 Anemia, unspecified; I10 Essential (primary) hypertension; E78.5 Hyperlipidemia, unspecified; M19.90 Unspecified osteoarthritis, unspecified site; E11.9 Type 2 diabetes mellitus without complications; F41.9 Anxiety disorder, unspecified; F32.9 Major depressive disorder, single episode, unspecified; Z79.899 Other long term (current) drug therapy
CPT/HCPCS: 36415; 85025; 85610; 85730; 99283

== ENCOUNTER 2018-01-04 07:18 | Emergency (ER) | payer MEDICAID, SELFPAY ==
[2018-01-04 08:26] LABS: #Eosinphils 0.2 thou/uL (0.0-0.7); #Lymphocytes 2.1 thou/uL (1.20-3.40); #Monocytes 0.8 thou/uL (0.11-0.59); #Neutrophils 6.9 thou/uL (1.40-6.50); %Basophils 0.3 % (0.0-1.0); %Eosinophils 1.8 % (0.0-10.0); %Lymphocytes 21.1 % (21.0-51.0); %Monocytes 7.7 % (0.0-10.0); Mean Corpuscular HGB CONC 31.1 g/dL (32.0-36.0); Mean Corpuscular Hemoglobin 28.4 pg (27.0-31.0); Mean Corpuscular Volume 91.2 fL (78.0-98.0); Mean Platelet Volume 6.2 fL (7.4-10.4); Platelet Count 398 thou/uL (130-400); Red Blood Cell (RBC) Count 2.81 mill/uL (4.20-5.40)
[2018-01-04] MEDS ORDERED: Polyethylene Glycol 3350 17 GM Packet PO SCH (08:30)
[2018-01-04 08:44] LABS: Anion Gap 15 mmol/L (10-20); BUN (Urea Nitrogen) 12 mg/dL (7.0-18.7); Calc. Creatinine Clearance 0 mL/min (70-130); Calcium 9.1 mg/dL (7.8-10.44); Carbon Dioxide 24 mmol/L (22-29); Chloride 104 mmol/L (98-107); Estimated GFR-MDRD 77; Glucose 77 mg/dL (70-105); Potassium 3.9 mmol/L (3.5-5.1); Sodium 139 mmol/L (136-145)
[2018-01-04] MEDS ORDERED: HYDROcodone/Acetaminophen 10/325 mg Tablet ONE (09:06)
[2018-01-04] MEDS ORDERED: Ondansetron HCl/PF 4 MG/2 ML Vial ONE (09:56)
[2018-01-04] MEDS ORDERED: Morphine 4 MG/ML VIAL ONE (09:56)
== END 2018-01-04 11:39 | disposition home or self-care (01) ==
LOC: ERS 07:18
DX: L89.229 Pressure ulcer of left hip, unspecified stage (principal); L89.219 Pressure ulcer of right hip, unspecified stage; L08.9 Local infection of the skin and subcutaneous tissue, unspecified; E11.622 Type 2 diabetes mellitus with other skin ulcer; I11.0 Hypertensive heart disease with heart failure; I50.9 Heart failure, unspecified; E78.5 Hyperlipidemia, unspecified; D64.9 Anemia, unspecified; F41.9 Anxiety disorder, unspecified; F32.9 Major depressive disorder, single episode, unspecified; K59.00 Constipation, unspecified; M79.10 Myalgia, unspecified site; M54.2 Cervicalgia; Z79.899 Other long term (current) drug therapy
CPT/HCPCS: 36415; 80048; 85025; 96374; 96375; J2270; J2405

== ENCOUNTER 2018-01-06 09:23 | Outpatient (CLI) | payer OTHER ==
--- NOTE | 2018-01-06 10:28 | PRG ---
DATE OF SERVICE: 01/06/2018 HISTORY: Ms. Earnestine Moncada is a very pleasant 42-year-old who presents to the Wound Center f or evaluation of wounds of the right and left hips. The patient has a wound over the left hip as wel l as a wound over the right hip. The patient underwent debridement of the wound over the left hip on 12/12/[address] Cedric Hatch. The patient was discharged to home on doxycycline. The patient st ates that she has been performing wet to dry dressing changes for both wounds. She states that she i s unable to tolerate the application of Medihoney to her wounds. The patient was seen in the Emergen cy Department on 01/04/2018 for bleeding from the wound of the right hip. The patient has no other c omplaints today. She denies any fever or chills. PHYSICAL EXAMINATION: VITAL SIGNS: Temperature 98.2, pulse 110, respirations 19, blood pressure 119/87. BACK: A wound of the right hip is present, which measures approximately 5.0 x 4.0 cm. A wound of th e left hip is present, which measures approximately 17.5 x 8.0 cm. The dimensions of these wounds at the time of the patient's last visit were approximately 7.0 x 4.0 and 12.5 x 10.0 cm, respectively. Granulation tissue is present within the margins of each wound. Nonviable tissue is also present wi thin the margins of each wound. No purulent drainage is associated with either wound. No erythema o f the skin surrounding either wound is present. No maceration of the skin of the periwound of either wound is noted. ASSESSMENT AND PLAN: 1. Wounds of right and left hips as described above. Wet to dry dressing changes will be continued on a daily basis after cleansing and irrigation. The patient has been performing her own dressing ch anges. As stated above, the patient has been unable to tolerate the application of Medihoney to her wounds. Biopsy of the left hip wound obtained at the time of intraoperative debridement revealed ulc er and necrosis consistent with a clinical history of decubitus ulcer. The wounds will be viewed by Dr. Hatch today in view of 2 visits to the Emergency Department for bleeding associated with the wo und of the right hip. Of note, the left hip wound was debrided intraoperatively on 12/12/2017 with n o debridement of the wound of the right hip. 2. Hypertension. 3. History of diabetes mellitus. 4. Degenerative joint disease. 5. Chronic kidney disease stage 2. 6. Cardiomyopathy. 7. Anemia. 8. Moderate protein calorie malnutrition.
[2018-01-06] MEDS ORDERED: Sodium Chloride 0.9% 15 ML NEB ONE (15:00)
== END 2018-01-06 09:24 | disposition home or self-care (01) ==
LOC: WCC 09:23
PROVIDERS: ATTEND Family Medicine
DX: T81.89XD Other complications of procedures, not elsewhere classified, subsequent encounter (principal); M19.90 Unspecified osteoarthritis, unspecified site; E11.22 Type 2 diabetes mellitus with diabetic chronic kidney disease; I12.9 Hypertensive chronic kidney disease with stage 1 through stage 4 chronic kidney disease, or unspecified chronic kidney disease; N18.2 Chronic kidney disease, stage 2 (mild); D63.1 Anemia in chronic kidney disease; I42.9 Cardiomyopathy, unspecified; E44.0 Moderate protein-calorie malnutrition
CPT/HCPCS: 97602; A4218

== ENCOUNTER 2018-01-20 11:42 | Day surgery (SDC) | payer OTHER, SELFPAY ==
[2018-01-19 10:40] VITALS: BMI 49.6
[2018-01-20 13:14] LABS: #Basophils 0.1 thou/uL (0.0-0.2); #Eosinphils 0.4 thou/uL (0.0-0.7); #Lymphocytes 2.8 thou/uL (1.20-3.40); #Monocytes 0.7 thou/uL (0.11-0.59); #Neutrophils 4.8 thou/uL (1.40-6.50); %Basophils 0.9 % (0.0-1.0); %Eosinophils 4.8 % (0.0-10.0); %Lymphocytes 31.9 % (21.0-51.0); %Monocytes 8.1 % (0.0-10.0); %Neutrophils 54.4 % (42.0-75.0); Hemoglobin 9.1 g/dL (12.0-16.0); Mean Corpuscular Hemoglobin 28.5 pg (27.0-31.0); Mean Platelet Volume 6.8 fL (7.4-10.4); Platelet Count 356 thou/uL (130-400); RBC Distribution Width 14.5 % (11.5-14.5); White Blood Cell (WBC) Count 8.8 thou/uL (4.8-10.8)
[2018-01-20] MEDS ORDERED: CEFAZOLIN/Water 2 GM/20 ML SYRINGE ONE (13:30)
[2018-01-20 13:41] LABS: Anion Gap 14 mmol/L (10-20); BUN (Urea Nitrogen) 23 mg/dL (7.0-18.7); Calc. Creatinine Clearance 126 mL/min (70-130); Calcium 9.9 mg/dL (7.8-10.44); Carbon Dioxide 24 mmol/L (22-29); Chloride 103 mmol/L (98-107); Estimated GFR-MDRD 60; Glucose 85 mg/dL (70-105); Potassium 5.9 mmol/L (3.5-5.1); Sodium 135 mmol/L (136-145)
[2018-01-20] MEDS ORDERED: Lidocaine 2% Jelly 5 ML TUBE ONE (13:58)
[2018-01-20] MEDS ORDERED: Fentanyl 100 MCG/2 ML VIAL ONE ×3 (13:58→17:14)
[2018-01-20] MEDS ORDERED: PHENYLEPHRINE-NS 100 MCG/ML 10 ML SYRINGE ONE (13:59)
[2018-01-20] MEDS ORDERED: PROPOFOL 200 MG/20 ML VIAL ONE (13:59)
[2018-01-20] MEDS ORDERED: Ondansetron PF 4 MG/2 ML Vial ONE (13:59)
[2018-01-20] MEDS ORDERED: Glycopyrrolate 0.2 MG/ML 5 ML SYRINGE ONE (13:59)
[2018-01-20] MEDS ORDERED: Lidocaine 1% PF 5 ML VIAL ONE (13:59)
[2018-01-20] MEDS ORDERED: HYDROmorphone 0.5 MG/0.5 ML SYRINGE ONE (14:01)
[2018-01-20] MEDS ORDERED: Promethazine HCl 25 MG/ML VIAL ONE (16:07)
--- NOTE | 2018-01-20 16:42 | OP ---
PREOPERATIVE DIAGNOSIS: Bilateral buttock/hip decubitus wounds. POSTOPERATIVE DIAGNOSIS: Bilateral buttock/hip decubitus wounds. PROCEDURE: Debridement of skin, subcutaneous tissue, fat, bilateral decubitus wound. SURGEON: Cedric Hathc MD ANESTHESIA: General. ESTIMATED BLOOD LOSS: Minimal. COMPLICATIONS: None. TECHNIQUE: The patient was taken to the operating room and placed supine on the table. After genera l anesthetic was obtained, she was placed in prone position. Bilateral low back, buttock, and hips a re prepped and draped in a sterile fashion. On the patient's right, there is tunneled open wound, mi nimal necrotic tissue that is debrided bluntly into a larger pocket underneath, it is irrigated. No necrosis present. On the right, the patient has extensive necrotic fat present in the wound. This w as all debrided back to good fat. Meticulous hemostasis obtained. Wound is irrigated. Wound Care i s in the room and placed wound VAC. .
[2018-01-20] MEDS ORDERED: Morphine 4 MG/ML VIAL ONE (16:47)
[2018-01-20] MEDS ORDERED: Morphine 2 MG/ML SYRINGE ONE (17:01)
[2018-01-20] MEDS ORDERED: HYDROcodone/Acetaminophen 5/325 mg Tablet ONE (18:05)
--- NOTE | 2018-01-25 06:50 | PQF ---
[facility] POST DISCHARGE CLINICAL DOCUMENTATION IMPROVEMENT CLARIFICATION FORM l Todays Date: 01/25/18 l Patients Name ALVARO WELLINGTON l l Admit Date 01/20/18 l Disch Date 01/20/18 Consultant Teacher Name Gera Brannon Email: [email or web address] Cell: [phone] Present Clinical Indicators - Signs / Symptoms Results and Location in Medical Record [ ] Documentation of: [ ] [ ] Documentation of: [ ] [ ] Documentation of: [ ] [ ] Documentation of: [ ] [ ] Risks [ ] [ ] [ ] Treatment [ ] DECUBITUS ULCER BILATERAL HIPS/BUTTOCKS QUERY FOR SIZE IN AREA OF DEBRIDEMENT (sq cm) [ ] [ ] To be completed by Physician: KELLEY WELLS The documentation in this patients record requires clarification to ensure coding compliance and accuracy. Check the appropriate box and include in your discharge summary. [ ] [ ] [ ] [ ] Please check this box if this does not apply to this patient [ ] Unable to determine [ ] Other diagnosis: Review the following information and exercise your independent professional judgment in responding to the clarification. Based upon the clinical findings, risk factors, and treatment, please clarify if you are treating one of the above probable or suspected diagnoses. Physician Signature: Date Time MTDD
== END 2018-01-20 19:10 | disposition home or self-care (01) ==
LOC: SDC 11:42
PROVIDERS: ATTEND Surgery
PROC: 0JBM0ZZ Excision of Left Upper Leg Subcutaneous Tissue and Fascia, Open Approach (ICD-10-PCS; principal; 2018-01-20)
PROC: 0JBL0ZZ Excision of Right Upper Leg Subcutaneous Tissue and Fascia, Open Approach (ICD-10-PCS; principal; 2018-01-20)
DX: L89.329 Pressure ulcer of left buttock, unspecified stage (principal); L89.319 Pressure ulcer of right buttock, unspecified stage; L89.229 Pressure ulcer of left hip, unspecified stage; L89.219 Pressure ulcer of right hip, unspecified stage; Z79.899 Other long term (current) drug therapy
CPT/HCPCS: 80048; 85025; 96374; 96375; J1170; J2001; J2270; J2405; J2550; J2704; J3010

== ENCOUNTER 2018-01-22 09:26 | Outpatient (CLI) | payer OTHER ==
[2018-01-23] MEDS ORDERED: Sodium Chloride 0.9% 15 ML NEB ONE (08:45)
[2018-01-23] MEDS ORDERED: Lidocaine 4% Topical Sol 50 ML BOT ONE (08:45)
== END 2018-01-22 09:27 | disposition home or self-care (01) ==
LOC: WCC 09:26
PROVIDERS: ATTEND Family Medicine
DX: T81.89XD Other complications of procedures, not elsewhere classified, subsequent encounter (principal)
CPT/HCPCS: 97606

== ENCOUNTER 2018-01-25 11:43 | Outpatient (CLI) | payer OTHER | END 2018-01-25 11:44 | disposition home or self-care (01) | LOC: WCC 11:43 | PROVIDERS: ATTEND Family Medicine | DX: T81.89XD Other complications of procedures, not elsewhere classified, subsequent encounter (principal) | CPT/HCPCS: 97606 ==

== ENCOUNTER 2018-01-28 12:51 | Outpatient (CLI) | payer OTHER ==
[~2018-01-28 12:51] MED LIST: Lidocaine 2% Jelly 5 ML TUBE ONE; Lidocaine 4% Topical Sol 50 ML BOT ONE; Sodium Chloride 0.9% 15 ML NEB ONE
== END 2018-01-28 12:52 | disposition home or self-care (01) ==
LOC: WCC 12:51
PROVIDERS: ATTEND Family Medicine
DX: T81.89XD Other complications of procedures, not elsewhere classified, subsequent encounter (principal)
CPT/HCPCS: 97606; A4218; J2001

== ENCOUNTER 2018-02-01 10:16 | Emergency (ER) | payer OTHER, SELFPAY ==
[2018-02-01] MEDS ORDERED: Morphine 2 MG/ML SYRINGE ONE ×2 (11:00→13:42)
[2018-02-01] MEDS ORDERED: Promethazine HCl 25 MG/ML VIAL ONE (11:15)
[2018-02-01 11:19] LABS: #Basophils 0.1 thou/uL (0.0-0.2); #Eosinphils 0.4 thou/uL (0.0-0.7); #Lymphocytes 2.3 thou/uL (1.20-3.40); #Monocytes 0.6 thou/uL (0.11-0.59); #Neutrophils 5.7 thou/uL (1.40-6.50); %Eosinophils 4.3 % (0.0-10.0); %Lymphocytes 25.7 % (21.0-51.0); %Monocytes 6.4 % (0.0-10.0); %Neutrophils 62.6 % (42.0-75.0); Hemoglobin 9.1 g/dL (12.0-16.0); Mean Corpuscular HGB CONC 30.4 g/dL (32.0-36.0); Mean Platelet Volume 6.6 fL (7.4-10.4); Platelet Count 410 thou/uL (130-400); RBC Distribution Width 14.3 % (11.5-14.5); Red Blood Cell (RBC) Count 3.37 mill/uL (4.20-5.40)
[2018-02-01 11:43] LABS: ALT (SGPT) 16 U/L (8-55); AST (SGOT) 24 U/L (5-34); Albumin 3.3 g/dL (3.5-5.0); Alkaline Phosphatase 112 U/L (40-150); Anion Gap 12 mmol/L (10-20); BUN (Urea Nitrogen) 24 mg/dL (7.0-18.7); Bilirubin, Total 0.7 mg/dL (0.2-1.2); Calc. Creatinine Clearance 0 mL/min (70-130); Calcium 9.9 mg/dL (7.8-10.44); Carbon Dioxide 26 mmol/L (22-29); Chloride 104 mmol/L (98-107); Estimated GFR-MDRD 61; Globulin 4.1 g/dL (2.4-3.5); Glucose 77 mg/dL (70-105); Potassium 4.6 mmol/L (3.5-5.1); Protein, Total 7.4 g/dL (6.0-8.3); Sodium 137 mmol/L (136-145)
[2018-02-01 11:57] LABS: Bilirubin Negative (Negative); Blood, Urine Negative (Negative); Clarity CLEAR (Clear); Glucose, Urine (Dipstick) Negative (Negative); Leukocyte Small (Negative); Nitrite Negative (Negative); Protein, Urine (Dipstick) Negative (Neg-Trace); Specific Gravity, Urine 1.018 (1.002-1.036)
[2018-02-01 12:00] LABS: Bacteria/HPF None Seen HPF (None Seen); Hyaline Casts/LPF 0-3 HYALINE CAST LPF (0-3 Hyaline); Pathc Cast-AUWi Flag 0.29 (0-2.49); WBC/HPF 0-3 HPF (0-3)
== END 2018-02-01 14:40 | disposition home or self-care (01) ==
LOC: ERS 10:16
DX: T81.89XA Other complications of procedures, not elsewhere classified, initial encounter (principal); M25.551 Pain in right hip; E11.9 Type 2 diabetes mellitus without complications; I11.0 Hypertensive heart disease with heart failure; I50.9 Heart failure, unspecified
CPT/HCPCS: 36415; 80053; 81003; 81015; 83605; 85025; 93005; 96365; 96375; 96376; J2270; J2550

== ENCOUNTER 2018-02-04 07:43 | Outpatient (CLI) | payer OTHER ==
[2018-02-04] MEDS ORDERED: Lidocaine 4% Topical Sol 50 ML BOT ONE (15:46)
[2018-02-04] MEDS ORDERED: Sodium Chloride 0.9% 15 ML NEB ONE (15:46)
== END 2018-02-04 07:44 | disposition home or self-care (01) ==
LOC: WCC 07:43
PROVIDERS: ATTEND Family Medicine
DX: T81.89XD Other complications of procedures, not elsewhere classified, subsequent encounter (principal)
CPT/HCPCS: 97606; A4218; J2001

== ENCOUNTER 2018-02-09 09:51 | Outpatient (CLI) | payer OTHER, SELFPAY ==
[2018-02-09] MEDS ORDERED: Lidocaine 2% Jelly 30 GM TUBE ONE (18:00)
[2018-02-09] MEDS ORDERED: Sodium Chloride 0.9% 15 ML NEB ONE (18:00)
[2018-02-09] MEDS ORDERED: Lidocaine 4% Topical Sol 50 ML BOT ONE (18:00)
== END 2018-02-09 09:52 | disposition home or self-care (01) ==
LOC: WCC 09:51
PROVIDERS: ATTEND Family Medicine
DX: T81.89XD Other complications of procedures, not elsewhere classified, subsequent encounter (principal)
CPT/HCPCS: 97606; A4218; J2001

== ENCOUNTER 2018-02-12 11:46 | Outpatient (CLI) | payer OTHER, SELFPAY ==
[2018-02-12] MEDS ORDERED: Sodium Chloride 0.9% 15 ML NEB ONE (18:39)
[2018-02-12] MEDS ORDERED: Lidocaine 4% Topical Sol 50 ML BOT ONE (18:39)
== END 2018-02-12 11:47 | disposition home or self-care (01) ==
LOC: WCC 11:46
PROVIDERS: ATTEND Family Medicine
DX: T81.89XD Other complications of procedures, not elsewhere classified, subsequent encounter (principal)
CPT/HCPCS: 97606; A4218; J2001

== ENCOUNTER 2018-02-16 09:22 | Outpatient (CLI) | payer OTHER, SELFPAY ==
[~2018-02-16 09:22] MED LIST changes: -Lidocaine 2% Jelly 5 ML TUBE ONE
== END 2018-02-16 09:23 | disposition home or self-care (01) ==
LOC: WCC 09:22
PROVIDERS: ATTEND Family Medicine
DX: T81.89XD Other complications of procedures, not elsewhere classified, subsequent encounter (principal)
CPT/HCPCS: 97606; A4218; J2001

== ENCOUNTER 2018-02-22 11:27 | Outpatient (CLI) | payer OTHER, SELFPAY ==
[~2018-02-22 11:27] MED LIST changes: +Lidocaine 2% Jelly 5 ML TUBE ONE
--- NOTE | 2018-02-22 14:19 | PRG ---
DATE OF SERVICE: 02/22/2018 HISTORY: Ms. Earnestine Moncada is a very pleasant 43-year-old who presents to the Wound Center f or evaluation of right and left hip wounds subsequent to intraoperative debridement on 01/20/[address] Cedric Hatch. Negative pressure therapy was initiated intraoperatively and the patient has been receiving dressing changes of the wound VAC here in the Wound Center. Prior to debridement on 01/20, the patient underwent debridement of the left hip wound on 12/12/[address] Cedric Hatch. B iopsy of the left hip wound obtained at the time of intraoperative debridement revealed ulcer and nec rosis consistent with a clinical history of decubitus ulcer. Ms. Moncada complains of pain associ ated with both wounds today. She has no other complaints. She denies any fever or chills. PHYSICAL EXAMINATION: VITAL SIGNS: Temperature 97.8, pulse 113, respirations 19, blood pressure 136/71. BACK: Right and left hip wounds are present which measure approximately 5.1 x 9.5 cm and 1.7 x 9.0 c m. Granulation tissue is present within the margins of each wound. No grossly purulent drainage is associated with either wound. No erythema of the skin surrounding either wound is present. No macer ation of the skin of the periwound of either wound is noted. ASSESSMENT AND PLAN: 1. Wounds of right and left hips as described above. Negative pressure therapy for both wounds will be continued with dressing changes of the wound VAC here in the Wound Center. I will see Ms. Gloria armando again in two weeks. The patient has been given a prescription for Ultram 50 mg #20 one to two p .o. q.6 hours p.r.n. pain. 2. Hypertension. 3. History of diabetes mellitus. 4. Degenerative joint disease. 5. Chronic kidney disease, stage 2. 6. Cardiomyopathy. 7. Anemia. 8. Moderate protein-calorie malnutrition.
== END 2018-02-22 11:28 | disposition home or self-care (01) ==
LOC: WCC 11:27
PROVIDERS: ATTEND Family Medicine
DX: S71.002A Unspecified open wound, left hip, initial encounter (principal); S71.001A Unspecified open wound, right hip, initial encounter; I12.9 Hypertensive chronic kidney disease with stage 1 through stage 4 chronic kidney disease, or unspecified chronic kidney disease; E11.22 Type 2 diabetes mellitus with diabetic chronic kidney disease; N18.2 Chronic kidney disease, stage 2 (mild); I51.7 Cardiomegaly; D64.9 Anemia, unspecified; M19.90 Unspecified osteoarthritis, unspecified site; E46 Unspecified protein-calorie malnutrition
CPT/HCPCS: 97605; A4218; J2001

== ENCOUNTER 2018-02-25 12:44 | Outpatient (CLI) | payer OTHER ==
[~2018-02-25 12:44] MED LIST changes: -Lidocaine 2% Jelly 5 ML TUBE ONE
== END 2018-02-25 12:45 | disposition home or self-care (01) ==
LOC: WCC 12:44
PROVIDERS: ATTEND Family Medicine
DX: T81.89XD Other complications of procedures, not elsewhere classified, subsequent encounter (principal)
CPT/HCPCS: 97606; A4218; J2001

== ENCOUNTER 2018-03-02 08:02 | Outpatient (CLI) | payer MEDICAID ==
[2018-03-02] MEDS ORDERED: Sodium Chloride 0.9% 15 ML NEB ONE (14:08)
[2018-03-02] MEDS ORDERED: Lidocaine 4% Topical Sol 50 ML BOT ONE (14:08)
== END 2018-03-02 08:03 | disposition home or self-care (01) ==
LOC: WCC 08:02
PROVIDERS: ATTEND Family Medicine
DX: T81.89XD Other complications of procedures, not elsewhere classified, subsequent encounter (principal)
CPT/HCPCS: 97606; A4218; J2001

== ENCOUNTER 2018-03-05 10:11 | Outpatient (CLI) | payer MEDICAID, OTHER ==
[2018-03-05] MEDS ORDERED: Lidocaine 2% Jelly 5 ML TUBE ONE (14:32)
[2018-03-05] MEDS ORDERED: Sodium Chloride 0.9% 15 ML NEB ONE (14:32)
== END 2018-03-05 10:12 | disposition home or self-care (01) ==
LOC: WCC 10:11
PROVIDERS: ATTEND Family Medicine
DX: T81.89XD Other complications of procedures, not elsewhere classified, subsequent encounter (principal)
CPT/HCPCS: 97606; A4218

== ENCOUNTER 2018-03-09 07:36 | Outpatient (CLI) | payer OTHER ==
[2018-03-09] MEDS ORDERED: Lidocaine 4% Topical Sol 50 ML BOT ONE (09:00)
[2018-03-09] MEDS ORDERED: Sodium Chloride 0.9% 15 ML NEB ONE (09:00)
== END 2018-03-09 07:37 | disposition home or self-care (01) ==
LOC: WCC 07:36
PROVIDERS: ATTEND Family Medicine
DX: T81.89XD Other complications of procedures, not elsewhere classified, subsequent encounter (principal)
CPT/HCPCS: 97606; A4218; J2001

== ENCOUNTER 2018-03-12 12:31 | Outpatient (CLI) | payer OTHER ==
[2018-03-12] MEDS ORDERED: Sodium Chloride 0.9% 15 ML NEB ONE (15:00)
[2018-03-12] MEDS ORDERED: Lidocaine 4% Topical Sol 50 ML BOT ONE (15:00)
== END 2018-03-12 12:32 | disposition home or self-care (01) ==
LOC: WCC 12:31
PROVIDERS: ATTEND Family Medicine
DX: T81.89XD Other complications of procedures, not elsewhere classified, subsequent encounter (principal)
CPT/HCPCS: 97606; A4218; J2001

== ENCOUNTER 2018-03-16 08:21 | Outpatient (CLI) | payer MEDICAID, OTHER ==
[2018-03-16] MEDS ORDERED: Sodium Chloride 0.9% 15 ML NEB ONE (15:00)
[2018-03-16] MEDS ORDERED: Lidocaine 4% Topical Sol 50 ML BOT ONE (15:00)
== END 2018-03-16 08:22 | disposition home or self-care (01) ==
LOC: WCC 08:21
PROVIDERS: ATTEND Family Medicine
DX: T81.89XD Other complications of procedures, not elsewhere classified, subsequent encounter (principal)
CPT/HCPCS: 97606; A4218; J2001

== ENCOUNTER 2018-03-19 11:47 | Outpatient (CLI) | payer MEDICAID ==
[2018-03-19] MEDS ORDERED: Sodium Chloride 0.9% 15 ML NEB ONE (14:04)
[2018-03-19] MEDS ORDERED: Lidocaine 4% Topical Sol 50 ML BOT ONE (14:04)
== END 2018-03-19 11:48 | disposition home or self-care (01) ==
LOC: WCC 11:47
PROVIDERS: ATTEND Family Medicine
DX: T81.89XD Other complications of procedures, not elsewhere classified, subsequent encounter (principal)
CPT/HCPCS: 97606; A4218; J2001

== ENCOUNTER 2018-03-22 07:57 | Outpatient (CLI) | payer MEDICAID ==
[2018-03-22] MEDS ORDERED: Sodium Chloride 0.9% 15 ML NEB ONE (14:21)
[2018-03-22] MEDS ORDERED: Lidocaine 4% Topical Sol 50 ML BOT ONE (14:21)
== END 2018-03-22 07:58 | disposition home or self-care (01) ==
LOC: WCC 07:57
PROVIDERS: ATTEND Family Medicine
DX: T81.89XD Other complications of procedures, not elsewhere classified, subsequent encounter (principal)
CPT/HCPCS: 97606; A4218; J2001

== ENCOUNTER 2018-03-26 12:46 | Outpatient (CLI) | payer MEDICAID | END 2018-03-26 12:47 | disposition home or self-care (01) | LOC: WCC 12:46 | PROVIDERS: ATTEND Family Medicine | DX: T81.89XD Other complications of procedures, not elsewhere classified, subsequent encounter (principal) | CPT/HCPCS: 97606; A4218; J2001 ==

== ENCOUNTER 2018-03-29 07:59 | Outpatient (CLI) | payer MEDICAID ==
[2018-03-29] MEDS ORDERED: Sodium Chloride 0.9% 15 ML NEB ONE (15:00)
== END 2018-03-29 08:00 | disposition home or self-care (01) ==
LOC: WCC 07:59
PROVIDERS: ATTEND Family Medicine
DX: T81.89XD Other complications of procedures, not elsewhere classified, subsequent encounter (principal)
CPT/HCPCS: 97605; A4218

== ENCOUNTER 2018-04-01 08:23 | Outpatient (CLI) | payer MEDICAID, SELFPAY ==
[2018-04-01] MEDS ORDERED: Lidocaine 4% Topical Sol 50 ML BOT ONE (15:00)
[2018-04-01] MEDS ORDERED: Sodium Chloride 0.9% 15 ML NEB ONE (15:00)
== END 2018-04-01 08:24 | disposition home or self-care (01) ==
LOC: WCC 08:23
PROVIDERS: ATTEND Family Medicine
DX: T81.89XD Other complications of procedures, not elsewhere classified, subsequent encounter (principal)
CPT/HCPCS: 97606; A4218; J2001

== ENCOUNTER 2018-04-05 08:42 | Outpatient (CLI) | payer SELFPAY ==
[2018-04-05] MEDS ORDERED: Lidocaine 4% Topical Sol 50 ML BOT ONE (11:11)
[2018-04-05] MEDS ORDERED: Sodium Chloride 0.9% 15 ML NEB ONE (11:11)
== END 2018-04-05 08:43 | disposition home or self-care (01) ==
LOC: WCC 08:42
PROVIDERS: ATTEND Family Medicine
DX: T81.89XD Other complications of procedures, not elsewhere classified, subsequent encounter (principal)
CPT/HCPCS: 97605; A4218; J2001

== ENCOUNTER 2018-04-08 07:47 | Outpatient (CLI) | payer SELFPAY ==
[2018-04-08] MEDS ORDERED: Sodium Chloride 0.9% 15 ML NEB ONE (19:41)
[2018-04-08] MEDS ORDERED: Lidocaine 4% Topical Sol 50 ML BOT ONE (19:41)
== END 2018-04-08 07:48 | disposition home or self-care (01) ==
LOC: WCC 07:47
PROVIDERS: ATTEND Family Medicine
DX: T81.89XD Other complications of procedures, not elsewhere classified, subsequent encounter (principal)
CPT/HCPCS: 97605; A4218

== ENCOUNTER 2018-04-23 10:53 | Observation (INO) | payer SELFPAY ==
[~2018-04-23 10:53] MED LIST changes: +ISOVUE-370 76%-LOCM 1 ML ONE; -Lidocaine 4% Topical Sol 50 ML BOT ONE; -Sodium Chloride 0.9% 15 ML NEB ONE
[2018-04-23] MEDS ORDERED: Nitroglycerin 2% Ointment 1 INCH/1 GM Packet ONE (13:33)
[2018-04-23 13:35] LABS: Hemoglobin 11.6 g/dL (12.0-16.0); Mean Corpuscular HGB CONC 30.7 g/dL (32.0-36.0); Mean Corpuscular Hemoglobin 26.3 pg (27.0-31.0); Mean Corpuscular Volume 85.6 fL (78.0-98.0); Mean Platelet Volume 7.1 fL (7.4-10.4); Platelet Count 304 thou/uL (130-400); RBC Distribution Width 15.6 % (11.5-14.5); Red Blood Cell (RBC) Count 4.42 mill/uL (4.20-5.40); White Blood Cell (WBC) Count 6.3 thou/uL (4.8-10.8)
[2018-04-23 13:45] LABS: Anisocytosis SLIGHT = 6-15 cells (100X) (0-5/hpf); Eosinophils 4 % (0-10); Hypochromia SLIGHT = 6-15 cells (100X) (0-5/hpf); Lymphocytes 55 % (21-51); MDiff Complete? YES; Neutrophil 41 % (42-75); Ovalocytes SLIGHT = 2-5 cells (100X) (0-1/hpf); Platelet Morphology Comment Appears Adequate; Poikilocytosis SLIGHT = 6-15 cells (100X) (0-5/hpf); Polychromasia SLIGHT = 2-3 cells (100X) (0-2/hpf); Schistocytes SLIGHT = 2-5 cells (100X) (0-1/hpf); Tear Drops SLIGHT = 2-5 cells (100X) (0-1/hpf)
[2018-04-23 13:58] LABS: ALT (SGPT) 20 U/L (8-55); AST (SGOT) 20 U/L (5-34); Albumin 3.9 g/dL (3.5-5.0); Alkaline Phosphatase 105 U/L (40-150); Anion Gap 12 mmol/L (10-20); BUN (Urea Nitrogen) 21 mg/dL (7.0-18.7); Bilirubin, Total 0.5 mg/dL (0.2-1.2); CK (CPK) 75 U/L (29-168); Calc. Creatinine Clearance 0 mL/min (70-130); Carbon Dioxide 26 mmol/L (22-29); Chloride 106 mmol/L (98-107); Estimated GFR-MDRD 52; Glucose 78 mg/dL (70-105); Lipase 13 U/L (8-78); Potassium 4.7 mmol/L (3.5-5.1); Protein, Total 7.9 g/dL (6.0-8.3); Sodium 139 mmol/L (136-145)
--- NOTE | 2018-04-23 14:45 | CT ---
CT PULMONARY ANGIOGRAM WITH IV CONTRAST AND 3D POSTPROCESSING: Date: 04/23/18 HISTORY: 43-year-old female with chest pain. FINDINGS: There is better opacification of the thoracic aorta compared to the pulmonary arterial vasculature. N o filling defects are seen in the central pulmonary arterial vasculature to suggest pulmonary embolis m. Peripheral pulmonary arterial vasculature cannot be satisfactorily evaluated due to inadequate opa cification. The thoracic aorta is well opacified without aneurysm or dissection. No pleural or perica rdial effusions are seen. There are mild ground-glass infiltrates in the left lung base. There are de generative changes in the spine. IMPRESSION: No CT evidence of central pulmonary embolism or thoracic aortic dissection. POS: C
[2018-04-23 17:11] LABS: Troponin I Less than 0.010 ng/mL (< 0.028)
[2018-04-23] MEDS ORDERED: predniSONE 20 MG TAB PO SCH (18:17)
[2018-04-23] MEDS ORDERED: Ondansetron PF 4 MG/2 ML Vial IVP PRN (18:17)
[2018-04-23 20:18] LABS: Troponin I Less than 0.010 ng/mL (< 0.028)
--- NOTE | 2018-04-23 21:52 | HP ---
CHIEF COMPLAINT: Left neck pain, chest pain. HISTORY OF PRESENT ILLNESS: The patient is a 43-year-old female, who is evaluated in our emergency room and she is getting admitted for further management of her chest pain/neck pain/left shoulder and left elbow pain. Apparently, she started having some pressure in the chest and then the pain moved to her left arm. Apparently, the patient reports bilateral healing wounds on her hips and she is seeing Dr. Hatch and Wound Care. She noticed some nausea, but she did not vomit during her emergency room evaluation. She denied any shortness of breath. She expressed some increased swelling. She never had this kind of problem before. PAST MEDICAL HISTORY: Positive for; 1. Diabetes mellitus. 2. Hypertension. 3. Congestive heart failure. She did not have any cardiac evaluation recently. PAST SURGICAL HISTORY: 1. Left hip surgery debridement x2. 2. Right hip surgery. PSYCHIATRIC HISTORY: Positive for anxiety and depression. SOCIAL HISTORY: She does not have any history of alcohol intake, cigarette smoking, or illicit drug use. MEDICATIONS: 1. Fish oil 1 capsule a day. 2. Citalopram 40 mg twice a day. 3. Iron 325 mg 3 times a day. 4. Clonazepam 0.5 mg p.r.n. as needed. 5. Furosemide 40 mg once a day. 6. Carvedilol 3.125 mg twice a day. ALLERGIES: NONE. REVIEW OF SYSTEMS: All 14 systems were reviewed and only positive symptoms were those which are mentioned in HPI, otherwise they were negative. PHYSICAL EXAMINATION: VITAL SIGNS: Blood pressure is 152/121, pulse is 91, respirations 26, and O2 saturation is 99. HEENT: Head is atraumatic and normocephalic. Eyes are PERRLA. Sclerae nonicteric. Oral mucosa is somewhat dry. NECK: Tender to palpation on the left side with palpation of the left shoulder and left upper extremity all the way to the elbow. LUNGS: Clear. HEART: S1 and S2 normal. No S3. No S4. No murmur. ABDOMEN: Soft, obese, nontender. Bowel sounds are present. No organomegaly. EXTREMITIES: No clubbing, cyanosis, or edema. NEUROLOGICAL: She is alert and oriented x4. There is no any motor or sensory deficits. Cranial nerves are intact. LABORATORY DATA: Labs showed white count of 6.3, hemoglobin 11.6, hematocrit 37.9, platelet count is 304, 41% of neutrophils, 55 of lymphocytes. D-dimer is 2.12. Normal electrolytes. BUN 21, creatinine 1.33, and the rest of chemistry within normal limits. BNP 56.3, troponin I less than 0.010, second troponin less than 0.010. IMAGING: Chest x-ray showed mild cardiomegaly. CT angiogram of the chest, no evidence of central pulmonary embolism or thoracic aortic dissection. EKG showed normal sinus rhythm, no ischemic changes. IMPRESSION: 1. Chest pain. 2. Neck pain. 3. Diabetes mellitus type 2. 4. History of congestive heart failure. 5. Hypertension. 6. Hyperlipidemia. PLAN: Admission to Telemetry for observation. CONDITION: Fair. ACTIVITY: Bedrest and bathroom privileges. DIET: 2000 calories ADA diet. The patient will need to have a cervical spine CT later. We are not going to do this testing since she just had CT angiogram of the chest. This would be too much contrast for this lady especially that she has some elevation of creatinine level. We will obtain 2 additional troponins. I will do stress test on her and I will start her on prednisone 40 mg one dose today. We will do SCDs and Lovenox for DVT prophylaxis. Job ID: [id number]
[2018-04-24] MEDS: HYDROcodone/Acetaminophen 5/325 mg Tablet PO PRN ×2 (03:53→20:10)
[2018-04-24 05:00] LABS: #Lymphocytes 1.5 thou/uL (1.20-3.40); #Monocytes 0.2 thou/uL (0.11-0.59); #Neutrophils 4.8 thou/uL (1.40-6.50); %Basophils 0.3 % (0.0-1.0); %Eosinophils 0.2 % (0.0-10.0); %Lymphocytes 23.3 % (21.0-51.0); %Monocytes 2.7 % (0.0-10.0); %Neutrophils 73.4 % (42.0-75.0); Mean Corpuscular HGB CONC 31.5 g/dL (32.0-36.0); Mean Corpuscular Hemoglobin 27.2 pg (27.0-31.0); Mean Corpuscular Volume 86.3 fL (78.0-98.0); Mean Platelet Volume 7.3 fL (7.4-10.4); Platelet Count 266 thou/uL (130-400); RBC Distribution Width 15.4 % (11.5-14.5); Red Blood Cell (RBC) Count 4.04 mill/uL (4.20-5.40); White Blood Cell (WBC) Count 6.5 thou/uL (4.8-10.8)
[2018-04-24 05:31] LABS: Anion Gap 15 mmol/L (10-20); BUN (Urea Nitrogen) 24 mg/dL (7.0-18.7); Calc. Creatinine Clearance 134 mL/min (70-130); Calcium 9.7 mg/dL (7.8-10.44); Carbon Dioxide 22 mmol/L (22-29); Chloride 102 mmol/L (98-107); Estimated GFR-MDRD 60; Glucose 108 mg/dL (70-105); Potassium 4.9 mmol/L (3.5-5.1); Sodium 134 mmol/L (136-145)
[2018-04-24] MEDS ORDERED: Cyclobenzaprine 10 MG TAB PO PRN (06:53)
[2018-04-24] MEDS ORDERED: traMADol HCl 50 MG TAB PO PRN ×3 (06:53→07:18)
[2018-04-24] MEDS ORDERED: Fish Oil 1,000 MG CAP PO SCH (09:00)
[2018-04-24] MEDS: Carvedilol 3.125 MG TAB PO SCH ×2 (09:40→17:27)
[2018-04-24] MEDS: Aspirin 325 MG TAB PO SCH (09:42)
[2018-04-24] MEDS: Ibuprofen 800 MG TAB PO SCH ×2 (09:42→20:10)
[2018-04-24] MEDS: Fish Oil 1,000 MG CAP PO SCH ×2 (09:42→20:10)
[2018-04-24] MEDS: Multivit, Therapeutic 1 TAB PO SCH (09:42)
[2018-04-24] MEDS: Cyanocobalamin (Vitamin B-12) 1,000 MCG TAB PO SCH (09:43)
[2018-04-24] MEDS: Ferrous Sulfate 325 MG TAB PO SCH ×2 (09:43→20:10)
[2018-04-24] MEDS: Enoxaparin Sodium 40 MG/0.4 ML SYRINGE SC SCH (09:43)
[2018-04-24] MEDS: Furosemide 40 MG TAB PO SCH (09:43)
[2018-04-24 15:29] VITALS: BMI 53.5
--- NOTE | 2018-04-24 16:31 | PDOC.PN ---
- Subjective Encounter Start Date: 04/24/18 Encounter Start Time: 13:30 Subjective: Patient back from the Stress lab, needs resting tomorrow -: Denies complaints, reports chest pain is gone -: Reports mild hip pain from lying on stretcher in lab, improving - Objective Resuscitation Status - Order Detail: 04/23/18 15:01 Resuscitation Status Routine Resuscitation Status: FULL: Full Resuscitation Vital Signs & Weight: Vital Signs (12 hours) Temp Pulse Resp BP Pulse Ox 04/24/18 15:53 98.0 F 114 H 21 H 140/87 97 04/24/18 08:00 98.0 F 108 H 18 136/89 99 Weight Admit Weight 141.43 kg Weight 141.43 kg I&O: 04/23/18 04/24/18 04/25/18 06:59 06:59 06:59 Intake Total 200 Output Total 1150 Balance -950 Result Diagrams: 04/24/18 04:42 04/24/18 04:42 Phys Exam - Physical Examination Constitutional: NAD HEENT: PERRLA, moist MMs Neck: no nodes, no JVD Respiratory: clear to auscultation bilateral Cardiovascular: RRR Gastrointestinal: soft, non-tender Musculoskeletal: no edema, pulses present Neurological: non-focal, normal sensation Lymphatic: no nodes Psychiatric: normal affect, A&O x 3 Skin: no rash, normal turgor Dx/Plan (1) Chest pain Code(s): R07.9 - CHEST PAIN, UNSPECIFIED Status: Acute (2) CHF (congestive heart failure) Code(s): I50.9 - HEART FAILURE, UNSPECIFIED Status: Chronic Comment: likely diastolic (3) DM II (diabetes mellitus, type II), controlled Code(s): E11.9 - TYPE 2 DIABETES MELLITUS WITHOUT COMPLICATIONS Status: Chronic Qualifiers: Diabetes mellitus intermediate accountant insulin use: without intermediate use Diabetes mellitus complication status: with other specified complication Qualified Code (s): E11.69 - Type 2 diabetes mellitus with other specified complication Comment: Well controlled. Continue accuchecks. (4) HTN (hypertension) Code(s): I10 - ESSENTIAL (PRIMARY) HYPERTENSION Status: Chronic Qualifiers: Hypertension type: essential hypertension Qualified Code(s): I10 - Essential (primary) hypertension (5) Morbid (severe) obesity due to excess calories Code(s): E66.01 - MORBID (SEVERE) OBESITY DUE TO EXCESS CALORIES Status: Chronic - Plan Will have resting part of stress tomorrow -: Will trend VS and repeat labs in am * . Review of Systems - Review of Systems Musculoskeletal: Back Pain, Other - Medications/Allergies Allergies/Adverse Reactions: Allergies Allergy/AdvReac Type Severity Reaction Status Date / Time No Known Allergies Allergy Verified 04/23/18 19:48 Medications: Current Medications Hydrocodone Bitart/Acetaminophen ([place] 5/325) 1 tab PO Q4H PRN PRN Reason: Pain Last Admin: 04/24/18 03:53 Dose: 1 tab Aspirin (Aspirin) 325 mg PO DAILY [facility] Last Admin: 04/24/18 09:42 Dose: 325 mg Carvedilol (Coreg) 3.125 mg PO BID-[facility] Last Admin: 04/24/18 09:40 Dose: Not Given Cholecalciferol (Vitamin D3) 5,000 units PO DAILY [facility] Last Admin: 04/24/18 09:42 Dose: 5,000 units Cyanocobalamin (Vitamin B-12) 1,000 mcg PO DAILY [facility] Last Admin: 04/24/18 09:43 Dose: 1,000 mcg Cyclobenzaprine HCl (Flexeril) 10 mg PO BIDPRN PRN PRN Reason: Pain Enoxaparin Sodium (Lovenox) 40 mg SC 0900 [facility] Last Admin: 04/24/18 09:43 Dose: 40 mg Ferrous Sulfate (Feosol) 325 mg PO BID [facility] Last Admin: 04/24/18 09:43 Dose: 325 mg Fish Oil (Fish Oil) 1,000 mg PO BID [facility] Last Admin: 04/24/18 09:42 Dose: 1,000 mg Furosemide (Lasix) 40 mg PO QAM [facility] Last Admin: 04/24/18 09:43 Dose: 40 mg Ibuprofen (Motrin) 800 mg PO BID [facility] Last Admin: 04/24/18 09:42 Dose: 800 mg Multivitamins (Theragran) 1 tab PO DAILY [facility] Last Admin: 04/24/18 09:42 Dose: 1 tab Ondansetron HCl (Zofran) 4 mg IVP Q6H PRN PRN Reason: Nausea/Vomiting Tramadol HCl (Ultram) 100 mg PO Q6H PRN PRN Reason: Pain 6-10
--- NOTE | 2018-04-24 20:29 | PDOC.EVN ---
Event Note - Event Note Event Note: Chart reviewed. Pt seen with Guillermina O'fritz. Pt says she feels better. VSS S1, S2, reg Lungs CTA A/P 1. Chest pain: await stress test Discussed plan of care with Guillermina.
[2018-04-25] MEDS: HYDROcodone/Acetaminophen 5/325 mg Tablet PO PRN ×2 (03:38→09:27)
[2018-04-25 08:39] VITALS: BP 130/76; TEMP 97.5
[2018-04-25] MEDS: Carvedilol 3.125 MG TAB PO SCH (09:26)
[2018-04-25] MEDS: Multivit, Therapeutic 1 TAB PO SCH (09:26)
[2018-04-25] MEDS: Furosemide 40 MG TAB PO SCH (09:26)
[2018-04-25] MEDS: Fish Oil 1,000 MG CAP PO SCH (09:26)
[2018-04-25] MEDS: Ferrous Sulfate 325 MG TAB PO SCH (09:26)
[2018-04-25] MEDS: Enoxaparin Sodium 40 MG/0.4 ML SYRINGE SC SCH (09:27)
[2018-04-25] MEDS: Ibuprofen 800 MG TAB PO SCH (09:27)
[2018-04-25] MEDS: Aspirin 325 MG TAB PO SCH (09:27)
[2018-04-25] MEDS: Cyanocobalamin (Vitamin B-12) 1,000 MCG TAB PO SCH (09:27)
--- NOTE | 2018-04-25 11:14 | NM ---
CARDIAC SPECT: HISTORY: An 43-year-old female with chest pain, hypertension, diabetes, CHF. TECHNIQUE: A myocardial perfusion scan is performed using the single-isotope 2-day protocol with 32 mCi Techneti um 99m sestamibi injected intravenously for the rest exam and stress images. Pharmacologic stress wi th adenosine was monitored and interpreted by Dr. Valenzuela. FINDINGS: No fixed or reversible defects are seen. GATED SPECT LVEF: 38%. WALL MOTION EXAM: Global hypokinesis. IMPRESSION: No evidence of reversible ischemia. POS: [place]
--- NOTE | 2018-04-26 05:37 | DIS ---
DATE OF ADMISSION: 04/23/2018 DATE OF DISCHARGE: 04/25/2018 PRIMARY CARE PHYSICIAN: Dr. Parsons in [place]. CONSULTANTS: None. PROCEDURES: The patient underwent a nuclear stress test which showed no fixed or reversible defects. LVEF 38%. Global hypokinesis. No evidence of reversible ischemia. The patient also had a CTA of the chest, which showed no CT evidence of central pulmonary embolism or thoracic aortic dissection. The patient also had a chest x-ray which showed mild cardiomegaly, lungs appeared clear. HOSPITAL COURSE: Ms. Moncada is a very pleasant 43-year-old female who presented to the emergency room for management of her chest pain, neck pain, shoulder pain. Apparently, she was having some pressure in her chest which moved up to her left arm. She reported some nausea, but has not vomited. The patient underwent troponin x3 which were negative. Stress test, which was also negative with an LVEF of 38%. The patient did have an echocardiogram done in April of 2017, but an LVEF was unable to be determined. She was noted by Cardiology at that time to have some diastolic dysfunction. The patient's initial creatinine was 1.33 and has improved to 1.118. GFR has improved from 52 to 60. BNP on admission was 56. The patient's vital signs have remained stable. Initially, the patient was tachycardic, but that has improved on admission. Pulse was 102, today on discharge is 87, blood pressure on discharge 130/76. The patient remained stable and will be discharged home to follow up with Dr. Parsons within one week, Dr. Valenzuela within the next 2 to 3 weeks. DISCHARGE DIAGNOSES: 1. Chest pain radiating to the neck, most likely musculoskeletal, noncardiac. 2. Diabetes mellitus, type 2. 3. History of congestive heart failure. LVEF estimated in this visit at 38%. 4. Hypertension. 5. Hyperlipidemia. REVIEW OF SYSTEMS: The patient was examined prior to discharge. Denies any chest pain. Does report a frontal headache. Denies any other complaints. Denies neck pain, arm pain. Denies any abdominal pain. Has been eating breakfast. No nausea, vomiting. All other systems reviewed and are negative unless mentioned in the hospital course. PHYSICAL EXAMINATION: VITAL SIGNS: Temp 97.5, heart rate 87, respirations 20, blood pressure 130/76, pulse ox is 98% on room air. CONSTITUTIONAL: The patient is alert and oriented x3. Nontoxic appearing, in no pain distress. HEENT: Head is atraumatic and normocephalic. Eyes, pupils are equally round and reactive to light. Extraocular muscles are intact. ENT, mouth exam is normal. Mucous membranes are moist. NECK: Normal range of motion. Trachea is midline. RESPIRATORY/CHEST: Breath sounds are clear. Chest movement is symmetrical. CARDIOVASCULAR: Heart rate, regular rate and rhythm. Heart sounds are normal. ABDOMEN: Nontender. Bowel sounds are heard. BACK: Normal inspection, no tenderness. EXTREMITIES: Upper extremities, normal range of motion. Strength is normal. Pulses are equal bilaterally. Lower extremities, normal strength. Inspection is normal. Pedal pulses are equal bilaterally. Trace edema is noted in bilateral extremities. NEURO: No focal motor or sensory deficits. The patient is oriented to person, place, and time. Speech is normal. PSYCH: Normal affect. ALLERGIES: None. DISCHARGE MEDICATIONS: The patient will be discharged home on the following medications; aspirin one 325 mg p.o. daily, vitamin D 5000 units p.o. daily, Celexa 10 mg p.o. q.a.m., clonazepam 0.5 mg p.o. b.i.d. p.r.n., vitamin B12 a 1000 mcg p.o. daily, Flexeril 10 mg p.o. b.i.d., ferrous sulfate 325 mg p.o. b.i.d., furosemide 40 mg p.o. q.a.m., ibuprofen 800 mg p.o. b.i.d., multivitamin one tablet p.o. daily, [place] fatty acids one cap p.o. b.i.d., tramadol 1-2 tablets p.o. q.6 hours as needed, Coreg 3.125 mg p.o. b.i.d. CONDITION ON DISCHARGE: The patient's condition is stable. DISPOSITION: The patient will be discharged home. REFERRALS: To Dr. Parsons within one week, follow with Dr. Valenzuela within the next 2 to 3 weeks. Job ID: [id number]
== END 2018-04-25 12:41 | disposition home or self-care (01) ==
LOC: ERS 10:53 → 2SW 17:51
PROVIDERS: ADMIT Internal Medicine; ATTEND Internal Medicine
DX: R07.9 Chest pain, unspecified (principal); M54.2 Cervicalgia; I11.0 Hypertensive heart disease with heart failure; I50.9 Heart failure, unspecified; E11.9 Type 2 diabetes mellitus without complications; E78.5 Hyperlipidemia, unspecified; F41.9 Anxiety disorder, unspecified; F32.9 Major depressive disorder, single episode, unspecified; Z79.82 Long term (current) use of aspirin; Z79.899 Other long term (current) drug therapy; Z98.890 Other specified postprocedural states
CPT/HCPCS: 36415; 71275; 78452; 80048; 82550; 83690; 83880; 85025; 85379; 90471; 90732; 93005; 93017; 94760; 96372; A9500; G0009; G0378; J0153; J1650; J7506; Q9966

== ENCOUNTER 2018-05-05 01:29 | Emergency (ER) | payer SELFPAY ==
[2018-05-05] MEDS ORDERED: Lorazepam 2 MG/ML VIAL ONE (02:35)
[2018-05-05] MEDS ORDERED: Fentanyl 100 MCG/2 ML VIAL ONE (02:35)
[2018-05-05] MEDS ORDERED: Ketorolac Tromethamine 30 MG/ML VIAL ONE (02:35)
--- NOTE | 2018-05-05 08:00 | RAD ---
PORTABLE CHEST ONE VIEW: Date: 05-05-18 Time: 1:50 a.m. History: Chest pain, left arm pain. FINDINGS: Comparison is made with exam of 04-23-18. The heart is enlarged. The lungs are well expanded without focal areas of consolidation, pneumothorax , mil pulmonary edema or pleural effusions. IMPRESSION: No acute process. POS: [facility]
== END 2018-05-05 03:56 | disposition home or self-care (01) ==
LOC: ERS 01:29
DX: M54.12 Radiculopathy, cervical region (principal); I11.0 Hypertensive heart disease with heart failure; I50.9 Heart failure, unspecified; E78.5 Hyperlipidemia, unspecified; D64.9 Anemia, unspecified; F41.9 Anxiety disorder, unspecified; F32.9 Major depressive disorder, single episode, unspecified; Z79.899 Other long term (current) drug therapy; Z79.82 Long term (current) use of aspirin
CPT/HCPCS: 71045; 93005; 94760; 96374; 96375; J1885; J2060; J3010

== ENCOUNTER 2018-05-19 07:53 | Observation (INO) | payer SELFPAY ==
[2018-05-19 08:26] LABS: #Basophils 0.1 thou/uL (0.0-0.2); #Eosinphils 0.2 thou/uL (0.0-0.7); #Lymphocytes 2.4 thou/uL (1.20-3.40); #Monocytes 0.3 thou/uL (0.11-0.59); #Neutrophils 1.9 thou/uL (1.40-6.50); %Basophils 1.3 % (0.0-1.0); %Eosinophils 3.7 % (0.0-10.0); %Lymphocytes 49.7 % (21.0-51.0); %Monocytes 5.9 % (0.0-10.0); %Neutrophils 39.4 % (42.0-75.0); Hemoglobin 11.5 g/dL (12.0-16.0); Mean Corpuscular Hemoglobin 27.8 pg (27.0-31.0); Mean Corpuscular Volume 89.6 fL (78.0-98.0); Mean Platelet Volume 7.4 fL (7.4-10.4); Platelet Count 271 thou/uL (130-400); RBC Distribution Width 15.7 % (11.5-14.5); Red Blood Cell (RBC) Count 4.13 mill/uL (4.20-5.40); White Blood Cell (WBC) Count 4.9 thou/uL (4.8-10.8)
[2018-05-19 08:45] LABS: ALT (SGPT) 14 U/L (8-55); AST (SGOT) 20 U/L (5-34); Albumin 3.9 g/dL (3.5-5.0); Alkaline Phosphatase 100 U/L (40-150); Anion Gap 14 mmol/L (10-20); BUN (Urea Nitrogen) 22 mg/dL (7.0-18.7); Bilirubin, Total 0.5 mg/dL (0.2-1.2); CK (CPK) 62 U/L (29-168); Calc. Creatinine Clearance 0 mL/min (70-130); Calcium 9.7 mg/dL (7.8-10.44); Carbon Dioxide 26 mmol/L (22-29); Chloride 103 mmol/L (98-107); Estimated GFR-MDRD 62; Globulin 3.7 g/dL (2.4-3.5); Glucose 94 mg/dL (70-105); Potassium 4.6 mmol/L (3.5-5.1); Protein, Total 7.6 g/dL (6.0-8.3); Sodium 138 mmol/L (136-145)
[2018-05-19] MEDS ORDERED: Ketorolac Tromethamine 30 MG/ML VIAL ONE (08:46)
--- NOTE | 2018-05-19 09:01 | RAD ---
RADIOGRAPH CHEST 1 VIEW: DATE: 05-19-18 TIME: 8:05 A.M. HISTORY: 43-year-old female with chest pain. FINDINGS: There is no air space density, pulmonary edema, or pneumothorax. The lateral costophrenic angles are sharp. There is no significant interval change compared to 05-05-18. IMPRESSION: No acute pulmonary findings. jn POS: [facility]
[2018-05-19] MEDS ORDERED: Nitroglycerin 2% Ointment 1 INCH/1 GM Packet ONE (09:28)
[2018-05-19] MEDS ORDERED: Metoprolol Tartrate 5 MG/5 ML VIAL ONE (09:28)
[2018-05-19] MEDS ORDERED: Iopamidol 370 76% 50 ML VIAL FS ONE (09:39)
[2018-05-19] MEDS ORDERED: Iopamidol 370 76% 100 ML VIAL ONE (09:39)
[2018-05-19] MEDS ORDERED: Zolpidem Tartrate 5 MG TAB PO PRN (10:22)
[2018-05-19] MEDS ORDERED: Bisacodyl 10 MG SUPP PR PRN (10:22)
[2018-05-19] MEDS ORDERED: Ondansetron PF 4 MG/2 ML Vial IVP PRN (10:22)
[2018-05-19] MEDS ORDERED: HYDROcodone/Acetaminophen 5/325 mg Tablet PO PRN (10:22)
[2018-05-19] MEDS ORDERED: Acetaminophen 325 MG TAB PO PRN (10:22)
[2018-05-19] MEDS ORDERED: Bisacodyl 5 MG TAB PO PRN (10:22)
[2018-05-19] MEDS ORDERED: Senokot S 8.6-50 MG TAB PO PRN (10:22)
[2018-05-19] MEDS ORDERED: Loperamide HCl 2 MG CAP PO PRN (10:22)
[2018-05-19] MEDS ORDERED: Ondansetron ODT 4 MG TAB PO PRN (10:22)
[2018-05-19] MEDS ORDERED: Calcium Carbonate 500 MG ChewTAB PO PRN (10:22)
[2018-05-19] MEDS ORDERED: Dextrose 5% in Water 1,000 ML IV PRN (10:26)
[2018-05-19] MEDS ORDERED: Dextrose 50% Abboject 50 ML SYRINGE SLOW IVP PRN (10:26)
[2018-05-19] MEDS ORDERED: HumaLOG 300 UNITS/3 ML VIAL SC PRN ×2 (10:26)
[2018-05-19] MEDS ORDERED: traMADol HCl 50 MG TAB PO PRN ×2 (10:35→10:42)
[2018-05-19] MEDS ORDERED: Cyclobenzaprine 10 MG TAB PO PRN (10:35)
[2018-05-19] MEDS ORDERED: clonazePAM 0.5 MG TAB PO PRN (10:35)
--- NOTE | 2018-05-19 11:21 | HP ---
PRIMARY CARE PHYSICIAN: Dr. Louie Skinner. REASON FOR ADMISSION: Recurrent chest pain. HISTORY OF PRESENT ILLNESS: A 43-year-old female, who has underlying morbid opacity, who presented to emergency room with recurrent chest pain. The patient described chest pain left sided, radiation to neck and shoulder, pressure-like sensation, lasting few minutes and subsided by itself. She denies any associated nausea, vomiting, or diaphoresis. She denies any palpitation, dizziness, or syncope. She does not have any orthopnea, PND, or leg swelling. She denies any calf tenderness. She denies any pleurisy. She denies any fever, chills, or flu-like illness. This patient was recently admitted in our hospital on April 24, 2018. At that time, she had a CT angiography, which was negative for pulmonary embolism. The patient had a stress test, which was negative for any reversible ischemia, but EF was 38%. The patient did keep getting chest pain since then and that is why the patient saw a travel cota, and she was advised to have cardiac catheterization done. Currently, in the emergency room, routine blood test is unremarkable. The patient is being admitted for recurrent chest pain for further evaluation. REVIEW OF SYSTEMS: CONSTITUTIONAL: Negative for weight loss or gain, ability to conduct usual activities. SKIN: Negative for rash, itching. EYES: Negative for double vision, pain. ENT/MOUTH: Negative for nose bleeding, neck stiffness, pain, tenderness. CARDIOVASCULAR: Negative for palpitations, dyspnea on exertion, orthopnea. RESPIRATORY: Negative for shortness of breath, wheezing, cough, hemoptysis, fever or night sweats. GASTROINTESTINAL: Negative for poor appetite, abdominal pain, heartburn, nausea, vomiting, constipation, or diarrhea. GENITOURINARY: Negative for urgency, frequency, dysuria, nocturia. MUSCULOSKELETAL: Negative for pain, swelling. NEUROLOGIC/PSYCHIATRIC: Negative for anxiety, depression. ALLERGY/IMMUNOLOGIC: Negative for skin rash, bleeding tendency. Please see my HPI for further detail. All review of systems reviewed and negative except as mentioned in HPI. PAST MEDICAL HISTORY: Hypertension; diabetes type 2, diet controlled; morbid obesity; suspected sleep apnea; and osteoarthritis. PAST SURGICAL HISTORY: Reviewed and negative. PAST PSYCHIATRIC HISTORY: Anxiety and depression. ALLERGIES: NO KNOWN DRUG ALLERGY. SOCIAL HISTORY: The patient lives at home. No history of tobacco, alcohol, or illicit drug abuse. FAMILY HISTORY: The patient denies any family history of premature coronary artery disease, stroke, or cancer. CURRENT HOME MEDICATIONS: 1. Tramadol 50 mg one or two tablets q.6 hourly p.r.n. 2. Aspirin 325 mg p.o. daily. 3. Vitamin D3 of 5000 units p.o. daily. 4. Celexa 10 mg daily. 5. Clonazepam 0.5 mg p.o. b.i.d. p.r.n. 6. Vitamin B12 of 1000 mcg p.o. daily. 7. Flexeril 10 mg b.i.d. p.r.n. 8. Ferrous sulfate 325 mg p.o. daily. 9. Lasix 40 mg p.o. daily. 10. Multivitamin one tablet daily. 11. Fish oil one capsule b.i.d. 12. Coreg 3.125 mg p.o. b.i.d. EMERGENCY ROOM COURSE: The patient has received Lopressor 5 mg, nitro patch, and Toradol 15 mg. PHYSICAL EXAMINATION: VITAL SIGNS: Currently, blood pressure 153/92, pulse 98, respiratory rate 20, temperature 97.9, saturation 100% on room air, and weight 144.7 kg. GENERAL: The patient is currently alert and awake, in no obvious acute distress. HEENT: Head; normocephalic and atraumatic. Eyes; pupils are round and reactive to light. Extraocular muscle intact. ENT; oropharynx within normal limits. Moist mucous membranes. No oral lesion. No pharyngeal erythema. No exudate. NECK: Supple. No JVD. No thyromegaly. No carotid bruit. LUNGS: Clear to auscultation without any rhonchi or rales. CARDIAC: S1 and S2, regular without any murmur. ABDOMEN: Morbid obesity limiting examination. Bowel sounds present. Nontender. Nondistended. No organomegaly. No mass. No suprapubic tenderness. BACK: Unremarkable. No CVA tenderness. EXTREMITIES: Upper extremities; passive movement of all joints is normal. Lower extremities, no edema. Good distal pulsation. No calf tenderness. SKIN: No skin rash. HEMATOLOGICAL SYSTEM: No lymphadenopathy. NEUROLOGIC: Nonfocal examination. ASSESSMENT AND PLAN: 1. Recurrent chest pain. The patient had recent full workup done including CT angiography was negative, stress test was also negative for reversible ischemia. At this point, the patient's description is also atypical. I spoke with Cardiology, and Cardiology is planning to do cardiac catheterization in view of her low EF with the stress test previously done 38% to rule out any underlying ischemia. 2. Cardiomyopathy. The patient is on Coreg 3.125 mg p.o. b.i.d. During this admission, we will consider adding lisinopril 5 mg p.o. daily because of her low EF on stress test. The patient is planned for cardiac catheterization today. Because of her morbid obesity, echocardiography is not providing good information and limiting. 3. Anxiety and depression. We will continue Celexa 10 mg p.o. daily along with clonazepam p.r.n. basis. 4. Hypertension. We are starting lisinopril on her regimen. Continue Coreg 3.125 mg p.o. b.i.d. 5. Chronic low back pain. Continue tramadol p.r.n. basis. Flexeril 10 mg b.i.d. p.r.n. basis. 6. Morbid obesity. Dietary education given. Weight loss education given. 7. Chronic normocytic anemia. Continue ferrous sulfate 325 mg p.o. daily. 8. Deep venous thrombosis prophylaxis, Lovenox 40 mg subcu daily. Gastrointestinal prophylaxis, Pepcid 20 mg p.o. b.i.d. CODE STATUS: The patient is full code. The patient does not have any surrogate decision maker. DISPOSITION PLAN: Based on clinical course and Cardiology recommendation, and plan of care discussed with the patient in detail. Job ID: [id number]
[2018-05-19 11:50] VITALS: BMI 55.3
[2018-05-19 12:05] LABS: Troponin I Less than 0.010 ng/mL (< 0.028)
[2018-05-19] MEDS: Nitroglycerin 2% Ointment 1 INCH/1 GM Packet TOP SCH ×2 (14:22→21:43)
[2018-05-19] MEDS ORDERED: Communication Order-Pharmacy FS SCH (14:30)
[2018-05-19 14:53] LABS: Troponin I Less than 0.010 ng/mL (< 0.028)
[2018-05-19] MEDS ORDERED: Verapamil 5 MG/2 ML VIAL ONE (14:53)
[2018-05-19] MEDS ORDERED: Nitroglycerin 100MG/250ML BOT 250 ML ONE (14:53)
[2018-05-19] MEDS ORDERED: Heparin 10,000 UNITS/1 ML VIAL ONE (14:53)
[2018-05-19] MEDS ORDERED: Fentanyl 100 MCG/2 ML VIAL ONE (15:40)
[2018-05-19] MEDS ORDERED: Midazolam HCl 2 mg/2 ml Vial ONE (15:40)
[2018-05-19] MEDS: Carvedilol 3.125 MG TAB PO SCH (16:19)
[2018-05-19] MEDS ORDERED: Sodium Chloride 0.9% 200 ML IV PRN (16:40)
[2018-05-19] MEDS ORDERED: Nitroglycerin 0.4 MG TAB (25 Tab Bottle) SL PRN (16:40)
[2018-05-19] MEDS ORDERED: Acetaminophen/Codeine 30-300mg Tablet PO PRN (16:40)
[2018-05-19] MEDS ORDERED: Sodium Chloride 0.9% 1,000 ML IV SCH (16:45)
--- NOTE | 2018-05-19 18:46 | CON ---
DATE OF CONSULTATION: 05/19/2018 REASON FOR CONSULTATION: Chest pain. HISTORY OF PRESENT ILLNESS: Ms. Moncada is a pleasant 43-year-old female, who comes to the hospital for chest pain. She has been in the hospital several times in the past with the same symptoms. 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 She has actually lost a large amount of weight and she is good to go as far as the heart catheterization concern. She had a stress test and it showed an EF of 38%, but no reversible ischemia. Her weight was down to about 319 pounds. PAST MEDICAL HISTORY: 1. Hypertension. 2. Type 2 diabetes. 3. Morbid obesity. 4. Sleep apnea. 5. Osteoarthritis. PAST SURGICAL HISTORY: None. ALLERGIES: NO KNOWN DRUG ALLERGIES. SOCIAL HISTORY: No alcohol, tobacco, or drugs. FAMILY HISTORY: Noncontributory. OUTPATIENT MEDICATIONS: Include; 1. Tramadol. 2. Aspirin 325 a day. 3. Vitamin D3. 4. Celexa. 5. Clonazepam. 6. Vitamin B12. 7. Flexeril. 8. Ferrous sulfate. 9. Lasix 40 mg a day. 10. Multivitamin daily. 11. Fish oil. 12. Coreg 3.125 b.i.d. REVIEW OF SYSTEMS: A 12-point review of systems was done and was found to be negative unless stated in the history of present illness. PHYSICAL EXAMINATION: VITAL SIGNS: Temperature 97.8, pulse 85, respiratory rate 16, saturation 93% on room air, and blood pressure 119/74. GENERAL: Awake, alert, and oriented x3. No distress. HEENT: Normocephalic and atraumatic. NECK: Supple. LUNGS: Clear. CARDIOVASCULAR: S1 and S2. No S3 or S4. No murmurs. ABDOMEN: Soft. Positive bowel sounds. EXTREMITIES: No edema. SKIN: Warm and dry. LABORATORY DATA: Laboratory work was reviewed CBC with white count of 4.9, hemoglobin 11.5, hematocrit of 37, and platelet count 271. Chemistry unremarkable except for BUN of 22 and creatinine 1.14. Troponins negative x3 and BNP was 56. Albumin was 3.9. ASSESSMENT: 1. Chest pain. Concern for angina. 2. Cardiomyopathy. Ejection fraction at 37% on stress test. This is low sensitivity as difficult to image secondary to body habitus. PLAN: 1. Weight is adequate for heart catheterization. We will plan on heart catheterization from the radial approach. 2. I spoke in the length about the risks and benefits of the procedure. Risks included, but not limited to stroke, [place], , bleeding, need for blood transfusion, limb loss, organ loss, vessel injury, and need for surgical repair. The patient understands verbalized understanding of this. She agrees to proceed. Further recommendations per results of coronary angiogram. Job ID: [id number]
[2018-05-19] MEDS: Famotidine 20 MG TAB PO SCH (19:59)
[2018-05-19] MEDS: Ferrous Sulfate 325 MG TAB PO SCH (19:59)
[2018-05-19] MEDS: Fish Oil 1,000 MG CAP PO SCH (19:59)
[2018-05-19] MEDS ORDERED: Non-Formulary Item 1 EACH (Omega-3 Fatty Acids/Fish Oil [Fish Oil 1,000 Mg Capsule] 1 CAP PO SCH (21:00)
[2018-05-19] MEDS ORDERED: Non-Formulary Item 1 EACH (Ferrous Sulfate [Iron] 325 MG) PO SCH (21:00)
[2018-05-20] MEDS: Nitroglycerin 2% Ointment 1 INCH/1 GM Packet TOP SCH (06:11)
[2018-05-20] MEDS: Fish Oil 1,000 MG CAP PO SCH (08:56)
[2018-05-20] MEDS: Carvedilol 3.125 MG TAB PO SCH (08:57)
[2018-05-20] MEDS: Famotidine 20 MG TAB PO SCH (08:57)
[2018-05-20] MEDS: Ferrous Sulfate 325 MG TAB PO SCH (08:57)
[2018-05-20] MEDS ORDERED: Citalopram 20 MG TAB PO SCH (09:00)
[2018-05-20] MEDS ORDERED: Cyanocobalamin (Vitamin B-12) 1,000 MCG TAB PO SCH (09:00)
[2018-05-20] MEDS ORDERED: Furosemide 40 MG TAB PO SCH (09:00)
[2018-05-20] MEDS ORDERED: Multivit, Therapeutic 1 TAB PO SCH (09:00)
[2018-05-20] MEDS ORDERED: Aspirin 325 mg Enteric Coated Tablet PO SCH (09:00)
[2018-05-20] MEDS ORDERED: Non-Formulary Item 1 EACH (Multivitamin [Multi-Vitamin Daily] 1 TABLET) PO SCH (09:00)
[2018-05-20] MEDS ORDERED: Citalopram 10 MG TAB PO SCH (09:00)
[2018-05-20] MEDS ORDERED: Non-Formulary Item 1 EACH (Cholecalciferol (Vitamin D3) [Vitamin D3] 5,000 UNIT) PO SCH (09:00)
[2018-05-20] MEDS ORDERED: Aspirin 325 MG TAB PO SCH (09:00)
[2018-05-20] MEDS ORDERED: Enoxaparin Sodium 40 MG/0.4 ML SYRINGE SC SCH (09:00)
[2018-05-20 09:24] VITALS: BP 128/81; TEMP 98.5
--- NOTE | 2018-05-20 11:57 | PDOC.CTH ---
Cardiology Progress Note - Subjective Doing well. No chest pain. Right groin without issues. - Objective Vital Signs Temp Pulse Resp BP BP Pulse Ox 05/20/18 08:40 98.5 F 89 18 128/81 98 05/20/18 04:30 98 F 84 18 133/83 96 05/19/18 23:56 98.4 F 91 20 129/59 L 96 Weight 323 lb 11.2 oz 05/19/18 05/20/18 05/21/18 06:59 06:59 06:59 Intake Total 1220 480 Output Total 850 Balance 370 480 - Physical Examination General/Neuro: alert & oriented x3, NAD Neck: no JVD present Lungs: CTA, unlabored respirations Heart: RRR Abdomen: NT/ND Extremities: + edema B (1+) - Telemetry Telemetry Rhythm: NSR - Labs Result Diagrams: 05/19/18 08:10 05/19/18 08:10 Troponin/CKMB Troponin I Less than 0.010 ng/mL (< 0.028) 05/19/18 14:18 - Assessment/Plan 1. Chest pain, non cardiac. 2. Diastolic heart6 failure. Euvolemic 3. Morbid obesity. 4. Severe CHAD. PLAN: - May discharge home. - Follow up in the office in 1 month.
--- NOTE | 2018-05-20 12:28 | DIS ---
DATE OF ADMISSION: 05/19/2018 DATE OF DISCHARGE: 05/20/2018 PRIMARY CARE PHYSICIAN: Dr. Palma. DISCHARGE DISPOSITION: Home. PRIMARY DISCHARGE DIAGNOSIS: Chest pain, ruled out acute coronary syndrome. SECONDARY DISCHARGE DIAGNOSES: 1. Morbid obesity with BMI 55. 2. Hypertension. 3. Dyslipidemia. 4. Diabetes type 2. 5. Anxiety and depression. 6. Chronic low back pain. 7. Normocytic anemia. 8. Gastroesophageal reflux disease. PRIMARY PROCEDURE/OPERATION: Cardiac catheterization was performed by Dr. 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 RADIOLOGICAL INVESTIGATION: Chest x-ray normal. SIGNIFICANT LABORATORY DATA: WBC 4.9, hemoglobin 11.5, and platelets 271. Sodium 138, creatinine 1.14. LFT normal. Cardiac enzyme negative. BNP 56.9. DISCHARGE MEDICATIONS: 1. Tylenol No.3 one or two tablets q.6 hourly p.r.n. 2. Diazepam 5 mg p.o. q.6 hourly p.r.n. 3. Aspirin 325 mg p.o. daily. 4. Vitamin D3 of 5000 units p.o. daily. 5. Celexa 40 mg p.o. daily. 6. Clonazepam 0.5 mg p.o. b.i.d. 7. Vitamin B12 of 1000 mcg p.o. daily. 8. Flexeril 10 mg p.o. b.i.d. p.r.n. 9. Ferrous sulfate 325 mg p.o. b.i.d. 10. Lasix 40 mg p.o. daily. 11. Lisinopril 2.5 mg p.o. daily. 12. Multivitamin 1 tablet p.o. daily. 13. Relafen 500 mg p.o. b.i.d. 14. Fish oil 1 capsule p.o. b.i.d. 15. Omeprazole 20 mg p.o. daily. 16. Tramadol 50 mg b.i.d. p.r.n. 17. Coreg 3.125 mg p.o. b.i.d. CONTRAINDICATION: None. CODE STATUS: Full code. INPATIENT FILM COATER: Dr. Valenzuela was consulted while in hospital. TEST RESULTS PENDING ON DISCHARGE: None. ALLERGIES: NO KNOWN DRUG ALLERGIES. DISCHARGE PLAN: Posthospital, the patient will follow up with primary care physician. HOSPITAL COURSE: This is a 43-year-old female, who was admitted by me yesterday. Please see my HPI for further details. The patient had recent stress test, which was negative, and the patient was keep getting recurrent chest pain and that is why we consulted Cardiology. Cardiology did cardiac care and that was came back normal. The patient's chest pain was attributed to be due to musculoskeletal etiology. The patient will continue all her previous medications. She had previous cardiomyopathy based on stress test, echocardiography. Based on stress test result, the EF was 38%, but based on cardiac cath, the patient does not have any low EF, her EF has been improved. The patient will continue all her previous medications. The patient is seen and examined at bedside today. All review of systems reviewed with her and negative. Her vital signs are normal. Her examination is completely normal other than morbid obesity. The patient is medically stable for discharge today. Job ID: [id number]
== END 2018-05-20 11:06 | disposition home or self-care (01) ==
LOC: ERS 07:53 → INTOOBSV 09:33 → ERHOLD 09:33 → 2SW 11:29
PROVIDERS: ADMIT Internal Medicine; ATTEND Internal Medicine
PROC: 4A023N7 Measurement of Cardiac Sampling and Pressure, Left Heart, Percutaneous Approach (ICD-10-PCS; principal; 2018-05-19)
PROC: B2101ZZ Fluoroscopy of Single Coronary Artery using Low Osmolar Contrast (ICD-10-PCS; 2018-05-19)
DX: R07.89 Other chest pain (principal); E66.01 Morbid (severe) obesity due to excess calories; Z68.43 Body mass index [BMI] 50.0-59.9, adult; I11.9 Hypertensive heart disease without heart failure; I43 Cardiomyopathy in diseases classified elsewhere; E78.5 Hyperlipidemia, unspecified; E11.9 Type 2 diabetes mellitus without complications; F41.9 Anxiety disorder, unspecified; F32.9 Major depressive disorder, single episode, unspecified; K21.9 Gastro-esophageal reflux disease without esophagitis; M19.90 Unspecified osteoarthritis, unspecified site; D64.9 Anemia, unspecified; G47.33 Obstructive sleep apnea (adult) (pediatric); Z79.82 Long term (current) use of aspirin; Z79.899 Other long term (current) drug therapy
CPT/HCPCS: 36415; 36416; 71045; 76942; 80053; 82550; 83880; 84484; 85025; 93005; 93458; 94760; 96361; 96374; 96375; 99152; 99153; C1760; C1769; G0378; J1644; J1885; J2250; J3010; Q9967

== ENCOUNTER 2018-10-01 22:38 | Emergency (ER) | payer OTHER, SELFPAY ==
--- NOTE | 2018-10-01 23:03 | RAD ---
Exam: Chest one view HISTORY:Chest pain. Comparison: 05/19/2018 FINDINGS: Cardiac silhouette:Cardiomegaly. Pulmonary vessels: Prominent Costophrenic angles: Clear LUNGS: Patchy interstitial and alveolar opacities. Pneumothorax: None Osseous abnormalities: None IMPRESSION: Congestive heart failure.
[2018-10-01] MEDS ORDERED: Cyclobenzaprine 10 MG TAB ONE (23:16)
[2018-10-01 23:27] LABS: #Basophils 0.1 thou/uL (0.0-0.2); #Eosinphils 0.2 thou/uL (0.0-0.7); #Lymphocytes 3.5 thou/uL (1.20-3.40); #Monocytes 0.5 thou/uL (0.11-0.59); #Neutrophils 3.2 thou/uL (1.40-6.50); %Basophils 0.8 % (0.0-1.0); %Eosinophils 2.7 % (0.0-10.0); %Lymphocytes 46.2 % (21.0-51.0); %Monocytes 7.2 % (0.0-10.0); %Neutrophils 43.1 % (42.0-75.0); Hemoglobin 11.7 g/dL (12.0-16.0); Mean Corpuscular HGB CONC 32.4 g/dL (32.0-36.0); Mean Corpuscular Hemoglobin 30.7 pg (27.0-31.0); Mean Corpuscular Volume 94.6 fL (78.0-98.0); Mean Platelet Volume 7.2 fL (7.4-10.4); Platelet Count 238 thou/uL (130-400); RBC Distribution Width 13.3 % (11.5-14.5); Red Blood Cell (RBC) Count 3.82 mill/uL (4.20-5.40); White Blood Cell (WBC) Count 7.5 thou/uL (4.8-10.8)
[2018-10-01 23:48] LABS: ALT (SGPT) 11 U/L (8-55); AST (SGOT) 13 U/L (5-34); Albumin 3.9 g/dL (3.5-5.0); Alkaline Phosphatase 79 U/L (40-150); Anion Gap 13 mmol/L (10-20); BUN (Urea Nitrogen) 14 mg/dL (7.0-18.7); Bilirubin, Total 0.3 mg/dL (0.2-1.2); Calc. Creatinine Clearance 0 mL/min (70-130); Calcium 9.1 mg/dL (7.8-10.44); Carbon Dioxide 21 mmol/L (22-29); Chloride 108 mmol/L (98-107); Estimated GFR-MDRD 57; Globulin 2.8 g/dL (2.4-3.5); Glucose 102 mg/dL (70-105); Lipase 20 U/L (8-78); Potassium 4.4 mmol/L (3.5-5.1); Protein, Total 6.7 g/dL (6.0-8.3); Sodium 138 mmol/L (136-145)
== END 2018-10-02 00:53 | disposition home or self-care (01) ==
LOC: ERS 22:38
DX: M25.512 Pain in left shoulder (principal); I11.0 Hypertensive heart disease with heart failure; I50.9 Heart failure, unspecified; M19.90 Unspecified osteoarthritis, unspecified site; F41.9 Anxiety disorder, unspecified; F32.9 Major depressive disorder, single episode, unspecified; E78.5 Hyperlipidemia, unspecified; E11.9 Type 2 diabetes mellitus without complications; D64.9 Anemia, unspecified; Z79.899 Other long term (current) drug therapy; Z79.82 Long term (current) use of aspirin; Z79.891 Long term (current) use of opiate analgesic
CPT/HCPCS: 36415; 71045; 80053; 83690; 83880; 84484; 85025; 93005

== ENCOUNTER 2019-03-12 20:43 | Observation (INO) | payer SELFPAY ==
[~2019-03-12 20:43] MED LIST changes: -ISOVUE-370 76%-LOCM 1 ML ONE; +Iopamidol 370 76% 100 ML VIAL ONE
[2019-03-12] MEDS ORDERED: traMADol HCl 50 MG TAB ONE (21:37)
[2019-03-12] MEDS ORDERED: Diazepam 10 MG/2 ML SYRINGE ONE (21:37)
[2019-03-12 22:15] LABS: #Eosinphils 0.3 thou/uL (0.0-0.7); #Lymphocytes 2.4 thou/uL (1.20-3.40); #Monocytes 0.6 thou/uL (0.11-0.59); #Neutrophils 5.7 thou/uL (1.40-6.50); %Basophils 0.3 % (0.0-1.0); %Lymphocytes 26.5 % (21.0-51.0); %Monocytes 7.1 % (0.0-10.0); %Neutrophils 63.2 % (42.0-75.0); Hemoglobin 12.5 g/dL (12.0-16.0); Mean Corpuscular HGB CONC 32.3 g/dL (32.0-36.0); Mean Corpuscular Hemoglobin 30.1 pg (27.0-31.0); Mean Corpuscular Volume 93.4 fL (78.0-98.0); Mean Platelet Volume 7.6 fL (7.4-10.4); Platelet Count 244 thou/uL (130-400); RBC Distribution Width 12.9 % (11.5-14.5); Red Blood Cell (RBC) Count 4.16 mill/uL (4.20-5.40); White Blood Cell (WBC) Count 9.1 thou/uL (4.8-10.8)
[2019-03-12 22:34] LABS: ALT (SGPT) 12 U/L (8-55); AST (SGOT) 18 U/L (5-34); Albumin 3.9 g/dL (3.5-5.0); Alkaline Phosphatase 86 U/L (40-110); Anion Gap 13 mmol/L (10-20); BUN (Urea Nitrogen) 15 mg/dL (7.0-18.7); Bilirubin, Total 0.4 mg/dL (0.2-1.2); Calc. Creatinine Clearance 0 mL/min (70-130); Calcium 8.9 mg/dL (7.8-10.44); Carbon Dioxide 22 mmol/L (22-29); Chloride 106 mmol/L (98-107); Estimated GFR-MDRD 70; Globulin 3.4 g/dL (2.4-3.5); Glucose 98 mg/dL (70-105); Potassium 4.3 mmol/L (3.5-5.1); Protein, Total 7.3 g/dL (6.0-8.3); Sodium 137 mmol/L (136-145)
[2019-03-12 22:53] LABS: Free T4 (Free Thyroxine) 1.07 ng/dL (0.70-1.48); Thyroid Stimulating Hormone 1.7141 uIU/mL (0.35-4.94)
--- NOTE | 2019-03-12 23:02 | ULT ---
EXAM: Left upper extremity Doppler venous ultrasound DATE: 03/12/2019 9:30 PM INDICATION: Left upper extremity pain and edema COMPARISON: None. FINDING: Grayscale, color Doppler spectral Doppler images were obtained of the venous structures of the left upper extremity. There is appropriate flow and compression the left jugular vein. There is appropriate flow seen withi n the left proximal subclavian vein and distal left subclavian vein. The left mid subclavian vein was not well seen. There is appropriate flow, compression and augmentation involving the left cephali c vein, left basilic vein, left brachial vein, and left axillary vein. IMPRESSION:No evidence of DVT within the left upper extremity.
--- NOTE | 2019-03-12 23:54 | CT ---
CTA Angio Chest W WO Con 03/12/2019 10:57 PM Indication: Chest Pain Technique: Multiple CTA images were obtained of the thorax with IV contrast. 3-D rendering: MIP neri nstructed images were created and reviewed. Comparison: CT PE dated April 23, 2018 Findings: Pulmonary arteries: The timing of the contrast bolus heavily limits interrogation of the pulmonary a rteries for PE. Heart and Aorta: Normal appearing. Mediastinum:Normal appearing. No enlarged lymph nodes. Lungs:Subsegmental volume loss within left upper lobe and lingula. There is also areas of subsegmenta l volume loss in the left lower lobe. Pleural space: Clear. Upper Abdomen: No acute abnormality. Osseous Structures: Proximal femoral fracture. There is scattered degenerative and osteoarthritic ch helen present. Soft tissues:No abnormality. Other findings:None. Impression: Nondiagnostic CTA PE examination due to timing of the contrast bolus. If there remains concern for PE , a VQ scan is recommended. Nonspecific subsegmental volume loss within the left lung.
[2019-03-13] MEDS ORDERED: Morphine 4 MG/ML VIAL ONE (00:26)
[2019-03-13 01:24] LABS: Troponin I Less than 0.010 ng/mL (< 0.028)
[2019-03-13] MEDS ORDERED: Aspirin Chewable 81 MG TAB ONE (01:32)
[2019-03-13] MEDS ORDERED: Ondansetron ODT 4 MG TAB SL PRN (02:03)
[2019-03-13] MEDS ORDERED: Ondansetron PF 4 MG/2 ML Vial IVP PRN (02:03)
[2019-03-13] MEDS ORDERED: Ketorolac Tromethamine 30 MG/ML VIAL IVP SCH (03:45)
[2019-03-13 05:44] LABS: Troponin I Less than 0.010 ng/mL (< 0.028)
[2019-03-13 08:23] VITALS: BMI 72.7
[2019-03-13] MEDS: Enoxaparin Sodium 40 MG/0.4 ML SYRINGE SC SCH (08:29)
[2019-03-13] MEDS ORDERED: Hydrocortisone Sod Succ/PF 100 mg/2 ml Vial IVP SCH (08:30)
--- NOTE | 2019-03-13 09:06 | HP ---
CHIEF COMPLAINT: Chest pain. HISTORY OF PRESENT ILLNESS: The patient is a 44-year-old female who presented to the emergency room with chest pain, she has for some time on and off, which is not associated with any shortness of breath or nausea and no clammy skin. She noticed that her chest pain is worse when she moves her left shoulder. Apparently, she had cardiac catheterization done by Dr. Valenzuela last year. Apparently, this was done in April 2018 and it showed normal LV function and no blockages in the coronary arteries. The patient had D-dimers done while in the emergency room and the CT angiogram was not diagnostic, so she is getting admitted for a V/Q scan to be done. PAST MEDICAL HISTORY: 1. Hypertension. 2. Hyperlipidemia. 3. Anemia. 4. Arthritis. 5. Chronic hip pain. 6. Questionable CHF. Based on the echocardiogram, her LVEF was estimated at 38%, but cardiac catheterization showed a normal LV EF. PAST SURGICAL HISTORY: 1. Left hip surgery. 2. Right hip surgery. PSYCHIATRIC HISTORY: Positive for anxiety and depression. SOCIAL HISTORY: She denies any alcohol intake, cigarette smoking, or illicit drug use. FAMILY HISTORY: She does not know her father. Her mother is doing well. MEDICATIONS: 1. Citalopram 40 mg once a day. 2. Iron 325 mg twice a day. 3. Clonazepam 0.5 mg twice a day. 4. Carvedilol 3.125 mg twice a day. 5. Cyclobenzaprine 10 mg twice a day. 6. Vitamin D3 1000 units capsules, 5000 once a day. 7. Aspirin 81 mg once a day. 8. Furosemide 40 mg once a day. 9. Lisinopril 2.5 mg, dose questionable. 10. Vitamin B12 1000 mcg once a day. ALLERGIES: NONE. REVIEW OF SYSTEMS: All systems were reviewed and they are negative except for symptoms mentioned in HPI. PHYSICAL EXAMINATION: VITAL SIGNS: Blood pressure is 170/101, temperature is 99.5, pulse is 106, respirations 20, and O2 saturation is 96% on room air. She is obese morbidly. Her weight is 423 pounds. HEENT: Her head is atraumatic and normocephalic. Eyes are PERRLA. Sclerae are nonicteric. Oral mucosa is moist. NECK: Supple, obese. LUNGS: Clear. HEART: S1, S2 normal, tachycardic, no S3 no S4. ABDOMEN: Obese, soft, nontender. EXTREMITIES: No clubbing, cyanosis, edema. There is significant amount of pain and discomfort in the left upper chest and left shoulder area on range of motion of this left upper extremity in the shoulder. NEUROLOGIC: She is alert and oriented x4. There is no any motor or sensory deficits. LABORATORY DATA: Labs showed a white count of 9.1, hemoglobin 12.5, hematocrit 38.8, platelet count is 244,000. The rest of CBC within normal limits. D-dimer is 1.30. Chemistry within normal limits. Three sets of troponin I within normal limits. BNP 16.8. IMPRESSION: 1. Chest pain most likely musculoskeletal, negative EKG for an ischemia. Slightly tachycardic. 2. Elevated D-dimers with nondiagnostic CT angiogram of the chest. The patient is scheduled for V/Q scan today. 3. Morbid obesity. 4. Hypertension. 5. Hyperlipidemia. 6. History of anemia. 7. Arthritis and shoulder pain. 8. History of low LVEF on echo, not confirmed by cardiac catheterization in April 2018. 9. Possible sleep apnea. PLAN: Admission for observation. Condition is fair. Activity is bedrest and bathroom privileges. IV Hep-Lock, 40 mg of Solu-Medrol IV push for her shoulder pain and arthritic changes. V/Q scan to be done this morning. DVT prophylaxis with SCDs and Lovenox subcutaneously every 24 hours, and the patient will be discharged home later today if her V/Q scan is negative. Job ID: [id number]
--- NOTE | 2019-03-13 14:02 | RAD ---
Exam: Chest 2 views: HISTORY: Right upper extremity swelling headache elevated d-dimer FINDINGS: Very large body habitus considerably lowers the sensitivity of this study. Cardiomegaly. Mild vascula r congestion. No confluent pneumonia, overt edema or pleural effusion. IMPRESSION: Cardiomegaly without other acute process.
[2019-03-13] MEDS ORDERED: Acetaminophen 500 MG TAB PO SCH (14:30)
--- NOTE | 2019-03-13 15:15 | NM ---
NUCLEAR MEDICINE VENTILATION PERFUSION LUNG SCAN: HISTORY: Chest pain, elevated D-dimer. FINDINGS: The patient inhaled 11.1 mCi Xenon 133 gas. No significant trapping. PERFUSION LUNG SCAN: The patient was injected with 6.4 mCi Technetium 99m-MAA intravenously. Marked cardiomegaly. No seg mental areas or larger absolute perfusion defects that would strongly suggest acute pulmonary embolis m. IMPRESSION: Cardiomegaly. Findings consistent with that of a low probability of acute PE. POS: [facility]
[2019-03-13] MEDS ORDERED: clonazePAM 0.5 MG TAB PO PRN (20:02)
[2019-03-13] MEDS ORDERED: Acetaminophen 325 MG TAB PO PRN (20:04)
[2019-03-13] MEDS: Cyclobenzaprine 10 MG TAB PO PRN (21:01)
[2019-03-13] MEDS: Fish Oil 1,000 MG CAP PO SCH (21:01)
[2019-03-13] MEDS: Nabumetone 500 MG TAB PO SCH (21:01)
[2019-03-14] MEDS ORDERED: traMADol HCl 50 MG TAB PO SCH (01:30)
[2019-03-14 07:48] VITALS: BP 159/94; TEMP 98.1
[2019-03-14] MEDS ORDERED: Carvedilol 3.125 MG TAB PO SCH (08:00)
[2019-03-14] MEDS ORDERED: FLU VACC QS2019-20(6MOS UP)/PF 60 MCG/0.5 ML SYRINGE IM ONE (08:45)
[2019-03-14] MEDS ORDERED: Citalopram 20 MG TAB PO SCH (09:00)
[2019-03-14] MEDS ORDERED: Ferrous Sulfate 325 MG TAB PO SCH (09:00)
[2019-03-14] MEDS ORDERED: Aspirin Chewable 81 MG TAB PO SCH (09:00)
[2019-03-14] MEDS ORDERED: Furosemide 40 MG TAB PO SCH (09:00)
[2019-03-14] MEDS: Fish Oil 1,000 MG CAP PO SCH (09:10)
[2019-03-14] MEDS: Nabumetone 500 MG TAB PO SCH (09:11)
[2019-03-14] MEDS: Cyclobenzaprine 10 MG TAB PO PRN (09:11)
[2019-03-14] MEDS: Enoxaparin Sodium 40 MG/0.4 ML SYRINGE SC SCH (09:11)
--- NOTE | 2019-03-15 10:17 | DIS ---
DATE OF ADMISSION: 03/13/2019 DATE OF DISCHARGE: 03/14/2019 DISCHARGE DISPOSITION: Home. FOLLOWUP: Follow up with primary care physician, Dr. Skinner in 1 week. DISCHARGE MEDICATIONS: Same as admission medication. No changes were made. The patient was seen on the day of discharge. Denies any new complaints. No chest pain, shortness of breath, or palpitations reported. BRIEF HOSPITAL COURSE: The patient is a 44-year-old female with morbid obesity, presented to the emergency room on 13 March 2019 with nonspecific symptoms including chest pain. She was monitored on telemetry unit. A CT angiogram of the chest was done that was nondiagnostic. She underwent a V/Q scan that was negative for pulmonary embolism. Left upper extremity Doppler was negative for DVT as well. She had a cardiac catheterization earlier this year that showed no coronary artery disease. She is chest pain free at this time. Her troponins were negative. FINAL DIAGNOSES: 1. Nonspecific chest pain, acute coronary syndrome ruled out. 2. Left shoulder pain, probably secondary to degenerative joint disease. 3. Hypertension. 4. Hyperlipidemia. 5. Morbid obesity with a BMI 72.7. 6. No coronary artery disease on the cardiac catheterization in April 2018. 7. Anxiety and depression. Job ID: [id number]
== END 2019-03-14 11:44 | disposition home or self-care (01) ==
LOC: ERS 20:43 → 2SE 03-13 00:44
PROVIDERS: ADMIT Internal Medicine; ATTEND Internal Medicine
DX: R07.9 Chest pain, unspecified (principal); M25.512 Pain in left shoulder; E78.5 Hyperlipidemia, unspecified; M19.90 Unspecified osteoarthritis, unspecified site; G89.29 Other chronic pain; M25.559 Pain in unspecified hip; F41.9 Anxiety disorder, unspecified; F32.9 Major depressive disorder, single episode, unspecified; R79.1 Abnormal coagulation profile; I11.0 Hypertensive heart disease with heart failure; I50.9 Heart failure, unspecified; E66.01 Morbid (severe) obesity due to excess calories; Z68.45 Body mass index [BMI] 70 or greater, adult; Z79.82 Long term (current) use of aspirin; Z79.899 Other long term (current) drug therapy; Z98.890 Other specified postprocedural states
CPT/HCPCS: 36415; 71046; 71275; 78582; 80053; 83880; 84439; 84443; 84484; 85025; 85379; 90471; 90686; 93005; 96372; 96374; 96375; A9540; A9558; G0008; G0378; J1650; J1720; J1885; J2270; J2405; J3360; Q9967

== ENCOUNTER 2019-10-17 18:06 | Inpatient (IN) | payer MEDICARE, SELFPAY ==
[2019-10-17] MEDS ORDERED: Nitroglycerin 2% Ointment 1 INCH/1 GM Packet ONE ×2 (18:26→19:20)
--- NOTE | 2019-10-17 18:48 | RAD ---
EXAM: CHEST ONE VIEW HISTORY: Chest pain COMPARISON: 03/13/2019 FINDINGS: This examination is obtained with suboptimal technique and is underpenetrated. Left lung base is unab le to be adequately evaluate on this exam. The cardiac silhouette is enlarged. Pleural fluid, infiltrate, or atelectasis at the left lung base cannot be excluded based on this exam. There is gene ralized hazy increased density right hemithorax. I am unsure if this is related to soft tissue density and technique of the study or whether this is secondary to pleural fluid layering posteriorly . Vascular calcifications are present in the aortic arch. No other interval change. IMPRESSION: Suboptimal examination as described above. Repeat PA and lateral chest x-ray is recommended.
[2019-10-17 19:00] LABS: #Basophils 0.1 thou/uL (0.0-0.2); #Eosinphils 0.3 thou/uL (0.0-0.7); #Lymphocytes 2.3 thou/uL (1.20-3.40); #Monocytes 0.5 thou/uL (0.11-0.59); %Basophils 0.7 % (0.0-1.0); %Eosinophils 3.5 % (0.0-10.0); %Lymphocytes 28.4 % (21.0-51.0); %Monocytes 5.7 % (0.0-10.0); %Neutrophils 61.7 % (42.0-75.0); Hemoglobin 12.3 g/dL (12.0-16.0); Mean Corpuscular HGB CONC 31.2 g/dL (32.0-36.0); Mean Corpuscular Hemoglobin 28.4 pg (27.0-31.0); Mean Platelet Volume 8.5 fL (7.4-10.4); Platelet Count 238 thou/uL (130-400); RBC Distribution Width 14.5 % (11.5-14.5); Red Blood Cell (RBC) Count 4.33 mill/uL (4.20-5.40); White Blood Cell (WBC) Count 8.1 thou/uL (4.8-10.8)
[2019-10-17 19:20] LABS: ALT (SGPT) 11 U/L (8-55); AST (SGOT) 14 U/L (5-34); Albumin 3.9 g/dL (3.5-5.0); Alkaline Phosphatase 91 U/L (40-110); Anion Gap 12 mmol/L (10-20); BUN (Urea Nitrogen) 8 mg/dL (7.0-18.7); Bilirubin, Total 0.3 mg/dL (0.2-1.2); CK (CPK) 83 U/L (29-168); Calc. Creatinine Clearance 0 mL/min (70-130); Calcium 9.4 mg/dL (7.8-10.44); Carbon Dioxide 26 mmol/L (22-29); Chloride 106 mmol/L (98-107); Estimated GFR-MDRD 56; Globulin 3.6 g/dL (2.4-3.5); Glucose 108 mg/dL (70-105); Lipase 18 U/L (8-78); Potassium 4.3 mmol/L (3.5-5.1); Protein, Total 7.5 g/dL (6.0-8.3); Sodium 140 mmol/L (136-145)
[2019-10-17] MEDS ORDERED: Furosemide 40 MG/4 ML VIAL ONE (20:13)
[2019-10-17 21:07] LABS: Bacteria/HPF 1+ HPF (None Seen); Bilirubin Negative (Negative); Blood, Urine Negative (Negative); Clarity Clear (Clear); Glucose, Urine (Dipstick) Normal (Negative); Ketone, Urine Negative (Negative); Leukocyte 75 Leu/uL (Negative); Nitrite Negative (Negative); Protein, Urine (Dipstick) Negative (Neg-Trace); RBC/HPF 0-3 HPF (0-3); Specific Gravity, Urine 1.013 (1.002-1.036); Urobilinogen Normal mg/dL (Less than 2); WBC/HPF 0-3 HPF (0-3); pH, Urine 5.5 (5.0-9.0)
[2019-10-17 22:34] LABS: Troponin I 0.022 ng/mL (< 0.028)
[2019-10-18 01:40] LABS: Troponin I 0.026 ng/mL (< 0.028)
[2019-10-18] MEDS ORDERED: Ketorolac Tromethamine 30 MG/ML VIAL ONE (02:38)
[2019-10-18] MEDS ORDERED: Ondansetron PF 4 MG/2 ML Vial IVP PRN (05:45)
[2019-10-18] MEDS ORDERED: hydrALAZINE 20 MG/ML VIAL SLOW IVP PRN (05:45)
[2019-10-18] MEDS ORDERED: Furosemide 40 MG/4 ML VIAL ONE (06:54)
[2019-10-18] MEDS ORDERED: Furosemide 40 MG TAB ONE (06:54)
[2019-10-18] MEDS: Furosemide 40 MG/4 ML VIAL SLOW IVP SCH ×2 (06:57→14:07)
--- NOTE | 2019-10-18 07:17 | HP ---
PRIMARY CARE PROVIDER: Dr. Skinner. CHIEF COMPLAINT: Shortness of breath and chest pain. HISTORY OF PRESENT ILLNESS: This is a 44-year-old female, who presents to [facility] Emergency Department complaining of central chest pain and pressure on the anterior aspect of her chest radiating up into her left neck and left shoulder region. The patient also notes associated shortness of breath, which is not unusual as she has a history of shortness of breath with a presentation similar in 2019. During that admission, the patient ruled out for an acute coronary syndrome with likely musculoskeletal left shoulder and chest pain. The patient with morbid obesity with a body mass index in the 70 range. The patient admits to noncompliance with taking her home regimen of Lasix due to having to use the restroom frequently. The patient denied any travel history, increased cough, congestion, or fever. The patient denied any specific increase in lower extremity swelling or weight gain. The patient does state that she was recently increased on her home dose of lisinopril by her 3rd pressman, but denies any other change to her chronic medication regimen. In the emergency room, the patient underwent general evaluation including chest imaging showing suboptimal exam due to patient's body habitus. Screening metabolic survey showed that troponins were negative x3 as well as a BNP of 22.6. The patient received Lasix 40 mg IV push x1 dose and transdermal nitroglycerin. PAST MEDICAL HISTORY: 1. Hypertension. 2. Hyperlipidemia. 3. Morbid obesity. 4. Chronic diastolic congestive heart failure. 5. Hyperlipidemia. 6. Degenerative joint disease/osteoarthritis. 7. Chronic hip pain. 8. Anemia. PAST SURGICAL HISTORY: 1. Status post left hip surgery with debridement x2. 2. Status post right hip surgery. 3. Status post cardiac catheterization. PAST PSYCHIATRIC HISTORY: Positive for anxiety and depression. CURRENT MEDICATIONS: Based on previous admission in 2019: 1. Aspirin 81 mg p.o. daily. 2. Vitamin D3 5000 units p.o. daily. 3. [place]-3 fatty acids 1000 mg p.o. b.i.d. 4. Citalopram 40 mg p.o. daily. 5. Carvedilol 3.125 mg p.o. b.i.d. 6. Cyclobenzaprine 10 mg p.o. b.i.d. 7. Lasix 40 mg p.o. daily. 8. Lisinopril 5 mg p.o. daily. 9. Vitamin B12 1000 mcg p.o. daily. ALLERGIES: NO KNOWN DRUG ALLERGIES. FAMILY HISTORY: Positive for hypertension and coronary artery disease. SOCIAL HISTORY: No current alcohol, tobacco, or illicit drug use. REVIEW OF SYSTEMS: CONSTITUTIONAL: Negative for weight loss or gain, ability to conduct usual activities. SKIN: Negative for rash, itching. EYES: Negative for double vision, pain. ENT/MOUTH: Negative for nose bleeding, neck stiffness, pain, tenderness. CARDIOVASCULAR: Negative for palpitations, dyspnea on exertion, orthopnea. RESPIRATORY: Negative for shortness of breath, wheezing, cough, hemoptysis, fever or night sweats. GASTROINTESTINAL: Negative for poor appetite, abdominal pain, heartburn, nausea, vomiting, constipation, or diarrhea. GENITOURINARY: Negative for urgency, frequency, dysuria, nocturia. MUSCULOSKELETAL: Negative for pain, swelling. NEUROLOGIC/PSYCHIATRIC: Negative for anxiety, depression. ALLERGY/IMMUNOLOGIC: Negative for skin rash, bleeding tendency. Otherwise negative except as stated per HPI. PHYSICAL EXAMINATION: VITAL SIGNS: On admission, blood pressure 179/102, pulse 117, respiratory rate is 22, temperature 98.2 degrees Fahrenheit, O2 saturation 96% on room air. GENERAL APPEARANCE: This is a 44-year-old female, alert and oriented x3, pleasant, responsive, in no acute distress. HEENT: Pupils are equal, round, reactive to light and accommodation. Extraocular muscles are intact. No scleral icterus. No conjunctival injection. Nares patent. OP is clear. Teeth in fair repair. NECK: Supple. No cervical adenopathy. No thyromegaly. No carotid bruits. No JVD appreciated. Cervical spine with full active and passive range of motion. No meningeal signs noted. CHEST: Diminished breath sounds in the bases bilaterally. CARDIOVASCULAR EXAM: S1, S2 without noted murmur, rub, or gallop. Heart sounds are distant. ABDOMEN: Obese with landmarks difficult to palpate due to patient's body habitus. Bowel sounds are positive in all 4 quadrants. No rebound or guarding appreciated. EXTREMITIES: Warm and dry with fair turgor. Nonpitting edema of the bilateral lower extremities. Pulses palpable distally at the dorsalis pedis, posterior tibial, and popliteal arteries bilaterally. Capillary refill less than 2 seconds. NEUROLOGIC: Cranial nerves 2 through 12 are grossly intact. No focal or lateralizing signs appreciated. PERTINENT LABORATORY AND X-RAY FINDINGS: Sodium 140, potassium 4.3, chloride 106, CO2 of 26, BUN 8, creatinine 1.24, estimated GFR 56, glucose 108 and calcium 9.4. LFTs within normal limits. Troponin I negative x3. BNP 23. Albumin 3.9, lipase 18 CBC showed a white blood cell count of 8.1, hemoglobin 12, hematocrit 39, and platelet count 238 with normal differential. Urinalysis dated 10/17/2019, showed positive leukocyte esterase with 1+ bacteria. IMAGIN. Portable chest x-ray dated 10/17/2019, showed suboptimal exam. Left lung base unable to be adequately evaluated on this exam. 2. EKG dated 10/17/2019, by my interpretation shows sinus tachycardia with heart rates in the 110s to 120s. Normal R-wave progression noted in the precordial leads. Normal axis. No acute ST-T wave changes appreciated. ASSESSMENT/PLAN: 1. Hypertensive urgency. Improved after IV Lasix and transdermal nitroglycerin. Resume home blood pressure regimen. Serial blood pressure monitoring. Suspect the patient's presentation consistent with a hypertensive urgency scenario. The patient may need additional titration of her antihypertensive regimen on an ongoing basis after discharge. 2. Chest pain. Suspect secondarily to #1. Resume home regimen to include aspirin 81 mg daily. 3. Congestive heart failure, likely diastolic. We will continue Lasix 40 mg b.i.d. Check 2D transthoracic echocardiogram for ejection fraction. 4. Acute kidney [id number] kidney disease. 5. Avoid nephrotoxic agents and limit contrast exposure. Hold lisinopril. Repeat creatinine and estimated glomerular filtration rate in the a.m. 6. Morbid obesity. We will consult Dietitian Services for evaluation and counseling. 7. Prophylaxis. Sequential compression devices while in bed. Pepcid 20 mg p.o. b.i.d. CODE STATUS: Full. Surrogate medical decision maker is patient's sister. Job ID: [id number]
[2019-10-18] MEDS: Ferrous Sulfate 325 MG TAB PO SCH (08:39)
[2019-10-18] MEDS: Carvedilol 3.125 MG TAB PO SCH ×2 (08:39→16:47)
[2019-10-18] MEDS: Nitroglycerin 0.4 MG TAB (25 Tab Bottle) SL PRN ×2 (09:10→09:17)
[2019-10-18] MEDS: Ondansetron ODT 4 MG TAB PO PRN (10:29)
[2019-10-18] MEDS: Aspirin 81 mg Enteric Coated Tablet PO SCH (10:30)
[2019-10-18] MEDS: Cyanocobalamin (Vitamin B-12) 1,000 MCG TAB PO SCH (10:31)
[2019-10-18] MEDS: Lisinopril 2.5 MG TAB PO SCH (10:31)
[2019-10-18] MEDS: Famotidine 20 MG TAB PO SCH ×2 (10:31→20:07)
[2019-10-18] MEDS ORDERED: Metoclopramide HCl 10 MG/2 ML VIAL IVP PRN (12:11)
--- NOTE | 2019-10-18 15:22 | PDOC.EVN ---
Event Note - Event Note Event Note: Seen and examined. Breathing comfortably on low-flow nasal cannula. She is complaining of nausea after receiving nitroglycerin sublingual. I have added PRN medications for nausea. Cardiology consultation requested for CHF and acute chest pain. Medications reviewed. Time was given for questions, all answered in detail.
--- NOTE | 2019-10-18 21:09 | CON ---
DATE OF CONSULTATION: 10/18/2019 INDICATION FOR CONSULTATION: A 44-year-old morbidly obese female, who complains of chest pain. HISTORY OF PRESENT ILLNESS: This very unfortunate 44-year-old morbidly obese female, who has weighed over 500 pounds apparently at times, had lost some weight, was seen [place] [address] Valenzuela due to chest pain, which she apparently had several different admissions for. At that time, she eventually had lost some over 100 pounds and was able to undergo a stress test and then she underwent a cardiac catheterization in April 2018. At that time, the cardiac catheterization revealed no evidence of coronary artery disease. 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 Otherwise, she had no other significant problems, the ejection fraction was 60%. She had no evidence of aortic stenosis. Apparently, she was at home yesterday when she noticed that she had some chest pain, which went to the left shoulder. She also had a headache. She took NTG and did not have any relief. She decided to call 911. She was brought to the emergency room. She was given more nitroglycerin without much relief. She was then given a 2nd nitroglycerin actually since she arrived on the floor here. In the emergency room, the nitroglycerin paste was placed and apparently she did get some relief, but the chest pain came back while she was in the elevator around the way to the telemetry floor. At that time, she was given more nitroglycerin and the pain has resolved. She has not had any further episodes of chest pain. She denies any EKG changes. Cardiac enzymes are unremarkable. Unfortunately, she has regained her weight. She is now 468 pounds. She is disabled due to her hips most likely secondary to her being morbidly obese. The entire chest pain episode lasted about an hour and a half. Apparently, no indication that she has any underlying coronary artery disease with a negative stress test and a negative cardiac catheterization in April of 2018. It is highly unlikely that she would develop any significant coronary artery disease. In view of the fact that she has had no EKG changes and enzymes are negative, I do not feel that this is cardiac in nature. However, she did have hypertension, which may be due to anxiety and the pain. Blood pressure at one time was 182/105 on admission here earlier, now down to 132/81. She is normally at home and the blood pressure is under good control. PAST MEDICAL HISTORY: Significant for some arthritis, morbidly obese, history of chest pain, which is noncardiac in nature. She has type 2 diabetes, which has been under relatively good control. Apparently, she has sleep apnea. ALLERGIES: NONE. MEDICATIONS: Prior to admission included: 1. Fish oil. 2. Ferrous sulfate. 3. Coreg 3.125 mg twice daily. 4. Celexa. 5. Flexeril. 6. Multivitamins. 7. Vitamin D3. 8. Lasix 40 mg daily. 9. Vitamin B12. 10. Aspirin 325 mg tablet. She takes 81 mg daily. 11. Relafen. 12. Zestril 2.5 mg half a tablet daily. 13. Omeprazole. 14. Zinc. 15. Buspirone. 16. Tramadol. REVIEW OF SYSTEMS: A 12-point review of systems is relatively unremarkable except for she does have a history of gastroesophageal reflux disease. She also complained of problems with ambulation and pain due to the hip problems and also left shoulder pain. She has difficulty in walking due to the pain in her hips and she says that she has noticed some left arm edema for about a couple months now. It is hard to determine whether this is edema or actually just more obesity. FAMILY HISTORY: Noncontributory. PHYSICAL EXAMINATION: GENERAL: Reveals a morbidly obese female weighing 468 pounds, blood pressure is 132/81, heart rate is 91, shows a sinus rhythm, respiratory rate 15, she is afebrile. HEENT: Unremarkable. Carotid pulses are present without bruits. CHEST: Clear to auscultation. There are no rales, rhonchi, or wheezing. CARDIOVASCULAR: Reveals a regular rate and rhythm. No significant murmurs were noted. ABDOMEN: Unable to actually evaluate, but cannot elicit any tenderness. EXTREMITIES: Show morbid obesity, but no significant stenosis. No significant edema was noted. Pedal pulses were present. NEUROLOGIC: She was grossly intact. LABORATORY DATA: Shows a WBC of 8.1, hemoglobin 12.3, platelet count 238,000. Sodium was 140, potassium 4.2, BUN was 8, creatinine 1.24. Blood sugar was 108. BNP was 22.6, and all three sets of troponins were negative. DIAGNOSTIC STUDIES: EKG shows a normal sinus rhythm with decreased R-wave progression in V1 through V3, but no Q-waves were noted. There is no indication she has had a myocardial infarction in the past. IMPRESSION: 1. Morbidly obese female with hypertension, episode of chest pain radiating to the left shoulder, which is noncardiac in nature. Highly unlikely this is cardiac due to her negative cardiac catheterization just a little over a year ago and negative cardiac enzymes x3 and no EKG changes. At this time, I would we just continue to monitor her and most likely discharge the patient home later today or tomorrow, if she has no further events. She can follow up with Dr. Valenzuela as an outpatient. I believe she has been seeing him in the clinic. History of morbid obesity. I did discuss briefly with the patient that she may need to consider a gastric bypass procedure in order to lose some of this weight, otherwise, eventually she is not going to be able to do any kind of activity. She says she does exercise some now, but obviously she is overeating, if she is doing any kind of exercise. 2. Borderline or mild diabetes. She is not on any medications for diabetes. Assume that this is just diet control. Perhaps there is no history actually that she did have diabetes and this might have just been inadvertently in her records. 3. Hypertension, this obviously is somewhat fluctuant, but she may have anxiety, which may have caused the blood pressure to shoot up, but now it is under much better control. At this time, no further cardiac workup is indicated. She is too obese and heavy for a stress test or cardiac catheterization again at this time anyway, but with the normal catheterization a year ago, it is highly unlikely that this is cardiac in nature. Job ID: [id number] MTDD
[2019-10-19 04:40] LABS: #Eosinphils 0.3 thou/uL (0.0-0.7); #Monocytes 0.4 thou/uL (0.11-0.59); %Basophils 0.5 % (0.0-1.0); %Eosinophils 4.3 % (0.0-10.0); %Lymphocytes 29.9 % (21.0-51.0); %Monocytes 6.3 % (0.0-10.0); Mean Corpuscular HGB CONC 30.3 g/dL (32.0-36.0); Mean Corpuscular Hemoglobin 27.8 pg (27.0-31.0); Mean Corpuscular Volume 91.8 fL (78.0-98.0); Mean Platelet Volume 8.6 fL (7.4-10.4); Platelet Count 216 thou/uL (130-400); RBC Distribution Width 14.2 % (11.5-14.5); White Blood Cell (WBC) Count 6.7 thou/uL (4.8-10.8)
[2019-10-19 05:06] LABS: Anion Gap 13 mmol/L (10-20); BUN (Urea Nitrogen) 13 mg/dL (7.0-18.7); Calc. Creatinine Clearance 181 mL/min (70-130); Calcium 9.5 mg/dL (7.8-10.44); Carbon Dioxide 31 mmol/L (22-29); Chloride 99 mmol/L (98-107); Estimated GFR-MDRD 54; Glucose 98 mg/dL (70-105); Magnesium 1.7 mg/dL (1.6-2.6); Potassium 4.5 mmol/L (3.5-5.1); Sodium 138 mmol/L (136-145)
[2019-10-19] MEDS: Furosemide 40 MG/4 ML VIAL SLOW IVP SCH ×2 (05:37→13:28)
[2019-10-19] MEDS: Acetaminophen 500 MG TAB PO PRN (06:20)
[2019-10-19] MEDS: Cyanocobalamin (Vitamin B-12) 1,000 MCG TAB PO SCH (08:32)
[2019-10-19] MEDS: Lisinopril 2.5 MG TAB PO SCH (08:32)
[2019-10-19] MEDS: Ferrous Sulfate 325 MG TAB PO SCH (08:32)
[2019-10-19] MEDS: Famotidine 20 MG TAB PO SCH ×2 (08:32→20:37)
[2019-10-19] MEDS: Aspirin 81 mg Enteric Coated Tablet PO SCH (08:32)
[2019-10-19] MEDS: Carvedilol 3.125 MG TAB PO SCH ×2 (08:33→17:48)
[2019-10-19] MEDS: Ondansetron ODT 4 MG TAB PO PRN (11:30)
[2019-10-19 14:11] VITALS: BMI 79.5
--- NOTE | 2019-10-19 17:28 | PDOC.HOSPP ---
- Subjective Subjective: Seen and examined. Shortness of breath persists. She desaturated off oxygen when ambulating to the restroom. Will add a CT angiography of the chest to rule out pulmonary embolism, other acute pathology that may explain shortness of breath. She has been afebrile. She is not coughing. There is no mucus production. She denies any other sick type symptoms. Cardiology recommending no further workup. Patient may require supplemental oxygen to go home. - Objective Vital Signs & Weight: Vital Signs (12 hours) Temp Pulse Pulse Pulse Resp BP BP 10/19/19 15:53 98.2 F 113 H 18 10/19/19 15:14 116 H 126 H 104/63 114/73 10/19/19 12:23 98.7 F 98 16 10/19/19 07:20 99.9 F H 92 18 BP Pulse Ox 10/19/19 15:53 114/64 10/19/19 15:14 10/19/19 12:23 133/68 10/19/19 07:20 119/55 L 94 L Weight Admit Weight 468 lb Weight 463 lb 9.6 oz I&O: 10/18/19 10/19/19 10/20/19 06:59 06:59 06:59 Intake Total 960 Output Total 1350 Balance -390 Result Diagrams: 10/19/19 04:16 10/19/19 04:16 Radiology Reviewed by me: Yes Hospitalist ROS - Review of Systems All other systems reviewed; all pertinent +/- noted in HPI/Subj - Medication Medications: Active Medications Generic Name Dose Route Start Last Admin Trade Name Freq PRN Reason Stop Dose Admin Acetaminophen 1,000 mg 10/18/19 05:45 10/19/19 06:20 Tylenol PO 1,000 mg Q6H PRN Administration Mild Pain (1-3) Aspirin 81 mg 10/18/19 09:00 10/19/19 08:32 Ecotrin PO 81 mg DAILY MAKENZIE Administration Carvedilol 3.125 mg 10/18/19 08:00 10/19/19 08:33 Coreg PO 3.125 mg BID-WM MAKENZIE Administration Cyanocobalamin 5,000 mcg 10/18/19 09:00 10/19/19 08:32 Vitamin B-12 PO 5,000 mcg DAILY MAKENZIE Administration Famotidine 20 mg 10/18/19 09:00 10/19/19 08:32 Pepcid PO 20 mg BID MAKENZIE Administration Ferrous Sulfate 325 mg 10/18/19 08:00 10/19/19 08:32 Feosol PO 325 mg QAM-WM MAKENZIE Administration Furosemide 40 mg 10/18/19 06:00 10/19/19 13:28 Lasix SLOW IVP 40 mg 0600,1400 MAKENZIE Administration Lisinopril 1.25 mg 10/18/19 09:00 10/19/19 08:32 Zestril PO 1.25 mg DAILY MAKENZIE Administration Metoclopramide HCl 10 mg 10/18/19 12:11 10/18/19 12:25 Reglan IVP 10 mg Q6H PRN Administration Nausea/Vomiting Nitroglycerin 0.4 mg 10/18/19 19:10 10/18/19 09:17 Nitrostat SL 0.4 mg Q5MIN PRN Administration Chest Pain Ondansetron HCl 4 mg 10/18/19 05:45 10/19/19 11:30 Zofran Odt PO 4 mg Q6H PRN Administration Nausea/Vomiting Sodium Chloride 10 ml 10/18/19 09:00 10/19/19 08:33 Flush - Normal Saline IVF 10 ml Q12HR MAKENZIE Administration - Exam General Appearance: NAD, awake alert General - other findings: Morbid obesity Eye: PERRL ENT: normocephalic atraumatic, moist mucosa Neck: supple, symmetric, no lymphadenopathy Heart: RRR, no murmur, no gallops, no rubs Respiratory: CTAB, no wheezes, no rales, no ronchi, normal chest expansion Gastrointestinal: soft, non-tender, no guarding, no rigidity Extremities: no edema Skin: no lesions, no rashes Neurological: cranial nerve grossly intact, no focal deficits Musculoskeletal: generalized weakness Psychiatric: normal affect, normal behavior, A&O x 3 Hosp A/P (1) Shortness of breath Code(s): R06.02 - SHORTNESS OF BREATH Status: Acute (2) Hypoxemia Code(s): R09.02 - HYPOXEMIA Status: Acute (3) Chest pain Code(s): R07.9 - CHEST PAIN, UNSPECIFIED Status: Acute (4) Anxiety and depression Code(s): F41.9 - ANXIETY DISORDER, UNSPECIFIED; F32.9 - MAJOR DEPRESSIVE DISORDER, SINGLE EPISODE, UNSPECIFIED Status: Chronic (5) DM II (diabetes mellitus, type II), controlled Code(s): E11.9 - TYPE 2 DIABETES MELLITUS WITHOUT COMPLICATIONS Status: Chronic Qualifiers: Diabetes mellitus [facility] insulin use: without ocean transportation intermediary use Diabetes mellitus complication status: with other specified complication Qualified Code (s): E11.69 - Type 2 diabetes mellitus with other specified complication (6) HTN (hypertension) Code(s): I10 - ESSENTIAL (PRIMARY) HYPERTENSION Status: Chronic Qualifiers: Hypertension type: essential hypertension Qualified Code(s): I10 - Essential (primary) hypertension (7) Morbid (severe) obesity due to excess calories Code(s): E66.01 - MORBID (SEVERE) OBESITY DUE TO EXCESS CALORIES Status: Chronic - Plan Plan: medical unit with telemetry cardiology consultation, recommendations appreciated add CT angiography of the chest to rule out pulmonary embolism/ other acute pathology to explain hypoxia patient desaturated 82% on room air when ambulating a very short distance to the bathroom no further cardiac workup recommended while inpatient per cardiology negative cardiac catheterization roughly one year ago by Dr. Valenzuela continue home medications is able blood pressure control blood sugar control GI prophylaxis DVT prophylaxis
--- NOTE | 2019-10-19 17:36 | PDOC.CPN ---
- Subjective Date: 10/19/19 Time: 17:33 Interval history: She is doing well. No new issues. No more chest pain. - Review of Systems General: denies: fever/chills, weight/appetite/sleep changes, night sweats, fatigue Respiratory: denies: cough, congestion, shortness of breath, exercise intolerance Cardiovascular: denies: chest pain, palpitation, edema, paroxysmal nocturnal dyspnea, orthopnea Gastrointestinal: denies: nausea, vomiting, diarrhea, constipation, abd pain, GI bleeding Musculoskeletal: denies: pain, tenderness, stiffness, swelling, arthritis/ arthralgias Neurological: denies: numbness, syncope, seizure, weakness - Objective Allergies/Adverse Reactions: Allergies Allergy/AdvReac Type Severity Reaction Status Date / Time No Known Allergies Allergy Verified 04/23/18 19:48 Visit Medications: Current Medications Acetaminophen (Tylenol) 1,000 mg PO Q6H PRN PRN Reason: Mild Pain (1-3) Last Admin: 10/19/19 06:20 Dose: 1,000 mg Aspirin (Ecotrin) 81 mg PO DAILY [facility] Last Admin: 10/19/19 08:32 Dose: 81 mg Carvedilol (Coreg) 3.125 mg PO BID-[facility] Last Admin: 10/19/19 08:33 Dose: 3.125 mg Cyanocobalamin (Vitamin B-12) 5,000 mcg PO DAILY [facility] Last Admin: 10/19/19 08:32 Dose: 5,000 mcg Famotidine (Pepcid) 20 mg PO BID [facility] Last Admin: 10/19/19 08:32 Dose: 20 mg Ferrous Sulfate (Feosol) 325 mg PO QA-[facility] Last Admin: 10/19/19 08:32 Dose: 325 mg Furosemide (Lasix) 40 mg SLOW IVP 0600,1400 [facility] Last Admin: 10/19/19 13:28 Dose: 40 mg Hydralazine HCl (Apresoline) 10 mg SLOW IVP Q4H PRN PRN Reason: SBP > 180 and HR < 70 Lisinopril (Zestril) 1.25 mg PO DAILY [facility] Last Admin: 10/19/19 08:32 Dose: 1.25 mg Metoclopramide HCl (Reglan) 10 mg IVP Q6H PRN PRN Reason: Nausea/Vomiting Last Admin: 10/18/19 12:25 Dose: 10 mg Nitroglycerin (Nitrostat) 0.4 mg SL Q5MIN PRN PRN Reason: Chest Pain Last Admin: 10/18/19 09:17 Dose: 0.4 mg Ondansetron HCl (Zofran Odt) 4 mg PO Q6H PRN PRN Reason: Nausea/Vomiting Last Admin: 10/19/19 11:30 Dose: 4 mg Ondansetron HCl (Zofran) 4 mg IVP Q6H PRN PRN Reason: Nausea/Vomiting Sodium Chloride (Flush - Normal Saline) 10 ml IVF Q12HR MAKENZIE Last Admin: 10/19/19 08:33 Dose: 10 ml Sodium Chloride (Flush - Normal Saline) 10 ml IVF PRN PRN PRN Reason: Saline Flush Vital Signs & Weight: Vital Signs Temp Pulse Pulse Pulse Resp BP BP 10/19/19 15:53 98.2 F 113 H 18 10/19/19 15:14 116 H 126 H 104/63 114/73 10/19/19 12:23 98.7 F 98 16 10/19/19 07:20 99.9 F H 92 18 BP Pulse Ox 10/19/19 15:53 114/64 10/19/19 15:14 10/19/19 12:23 133/68 10/19/19 07:20 119/55 L 94 L Admit Weight 468 lb Weight 463 lb 9.6 oz - Physical Exam General: alert & oriented x3 HEENT: mucus membranes moist Neck: supple neck Cardiac: regular rate and rhythm Lungs: clear to auscultation Neuro: grossly intact Abdomen: active bowel sounds Extremities: no edema Skin: clear Musculoskeletal: no pain - Labs Result Diagrams: 10/19/19 04:16 10/19/19 04:16 Troponin/CKMB Troponin I 0.026 ng/mL (< 0.028) 10/18/19 00:53 - Telemetry Sinus rhythms and dysrhythmias: sinus rhythm - Assessment/Plan Assessment/Plan: 1. Chest pain, non cardiac. 2. Morbid obesity 3. HTN PLAN: - BPO well controlled - Continue current meds. - Consider Bariatric surgery as outpatient for weight management. She would see Dr. Mae if she were to decide to proceed. WShe wants to talk to her family first. - She may be discharged home at any time. - Will sign off. Please call with any questions.
[2019-10-19] MEDS: Nitroglycerin 0.4 MG TAB (25 Tab Bottle) SL PRN ×2 (17:47→17:55)
[2019-10-19] MEDS ORDERED: Morphine 2 MG/ML VIAL SLOW IVP PRN (18:04)
[2019-10-20] MEDS: Furosemide 40 MG/4 ML VIAL SLOW IVP SCH ×2 (05:34→14:32)
[2019-10-20] MEDS: Ferrous Sulfate 325 MG TAB PO SCH (08:11)
[2019-10-20] MEDS: Aspirin 81 mg Enteric Coated Tablet PO SCH (08:11)
[2019-10-20] MEDS: Famotidine 20 MG TAB PO SCH ×2 (08:11→20:19)
[2019-10-20] MEDS: Lisinopril 2.5 MG TAB PO SCH (08:11)
[2019-10-20] MEDS: Carvedilol 3.125 MG TAB PO SCH ×2 (08:11→17:12)
[2019-10-20] MEDS: Cyanocobalamin (Vitamin B-12) 1,000 MCG TAB PO SCH (08:11)
--- NOTE | 2019-10-20 13:13 | PDOC.HOSPP ---
- Subjective Subjective: Seen and examined. We need some sort of imaging to eval for pulmonary pathology that would cause patients shortness of breath with hypoxia with ambulation. CTA chest has been order, though her size is too large to fit in our machine. NM Ventilation perfusion study ordered, though her size again makes this not possible. Case management/ administration to help find a solution to this. No new complaints. Not on oxygen this AM at rest, desaturation with minimal movement. - Objective Vital Signs & Weight: Vital Signs (12 hours) Temp Pulse Pulse Resp BP BP Pulse Ox 10/20/19 12:00 99 F 105 H 20 131/73 92 L 10/20/19 09:16 103 H 112/64 10/20/19 04:26 98.5 F 103 H 20 119/75 92 L Weight Admit Weight 468 lb Weight 460 lb 3.2 oz I&O: 10/19/19 10/20/19 10/21/19 06:59 06:59 06:59 Intake Total 960 1760 Output Total 1350 3950 Balance -390 -2190 Result Diagrams: 10/19/19 04:16 10/19/19 04:16 Radiology Reviewed by me: Yes Hospitalist ROS - Review of Systems All other systems reviewed; all pertinent +/- noted in HPI/Subj - Medication Medications: Active Medications Generic Name Dose Route Start Last Admin Trade Name Freq PRN Reason Stop Dose Admin Acetaminophen 1,000 mg 10/18/19 05:45 10/19/19 06:20 Tylenol PO 1,000 mg Q6H PRN Administration Mild Pain (1-3) Aspirin 81 mg 10/18/19 09:00 10/20/19 08:11 Ecotrin PO 81 mg DAILY MAKENZIE Administration Carvedilol 3.125 mg 10/18/19 08:00 10/20/19 08:11 Coreg PO 3.125 mg BID-WM MAKENZIE Administration Cyanocobalamin 5,000 mcg 10/18/19 09:00 10/20/19 08:11 Vitamin B-12 PO 5,000 mcg DAILY MAKENZIE Administration Famotidine 20 mg 10/18/19 09:00 10/20/19 08:11 Pepcid PO 20 mg BID MAKENZIE Administration Ferrous Sulfate 325 mg 10/18/19 08:00 10/20/19 08:11 Feosol PO 325 mg QAM-WM MAKENZIE Administration Furosemide 40 mg 10/18/19 06:00 10/20/19 05:34 Lasix SLOW IVP 40 mg 0600,1400 MAKENZIE Administration Lisinopril 1.25 mg 10/18/19 09:00 10/20/19 08:11 Zestril PO 1.25 mg DAILY MAKENZIE Administration Metoclopramide HCl 10 mg 10/18/19 12:11 10/18/19 12:25 Reglan IVP 10 mg Q6H PRN Administration Nausea/Vomiting Morphine Sulfate 2 mg 10/19/19 18:04 10/19/19 18:14 Morphine SLOW IVP 2 mg Q4H PRN Administration Moderate to Severe Pain (6-10) Nitroglycerin 0.4 mg 10/18/19 19:10 10/19/19 17:55 Nitrostat SL 0.4 mg Q5MIN PRN Administration Chest Pain Ondansetron HCl 4 mg 10/18/19 05:45 10/19/19 11:30 Zofran Odt PO 4 mg Q6H PRN Administration Nausea/Vomiting Sodium Chloride 10 ml 10/18/19 09:00 10/20/19 08:12 Flush - Normal Saline IVF 10 ml Q12HR MAKENZIE Administration Sodium Chloride 10 ml 10/18/19 06:14 10/20/19 05:34 Flush - Normal Saline IVF 10 ml PRN PRN Administration Saline Flush - Exam General Appearance: NAD, awake alert Eye: PERRL ENT: normocephalic atraumatic, moist mucosa Neck: supple, symmetric, no lymphadenopathy Heart: no murmur, no gallops, no rubs Respiratory: CTAB, no wheezes, no rales, no ronchi Respiratory - other findings: faint breath sounds secondary to body habitus. Gastrointestinal: soft, non-tender, no guarding, no rigidity Gastrointestinal - other findings: morbid obesity Extremities: 1+ LE edema Skin: no lesions, no rashes Neurological: cranial nerve grossly intact, no focal deficits Musculoskeletal: no muscle wasting Psychiatric: normal affect, A&O x 3 Hosp A/P (1) Shortness of breath Code(s): R06.02 - SHORTNESS OF BREATH Status: Acute (2) Hypoxemia Code(s): R09.02 - HYPOXEMIA Status: Acute (3) Chest pain Code(s): R07.9 - CHEST PAIN, UNSPECIFIED Status: Acute (4) Anxiety and depression Code(s): F41.9 - ANXIETY DISORDER, UNSPECIFIED; F32.9 - MAJOR DEPRESSIVE DISORDER, SINGLE EPISODE, UNSPECIFIED Status: Chronic (5) DM II (diabetes mellitus, type II), controlled Code(s): E11.9 - TYPE 2 DIABETES MELLITUS WITHOUT COMPLICATIONS Status: Chronic Qualifiers: Diabetes mellitus snf insulin use: without superintendent [employer] use Diabetes mellitus complication status: with other specified complication Qualified Code (s): E11.69 - Type 2 diabetes mellitus with other specified complication (6) HTN (hypertension) Code(s): I10 - ESSENTIAL (PRIMARY) HYPERTENSION Status: Chronic Qualifiers: Hypertension type: essential hypertension Qualified Code(s): I10 - Essential (primary) hypertension (7) Morbid (severe) obesity due to excess calories Code(s): E66.01 - MORBID (SEVERE) OBESITY DUE TO EXCESS CALORIES Status: Chronic - Plan Plan: medical unit with telemetry cardiology consultation, recommendations appreciated add CT angiography of the chest to rule out pulmonary embolism/ other acute pathology to explain hypoxia - this may need to be done at an outside facility NM Ventilation/ perfusion study not possible secondary to patient size/ weight patient desaturated 82% on room air when ambulating a very short distance to the bathroom no further cardiac workup recommended while inpatient per cardiology negative cardiac catheterization roughly one year ago by Dr. Valenzuela continue home medications is able blood pressure control blood sugar control GI prophylaxis DVT prophylaxis
--- NOTE | 2019-10-20 18:40 | ULT ---
BILATERAL LOWER EXTREMITY VENOUS DOPPLER 10/20/19 PROVIDED CLINICAL HISTORY: Evidence for DVT. FINDINGS: Stephenson scale and color Doppler sonography with spectral analysis was performed of the bilateral common femoral, femoral, popliteal, posterior tibial, greater saphenous, and profunda femoral veins bil[place] llindira. The mid to distal femoral and mid to distal posterior tibial veins were not visualized bilaterally du e to patient body habitus and patient inability to cooperate with the examination. IMPRESSION: No sonographic evidence for lower extremity deep venous thrombosis with limitations as described. POS: ZURDO
[2019-10-20] MEDS: Acetaminophen 500 MG TAB PO PRN (23:02)
[2019-10-21] MEDS: Furosemide 40 MG/4 ML VIAL SLOW IVP SCH ×2 (06:09→15:31)
[2019-10-21] MEDS ORDERED: Enoxaparin Sodium 120 MG/0.8 ML SYRINGE SC SCH (09:00)
[2019-10-21] MEDS ORDERED: Heparin 25,000 units/D5W 500 ML IV SCH (09:15)
[2019-10-21] MEDS ORDERED: Heparin 10,000 UNITS/ 10 ML VIAL SLOW IVP SCH (09:15)
[2019-10-21] MEDS: Aspirin 81 mg Enteric Coated Tablet PO SCH (09:38)
[2019-10-21] MEDS: Lisinopril 2.5 MG TAB PO SCH (09:38)
[2019-10-21] MEDS: Famotidine 20 MG TAB PO SCH (09:39)
[2019-10-21] MEDS: Carvedilol 3.125 MG TAB PO SCH (09:40)
[2019-10-21] MEDS: Cyanocobalamin (Vitamin B-12) 1,000 MCG TAB PO SCH (09:40)
[2019-10-21] MEDS: Ferrous Sulfate 325 MG TAB PO SCH (09:41)
--- NOTE | 2019-10-21 10:34 | CT ---
CT angiogram chest with IV contrast and 3-D imaging HISTORY: Dyspnea. FINDINGS: There is good contrast opacification of the central pulmonary arteries. Soft tissue attenua tion significantly degrades image quality of the mid to peripheral pulmonary arteries. No secondary findings of significant pulmonary embolus evident. No pleural fluid or pneumothorax. No mediastinal adenopathy. IMPRESSION : No CT evidence of pulmonary embolus.
[2019-10-21 11:54] VITALS: BP 123/62; TEMP 98.5
--- NOTE | 2019-10-21 22:21 | DIS ---
DATE OF ADMISSION: 10/17/2019 DATE OF DISCHARGE: 10/21/2019 REASON FOR HOSPITALIZATION: Shortness of breath and chest pain. SIGNIFICANT FINDINGS: The patient was found to have no acute cardiothoracic pathology. PROCEDURES PERFORMED AND TREATMENTS RENDERED: Ms. Moncada is a pleasant 44-year-old female who presented to [facility] on 10/18/2019, please see full history and physical and notes from emergency department physician for full details. The patient was complaining of chest pain and shortness of breath, and for this, a cardiology consultation was requested, please see full consultation notes and progress notes for details. The patient has been evaluated in our hospital before and had a cardiac catheterization roughly one year ago by Dr. Valenzuela. Please see full cardiac catheterization report from medical records for full details. Cardiology recommending no further acute workup on her heart, and states that the likelihood of her developing coronary artery disease with a negative cardiac catheterization in such a short time is very unlikely. For this other cardiopulmonary pathology was considered. I considered that the patient might have had a pulmonary infection causing her symptoms, a chest x-ray was performed on admission and this did not demonstrate any focal pneumonia or other acute infectious process. The patient was having serial laboratory examinations. She was demonstrated to have a normal white blood cell count. The patient was afebrile throughout her hospitalization. Plus clinically, the patient had no infectious picture that would explain her symptoms. The patient had mild tachycardia and a mildly elevated D-dimer; for this, I recommended that the patient have a CT angiography of the chest. This was problematic secondary to the patient's weight which was documented at 458 pounds on admission. The patient's weight limited the ability of us to put her through the CT scan machines per Radiology, and despite me ordering a CT angiography of the chest twice, this test was canceled out by the radiologist and refused. Efforts were made by myself and Case Management in addition to the transfer center, and the patient's nurse to find a facility that would be able to accept the patient of this size and perform a CT scan. Local hospitals and distant hospitals in the [place] area all declined transfer of this patient. Cardiology helping placing the patient on IV Lasix for volume overload, and this might be a cause of her shortness of breath even though was not demonstrated with overt congestive heart failure on chest x-ray, it is possible. The patient's weight down trended to 440 pounds on 10/21/2019, and efforts were made again with our radiology department, and they stated that this would allow her to go through the CT scan machine, which has a weight limit of 450 pounds. The patient dropping roughly 18 pounds of fluid throughout her hospitalization with IV Lasix. The patient underwent CT angiography of the chest, please see full report for details, there was no CT evidence of pulmonary embolism or other acute cardiothoracic pathology. The patient was then ambulated on room air, and she did not desaturate lower than 91%. The patient has had a good response to medical therapy, and she was recommended safe for discharge home with close followup in the outpatient setting. The patient worked with Physical Therapy, who recommended that she would benefit from home health care, and this was set up prior to discharge. CONDITION ON DISCHARGE: Stable. SPECIFIC INSTRUCTIONS FOR THE PATIENT/FAMILY: 1. The patient is recommended to take all medications as directed. 2. The patient is recommended to follow up with primary care physician in the next 5 to 7 days. 3. The patient is recommended to follow up with Cardiology in the next 1 to 2 weeks. 4. The patient is recommended to follow up with bariatric surgeon for consultation on possible weight loss surgery. 5. The patient is recommended to follow all directions above explicitly or she is recommended to return to acute care hospital immediately for re-evaluation if she is unable to follow these directions. 6. The patient is recommended to return to acute care hospital immediately if signs or symptoms return, worsen, or any other new symptoms occur. DISCHARGE MEDICATIONS: Please see full discharge medication list for details, no changes were made. TIME SPENT: Greater than 40 minutes spent coordinating care and discharge process for this patient. Job ID: [id number]
== END 2019-10-21 17:02 | disposition home health service (06) | DRG 641 ==
LOC: ERS 18:06 → ERHOLD 20:24 → 2NO 10-18 09:11
PROVIDERS: ADMIT Internal Medicine; ATTEND Internal Medicine
DX: E87.70 Fluid overload, unspecified (principal); N17.9 Acute kidney failure, unspecified; I50.32 Chronic diastolic (congestive) heart failure; I13.0 Hypertensive heart and chronic kidney disease with heart failure and stage 1 through stage 4 chronic kidney disease, or unspecified chronic kidney disease; Z68.45 Body mass index [BMI] 70 or greater, adult; E78.5 Hyperlipidemia, unspecified; E66.01 Morbid (severe) obesity due to excess calories; M19.90 Unspecified osteoarthritis, unspecified site; G89.29 Other chronic pain; F41.9 Anxiety disorder, unspecified; F32.9 Major depressive disorder, single episode, unspecified; I16.0 Hypertensive urgency; N18.9 Chronic kidney disease, unspecified; G47.30 Sleep apnea, unspecified; E11.69 Type 2 diabetes mellitus with other specified complication; E11.22 Type 2 diabetes mellitus with diabetic chronic kidney disease; R07.89 Other chest pain; Z53.8 Procedure and treatment not carried out for other reasons; R11.0 Nausea; Z79.82 Long term (current) use of aspirin
CPT/HCPCS: 36415; 71045; 71275; 80048; 80053; 81003; 81015; 82550; 83690; 83735; 83880; 84443; 84484; 85025; 85379; 85730; 93005; 93010; 93306; 93970; 96374; 96375; J1644; J1885; J1940; J2270; J2765; Q0162

== ENCOUNTER 2020-04-30 05:56 | Inpatient (IN) | payer MEDICARE, MEDICAID ==
[2020-04-30 07:56] LABS: Troponin I 0.015 ng/mL (< 0.028)
[2020-04-30] MEDS ORDERED: Acetaminophen 650 MG Suppository PR PRN (08:03)
--- NOTE | 2020-04-30 08:22 | RAD ---
Portable frontal chest radiograph: 04/30/2020 COMPARISON: 04/30/2020 HISTORY: Short of breath FINDINGS: Body habitus limits detailed assessment. Cardiac silhouette is markedly prominent. No obvio us pneumothorax. Increased density in the left base may signify left basilar consolidation/collapse and/or attenuation associated with the enlarged cardiac silhouette. IMPRESSION: Technically limited study secondary to body habitus. Cardiac silhouette is enlarged. Incr eased density in the left base is noted, nonspecific.
--- NOTE | 2020-04-30 08:25 | PDOC.HHP ---
Hospitalist SOLOMON JONES History of Present Illness: Ms. Rose is a 45-year-old female with a past medical history of HFrEF (EF in 2019 38%), morbid obesity with BMI approximately 70, hypertension, hyperlipidemia, anemia, arthritis, anxiety and depression who presents as a transfer from [facility] for worsening shortness of breath and dyspnea on exertion. Patient reports that over the past week she has had progressive shortness of breath and paroxysmal nocturnal dyspnea. She reports she is finding that she needs to sit completely upright in bed at night because of her breathing. She also feels that she has more fluid on her. Patient reports that when she retains fluid it mostly collects in her abdomen and in her breasts. She has also noted an increase in lower extremity swelling. Patient reports that she has been mostly compliant with her Lasix, however this has caused increased frequency and even incontinence sometimes so she does not take it as often as prescribed. She also reports some right-sided neck pain that she feels extends down into her shoulder. She denies chest pain, but does endorse an incr eased chest pressure. She denies any palpitations. Denies nausea vomiting diarrhea. Denies abdominal pain, numbness weakness paresthesias. In emergency room initial vital signs at [facility] 170/120, 103, 26, 88% on room air, 98.7. EKG showed normal sinus rhythm with no ST changes. Initial troponin less than 0.01. BNP 278, D-dimer 2.64, WBC 7.8, H/H 12.0/40.7, BUNs/CR 11/1.12, sodium 144, potassium 4.5. Patient was unable to undergo a CT a to rule out PE due to body habitus. Of note she does have a history of a chronically elevated D-dimer, and approximately 1 year ago when the patient was approximately 100 pounds less she did undergo a CT a which was negative for PE. At outside hospital patient received 40 mg of IV Lasix, aspirin, Nitropaste. Transferred to [facility] in [place]. Allergies/Adverse Reactions: Allergy/AdvReac Type Severity Reaction Status Date / Time No Known Allergies Allergy Verified 04/23/18 19:48 Home Medications: Medication Instructions Recorded Confirmed Type Ferrous Sulfate [Iron] 325 mg PO DAILY 05/07/17 10/18/19 History [place]-3 Fatty Acids/Fish Oil [Fish 1,000 mg PO BID 05/07/17 10/18/19 History Oil 1,000 mg Capsule] Carvedilol [Coreg] 3.125 mg PO BID-WM #30 tab 05/20/17 10/18/19 Rx Citalopram [CeleXA] 40 mg PO QAM 10/12/17 10/18/19 History Cholecalciferol (Vitamin D3) 5,000 unit PO DAILY 01/19/18 10/18/19 History [Vitamin D3] Cyclobenzaprine [Flexeril] 10 mg PO BID PRN 01/19/18 10/18/19 History Furosemide [Lasix] 40 mg PO QAM 01/19/18 10/18/19 History Multivitamin [Multi-Vitamin Daily] 1 tablet PO DAILY 01/19/18 10/18/19 History Aspirin 81 mg PO DAILY 04/23/18 10/18/19 History Cyanocobalamin (Vitamin B-12) 5,000 mcg PO DAILY 04/23/18 10/18/19 History [Vitamin B-12] Lisinopril [Zestril] 0.5 tab PO DAILY 05/19/18 10/18/19 History Nabumetone [Relafen] 500 mg PO BID 05/19/18 10/18/19 History Omeprazole 20 mg PO DAILY 05/19/18 10/18/19 History Zinc 50 mg PO DAILY 03/13/19 10/18/19 History busPIRone HCl [Buspirone HCl] 15 mg PO BID 10/18/19 10/18/19 History traMADol HCl [Tramadol HCl] 50 mg PO BID PRN 10/18/19 10/18/19 History Past History: PMHx: HFrEF EF 38% in 2019, hypertension, hyperlipidemia, anemia, arthritis, morbid obesity, anxiety and depression PSHx: Patient underwent cardiac cath in 2019 which showed normal coronary arteries. Left hip surgery debridement x2, right hip surgery FHx: Family history of type 2 diabetes, cardiac disease. Social: Denies smoking, alcohol or drug use. Lives at home with family. Hospitalist SOLOMON HAQUE Constitutional: denies: fever, chills, sweats, weakness, malaise, other Eyes: denies: pain, vision change, conjunctivae inflammation, eyelid inflammation, redness, other ENT: denies: ear pain, ear discharge, nose pain, nose discharge, nose congestion, mouth pain, mouth swelling, throat pain, throat swelling, other Respiratory: reports: shortness of breath, SOB with excertion. denies: cough, dry, hemoptysis, pleuritic pain, sputum, wheezing, other Cardiovascular: reports: orthopnea, paroxysmal noc. dyspnea, edema. denies: chest pain, palpitations, light headedness, other Gastrointestinal: denies: nausea, vomiting, abdominal pain, diarrhea, constipation, melena, hematochezia, other Genitourinary: reports: frequency, incontinence. denies: dysuria, hematuria, retention, other Musculoskeletal: denies: neck pain, shoulder pain, arm pain, back pain, hand pain, leg pain, foot pain, other Skin: reports: lesions. denies: rash, jose, bruising, other Neurological: denies: weakness, numbness, incoordination, change in speech, confusion, seizures, other Hospitalist Exam General Appearance: NAD, awake alert General - other findings: Morbidly obese, breathing comfortably on 2 L nasal can nula Eye: PERRL, anicteric sclera ENT: normocephalic atraumatic, no oropharyngeal lesions, moist mucosa Neck: supple, symmetric, no thyromegaly, no lymphadenopathy, no carotid bruit Neck - other findings: No appreciable JVD, limited by body habitus Heart - other findings: Diminished heart sounds secondary to chest adiposity Respiratory: CTAB, no wheezes, no rales, no ronchi, normal chest expansion, no tachypnea, normal percussion Gastrointestinal: soft, non-tender, non-distended, normal bowel sounds, no palpable masses, no hepatomegaly, no splenomegaly, no bruit Extremities: no cyanosis, no clubbing, 2+ LE edema Skin: normal turgor Skin - other findings: Boil to left lower abdominal fold Neurological: cranial nerve grossly intact, normal sensation to touch, no weakness, no focal deficits, no new deficit Musculoskeletal: normal tone, normal strength, no muscle wasting Psychiatric: normal affect, normal behavior, A&O x 3 Hospitalist Results Lab results: Laboratory Last Values Troponin I 0.015 ng/mL (< 0.028) 04/30/20 07:16 Hospitalist H&P A/P Plan: Acute heart failure exacerbation HFrEF. Last echo done in August 2019, however nondiagnostic exam secondary to body habitus. Patient did undergo stress testing in 2019 when she was at a lower weight which showed an approximate EF of 38%. Patient presents with worsening shortness of breath on exertion, orthopnea, increased abdominal and lower extremity swelling and elevated BNP 278 (baseline 19) consistent with heart failure exacerbation. Chest x-ray at outside hospital also limited study due to body habitus. Low suspicion for any infectious processWBC 7.8, patient is afebrile. Patient now requiring 2 L nasal cannula to maintain oxygenation saturation. Patient received 40 mg of IV Lasix at outside hospital prior to transfer. She is on home Lasix 40 mg every morning. Patient reports noncompliance with her Lasix secondary to incontinence and increased frequency. We will continue diuresis as well as patient's goal-directed therapy. Plan IV Lasix 40 mg twice daily Continue home Coreg, lisinopril YESENIA, daily weights Supplemental oxygen as needed Heart failure clinic consulted Acute hypoxic respiratory failure Patient with acute hypoxic respiratory failure secondary to acute heart failure exacerbation. Patient with new oxygen requirement now on 2 L of oxygen nasal cannula to maintain O2 sat. patient also has component of obesity hypoventilation syndrome, and likely sleep apnea. We will continue supplemental oxygen and closely monitor respiratory status. Treatment as above. Plan -Supplemental oxygen -Treatment as above -Closely monitor respiratory status Hypertensive urgency Patient with hypertensive urgency at outside hospital BP 170/120. This has come down to 106/74 with Nitropaste. Suspect component of anxiety causing elevation in blood pressure. We will continue home lisinopril and treat blood pressure as needed. Plan Continue home lisinopril Chest pain Patient with atypical chest pain. Describes right neck pain radiating to shoul ana rosa. EKG normal sinus rhythm with no ischemic changes. Initial troponin less than 0.01. Likely secondary to muscle spasm versus acute heart failure exacerbation. Patient has undergone a cardiac catheterization in 2019 which showed a normal coronary arteries. We will continue to trend troponin and remain on telemetry monitoring. Plan Telemetry monitoring Trend troponin Aspirin Elevated D-dimer D-dimer elevated 2.64. On review of records patient's D-dimer chronically elevated. Likely secondary to morbid obesity. Patient's shortness of breath more likely attributed to to acute heart failure exacerbation. On 18 CT a PE protocol due to patient's body habitus. Will reconsider possibility of PE if patient's shortness of breath does not improve with diuresis. Plan Chronically elevated likely secondary to obesity Consider PE if shortness of breath does not improve Obesity hypoventilation syndrome Patient with morbid obesity, BMI approximately 70. Patient with obesity hypoventilation syndrome as well as sleep apnea. Patient does not wear CPAP machine at night, but does report that she frequently snores and that her family members will wake her up in the middle of the night concerned that she is not breathing. Will make CPAP machine available for patient at night, and recommend she follow-up with her primary care physician for further evaluation. Plan Supplemental oxygen as needed CPAP at night Follow-up with PCP Morbid obesity Patient with history of morbid obesity. BMI approximately 70. Patient has had success with weight loss a few years ago, but now most imaging is unavailable to her due to her body habitus. Encouraged patient to consider bariatric surgery to improve her quality of life and comorbidities. Will place referral to bariatric surgery on discharge. Hypertension Continue home antihypertensives. Hyperlipidemia Patient not on statin, however hyperlipidemia on records.. Will check lipid panel and start if needed. Anxiety and depression We will continue home medications once confirmed. DVT prophylaxis SQ heparin DNR -discussed with patient. She confirms that she does not want CPR or intubation. She reports that this is not the first time she was requested the status and has thought about this and discussed with her family members this decision. She has named her sister as her medical decision-maker. Case discussed with attending physician.
[2020-04-30] MEDS ORDERED: Aspirin Chewable 81 MG TAB ONE (09:33)
[2020-04-30] MEDS: Aspirin Chewable 81 MG TAB PO SCH (09:37)
[2020-04-30] MEDS: Heparin 5,000 UNITS/ML VIAL SC SCH ×3 (09:42→20:44)
[2020-04-30] MEDS: Lisinopril 2.5 MG TAB PO SCH (09:43)
[2020-04-30 09:51] LABS: Hemoglobin A1c 6.5 % (4.0-6.0)
[2020-04-30 10:01] LABS: Cardiac Risk 4.6 (Less than 4.5); Magnesium 1.8 mg/dL (1.6-2.6)
[2020-04-30 10:10] LABS: Troponin I 0.017 ng/mL (< 0.028)
[2020-04-30] MEDS ORDERED: Cyclobenzaprine 10 MG TAB PO PRN (12:53)
[2020-04-30] MEDS ORDERED: traMADol HCl 50 MG TAB ONE (13:53)
[2020-04-30] MEDS ORDERED: Furosemide 40 MG/4 ML VIAL ONE (13:53)
[2020-04-30] MEDS: traMADol HCl 50 MG TAB PO PRN (13:55)
[2020-04-30] MEDS: Furosemide 40 MG/4 ML VIAL SLOW IVP SCH (13:56)
[2020-04-30 16:19] LABS: SARS-CoV-2 PCR by NAA Not Detected (NotDetected)
[2020-04-30] MEDS: Carvedilol 3.125 MG TAB PO SCH (16:54)
[2020-04-30] MEDS: Fish Oil 1,000 MG CAP PO SCH (20:44)
[2020-04-30] MEDS: busPIRone HCl 5 MG TAB PO SCH (20:44)
[2020-04-30] MEDS ORDERED: BUSPIRONE HCL PO SCH (21:00)
[2020-04-30] MEDS ORDERED: Non-Formulary Item 1 EACH (Omega-3 Fatty Acids/Fish Oil [Fish Oil 1,000 Mg Capsule] 1 CAP PO SCH (21:00)
[2020-05-01 04:29] LABS: ALT (SGPT) 9 U/L (8-55); AST (SGOT) 18 U/L (5-34); Albumin 3.3 g/dL (3.5-5.0); Alkaline Phosphatase 87 U/L (40-110); Anion Gap 15 mmol/L (10-20); BUN (Urea Nitrogen) 11 mg/dL (7.0-18.7); Bilirubin, Total 0.6 mg/dL (0.2-1.2); Calc. Creatinine Clearance 0 mL/min (70-130); Calcium 8.8 mg/dL (7.8-10.44); Carbon Dioxide 24 mmol/L (22-29); Chloride 104 mmol/L (98-107); Globulin 3.6 g/dL (2.4-3.5); Glucose 103 mg/dL (70-105); Potassium 4.6 mmol/L (3.5-5.1); Protein, Total 6.9 g/dL (6.0-8.3); Sodium 138 mmol/L (136-145)
[2020-05-01 04:57] LABS: #Eosinphils 0.2 thou/uL (0.0-0.7); #Lymphocytes 1.4 thou/uL (1.20-3.40); #Monocytes 0.7 thou/uL (0.11-0.59); #Neutrophils 4.9 thou/uL (1.40-6.50); %Basophils 0.7 % (0.0-1.0); %Eosinophils 2.8 % (0.0-10.0); %Lymphocytes 19.1 % (21.0-51.0); %Monocytes 9.5 % (0.0-10.0); Hemoglobin 11.6 g/dL (12.0-16.0); Hypochromia SLIGHT = 6-15 cells (100X) (0-5/hpf); MDiff Complete? YES; Mean Corpuscular HGB CONC 28.9 g/dL (32.0-36.0); Mean Corpuscular Hemoglobin 25.2 pg (27.0-31.0); Mean Corpuscular Volume 86.9 fL (78.0-98.0); Platelet Count 247 thou/uL (130-400); RBC Distribution Width 15.6 % (11.5-14.5); Red Blood Cell (RBC) Count 4.62 mill/uL (4.20-5.40); White Blood Cell (WBC) Count 7.2 thou/uL (4.8-10.8)
[2020-05-01] MEDS: Furosemide 40 MG/4 ML VIAL SLOW IVP SCH (05:39)
[2020-05-01] MEDS ORDERED: Spironolactone 25 MG TAB PO SCH (08:30)
[2020-05-01] MEDS: Lisinopril 2.5 MG TAB PO SCH (08:41)
[2020-05-01] MEDS: Fish Oil 1,000 MG CAP PO SCH ×2 (08:41→20:27)
[2020-05-01] MEDS: Cyanocobalamin (Vitamin B-12) 1,000 MCG TAB PO SCH (08:43)
[2020-05-01] MEDS: Aspirin Chewable 81 MG TAB PO SCH (08:44)
[2020-05-01] MEDS: busPIRone HCl 5 MG TAB PO SCH ×2 (08:44→20:26)
[2020-05-01] MEDS: Carvedilol 3.125 MG TAB PO SCH ×2 (08:44→17:17)
[2020-05-01] MEDS: Citalopram 20 MG TAB PO SCH (08:45)
[2020-05-01] MEDS: Heparin 5,000 UNITS/ML VIAL SC SCH ×3 (08:45→20:27)
[2020-05-01] MEDS: Ferrous Sulfate 325 MG TAB PO SCH (08:47)
--- NOTE | 2020-05-01 08:58 | PDOC.HOSPP ---
- Subjective Encounter Date: 05/01/20 Encounter Time: 08:56 Subjective: No overnight events. Patient reports she continues to feel dyspnic and swollen. Denies chest pain, palpitations, or abdominal pain. Chart and medications reviewed. - Objective Vital Signs & Weight: Vital Signs (12 hours) Temp Pulse Resp BP Pulse Ox 05/01/20 08:55 99 05/01/20 04:00 98.9 F 104 H 21 H 168/86 H 99 05/01/20 00:47 94 L I&O: 04/30/20 05/01/20 05/02/20 06:59 06:59 06:59 Intake Total 730 Output Total 1500 Balance -770 Result Diagrams: 05/01/20 03:56 05/01/20 03:56 Additional Labs: Accuchecks 05/01/20 04/30/20 04/30/20 06:48 18:43 16:39 POC Glucose 120 H 67 L 59 L* Hospitalist ROS - Review of Systems Constitutional: denies: fever, chills, sweats, weakness, malaise, other Eyes: denies: pain, vision change, conjunctivae inflammation, eyelid inflammation, redness, other ENT: denies: ear pain, ear discharge, nose pain, nose discharge, nose congestion, mouth pain, mouth swelling, throat pain, throat swelling, other Respiratory: reports: shortness of breath, SOB with excertion. denies: cough, dry, hemoptysis, pleuritic pain, sputum, wheezing, other Cardiovascular: denies: chest pain, palpitations, orthopnea, paroxysmal noc. dyspnea, edema, light headedness, other Gastrointestinal: denies: nausea, vomiting, abdominal pain, diarrhea, constipation, melena, hematochezia, other Genitourinary: denies: dysuria, frequency, incontinence, hematuria, retention, other Musculoskeletal: denies: neck pain, shoulder pain, arm pain, back pain, hand pain, leg pain, foot pain, other Skin: denies: rash, lesions, jose, bruising, other Neurological: denies: weakness, numbness, incoordination, change in speech, confusion, seizures, other - Medication Medications: Active Medications Generic Name Dose Route Start Last Admin Trade Name Freq PRN Reason Stop Dose Admin Aspirin 81 mg 04/30/20 09:00 05/01/20 08:44 Aspirin Chewable 81 Mg Tab PO 81 mg DAILY [facility] Administration Buspirone HCl 15 mg 04/30/20 21:00 05/01/20 08:44 Buspirone Hcl 5 Mg Tab PO 15 mg BID [facility] Administration Carvedilol 3.125 mg 04/30/20 17:00 05/01/20 08:44 Carvedilol 3.125 Mg Tab PO 3.125 mg BID-WM [facility]KEN[facility]IE Administration Citalopram Hydrobromide 40 mg 05/01/20 09:00 05/01/20 08:45 Citalopram 20 Mg Tab PO 40 mg QAM [facility] Administration Cyanocobalamin 5,000 mcg 05/01/20 09:00 05/01/20 08:43 Cyanocobalamin (Vitamin B-12) 1,000 Mcg Tab PO 5,000 mcg DAILY [facility] Administration Ferrous Sulfate 325 mg 05/01/20 09:00 05/01/20 08:47 Ferrous Sulfate 325 Mg Tab PO Not Given DAILY MAKENZIE Fish Oil 1,000 mg 04/30/20 21:00 05/01/20 08:41 Fish Oil 1,000 Mg Cap PO 1,000 mg BID [facility] Administration Heparin Sodium (Porcine) 5,000 units 04/30/20 09:00 05/01/20 08:45 Heparin 5,000 Units/Ml Vial SC 5,000 units TID [facility] Administration Lisinopril 1.25 mg 04/30/20 09:00 05/01/20 08:41 Lisinopril 2.5 Mg Tab PO 1.25 mg DAILY [facility] Administration Spironolactone 12.5 mg 05/01/20 08:30 05/01/20 08:44 Spironolactone 25 Mg Tab PO 05/01/20 10:00 12.5 mg NOW MAKEN[facility]IE Administration Tramadol HCl 50 mg 04/30/20 12:53 04/30/20 13:55 Tramadol Hcl 50 Mg Tab PO 50 mg BID PRN Administration Pain Hospitalist Exam Vitals: Vital Signs (12 hours) Temp Pulse Resp BP Pulse Ox 05/01/20 08:55 99 05/01/20 04:00 98.9 F 104 H 21 H 168/86 H 99 05/01/20 00:47 94 L General Appearance: NAD, awake alert General - other findings: Comfortable on 3L NC Eye: PERRL, anicteric sclera ENT: normocephalic atraumatic, no oropharyngeal lesions, moist mucosa Neck: supple, symmetric, no thyromegaly, no lymphadenopathy, no carotid bruit Neck - other findings: No appreciable JVD 2/2 adiposity Heart: RRR, no murmur, no gallops, no rubs, normal peripheral pulses Respiratory: no wheezes, normal chest expansion, no tachypnea, normal percussion Respiratory - other findings: rales at bilateral bases Gastrointestinal: soft, non-tender, non-distended, normal bowel sounds, no palpable masses, no hepatomegaly, no splenomegaly, no bruit Extremities: no cyanosis, no clubbing, 1+ LE edema Skin: normal turgor Skin - other findings: rash under breast crease bilaterally Neurological: cranial nerve grossly intact, normal sensation to touch, no weakness, no focal deficits, no new deficit Musculoskeletal: normal tone, normal strength, no muscle wasting Psychiatric: normal affect, normal behavior, A&O x 3 Hosp A/P - Plan Acute heart failure exacerbation HFrEF. Last echo done in August 2019, however nondiagnostic exam secondary to body habitus. Patient did undergo stress testing in 2019 when she was at a lower weight which showed an approximate EF of 38%. Patient presents with worsening shortness of breath on exertion, orthopnea, increased abdominal and lower extremity swelling and elevated BNP 278 (baseline 19) consistent with heart failure exacerbation. Chest x-ray at outside hospital also limited study due to body habitus. Low suspicion for any infectious processWBC 7.8, patient is afebrile. Patient now requiring 3 L nasal cannula to maintain oxygenation saturation. Patient received 40 mg of IV Lasix at outside hospital prior to transfer. She is on home Lasix 40 mg every morning. Patient reports noncompliance with her Lasix secondary to incontinence and increased frequency. Patient with UOP of only 1500 cc yesterday, will increase lasix dose to 80 mg BID and add spironolactone. Plan Increase lasix to 80 mg IV BID Continue home Coreg, lisinopril -Add spironolactone YESENIA, daily weights Supplemental oxygen as needed Heart failure clinic consulted Acute hypoxic respiratory failure Patient with acute hypoxic respiratory failure secondary to acute heart failure exacerbation. Patient with new oxygen requirement now on 3 L of oxygen nasal cannula to maintain O2 sat. patient also has component of obesity hypoventilation syndrome, and likely sleep apnea. We will continue supplemental oxygen and closely monitor respiratory status. Treatment as above. Plan -Supplemental oxygen -Treatment as above -Closely monitor respiratory status Hypertensive urgency Patient with hypertensive urgency at outside hospital BP 170/120. This has come down to 106/74 with Nitropaste. Suspect component of anxiety causing elevation in blood pressure. We will continue home lisinopril and treat blood pressure as needed. Plan Continue home lisinopril Chest pain Patient with atypical chest pain. Describes right neck pain radiating to shoulder. EKG normal sinus rhythm with no ischemic changes. Initial troponin negative x3. Likely secondary to muscle spasm versus. Patient has undergone a cardiac catheterization in 2019 which showed normal coronary arteries. 2 patient reports this has resolved. Improved with repositioning Plan Telemetry monitoring Troponin negative x3 Aspirin -Resolved Elevated D-dimer D-dimer elevated 2.64. On review of records patient's D-dimer chronically elevated. Likely secondary to morbid obesity. Patient's shortness of breath more likely attributed to to acute heart failure exacerbation. On 18 CT a PE protocol due to patient's body habitus. Will reconsider possibility of PE if p atient's shortness of breath does not improve with diuresis. Plan Chronically elevated likely secondary to obesity Consider PE if shortness of breath does not improve Obesity hypoventilation syndrome Patient with morbid obesity, BMI approximately 70. Patient with obesity hypoventilation syndrome as well as sleep apnea. Patient does not wear CPAP machine at night, but does report that she frequently snores and that her family members will wake her up in the middle of the night concerned that she is not breathing. Will make CPAP machine available for patient at night, and recommend she follow-up with her primary care physician for further evaluation. Plan Supplemental oxygen as needed CPAP at night Follow-up with PCP Morbid obesity Patient with history of morbid obesity. BMI approximately 70. Patient has had success with weight loss a few years ago, but now most imaging is unavailable to her due to her body habitus. Encouraged patient to consider bariatric surgery to improve her quality of life and comorbidities. Patient reports that transportation is her biggest barrier. Will consult case management for transportation resources for patient to keep her appointments. Will place bariatric surgery referral on discharge. Plan -Bariatric surgery referral on discharge - for assistance with transportation options Hypertension Continue home antihypertensives as above. Hyperlipidemia Patient not on statin, however hyperlipidemia on records.. Will check lipid panel and start if needed. Anxiety and depression We will continue home medications once confirmed. DVT prophylaxis SQ heparin DNR -discussed with patient. She confirms that she does not want CPR or intubation. She reports that this is not the first time she was requested the status and has thought about this and discussed with her family members this decision. She has named her sister as her medical decision-maker. Case discussed with attending physician.
[2020-05-01] MEDS ORDERED: FLU VACC QS2020-21(6MOS UP)/PF 60 MCG/0.5 ML SYRINGE IM ONE (09:00)
[2020-05-01] MEDS ORDERED: Non-Formulary Item 1 EACH (Ferrous Sulfate [Iron] 325 MG Tablet) PO SCH (09:00)
[2020-05-01] MEDS: Furosemide 100 MG/10 ML VIAL SLOW IVP SCH (14:22)
[2020-05-01] MEDS: Ondansetron PF 4 MG/2 ML Vial IVP PRN (18:34)
[2020-05-01] MEDS: traMADol HCl 50 MG TAB PO PRN (20:27)
[2020-05-02] MEDS: Furosemide 100 MG/10 ML VIAL SLOW IVP SCH ×2 (07:29→14:04)
[2020-05-02 07:47] LABS: #Eosinphils 0.1 thou/uL (0.0-0.7); #Lymphocytes 1.9 thou/uL (1.20-3.40); #Monocytes 0.6 thou/uL (0.11-0.59); #Neutrophils 4.7 thou/uL (1.40-6.50); %Basophils 0.4 % (0.0-1.0); %Eosinophils 1.8 % (0.0-10.0); %Lymphocytes 25.9 % (21.0-51.0); %Monocytes 8.2 % (0.0-10.0); %Neutrophils 63.8 % (42.0-75.0); Hemoglobin 10.8 g/dL (12.0-16.0); Mean Corpuscular HGB CONC 28.1 g/dL (32.0-36.0); Mean Corpuscular Hemoglobin 24.5 pg (27.0-31.0); Mean Corpuscular Volume 87.3 fL (78.0-98.0); Mean Platelet Volume 9.5 fL (7.4-10.4); Platelet Count 279 thou/uL (130-400); RBC Distribution Width 15.6 % (11.5-14.5); Red Blood Cell (RBC) Count 4.41 mill/uL (4.20-5.40); White Blood Cell (WBC) Count 7.3 thou/uL (4.8-10.8)
[2020-05-02] MEDS ORDERED: Nystatin Powder 15 GM BOT TOP PRN (07:49)
[2020-05-02] MEDS: Cyanocobalamin (Vitamin B-12) 1,000 MCG TAB PO SCH (09:00)
[2020-05-02] MEDS: Spironolactone 25 MG TAB PO SCH (09:00)
[2020-05-02] MEDS: Lisinopril 2.5 MG TAB PO SCH (09:01)
[2020-05-02] MEDS: busPIRone HCl 5 MG TAB PO SCH ×2 (09:01→21:06)
[2020-05-02] MEDS: Ferrous Sulfate 325 MG TAB PO SCH (09:01)
[2020-05-02] MEDS: Heparin 5,000 UNITS/ML VIAL SC SCH ×3 (09:02→21:06)
[2020-05-02] MEDS: Carvedilol 3.125 MG TAB PO SCH ×2 (09:02→17:57)
[2020-05-02] MEDS: Aspirin Chewable 81 MG TAB PO SCH (09:02)
[2020-05-02] MEDS: Fish Oil 1,000 MG CAP PO SCH ×2 (09:02→21:06)
[2020-05-02] MEDS: Citalopram 20 MG TAB PO SCH (09:02)
--- NOTE | 2020-05-02 12:17 | PDOC.HOSPP ---
- Subjective Encounter Date: 05/02/20 Encounter Time: 12:15 Subjective: Overnight patient with increasing O2 requirements likely 2/2 to CHAD. This am still on 3L NC. Patient reports she still feels fluid overloaded and SOB. Denies chest pain, abdominal pain. Chart and medications reviewed. - Objective Vital Signs & Weight: Vital Signs (12 hours) Temp Pulse Pulse Pulse Resp BP BP 05/02/20 09:01 112 H 126/71 05/02/20 08:30 109 H 107 H 126/71 05/02/20 07:42 98.8 F 112 H 18 05/02/20 07:33 05/02/20 04:00 99.2 F 118 H 22 H BP BP Pulse Ox Pulse Ox 05/02/20 09:01 05/02/20 08:30 133/89 100 05/02/20 07:42 126/71 96 05/02/20 07:33 99 05/02/20 04:00 118/68 96 I&O: 05/01/20 05/02/20 05/03/20 06:59 06:59 06:59 Intake Total 730 1480 120 Output Total 1500 3050 2200 Balance -119 -9320 -2030 Result Diagrams: 05/05/20 04:07 05/05/20 04:07 Hospitalist ROS - Review of Systems Constitutional: denies: fever, chills, sweats, weakness, malaise, other Eyes: denies: pain, vision change, conjunctivae inflammation, eyelid inflammation, redness, other ENT: denies: ear pain, ear discharge, nose pain, nose discharge, nose congestion, mouth pain, mouth swelling, throat pain, throat swelling, other Respiratory: reports: shortness of breath, SOB with excertion. denies: cough, dry, hemoptysis, pleuritic pain, sputum, wheezing, other Cardiovascular: denies: chest pain, palpitations, orthopnea, paroxysmal noc. dyspnea, edema, light headedness, other Gastrointestinal: denies: nausea, vomiting, abdominal pain, diarrhea, constipation, melena, hematochezia, other Genitourinary: denies: dysuria, frequency, incontinence, hematuria, retention, other Musculoskeletal: denies: neck pain, shoulder pain, arm pain, back pain, hand pain, leg pain, foot pain, other Skin: denies: rash, lesions, jose, bruising, other Neurological: denies: weakness, numbness, incoordination, change in speech, confusion, seizures, other - Medication Medications: Active Medications Generic Name Dose Route Start Last Admin Trade Name Freq PRN Reason Stop Dose Admin Aspirin 81 mg 04/30/20 09:00 05/02/20 09:02 Aspirin Chewable 81 Mg Tab PO 81 mg DAILY [facility] Administration Buspirone HCl 15 mg 04/30/20 21:00 05/02/20 09:01 Buspirone Hcl 5 Mg Tab PO 15 mg BID [facility] Administration Carvedilol 3.125 mg 04/30/20 17:00 05/02/20 09:02 Carvedilol 3.125 Mg Tab PO 3.125 mg BID-WM [facility] Administration Citalopram Hydrobromide 40 mg 05/01/20 09:00 05/02/20 09:02 Citalopram 20 Mg Tab PO 40 mg QAM [facility] Administration Cyanocobalamin 5,000 mcg 05/01/20 09:00 05/02/20 09:00 Cyanocobalamin (Vitamin B-12) 1,000 Mcg Tab PO 5,000 mcg DAILY [facility] Administration Ferrous Sulfate 325 mg 05/01/20 09:00 05/02/20 09:01 Ferrous Sulfate 325 Mg Tab PO 325 mg DAILY [facility] Administration Fish Oil 1,000 mg 04/30/20 21:00 05/02/20 09:02 Fish Oil 1,000 Mg Cap PO 1,000 mg BID [facility] Administration Furosemide 80 mg 05/01/20 14:00 05/02/20 07:29 Furosemide 100 Mg/10 Ml Vial SLOW IVP 80 mg 0600,1400 [facility] Administration Heparin Sodium (Porcine) 5,000 units 04/30/20 09:00 05/02/20 09:02 Heparin 5,000 Units/Ml Vial SC 5,000 units TID [facility] Administration Lisinopril 1.25 mg 04/30/20 09:00 05/02/20 09:01 Lisinopril 2.5 Mg Tab PO 1.25 mg DAILY [facility] Administration Ondansetron HCl 4 mg 05/01/20 18:09 05/01/20 18:34 Ondansetron Pf 4 Mg/2 Ml Vial IVP 4 mg Q6H PRN Administration Nausea/Vomiting Spironolactone 12.5 mg 05/02/20 08:00 05/02/20 09:00 Spironolactone 25 Mg Tab PO 12.5 mg QAM[facility] Administration Hospitalist Exam Vitals: Vital Signs (12 hours) Temp Pulse Pulse Pulse Resp BP BP 05/02/20 09:01 112 H 126/71 05/02/20 08:30 109 H 107 H 126/71 05/02/20 07:42 98.8 F 112 H 18 05/02/20 07:33 05/02/20 04:00 99.2 F 118 H 22 H BP BP Pulse Ox Pulse Ox 05/02/20 09:01 05/02/20 08:30 133/89 100 05/02/20 07:42 126/71 96 05/02/20 07:33 99 05/02/20 04:00 118/68 96 General Appearance: NAD, awake alert General - other findings: Comfortable on 4L NC Eye: PERRL, anicteric sclera ENT: normocephalic atraumatic, no oropharyngeal lesions, moist mucosa Neck: supple, symmetric, no JVD, no thyromegaly, no lymphadenopathy, no carotid bruit Heart: RRR, no murmur, no gallops, no rubs, normal peripheral pulses Respiratory: no wheezes, no tachypnea Respiratory - other findings: crackles at bilateral bases Gastrointestinal: soft, non-tender, non-distended, normal bowel sounds, no palpable masses, no hepatomegaly, no splenomegaly, no bruit Extremities: no cyanosis, no clubbing, 1+ LE edema Skin: normal turgor, no lesions, no rashes Neurological: cranial nerve grossly intact, normal sensation to touch, no weakness, no focal deficits, no new deficit Musculoskeletal: normal tone, normal strength, no muscle wasting Psychiatric: normal affect, normal behavior, A&O x 3 Hosp A/P - Plan Acute heart failure exacerbation HFrEF. Last echo done in August 2019, however nondiagnostic exam secondary to body habitus. Patient did undergo stress testing in 2019 when she was at a lower weight which showed an approximate EF of 38%. Patient presents with worsening shortness of breath on exertion, orthopnea, increased abdominal and lower extremity swelling and elevated BNP 278 (baseline 19) consistent with heart failure exacerbation. Chest x-ray at outside hospital also limited study due to body habitus. Low suspicion for any infectious processWBC 7.8, patient is afebrile. Patient now requiring 3 L nasal cannula to maintain oxygenation saturation. Patient received 40 mg of IV Lasix at outside hospital prior to transfer. She is on home Lasix 40 mg every morning. Patient reports noncompliance with her Lasix secondary to incontinence and increased frequency. UOP 2300 cc today, will continue at 80 mg IV BID. Pt with mild hypocholoremia and uptrending bicarb, will start spironolactone and closely trend Plan Continue lasix to 80 mg IV BID Continue home Coreg, lisinopril -Continue spironolactone Trend bicarb, chloride, potassium YESENIA, daily weights Supplemental oxygen as needed Heart failure clinic consulted Acute hypoxic respiratory failure Patient with acute hypoxic respiratory failure secondary to acute heart failure exacerbation. Patient with new oxygen requirement now on 3 L of oxygen nasal cannula to maintain O2 sat. patient also has component of obesity hypoventilation syndrome, and likely sleep apnea. We will continue supplemental oxygen and closely monitor respiratory status. Treatment as above. Plan -Supplemental oxygen -Treatment as above -Closely monitor respiratory status Hypertensive urgency Patient with hypertensive urgency at outside hospital BP 170/120. This has come down to 106/74 with Nitropaste. Suspect component of anxiety causing elevation in blood pressure. We will continue home lisinopril and treat blood pressure as needed. Plan Continue home lisinopril Chest pain Patient with atypical chest pain. Describes right neck pain radiating to shoulder. EKG normal sinus rhythm with no ischemic changes. Initial troponin negative x3. Likely secondary to muscle spasm versus. Patient has undergone a cardiac catheterization in 2019 which showed normal coronary arteries. 2/2 patient reports this has resolved. Improved with repositioning Plan Telemetry monitoring Troponin negative x3 Aspirin -Resolved Elevated D-dimer D-dimer elevated 2.64. On review of records patient's D-dimer chronically elevated. Likely secondary to morbid obesity. Patient's shortness of breath more likely attributed to to acute heart failure exacerbation. On 18 CT a PE protocol due to patient's body habitus. Will reconsider possibility of PE if patient's shortness of breath does not improve with diuresis. Plan Chronically elevated likely secondary to obesity Consider PE if shortness of breath does not improve Obesity hypoventilation syndrome Patient with morbid obesity, BMI approximately 70. Patient with obesity hypoventilation syndrome as well as sleep apnea. Patient does not wear CPAP machine at night, but does report that she frequently snores and that her family members will wake her up in the middle of the night concerned that she is not breathing. Will make CPAP machine available for patient at night, and recommend she follow-up with her primary care physician for further evaluation. Plan Supplemental oxygen as needed Nocturnal O2 Follow-up with PCP Morbid obesity Patient with history of morbid obesity. BMI approximately 70. Patient has had success with weight loss a few years ago, but now most imaging is unavailable to her due to her body habitus. Encouraged patient to consider bariatric surgery to improve her quality of life and comorbidities. Patient reports that transportation is her biggest barrier. Will consult case management for transportation resources for patient to keep her appointments. Will place bariatric surgery referral on discharge. Plan -Bariatric surgery referral on discharge - for assistance with transportation options [employer] Patient with skin breakdown and erythema under breasts. Will start nystatin powder and continue to monitor. Plan -Nystatin powder -Continue to monitor Hypertension Continue home antihypertensives as above. Hyperlipidemia Patient not on statin, however hyperlipidemia on records.. Will check lipid panel and start if needed. Anxiety and depression We will continue home medications. DVT prophylaxis SQ heparin DNR -discussed with patient. She confirms that she does not want CPR or intubation. She reports that this is not the first time she was requested the status and has thought about this and discussed with her family members this d ecision. She has named her sister as her medical decision-maker. Case discussed with attending physician.
[2020-05-02 13:46] LABS: Anion Gap 14 mmol/L (10-20); BUN (Urea Nitrogen) 12 mg/dL (7.0-18.7); Calc. Creatinine Clearance 0 mL/min (70-130); Calcium 9.2 mg/dL (7.8-10.44); Carbon Dioxide 34 mmol/L (22-29); Chloride 96 mmol/L (98-107); Glucose 105 mg/dL (70-105); Magnesium 1.6 mg/dL (1.6-2.6); Potassium 4.5 mmol/L (3.5-5.1); Sodium 139 mmol/L (136-145)
[2020-05-02] MEDS: traMADol HCl 50 MG TAB PO PRN ×2 (18:30→21:06)
[2020-05-03 04:53] LABS: #Eosinphils 0.2 thou/uL (0.0-0.7); #Lymphocytes 2.3 thou/uL (1.20-3.40); #Monocytes 0.9 thou/uL (0.11-0.59); %Basophils 0.4 % (0.0-1.0); %Eosinophils 2.5 % (0.0-10.0); %Lymphocytes 30.6 % (21.0-51.0); %Monocytes 12.1 % (0.0-10.0); %Neutrophils 54.4 % (42.0-75.0); Hemoglobin 10.9 g/dL (12.0-16.0); Mean Corpuscular HGB CONC 28.8 g/dL (32.0-36.0); Mean Corpuscular Hemoglobin 25.2 pg (27.0-31.0); Mean Corpuscular Volume 87.6 fL (78.0-98.0); Mean Platelet Volume 9.4 fL (7.4-10.4); Platelet Count 231 thou/uL (130-400); RBC Distribution Width 15.6 % (11.5-14.5); White Blood Cell (WBC) Count 7.4 thou/uL (4.8-10.8)
[2020-05-03] MEDS: Furosemide 100 MG/10 ML VIAL SLOW IVP SCH (06:02)
[2020-05-03] MEDS: Heparin 5,000 UNITS/ML VIAL SC SCH ×3 (08:34→21:52)
[2020-05-03] MEDS: Aspirin Chewable 81 MG TAB PO SCH (08:35)
[2020-05-03] MEDS: Cyanocobalamin (Vitamin B-12) 1,000 MCG TAB PO SCH (08:35)
[2020-05-03] MEDS: Spironolactone 25 MG TAB PO SCH (08:36)
[2020-05-03] MEDS: Fish Oil 1,000 MG CAP PO SCH ×2 (08:36→21:52)
[2020-05-03] MEDS: Citalopram 20 MG TAB PO SCH (08:36)
[2020-05-03] MEDS: Ferrous Sulfate 325 MG TAB PO SCH (08:36)
[2020-05-03] MEDS: Carvedilol 3.125 MG TAB PO SCH ×2 (08:37→16:19)
[2020-05-03] MEDS: Lisinopril 2.5 MG TAB PO SCH (08:37)
[2020-05-03] MEDS: busPIRone HCl 5 MG TAB PO SCH ×2 (08:37→21:52)
[2020-05-03 09:35] LABS: Anion Gap 14 mmol/L (10-20); BUN (Urea Nitrogen) 14 mg/dL (7.0-18.7); Calc. Creatinine Clearance 0 mL/min (70-130); Calcium 9.3 mg/dL (7.8-10.44); Carbon Dioxide 37 mmol/L (22-29); Chloride 91 mmol/L (98-107); Glucose 87 mg/dL (70-105); Potassium 4.4 mmol/L (3.5-5.1); Sodium 138 mmol/L (136-145)
--- NOTE | 2020-05-03 13:17 | EKG ---
Test Reason : Blood Pressure : / mmHG Vent. Rate : 106 BPM Atrial Rate : 106 BPM P-R Int : 198 ms QRS Dur : 066 ms QT Int : 346 ms P-R-T Axes : 039 191 031 degrees QTc Int : 459 ms Sinus tachycardia Right superior axis deviation Low voltage QRS Cannot rule out Anterior infarct (cited on or before 01-MAY-2020) Abnormal ECG When compared with ECG of 19-OCT-2019 18:06, Questionable change in QRS axis ST now depressed in Inferior leads Confirmed by DR. Lula WASHBURN ([id number]) on 05/03/2020 1:17:20 PM Referred By: RAJ WALLACE Confirmed By:DR. Lula WASHBURN
[2020-05-03] MEDS: Acetaminophen 325 MG TAB PO PRN (17:56)
[2020-05-04 05:03] LABS: Anion Gap 15 mmol/L (10-20); BUN (Urea Nitrogen) 14 mg/dL (7.0-18.7); Calc. Creatinine Clearance 213 mL/min (70-130); Carbon Dioxide 35 mmol/L (22-29); Chloride 92 mmol/L (98-107); Glucose 94 mg/dL (70-105); Potassium 4.4 mmol/L (3.5-5.1); Sodium 138 mmol/L (136-145)
[2020-05-04 05:11] LABS: #Basophils 0.1 thou/uL (0.0-0.2); #Eosinphils 0.3 thou/uL (0.0-0.7); #Monocytes 0.7 thou/uL (0.11-0.59); #Neutrophils 3.3 thou/uL (1.40-6.50); %Basophils 0.9 % (0.0-1.0); %Eosinophils 4.9 % (0.0-10.0); %Monocytes 11.4 % (0.0-10.0); %Neutrophils 51.7 % (42.0-75.0); Hemoglobin 11.4 g/dL (12.0-16.0); Mean Corpuscular HGB CONC 28.7 g/dL (32.0-36.0); Mean Corpuscular Hemoglobin 25.1 pg (27.0-31.0); Mean Corpuscular Volume 87.2 fL (78.0-98.0); Mean Platelet Volume 9.3 fL (7.4-10.4); Platelet Count 217 thou/uL (130-400); RBC Distribution Width 15.6 % (11.5-14.5); Red Blood Cell (RBC) Count 4.54 mill/uL (4.20-5.40); White Blood Cell (WBC) Count 6.3 thou/uL (4.8-10.8)
[2020-05-04] MEDS ORDERED: cefTRIAXone\\ROCEPHIN 1 GM in Sodium Chloride 0.9% 100 ML IVPB SCH (09:00)
--- NOTE | 2020-05-04 09:11 | PDOC.HOSPP ---
- Subjective Encounter Date: 05/03/20 Encounter Time: 10:30 Subjective: PT up in bed no complains of sob - Objective Vital Signs & Weight: Vital Signs (12 hours) Temp Pulse Resp BP BP Pulse Ox 05/04/20 07:20 97.3 F L 113 H 18 115/61 96 05/04/20 03:21 97.7 F 91 20 117/71 98 Weight Weight 470 lb 7 oz I&O: 05/03/20 05/04/20 05/05/20 06:59 06:59 06:59 Intake Total 1095 650 Output Total 3450 950 Balance -9835 -300 Result Diagrams: 05/04/20 03:58 05/04/20 03:58 Hospitalist ROS - Review of Systems Respiratory: reports: shortness of breath Cardiovascular: denies: chest pain, palpitations, orthopnea, paroxysmal noc. dyspnea, edema, light headedness, other Gastrointestinal: denies: nausea, vomiting, abdominal pain, diarrhea, constipation, melena, hematochezia, other Genitourinary: denies: dysuria, frequency, incontinence, hematuria, retention, other - Medication Medications: Active Medications Generic Name Dose Route Start Last Admin Trade Name Freq PRN Reason Stop Dose Admin Acetaminophen 650 mg 04/30/20 08:03 05/03/20 17:56 Acetaminophen 325 Mg Tab PO 650 mg Q4H PRN Administration Headache/Fever/Mild Pain (1-3) Aspirin 81 mg 04/30/20 09:00 05/03/20 08:35 Aspirin Chewable 81 Mg Tab PO 81 mg DAILY [facility] Administration Buspirone HCl 15 mg 04/30/20 21:00 05/03/20 21:52 Buspirone Hcl 5 Mg Tab PO 15 mg BID [facility] Administration Carvedilol 3.125 mg 04/30/20 17:00 05/03/20 16:19 Carvedilol 3.125 Mg Tab PO 3.125 mg BID-WM [facility] Administration Citalopram Hydrobromide 40 mg 05/01/20 09:00 05/03/20 08:36 Citalopram 20 Mg Tab PO 40 mg QAM [facility] Administration Cyanocobalamin 5,000 mcg 05/01/20 09:00 05/03/20 08:35 Cyanocobalamin (Vitamin B-12) 1,000 Mcg Tab PO 5,000 mcg DAILY [facility] Administration Ferrous Sulfate 325 mg 05/01/20 09:00 05/03/20 08:36 Ferrous Sulfate 325 Mg Tab PO 325 mg DAILY [facility] Administration Fish Oil 1,000 mg 04/30/20 21:00 05/03/20 21:52 Fish Oil 1,000 Mg Cap PO 1,000 mg BID [facility] Administration Heparin Sodium (Porcine) 5,000 units 04/30/20 09:00 05/03/20 21:52 Heparin 5,000 Units/Ml Vial SC 5,000 units TID [facility] Administration Lisinopril 1.25 mg 04/30/20 09:00 05/03/20 08:37 Lisinopril 2.5 Mg Tab PO 1.25 mg DAILY [facility] Administration Ondansetron HCl 4 mg 05/01/20 18:09 05/01/20 18:34 Ondansetron Pf 4 Mg/2 Ml Vial IVP 4 mg Q6H PRN Administration Nausea/Vomiting Spironolactone 12.5 mg 05/02/20 08:00 05/03/20 08:36 Spironolactone 25 Mg Tab PO 12.5 mg QAM-[facility] Administration Tramadol HCl 50 mg 05/02/20 10:45 05/02/20 21:06 Tramadol Hcl 50 Mg Tab PO 50 mg BIDPRN PRN Administration Moderate Pain (4-6) Hospitalist Exam Vitals: Vital Signs (12 hours) Temp Pulse Resp BP BP Pulse Ox 05/04/20 07:20 97.3 F L 113 H 18 115/61 96 05/04/20 03:21 97.7 F 91 20 117/71 98 Weight Weight 470 lb 7 oz Neck: supple Heart: RRR, no murmur Respiratory: no wheezes, no rales Gastrointestinal: soft, non-tender, normal bowel sounds Extremities: 1+ LE edema Skin - other findings: left breast mild erythema noted Hosp A/P (1) Shortness of breath Code(s): R06.02 - SHORTNESS OF BREATH Status: Acute (2) DM II (diabetes mellitus, type II), controlled Code(s): E11.9 - TYPE 2 DIABETES MELLITUS WITHOUT COMPLICATIONS Status: Chronic Qualifiers: Diabetes mellitus terminal make up operator insulin use: without terminal make up operator use Diabetes mellitus complication status: with other specified complication Qualified Code(s): E11.69 - Type 2 diabetes mellitus with other specified complication (3) HTN (hypertension) Code(s): I10 - ESSENTIAL (PRIMARY) HYPERTENSION Status: Chronic Qualifiers: Hypertension type: essential hypertension Qualified Code(s): I10 - Essential (primary) hypertension (4) Morbid (severe) obesity due to excess calories Code(s): E66.01 - MORBID (SEVERE) OBESITY DUE TO EXCESS CALORIES Status: Chronic (5) Mastitis Code(s): N61.0 - MASTITIS WITHOUT ABSCESS Status: Acute - Plan pt has no significant elevated wbc, she does have localized erythema. will stop lasix for now she has alkalosis which can cause respiratory acidosis. will start pt on abx and consult PT. Pt had a negative cath last year and has not had a sleep study. she does not use oxygen at home.
[2020-05-04] MEDS: Aspirin Chewable 81 MG TAB PO SCH (09:14)
[2020-05-04] MEDS: busPIRone HCl 5 MG TAB PO SCH ×2 (09:14→20:19)
[2020-05-04] MEDS: Fish Oil 1,000 MG CAP PO SCH ×2 (09:14→20:19)
[2020-05-04] MEDS: Ferrous Sulfate 325 MG TAB PO SCH (09:14)
[2020-05-04] MEDS: Spironolactone 25 MG TAB PO SCH (09:14)
[2020-05-04] MEDS: Citalopram 20 MG TAB PO SCH (09:14)
[2020-05-04] MEDS: Carvedilol 3.125 MG TAB PO SCH ×2 (09:15→16:31)
[2020-05-04] MEDS: Heparin 5,000 UNITS/ML VIAL SC SCH ×3 (09:15→20:19)
[2020-05-04] MEDS ORDERED: Metolazone 2.5 MG TAB PO SCH (09:15)
[2020-05-04] MEDS: Cyanocobalamin (Vitamin B-12) 1,000 MCG TAB PO SCH (09:15)
[2020-05-04] MEDS: Lisinopril 2.5 MG TAB PO SCH (09:15)
[2020-05-04] MEDS: Acetaminophen 325 MG TAB PO PRN (09:23)
[2020-05-04] MEDS ORDERED: Furosemide 100 MG/10 ML VIAL SLOW IVP SCH (09:30)
--- NOTE | 2020-05-04 18:08 | PDOC.HOSPP ---
- Subjective Encounter Date: 05/04/20 Encounter Time: 12:30 Subjective: pt sitting up in chair - Objective Vital Signs & Weight: Vital Signs (12 hours) Temp Pulse Pulse Pulse Resp BP BP 05/04/20 15:45 98.7 F 93 18 05/04/20 14:06 105 H 135/63 05/04/20 11:48 97.5 F L 80 18 05/04/20 10:32 94 93 126/78 113/70 05/04/20 09:15 113 H 05/04/20 08:00 05/04/20 07:20 97.3 F L 113 H 18 BP BP Pulse Ox Pulse Ox Pulse Ox 05/04/20 15:45 145/71 H 99 05/04/20 14:06 93 L 05/04/20 11:48 130/80 94 L 05/04/20 10:32 97 89 L 05/04/20 09:15 05/04/20 08:00 95 05/04/20 07:20 115/61 96 Weight Weight 470 lb 7 oz I&O: 05/03/20 05/04/20 05/05/20 06:59 06:59 06:59 Intake Total 1095 650 Output Total 3450 950 Balance -2355 -300 Result Diagrams: 05/04/20 03:58 05/04/20 03:58 Hospitalist ROS - Review of Systems Cardiovascular: denies: chest pain, palpitations, orthopnea, paroxysmal noc. dyspnea, edema, light headedness, other Gastrointestinal: denies: nausea, vomiting, abdominal pain, diarrhea, constipation, melena, hematochezia, other Genitourinary: denies: dysuria, frequency, incontinence, hematuria, retention, other - Medication Medications: Active Medications Generic Name Dose Route Start Last Admin Trade Name Freq PRN Reason Stop Dose Admin Acetaminophen 650 mg 04/30/20 08:03 05/04/20 09:23 Acetaminophen 325 Mg Tab PO 650 mg Q4H PRN Administration Headache/Fever/Mild Pain (1-3) Aspirin 81 mg 04/30/20 09:00 05/04/20 09:14 Aspirin Chewable 81 Mg Tab PO 81 mg DAILY MAKENZIE Administration Buspirone HCl 15 mg 04/30/20 21:00 05/04/20 09:14 Buspirone Hcl 5 Mg Tab PO 15 mg BID MAKENZIE Administration Carvedilol 3.125 mg 04/30/20 17:00 05/04/20 16:31 Carvedilol 3.125 Mg Tab PO 3.125 mg BID-WM MAKENZIE Administration Citalopram Hydrobromide 40 mg 05/01/20 09:00 05/04/20 09:14 Citalopram 20 Mg Tab PO 40 mg QAM MAKENZIE Administration Cyanocobalamin 5,000 mcg 05/01/20 09:00 05/04/20 09:15 Cyanocobalamin (Vitamin B-12) 1,000 Mcg Tab PO 5,000 mcg DAILY MAKENZIE Administration Ferrous Sulfate 325 mg 05/01/20 09:00 05/04/20 09:14 Ferrous Sulfate 325 Mg Tab PO 325 mg DAILY MAKENZIE Administration Fish Oil 1,000 mg 04/30/20 21:00 05/04/20 09:14 Fish Oil 1,000 Mg Cap PO 1,000 mg BID MAKENZIE Administration Heparin Sodium (Porcine) 5,000 units 04/30/20 09:00 05/04/20 16:31 Heparin 5,000 Units/Ml Vial SC 5,000 units TID MAKENZIE Administration Doxycycline Hyclate 100 mg/ 100 mls @ 100 mls/hr 05/04/20 10:00 05/04/20 11:16 Sodium Chloride IVPB 100 mls 1000,2200 MAKENZIE Administration Lisinopril 1.25 mg 04/30/20 09:00 05/04/20 09:15 Lisinopril 2.5 Mg Tab PO 1.25 mg DAILY MAKENZIE Administration Ondansetron HCl 4 mg 05/01/20 18:09 05/01/20 18:34 Ondansetron Pf 4 Mg/2 Ml Vial IVP 4 mg Q6H PRN Administration Nausea/Vomiting Spironolactone 12.5 mg 05/02/20 08:00 05/04/20 09:14 Spironolactone 25 Mg Tab PO 12.5 mg QAM-WM MAKENZIE Administration Tramadol HCl 50 mg 05/02/20 10:45 05/02/20 21:06 Tramadol Hcl 50 Mg Tab PO 50 mg BIDPRN PRN Administration Moderate Pain (4-6) Hospitalist Exam Vitals: Vital Signs (12 hours) Temp Pulse Pulse Pulse Resp BP BP 05/04/20 15:45 98.7 F 93 18 02/05/21 14:06 105 H 135/63 02/05/21 11:48 97.5 F L 80 18 05/04/20 10:32 94 93 126/78 113/70 05/04/20 09:15 113 H 05/04/20 08:00 05/04/20 07:20 97.3 F L 113 H 18 BP BP Pulse Ox Pulse Ox Pulse Ox 05/04/20 15:45 145/71 H 99 05/04/20 14:06 93 L 05/04/20 11:48 130/80 94 L 05/04/20 10:32 97 89 L 05/04/20 09:15 05/04/20 08:00 95 05/04/20 07:20 115/61 96 Weight Weight 470 lb 7 oz Neck: supple Heart: RRR Respiratory: no wheezes, no rales Gastrointestinal: soft, non-tender, normal bowel sounds Extremities: 2+ LE edema Hosp A/P (1) Shortness of breath Code(s): R06.02 - SHORTNESS OF BREATH Status: Acute (2) DM II (diabetes mellitus, type II), controlled Code(s): E11.9 - TYPE 2 DIABETES MELLITUS WITHOUT COMPLICATIONS Status: Chronic Qualifiers: Diabetes mellitus mcfp insulin use: without mcfp use Diabetes mellitus complication status: with other specified complication Qualified Code(s): E11.69 - Type 2 diabetes mellitus with other specified complication (3) HTN (hypertension) Code(s): I10 - ESSENTIAL (PRIMARY) HYPERTENSION Status: Chronic Qualifiers: Hypertension type: essential hypertension Qualified Code(s): I10 - Essential (primary) hypertension (4) Morbid (severe) obesity due to excess calories Code(s): E66.01 - MORBID (SEVERE) OBESITY DUE TO EXCESS CALORIES Status: Chronic (5) Mastitis Code(s): N61.0 - MASTITIS WITHOUT ABSCESS Status: Acute - Plan pt has no significant elevated wbc, she does have localized erythema. will stop lasix for now she has alkalosis which can cause respiratory acidosis. will start pt on abx and consult PT. Pt had a negative cath last year and has not had a sleep study. she does not use oxygen at home. 05/04 we will start patient on doxycycline. We will continue Lasix daily. Patient encouraged to get up and walk. I have encouraged the patient to lose weight. She will require oxygen on discharge
[2020-05-05 04:39] LABS: #Eosinphils 0.4 thou/uL (0.0-0.7); #Lymphocytes 1.5 thou/uL (1.20-3.40); #Monocytes 0.6 thou/uL (0.11-0.59); #Neutrophils 3.6 thou/uL (1.40-6.50); %Basophils 0.3 % (0.0-1.0); %Eosinophils 6.1 % (0.0-10.0); %Lymphocytes 24.4 % (21.0-51.0); %Monocytes 10.6 % (0.0-10.0); %Neutrophils 58.7 % (42.0-75.0); Hemoglobin 11.2 g/dL (12.0-16.0); Mean Corpuscular HGB CONC 28.9 g/dL (32.0-36.0); Mean Corpuscular Hemoglobin 25.1 pg (27.0-31.0); Mean Corpuscular Volume 86.9 fL (78.0-98.0); Mean Platelet Volume 9.3 fL (7.4-10.4); Platelet Count 203 thou/uL (130-400); RBC Distribution Width 15.6 % (11.5-14.5); Red Blood Cell (RBC) Count 4.47 mill/uL (4.20-5.40); White Blood Cell (WBC) Count 6.1 thou/uL (4.8-10.8)
[2020-05-05 04:51] LABS: BUN (Urea Nitrogen) 12 mg/dL (7.0-18.7); Calc. Creatinine Clearance 232 mL/min (70-130); Glucose 121 mg/dL (70-105); Magnesium 1.6 mg/dL (1.6-2.6)
[2020-05-05 05:00] LABS: Anion Gap 15 mmol/L (10-20); Carbon Dioxide 37 mmol/L (22-29); Chloride 93 mmol/L (98-107); Potassium 3.9 mmol/L (3.5-5.1); Sodium 141 mmol/L (136-145)
[2020-05-05] MEDS ORDERED: Furosemide 100 MG/10 ML VIAL SLOW IVP SCH (09:00)
[2020-05-05] MEDS: Spironolactone 25 MG TAB PO SCH (10:20)
[2020-05-05] MEDS: Fish Oil 1,000 MG CAP PO SCH ×2 (10:20→20:48)
[2020-05-05] MEDS: Lisinopril 2.5 MG TAB PO SCH (10:20)
[2020-05-05] MEDS: Metolazone 2.5 MG TAB PO SCH (10:21)
[2020-05-05] MEDS: Acetaminophen 325 MG TAB PO PRN (10:21)
[2020-05-05] MEDS: Ferrous Sulfate 325 MG TAB PO SCH (10:22)
[2020-05-05] MEDS: busPIRone HCl 5 MG TAB PO SCH ×2 (10:22→20:48)
[2020-05-05] MEDS: Carvedilol 3.125 MG TAB PO SCH ×2 (10:22→17:40)
[2020-05-05] MEDS: Cyanocobalamin (Vitamin B-12) 1,000 MCG TAB PO SCH (10:22)
[2020-05-05] MEDS: Aspirin Chewable 81 MG TAB PO SCH (10:22)
[2020-05-05] MEDS: Citalopram 20 MG TAB PO SCH (10:22)
[2020-05-05] MEDS: Heparin 5,000 UNITS/ML VIAL SC SCH ×3 (10:23→20:48)
[2020-05-05] MEDS: Ondansetron PF 4 MG/2 ML Vial IVP PRN (17:43)
--- NOTE | 2020-05-05 19:56 | PDOC.HOSPP ---
- Subjective Encounter Date: 05/05/20 Subjective: feels much better, her left breast is still swollen. - Objective Vital Signs & Weight: Vital Signs (12 hours) Temp Pulse Resp BP Pulse Ox 05/05/20 15:22 97.4 F L 99 18 127/70 100 05/05/20 11:15 98.4 F 115 H 20 106/64 93 L 05/05/20 10:20 115 H 05/05/20 08:15 98.2 F 115 H 18 122/76 96 Weight Weight 476 lb I&O: 05/04/20 05/05/20 05/06/20 06:59 06:59 06:59 Intake Total 650 1315 Output Total 950 650 Balance -300 665 Result Diagrams: 05/05/20 04:07 05/05/20 04:07 Hospitalist ROS - Medication Medications: Active Medications Generic Name Dose Route Start Last Admin Trade Name Freq PRN Reason Stop Dose Admin Acetaminophen 650 mg 04/30/20 08:03 05/05/20 10:21 Acetaminophen 325 Mg Tab PO 650 mg Q4H PRN Administration Headache/Fever/Mild Pain (1-3) Aspirin 81 mg 04/30/20 09:00 05/05/20 10:22 Aspirin Chewable 81 Mg Tab PO 81 mg DAILY MAKENZIE Administration Buspirone HCl 15 mg 04/30/20 21:00 05/05/20 10:22 Buspirone Hcl 5 Mg Tab PO 15 mg BID MAKENZIE Administration Carvedilol 3.125 mg 04/30/20 17:00 05/05/20 17:40 Carvedilol 3.125 Mg Tab PO 3.125 mg BID-WM MAKENZIE Administration Citalopram Hydrobromide 40 mg 05/01/20 09:00 05/05/20 10:22 Citalopram 20 Mg Tab PO 40 mg QAM MAKENZIE Administration Cyanocobalamin 5,000 mcg 05/01/20 09:00 05/05/20 10:22 Cyanocobalamin (Vitamin B-12) 1,000 Mcg Tab PO 5,000 mcg DAILY MAKENZIE Administration Ferrous Sulfate 325 mg 05/01/20 09:00 05/05/20 10:22 Ferrous Sulfate 325 Mg Tab PO 325 mg DAILY MAKENZIE Administration Fish Oil 1,000 mg 04/30/20 21:00 05/05/20 10:20 Fish Oil 1,000 Mg Cap PO 1,000 mg BID MAKENZIE Administration Furosemide 80 mg 05/05/20 09:00 05/05/20 10:23 Furosemide 100 Mg/10 Ml Vial SLOW IVP 80 mg DAILY MAKENZIE Administration Heparin Sodium (Porcine) 5,000 units 04/30/20 09:00 05/05/20 14:27 Heparin 5,000 Units/Ml Vial SC 5,000 units TID MAKENZIE Administration Lisinopril 1.25 mg 04/30/20 09:00 05/05/20 10:20 Lisinopril 2.5 Mg Tab PO 1.25 mg DAILY MAKENZIE Administration Metolazone 2.5 mg 05/05/20 08:30 05/05/20 10:21 Metolazone 2.5 Mg Tab PO 2.5 mg 0830 MAKENZIE Administration Ondansetron HCl 4 mg 05/01/20 18:09 05/05/20 17:43 Ondansetron Pf 4 Mg/2 Ml Vial IVP 4 mg Q6H PRN Administration Nausea/Vomiting Sodium Chloride 10 ml 04/30/20 08:03 05/05/20 17:43 Flush - Normal Saline 10 Ml Syringe IVF 10 ml PRN PRN Administration Saline Flush Spironolactone 12.5 mg 05/02/20 08:00 05/05/20 10:20 Spironolactone 25 Mg Tab PO 12.5 mg QAM-WM MAKENZIE Administration Tramadol HCl 50 mg 05/02/20 10:45 05/02/20 21:06 Tramadol Hcl 50 Mg Tab PO 50 mg BIDPRN PRN Administration Moderate Pain (4-6) Hospitalist Exam Vitals: Vital Signs (12 hours) Temp Pulse Resp BP Pulse Ox 05/05/20 15:22 97.4 F L 99 18 127/70 100 05/05/20 11:15 98.4 F 115 H 20 106/64 93 L 05/05/20 10:20 115 H 05/05/20 08:15 98.2 F 115 H 18 122/76 96 Weight Weight 476 lb General Appearance: NAD Eye: PERRL ENT: normocephalic atraumatic Neck: supple, symmetric Heart: RRR, no murmur Respiratory: CTAB, no wheezes Gastrointestinal: soft, non-tender Skin: normal turgor (left breast still swollen, and red, a bit warm to touch) Hosp A/P (1) Mastitis Code(s): N61.0 - MASTITIS WITHOUT ABSCESS Status: Acute (2) Shortness of breath Code(s): R06.02 - SHORTNESS OF BREATH Status: Acute (3) DM II (diabetes mellitus, type II), controlled Code(s): E11.9 - TYPE 2 DIABETES MELLITUS WITHOUT COMPLICATIONS Status: Chronic Qualifiers: Diabetes mellitus alf insulin use: without buttermaker use Diabetes mellitus complication status: with other specified complication Qualified Code(s): E11.69 - Type 2 diabetes mellitus with other specified complication (4) HTN (hypertension) Code(s): I10 - ESSENTIAL (PRIMARY) HYPERTENSION Status: Chronic Qualifiers: Hypertension type: essential hypertension Qualified Code(s): I10 - Essential (primary) hypertension (5) Morbid (severe) obesity due to excess calories Code(s): E66.01 - MORBID (SEVERE) OBESITY DUE TO EXCESS CALORIES Status: Chronic - Plan plan for today 2/6 she is breathing much better, I plan to taper her off the oxygen.I will continue current management. her beast is still swollen, I will change ATB to IV Unasyn.
[2020-05-05] MEDS: Ampicillin/Sulbactam 3 GM in Sodium Chloride 0.9% 100 ML IVPB SCH (20:48)
[2020-05-06] MEDS: Ampicillin/Sulbactam 3 GM in Sodium Chloride 0.9% 100 ML IVPB SCH ×4 (02:05→20:10)
[2020-05-06 04:27] LABS: #Eosinphils 0.3 thou/uL (0.0-0.7); #Lymphocytes 1.8 thou/uL (1.20-3.40); #Monocytes 0.8 thou/uL (0.11-0.59); #Neutrophils 3.8 thou/uL (1.40-6.50); %Basophils 0.3 % (0.0-1.0); %Eosinophils 4.7 % (0.0-10.0); %Monocytes 11.9 % (0.0-10.0); %Neutrophils 56.1 % (42.0-75.0); Hemoglobin 11.5 g/dL (12.0-16.0); Mean Corpuscular Hemoglobin 24.5 pg (27.0-31.0); Mean Corpuscular Volume 87.5 fL (78.0-98.0); Platelet Count 194 thou/uL (130-400); RBC Distribution Width 15.9 % (11.5-14.5); White Blood Cell (WBC) Count 6.8 thou/uL (4.8-10.8)
[2020-05-06 04:44] LABS: BUN (Urea Nitrogen) 10 mg/dL (7.0-18.7); Calc. Creatinine Clearance 250 mL/min (70-130); Calcium 9.4 mg/dL (7.8-10.44); Glucose 99 mg/dL (70-105)
[2020-05-06 04:53] LABS: Anion Gap 17 mmol/L (10-20); Carbon Dioxide 38 mmol/L (22-29); Chloride 91 mmol/L (98-107); Potassium 3.8 mmol/L (3.5-5.1); Sodium 142 mmol/L (136-145)
[2020-05-06] MEDS: Ferrous Sulfate 325 MG TAB PO SCH (08:18)
[2020-05-06] MEDS: Lisinopril 2.5 MG TAB PO SCH (08:18)
[2020-05-06] MEDS: busPIRone HCl 5 MG TAB PO SCH ×2 (08:19→20:10)
[2020-05-06] MEDS: Cyanocobalamin (Vitamin B-12) 1,000 MCG TAB PO SCH (08:19)
[2020-05-06] MEDS: Aspirin Chewable 81 MG TAB PO SCH (08:19)
[2020-05-06] MEDS: Heparin 5,000 UNITS/ML VIAL SC SCH ×3 (08:20→20:11)
[2020-05-06] MEDS: Citalopram 20 MG TAB PO SCH (08:20)
[2020-05-06] MEDS: Carvedilol 3.125 MG TAB PO SCH ×2 (08:20→17:13)
[2020-05-06] MEDS: Fish Oil 1,000 MG CAP PO SCH ×2 (08:20→20:11)
[2020-05-06] MEDS: Spironolactone 25 MG TAB PO SCH (08:20)
--- NOTE | 2020-05-06 08:25 | PDOC.HOSPP ---
- Subjective Encounter Date: 05/06/20 Subjective: she did no sleep well otherwise denies sob. - Objective Vital Signs & Weight: Vital Signs (12 hours) Temp Pulse Resp BP BP Pulse Ox 05/06/20 08:15 98.5 F 99 18 120/62 94 L 05/06/20 05:27 99 05/06/20 04:00 98.2 F 63 17 111/64 99 05/06/20 00:00 104 H 116/59 L Weight Weight 476 lb I&O: 05/05/20 05/06/20 05/07/20 06:59 06:59 06:59 Intake Total 1315 1740 Output Total 650 1550 Balance 665 190 Result Diagrams: 05/06/20 04:08 05/06/20 04:08 Hospitalist ROS - Medication Medications: Active Medications Generic Name Dose Route Start Last Admin Trade Name Freq PRN Reason Stop Dose Admin Acetaminophen 650 mg 04/30/20 08:03 05/05/20 10:21 Acetaminophen 325 Mg Tab PO 650 mg Q4H PRN Administration Headache/Fever/Mild Pain (1-3) Aspirin 81 mg 04/30/20 09:00 05/05/20 10:22 Aspirin Chewable 81 Mg Tab PO 81 mg DAILY MAKENZIE Administration Buspirone HCl 15 mg 04/30/20 21:00 05/05/20 20:48 Buspirone Hcl 5 Mg Tab PO 15 mg BID MAKENZIE Administration Carvedilol 3.125 mg 04/30/20 17:00 05/05/20 17:40 Carvedilol 3.125 Mg Tab PO 3.125 mg BID-WM MAKENZIE Administration Citalopram Hydrobromide 40 mg 05/01/20 09:00 05/05/20 10:22 Citalopram 20 Mg Tab PO 40 mg QAM MAKENZIE Administration Cyanocobalamin 5,000 mcg 05/01/20 09:00 05/05/20 10:22 Cyanocobalamin (Vitamin B-12) 1,000 Mcg Tab PO 5,000 mcg DAILY MAKENZIE Administration Ferrous Sulfate 325 mg 05/01/20 09:00 05/05/20 10:22 Ferrous Sulfate 325 Mg Tab PO 325 mg DAILY MAKENZIE Administration Fish Oil 1,000 mg 04/30/20 21:00 05/05/20 20:48 Fish Oil 1,000 Mg Cap PO 1,000 mg BID MAKENZIE Administration Heparin Sodium (Porcine) 5,000 units 04/30/20 09:00 05/05/20 20:48 Heparin 5,000 Units/Ml Vial SC 5,000 units TID MAKENZIE Administration Ampicillin Sodium/Sulbactam 100 mls @ 200 mls/hr 05/05/20 20:00 05/06/20 02:05 Sodium 3 gm/ Sodium Chloride IVPB 100 mls 0200,0800,1400,2000 MAKENZIE Administration Lisinopril 1.25 mg 04/30/20 09:00 05/05/20 10:20 Lisinopril 2.5 Mg Tab PO 1.25 mg DAILY MAKENZIE Administration Metolazone 2.5 mg 05/05/20 08:30 05/05/20 10:21 Metolazone 2.5 Mg Tab PO 2.5 mg 0830 MAKENZIE Administration Ondansetron HCl 4 mg 05/01/20 18:09 05/05/20 17:43 Ondansetron Pf 4 Mg/2 Ml Vial IVP 4 mg Q6H PRN Administration Nausea/Vomiting Sodium Chloride 10 ml 04/30/20 08:03 05/05/20 17:43 Flush - Normal Saline 10 Ml Syringe IVF 10 ml PRN PRN Administration Saline Flush Spironolactone 12.5 mg 05/02/20 08:00 05/05/20 10:20 Spironolactone 25 Mg Tab PO 12.5 mg QAM-WM MAKENZIE Administration Tramadol HCl 50 mg 05/02/20 10:45 05/02/20 21:06 Tramadol Hcl 50 Mg Tab PO 50 mg BIDPRN PRN Administration Moderate Pain (4-6) Hospitalist Exam Vitals: Vital Signs (12 hours) Temp Pulse Resp BP BP Pulse Ox 05/06/20 08:15 98.5 F 99 18 120/62 94 L 05/06/20 05:27 99 05/06/20 04:00 98.2 F 63 17 111/64 99 05/06/20 00:00 104 H 116/59 L Weight Weight 476 lb General Appearance: NAD Eye: PERRL ENT: normocephalic atraumatic Neck: supple, symmetric Heart: RRR, no murmur Respiratory: CTAB, no wheezes Gastrointestinal: soft, non-tender Skin: normal turgor (left breast looks better, les swollen.) Hosp A/P (1) Mastitis Code(s): N61.0 - MASTITIS WITHOUT ABSCESS Status: Acute (2) Shortness of breath Code(s): R06.02 - SHORTNESS OF BREATH Status: Acute (3) DM II (diabetes mellitus, type II), controlled Code(s): E11.9 - TYPE 2 DIABETES MELLITUS WITHOUT COMPLICATIONS Status: Chronic Qualifiers: Diabetes mellitus assisted insulin use: without long lines operator use Diabetes mellitus complication status: with other specified complication Qualified Code(s): E11.69 - Type 2 diabetes mellitus with other specified complication (4) HTN (hypertension) Code(s): I10 - ESSENTIAL (PRIMARY) HYPERTENSION Status: Chronic Qualifiers: Hypertension type: essential hypertension Qualified Code(s): I10 - Essential (primary) hypertension (5) Morbid (severe) obesity due to excess calories Code(s): E66.01 - MORBID (SEVERE) OBESITY DUE TO EXCESS CALORIES Status: Chronic - Plan plan for today 05/05 she is breathing much better, I plan to taper her off the oxygen.I will continue current management. her beast is still swollen, I will change ATB to IV Unasyn. plan for today 05/06 she continues to breath better, her labs are indicating metabolic alkalosis, I will change her Lasix from IV to po. Unasyn was started yesterday, her left breast remains swollen but appears better. she will be downgraded to med/surg and most likely will be discharged in am.
[2020-05-06] MEDS: Metolazone 2.5 MG TAB PO SCH (08:26)
[2020-05-06] MEDS: Furosemide 40 MG TAB PO SCH ×2 (09:36→20:16)
[2020-05-06] MEDS: Ondansetron PF 4 MG/2 ML Vial IVP PRN (22:16)
[2020-05-07] MEDS: Ampicillin/Sulbactam 3 GM in Sodium Chloride 0.9% 100 ML IVPB SCH ×4 (03:00→19:52)
[2020-05-07 08:40] LABS: #Eosinphils 0.3 thou/uL (0.0-0.7); #Lymphocytes 1.6 thou/uL (1.20-3.40); #Monocytes 0.7 thou/uL (0.11-0.59); #Neutrophils 3.8 thou/uL (1.40-6.50); %Basophils 0.4 % (0.0-1.0); %Eosinophils 4.6 % (0.0-10.0); %Lymphocytes 25.3 % (21.0-51.0); %Monocytes 10.9 % (0.0-10.0); %Neutrophils 58.9 % (42.0-75.0); Hemoglobin 12.1 g/dL (12.0-16.0); Mean Corpuscular HGB CONC 28.8 g/dL (32.0-36.0); Mean Corpuscular Hemoglobin 25.2 pg (27.0-31.0); Mean Corpuscular Volume 87.3 fL (78.0-98.0); Mean Platelet Volume 9.6 fL (7.4-10.4); Platelet Count 187 thou/uL (130-400); RBC Distribution Width 16.3 % (11.5-14.5); Red Blood Cell (RBC) Count 4.81 mill/uL (4.20-5.40); White Blood Cell (WBC) Count 6.4 thou/uL (4.8-10.8)
[2020-05-07 09:01] LABS: BUN (Urea Nitrogen) 9 mg/dL (7.0-18.7); Calc. Creatinine Clearance 237 mL/min (70-130); Calcium 9.2 mg/dL (7.8-10.44); Glucose 88 mg/dL (70-105)
[2020-05-07 09:10] LABS: Anion Gap 21 mmol/L (10-20); Carbon Dioxide 36 mmol/L (22-29); Chloride 88 mmol/L (98-107); Potassium 3.7 mmol/L (3.5-5.1); Sodium 141 mmol/L (136-145)
[2020-05-07 09:35] LABS: MDiff Complete? YES; Ovalocytes SLIGHT = 2-5 cells (100X) (0-1/hpf); Platelet Morphology Comment Appears Adequate; Polychromasia SLIGHT = 2-3 cells (100X) (0-2/hpf)
[2020-05-07] MEDS: Metolazone 2.5 MG TAB PO SCH (09:35)
[2020-05-07] MEDS: Carvedilol 3.125 MG TAB PO SCH ×2 (09:35→17:46)
[2020-05-07] MEDS: Aspirin Chewable 81 MG TAB PO SCH (09:35)
[2020-05-07] MEDS: Spironolactone 25 MG TAB PO SCH (09:35)
[2020-05-07] MEDS: busPIRone HCl 5 MG TAB PO SCH ×2 (09:36→19:52)
[2020-05-07] MEDS: Citalopram 20 MG TAB PO SCH (09:36)
[2020-05-07] MEDS: Ferrous Sulfate 325 MG TAB PO SCH (09:36)
[2020-05-07] MEDS: Fish Oil 1,000 MG CAP PO SCH ×2 (09:36→19:52)
[2020-05-07] MEDS: Cyanocobalamin (Vitamin B-12) 1,000 MCG TAB PO SCH (09:36)
[2020-05-07] MEDS: Lisinopril 2.5 MG TAB PO SCH (09:36)
[2020-05-07] MEDS: Heparin 5,000 UNITS/ML VIAL SC SCH ×3 (09:37→19:52)
--- NOTE | 2020-05-07 09:57 | PDOC.HOSPP ---
- Subjective Subjective: The patient is complaining of chest pain. - Objective Vital Signs & Weight: Vital Signs (12 hours) Temp Pulse Resp BP BP BP Pulse Ox 05/07/20 09:36 108 H 132/86 05/07/20 07:11 98.5 F 108 H 16 132/86 05/07/20 04:00 98.6 F 120 H 18 110/59 L 96 05/07/20 00:00 98.8 F 92 19 100/59 L 94 L Weight Weight 466 lb I&O: 05/06/20 05/07/20 05/08/20 06:59 06:59 06:59 Intake Total 1740 640 Output Total 1550 2700 Balance 190 -2060 Result Diagrams: 05/07/20 07:38 05/07/20 07:38 Hospitalist ROS - Medication Medications: Active Medications Generic Name Dose Route Start Last Admin Trade Name Freq PRN Reason Stop Dose Admin Acetaminophen 650 mg 04/30/20 08:03 05/05/20 10:21 Acetaminophen 325 Mg Tab PO 650 mg Q4H PRN Administration Headache/Fever/Mild Pain (1-3) Aspirin 81 mg 04/30/20 09:00 05/07/20 09:35 Aspirin Chewable 81 Mg Tab PO 81 mg DAILY MAKENZIE Administration Buspirone HCl 15 mg 04/30/20 21:00 05/07/20 09:36 Buspirone Hcl 5 Mg Tab PO 15 mg BID MAKENZIE Administration Carvedilol 3.125 mg 04/30/20 17:00 05/07/20 09:35 Carvedilol 3.125 Mg Tab PO 3.125 mg BID-WM MAKENZIE Administration Citalopram Hydrobromide 40 mg 05/01/20 09:00 05/07/20 09:36 Citalopram 20 Mg Tab PO 40 mg QAM MAKENZIE Administration Cyanocobalamin 5,000 mcg 05/01/20 09:00 05/07/20 09:36 Cyanocobalamin (Vitamin B-12) 1,000 Mcg Tab PO 5,000 mcg DAILY MAKENZIE Administration Ferrous Sulfate 325 mg 05/01/20 09:00 05/07/20 09:36 Ferrous Sulfate 325 Mg Tab PO 325 mg DAILY MAKENZIE Administration Fish Oil 1,000 mg 04/30/20 21:00 05/07/20 09:36 Fish Oil 1,000 Mg Cap PO 1,000 mg BID MAKENZIE Administration Furosemide 40 mg 05/06/20 09:00 05/06/20 20:16 Furosemide 40 Mg Tab PO Not Given BID MAKENZIE Heparin Sodium (Porcine) 5,000 units 04/30/20 09:00 05/07/20 09:37 Heparin 5,000 Units/Ml Vial SC 5,000 units TID MAKENZIE Administration Ampicillin Sodium/Sulbactam 100 mls @ 200 mls/hr 05/05/20 20:00 05/07/20 09:35 Sodium 3 gm/ Sodium Chloride IVPB 100 mls 0200,0800,1400,2000 MAKENZIE Administration Lisinopril 1.25 mg 04/30/20 09:00 05/07/20 09:36 Lisinopril 2.5 Mg Tab PO 1.25 mg DAILY MAKENZIE Administration Metolazone 2.5 mg 05/05/20 08:30 05/07/20 09:35 Metolazone 2.5 Mg Tab PO 2.5 mg 0830 MAKENZIE Administration Ondansetron HCl 4 mg 05/01/20 18:09 05/06/20 22:16 Ondansetron Pf 4 Mg/2 Ml Vial IVP 4 mg Q6H PRN Administration Nausea/Vomiting Sodium Chloride 10 ml 04/30/20 08:03 05/05/20 17:43 Flush - Normal Saline 10 Ml Syringe IVF 10 ml PRN PRN Administration Saline Flush Spironolactone 12.5 mg 05/02/20 08:00 05/07/20 09:35 Spironolactone 25 Mg Tab PO 12.5 mg QAM-WM MAKENZIE Administration Tramadol HCl 50 mg 05/02/20 10:45 05/02/20 21:06 Tramadol Hcl 50 Mg Tab PO 50 mg BIDPRN PRN Administration Moderate Pain (4-6) Hospitalist Exam Vitals: Vital Signs (12 hours) Temp Pulse Resp BP BP BP Pulse Ox 05/07/20 09:36 108 H 132/86 05/07/20 07:11 98.5 F 108 H 16 132/86 05/07/20 04:00 98.6 F 120 H 18 110/59 L 96 05/07/20 00:00 98.8 F 92 19 100/59 L 94 L Weight Weight 466 lb General Appearance: NAD Eye: PERRL ENT: normocephalic atraumatic Neck: supple, symmetric Heart: RRR, no murmur (I can reproduce her chest pain when palpating her sternal area) Respiratory: CTAB, no wheezes Gastrointestinal: soft, non-tender Skin: normal turgor (Her left breast is large and red with edema) Hosp A/P (1) Mastitis Code(s): N61.0 - MASTITIS WITHOUT ABSCESS Status: Acute (2) Shortness of breath Code(s): R06.02 - SHORTNESS OF BREATH Status: Acute (3) DM II (diabetes mellitus, type II), controlled Code(s): E11.9 - TYPE 2 DIABETES MELLITUS WITHOUT COMPLICATIONS Status: Chronic Qualifiers: Diabetes mellitus jail insulin use: without jail use Diabetes mellitus complication status: with other specified complication Qualified Code(s): E11.69 - Type 2 diabetes mellitus with other specified complication (4) HTN (hypertension) Code(s): I10 - ESSENTIAL (PRIMARY) HYPERTENSION Status: Chronic Qualifiers: Hypertension type: essential hypertension Qualified Code(s): I10 - Essential (primary) hypertension (5) Morbid (severe) obesity due to excess calories Code(s): E66.01 - MORBID (SEVERE) OBESITY DUE TO EXCESS CALORIES Status: Chronic - Plan plan for today 05/05 she is breathing much better, I plan to taper her off the oxygen.I will continue current management. her beast is still swollen, I will change ATB to IV Unasyn. plan for today 05/06 she continues to breath better, her labs are indicating metabolic alkalosis, I will change her Lasix from IV to po. Unasyn was started yesterday, her left breast remains swollen but appears better. she will be downgraded to med/surg and most likely will be discharged in am. Plan for today 05/07 In the morning she complained of chest pain while she was moving her bowels, she denies shortness of breath, her pain is reproduced with palpation, EKG showed nonspecific T wave changes, I will give her a dose of Toradol see if the pain subsides since it does appear to be musculoskeletal in nature, I will cycle her troponins. In regards of her left breast that remains swollen, I will do an ultrasound of the breast to see if there is any fluid collection.
[2020-05-07] MEDS ORDERED: Ketorolac Tromethamine 30 MG/ML VIAL IVP SCH (10:00)
[2020-05-07] MEDS: Furosemide 40 MG TAB PO SCH ×2 (10:50→20:03)
--- NOTE | 2020-05-07 13:00 | ULT ---
Ultrasound left breast complete: 05/07/2020 HISTORY: 45-year-old female with swelling, erythema, and pain of left breast for one month. Evaluate for absce ss. TECHNIQUE: Ultrasound survey of entire left breast, including upper inner, upper outer, lower inner, and lower o uter quadrants, retroareolar region, and axillary tail. ([facility] independently did not record the axillary tail images) FINDINGS: Please note that this is ultrasound not a substitute for mammogram for evaluation of breast cancer. There is soft tissue edema throughout all regions of the left breast. No focal discrete organized fluid collection is visualized. No high-grade ductal ectasia is visualized. IMPRESSION: 1.. Diffuse edema of the left breast, especially in the upper outer quadrant. 2. This could represent mastitis, although inflammatory breast cancer is not excluded. 3. No abscess identified.
[2020-05-07 15:28] LABS: Troponin I Less than 0.010 ng/mL (< 0.028)
[2020-05-08] MEDS: Ampicillin/Sulbactam 3 GM in Sodium Chloride 0.9% 100 ML IVPB SCH ×3 (02:00→14:19)
[2020-05-08] MEDS: Ondansetron PF 4 MG/2 ML Vial IVP PRN (03:51)
[2020-05-08 06:19] LABS: #Eosinphils 0.2 thou/uL (0.0-0.7); #Lymphocytes 1.6 thou/uL (1.20-3.40); #Monocytes 0.8 thou/uL (0.11-0.59); #Neutrophils 3.5 thou/uL (1.40-6.50); %Basophils 0.3 % (0.0-1.0); %Eosinophils 3.4 % (0.0-10.0); %Lymphocytes 25.7 % (21.0-51.0); %Monocytes 13.2 % (0.0-10.0); %Neutrophils 57.4 % (42.0-75.0); Hemoglobin 11.8 g/dL (12.0-16.0); Mean Corpuscular HGB CONC 27.7 g/dL (32.0-36.0); Mean Corpuscular Hemoglobin 24.4 pg (27.0-31.0); Mean Platelet Volume 9.4 fL (7.4-10.4); Platelet Count 185 thou/uL (130-400); RBC Distribution Width 16.4 % (11.5-14.5); Red Blood Cell (RBC) Count 4.84 mill/uL (4.20-5.40); White Blood Cell (WBC) Count 6.1 thou/uL (4.8-10.8)
[2020-05-08 06:38] LABS: BUN (Urea Nitrogen) 10 mg/dL (7.0-18.7); Calc. Creatinine Clearance 217 mL/min (70-130); Calcium 9.2 mg/dL (7.8-10.44); Glucose 90 mg/dL (70-105)
[2020-05-08 06:46] LABS: Anion Gap 22 mmol/L (10-20); Carbon Dioxide 34 mmol/L (22-29); Chloride 90 mmol/L (98-107); Potassium 3.6 mmol/L (3.5-5.1); Sodium 142 mmol/L (136-145)
[2020-05-08 07:16] VITALS: BP 134/85; TEMP 98.4
[2020-05-08] MEDS: Lisinopril 2.5 MG TAB PO SCH (08:46)
[2020-05-08] MEDS: Aspirin Chewable 81 MG TAB PO SCH (08:46)
[2020-05-08] MEDS: Fish Oil 1,000 MG CAP PO SCH (08:46)
[2020-05-08] MEDS: Metolazone 2.5 MG TAB PO SCH (08:46)
[2020-05-08] MEDS: Ferrous Sulfate 325 MG TAB PO SCH (08:47)
[2020-05-08] MEDS: Cyanocobalamin (Vitamin B-12) 1,000 MCG TAB PO SCH (08:47)
[2020-05-08] MEDS: Citalopram 20 MG TAB PO SCH (08:47)
[2020-05-08] MEDS: Heparin 5,000 UNITS/ML VIAL SC SCH ×2 (08:47→14:57)
[2020-05-08] MEDS: busPIRone HCl 5 MG TAB PO SCH (08:47)
[2020-05-08] MEDS: Carvedilol 3.125 MG TAB PO SCH (08:47)
[2020-05-08] MEDS: Spironolactone 25 MG TAB PO SCH (08:48)
[2020-05-08] MEDS: Furosemide 40 MG TAB PO SCH (08:48)
[2020-05-08 11:04] VITALS: BMI 79.8
--- NOTE | 2020-05-08 14:39 | PDOC.DS.DS ---
Provider Date of Admission: 04/30/20 06:46 Date of Discharge: 05/08/20 Admitting Provider: Álvaro Ding MD Primary Care Physician: Antony Domingo Course Hospital Course: Ms. Rose is a 45-year-old female with a past medical history of HFrEF (EF in 2019 38%), morbid obesity with BMI approximately 70, hypertension, hyperlipidemia, anemia, arthritis, anxiety and depression who presents as a transfer from [facility] for worsening shortness of breath and dyspnea on exertion. Patient reports that over the past week she has had progressive shortness of breath and paroxysmal nocturnal dyspnea. She reports she is finding that she needs to sit completely upright in bed at night because of her breathing. She also feels that she has more fluid on her. Patient reports that when she retains fluid it mostly collects in her abdomen and in her breasts. She has also noted an increase in lower extremity swelling. Patient reports that she has been mostly compliant with her Lasix, however this has caused increased frequency and even incontinence sometimes so she does not take it as often as prescribed. In the hospital she was started on IV Lasix, Zaroxolyn and spironolactone were added as well, she diuresed well, she was transitioned to p.o. Lasix She was monitored on telemetry, serial troponins were negative, blood pressure was controlled. At some point she reported that her left breast is swollen and hard to touch, she was started on doxycycline, then transition to Unasyn, ultrasound of the breast showed diffuse edema of the left breast could represent mastitis although inflammatory breast cancer is not excluded, on IV Unasyn patient improved but due to her large breasts and body habitus it was tough to gauge the improvement, I will send her home on a 7-day course of Augmentin, I stressed upon her to follow-up with her primary care physician, if her breast does not improve she mi ght need a biopsy to be done by a surgeon, I did discuss the option of doing further imaging in the hospital but radiology advised that a biopsy is the only confirmatory test and further imaging with not benefit in which show similar findings as her breast ultrasound. Patient will be discharged home, I will provide a prescription for spironolactone and Zaroxolyn, she already has Lasix and Coreg, will continue with vitamin B12 and iron supplementation for a month. I stressed upon her to follow-up with her primary care physician in a week also to seek weight reduction surgery, and to be compliant with her medications. She will will be on Augmentin as discussed above and I clearly instructed her that if the swelling of her breast does not improve she should definitely touch base with her primary care physician within a week, she verbalized understanding. Resuscitation Status: 04/30/20 08:03 Resuscitation Status Routine Co-Sign Provider: Resuscitation Status: DNAR: NO Resuscitation Discussed with: Patient, attending Lab Results: 05/08/20 05:45 05/08/20 05:45 Abnormal Lab Results - Last 48 hrs 05/07/20 07:38: MCH 25.2 L, MCHC 28.8 L, RDW 16.3 H, Monocytes % 10.9 H, Monocytes # 0.7 H 05/07/20 07:38: Chloride 88 L, Carbon Dioxide 36 H, Anion Gap 21 H 05/08/20 05:45: Hgb 11.8 L, MCH 24.4 L, MCHC 27.7 L, RDW 16.4 H, Monocytes % 13.2 H, Monocytes # 0.8 H 05/08/20 05:45: Chloride 90 L, Carbon Dioxide 34 H, Anion Gap 22 H Vitals: Vital Signs (12 hours) Temp Pulse Resp BP BP BP Pulse Ox 05/08/20 08:46 109 H 134/85 05/08/20 08:00 93 L 05/08/20 07:13 98.4 F 109 H 18 134/85 92 L 05/08/20 04:00 97.4 F L 100 19 108/64 92 L Weight Weight 465 lb 3.2 oz Physical Exam: The patient was seen and examined on the day of discharge. General Appearance: NAD Eye: PERRL, anicteric sclera ENT: normocephalic atraumatic, no oropharyngeal lesions Neck: supple, symmetric, no JVD Respiratory: CTAB, no wheezes Cardiovascular: RRR, no murmur Gastrointestinal: soft, non-tender, non-distended Skin: normal turgor (Her left breast is less edematous and less hard than yesterday.) Problem (1) Mastitis Code(s): N61.0 - MASTITIS WITHOUT ABSCESS Status: Acute (2) Shortness of breath Code(s): R06.02 - SHORTNESS OF BREATH Status: Acute (3) DM II (diabetes mellitus, type II), controlled Code(s): E11.9 - TYPE 2 DIABETES MELLITUS WITHOUT COMPLICATIONS Status: Chronic Qualifiers: Diabetes mellitus parts counterman insulin use: without shelter use Diabetes mellitus complication status: with other specified complication Qualified Code(s): E11.69 - Type 2 diabetes mellitus with other specified complication (4) HTN (hypertension) Code(s): I10 - ESSENTIAL (PRIMARY) HYPERTENSION Status: Chronic Qualifiers: Hypertension type: essential hypertension Qualified Code(s): I10 - Essential (primary) hypertension (5) Morbid (severe) obesity due to excess calories Code(s): E66.01 - MORBID (SEVERE) OBESITY DUE TO EXCESS CALORIES Status: Chronic Time Spent in discharge related activities (mins): 45 Plan Prescriptions: Spironolactone [Aldactone] 12.5 mg PO QAM-WM 30 Days #15 tab Amoxicillin/Potassium Clav [Augmentin 875-125 Tablet] 1 each PO BID 7 Days #14 tablet Ferrous Sulfate [Feosol] 325 mg PO DAILY 30 Days #30 tab Fish Oil 1,000 mg PO BID 30 Days #60 cap Cyanocobalamin (Vitamin B-12) [Vitamin B-12] 5,000 mcg PO DAILY #30 tab Metolazone [Zaroxolyn] 2.5 mg PO 0830 30 Days #30 tab Home Medications: Medication Instructions Recorded Confirmed Type Carvedilol [Coreg] 3.125 mg PO BID-WM #30 tab 05/20/17 04/30/20 Rx Citalopram [CeleXA] 40 mg PO QAM 10/12/17 04/30/20 History Cyclobenzaprine [Flexeril] 10 mg PO BID PRN 01/19/18 04/30/20 History Aspirin 325 mg PO DAILY 04/23/18 04/30/20 History Lisinopril [Zestril] 2.5 mg PO DAILY 05/19/18 04/30/20 History Nabumetone [Relafen] 500 mg PO BID 05/19/18 04/30/20 History busPIRone HCl [Buspirone HCl] 15 mg PO BID 10/18/19 04/30/20 History traMADol HCl [Tramadol HCl] 50 mg PO BID PRN 10/18/19 04/30/20 History Amoxicillin/Potassium Clav 1 each PO BID 7 Days #14 tablet 05/08/20 Rx [Augmentin 875-125 Tablet] Aspirin Chewable [Aspirin Chewable 81 mg PO DAILY tab 05/08/20 Rx Tablet] Cyanocobalamin (Vitamin B-12) 5,000 mcg PO DAILY #30 tab 05/08/20 Rx [Vitamin B-12] Ferrous Sulfate [Feosol] 325 mg PO DAILY 30 Days #30 tab 05/08/20 Rx Fish Oil 1,000 mg PO BID 30 Days #60 cap 05/08/20 Rx Furosemide [Lasix] 40 mg PO BID tab 05/08/20 Rx Metolazone [Zaroxolyn] 2.5 mg PO 0830 30 Days #30 tab 05/08/20 Rx Nystatin [Mycostatin Powder] 1 gm TOP BID PRN 30 Days #1 bot 05/08/20 Rx Spironolactone [Aldactone] 12.5 mg PO QAM-WM 30 Days #15 tab 05/08/20 Rx Allergies: No Known Allergies Allergy (Verified 04/30/20 16:32) Referrals: Cardiac Rehab - [place] [Outside] - 7 Days (Your doctor has ordered outpatient cardiac rehab for you to begin within 1-2 weeks after you go home from the hospital. The location nearest to you is the [facility] [facility]. The front office in [place] will call you in 3-5 days to get you scheduled for your evaluation. If you do not receive a call, please reach out to them at [email or web address] and request an appointment. Should you have any trouble or need assistance, please call the cardiac rehab main line in [place] at [phone]) John Miranda MD [Active] - 2-3 Weeks (For bariatric surgery options) Louie Skinner MD [Primary Care Provider] - Disposition: HOME Quality CORE MEASURES:: HF Did you prescribe antithrombotic therapy?: Yes Did you prescribe anticoagulant for A Fib/Flutter?: No Specify reason for no DC anticoagulant: Treatment not indicated Did you prescribe a statin medication?: No Specify reason for no DC statin medication: Treatment not indicated
== END 2020-05-08 17:16 | disposition home or self-care (01) | DRG 291 ==
LOC: ERS 05:56 → ERHOLD 06:46 → 2NO 14:54 → T4-A 05-06 10:27
PROVIDERS: ADMIT Student in an Organized Health Care Education/Training Program; ATTEND Internal Medicine
DX: I11.0 Hypertensive heart disease with heart failure (principal); J96.01 Acute respiratory failure with hypoxia; Z68.45 Body mass index [BMI] 70 or greater, adult; Z66 Do not resuscitate; Z20.822 Contact with and (suspected) exposure to COVID-19; E66.2 Morbid (severe) obesity with alveolar hypoventilation; E87.2 Acidosis; E87.3 Alkalosis; I16.0 Hypertensive urgency; I50.23 Acute on chronic systolic (congestive) heart failure; F41.9 Anxiety disorder, unspecified; F32.9 Major depressive disorder, single episode, unspecified; E78.5 Hyperlipidemia, unspecified; M19.90 Unspecified osteoarthritis, unspecified site; L30.4 Erythema intertrigo; N61.0 Mastitis without abscess; Z28.21 Immunization not carried out because of patient refusal; Z91.14 Patient's other noncompliance with medication regimen; Z79.899 Other long term (current) drug therapy; Z79.82 Long term (current) use of aspirin
CPT/HCPCS: 36415; 36416; 71045; 80048; 80053; 80061; 83036; 83735; 83880; 84443; 84484; 85025; 87635; 93005; 93010; 93798; 94660; 99285; J0295; J1644; J1885; J1940; J2405; J3490; U0003; U0005

== ENCOUNTER 2020-06-12 09:20 | Outpatient (CLI) | payer MEDICARE, MEDICAID | END 2020-06-12 09:21 | disposition home or self-care (01) | LOC: BICMAMMO 09:20 | PROVIDERS: ATTEND Family Medicine | DX: N63.20 Unspecified lump in the left breast, unspecified quadrant (principal) | CPT/HCPCS: 77066; G0279 ==

== ENCOUNTER 2020-07-27 15:13 | Outpatient (CLI) | payer MEDICARE, MEDICAID ==
[2020-07-27 16:34] LABS: #Eosinphils 0.2 10x3/uL (0.0-0.5); #Monocytes 0.5 10x3/uL (0.0-1.1); #Neutrophils 4.2 10x3/uL (1.5-8.4); %Basophils 0.3 % (0.0-2.0); %Eosinophils 2.6 % (0.0-6.0); %Lymphocytes 28.6 % (18.0-47.0); %Monocytes 7.3 % (0.0-10.0); %Neutrophils 60.5 % (40.0-75.0); Hemoglobin 12.5 g/dL (12.0-15.5); Mean Corpuscular HGB CONC 30.3 g/dL (32.0-36.0); Mean Corpuscular Hemoglobin 26.8 pg (27.0-33.0); Mean Corpuscular Volume 88.6 fl (81.6-98.3); Mean Platelet Volume 11.2 fl (7.4-10.4); Platelet Count 224 10x3/uL (150-450); RBC Distribution Width 17.9 % (11.5-14.5); Red Blood Cell (RBC) Count 4.66 10x6/uL (3.90-5.03)
[2020-07-27 17:04] LABS: Anion Gap 18 mmol/L (10-20); BUN (Urea Nitrogen) 14 mg/dL (7.0-18.7); Calc. Creatinine Clearance 0 mL/min (70-130); Calcium 9.6 mg/dL (7.8-10.44); Carbon Dioxide 25 mmol/L (22-29); Chloride 101 mmol/L (98-107); Glucose 96 mg/dL (70-105); Potassium 4.8 mmol/L (3.5-5.1); Sodium 139 mmol/L (136-145)
[2020-07-28 01:13] LABS: SARS-CoV-2 PCR by NAA Not Detected (NotDetected)
== END 2020-07-27 15:14 | disposition home or self-care (01) ==
LOC: LABBT 15:13
PROVIDERS: ATTEND Surgery
DX: Z01.818 Encounter for other preprocedural examination (principal); N63.0 Unspecified lump in unspecified breast; Z20.822 Contact with and (suspected) exposure to COVID-19
CPT/HCPCS: 80048; 85025; 93005; U0003; U0005; 87635; 93010

== ENCOUNTER 2020-08-01 06:43 | Day surgery (SDC) | payer MEDICARE, MEDICAID ==
[2020-07-30 14:21] VITALS: BMI 78.9
[2020-08-01] MEDS ORDERED: Lidocaine 1% w/Epinephrine 1:100K 20 ML VIAL ONE (12:04)
[2020-08-01] MEDS ORDERED: Bupivacaine 0.25% HCL 30 ML VIAL ONE (12:04)
[2020-08-01] MEDS ORDERED: Dexmedetomidine 200 MCG/2 ML VIAL ONE (12:21)
[2020-08-01] MEDS ORDERED: Fentanyl 100 MCG/2 ML VIAL ONE ×2 (12:21→13:39)
[2020-08-01] MEDS ORDERED: PROPOFOL 200 MG/20 ML VIAL ONE (12:36)
[2020-08-01] MEDS ORDERED: Rocuronium Bromide 10 MG/ML (10ML VIAL) ONE (12:36)
[2020-08-01] MEDS ORDERED: Glycopyrrolate 0.2 MG/ML 5 ML SYRINGE ONE (12:36)
[2020-08-01] MEDS ORDERED: Lidocaine 1% PF 5 ML VIAL ONE (12:36)
[2020-08-01] MEDS ORDERED: PHENYLEPHRINE-NS 100 MCG/ML 10 ML SYRINGE ONE (12:36)
[2020-08-01] MEDS ORDERED: Promethazine HCl 25 MG/ML VIAL ONE (13:40)
== END 2020-08-01 15:24 | disposition home or self-care (01) ==
LOC: SDC 06:43
PROVIDERS: ATTEND Surgery
PROC: 0HBU0ZZ Excision of Left Breast, Open Approach (ICD-10-PCS; principal; 2020-08-01)
DX: N60.32 Fibrosclerosis of left breast (principal); N61.0 Mastitis without abscess; R92.1 Mammographic calcification found on diagnostic imaging of breast; I70.90 Unspecified atherosclerosis; R92.0 Mammographic microcalcification found on diagnostic imaging of breast; M19.90 Unspecified osteoarthritis, unspecified site; E78.00 Pure hypercholesterolemia, unspecified; G89.29 Other chronic pain; E11.9 Type 2 diabetes mellitus without complications; I10 Essential (primary) hypertension; E66.9 Obesity, unspecified; Z68.45 Body mass index [BMI] 70 or greater, adult; Z87.891 Personal history of nicotine dependence; Z79.899 Other long term (current) drug therapy
CPT/HCPCS: 19281; 76098; 88307; J0690; J2550; J2704; J3010; S0020

== ENCOUNTER 2020-08-07 08:18 | Emergency (ER) | payer MEDICARE, MEDICAID ==
[2020-08-07 09:05] LABS: #Eosinphils 0.3 thou/uL (0.0-0.7); #Lymphocytes 1.5 thou/uL (1.20-3.40); #Monocytes 0.3 thou/uL (0.11-0.59); #Neutrophils 4.9 thou/uL (1.40-6.50); %Basophils 0.5 % (0.0-1.0); %Eosinophils 4.1 % (0.0-10.0); %Lymphocytes 21.7 % (21.0-51.0); %Monocytes 4.1 % (0.0-10.0); %Neutrophils 69.6 % (42.0-75.0); Hemoglobin 12.5 g/dL (12.0-16.0); Mean Corpuscular HGB CONC 30.2 g/dL (32.0-36.0); Mean Corpuscular Hemoglobin 27.5 pg (27.0-31.0); Mean Corpuscular Volume 91.2 fL (78.0-98.0); Mean Platelet Volume 8.8 fL (7.4-10.4); Platelet Count 235 thou/uL (130-400); RBC Distribution Width 16.6 % (11.5-14.5); Red Blood Cell (RBC) Count 4.52 mill/uL (4.20-5.40); White Blood Cell (WBC) Count 7.1 thou/uL (4.8-10.8)
[2020-08-07] MEDS ORDERED: Fentanyl 100 MCG/2 ML VIAL ONE (09:24)
[2020-08-07 09:27] LABS: ALT (SGPT) 8 U/L (8-55); AST (SGOT) 14 U/L (5-34); Albumin 3.7 g/dL (3.5-5.0); Alkaline Phosphatase 91 U/L (40-110); Anion Gap 13 mmol/L (10-20); BUN (Urea Nitrogen) 13 mg/dL (7.0-18.7); Bilirubin, Total 0.3 mg/dL (0.2-1.2); Calc. Creatinine Clearance 0 mL/min (70-130); Calcium 9.5 mg/dL (7.8-10.44); Carbon Dioxide 28 mmol/L (22-29); Chloride 101 mmol/L (98-107); Globulin 3.8 g/dL (2.4-3.5); Glucose 106 mg/dL (70-105); Potassium 4.4 mmol/L (3.5-5.1); Protein, Total 7.5 g/dL (6.0-8.3); Sodium 138 mmol/L (136-145)
[2020-08-07] MEDS ORDERED: Ondansetron PF 4 MG/2 ML Vial ONE (09:40)
== END 2020-08-07 12:34 | disposition home or self-care (01) ==
LOC: ERS 08:18
DX: N64.4 Mastodynia (principal); I11.0 Hypertensive heart disease with heart failure; I50.9 Heart failure, unspecified; E11.9 Type 2 diabetes mellitus without complications; E66.9 Obesity, unspecified; I10 Essential (primary) hypertension; E78.5 Hyperlipidemia, unspecified; M19.90 Unspecified osteoarthritis, unspecified site; E66.01 Morbid (severe) obesity due to excess calories; Z87.891 Personal history of nicotine dependence; Z79.899 Other long term (current) drug therapy
CPT/HCPCS: 36415; 71046; 80053; 83605; 83880; 84484; 85025; 87040; 87149; 93005; 96374; 96375; J2405; J3010

== ENCOUNTER 2020-09-18 16:09 | Inpatient (IN) | payer MEDICARE, MEDICAID ==
[2020-09-18] MEDS ORDERED: PHENYLEPHRINE-NS 100 MCG/ML 10 ML SYRINGE ONE (17:57)
[2020-09-18] MEDS ORDERED: PROPOFOL 200 MG/20 ML VIAL ONE (17:57)
[2020-09-18] MEDS ORDERED: ePHEDrine Sulfate 50 MG/10 ML VIAL ONE (17:57)
[2020-09-18] MEDS ORDERED: Ondansetron HCl/PF 4 MG/2 ML Vial IVP PRN (18:29)
[2020-09-18] MEDS ORDERED: hydrALAZINE 20 MG/ML VIAL SLOW IVP PRN (18:47)
[2020-09-18] MEDS ORDERED: Promethazine HCl 25 MG/ML VIAL IM PRN (18:47)
[2020-09-18] MEDS ORDERED: Dextrose 50% Abboject 50 ML SYRINGE SLOW IVP PRN (18:47)
[2020-09-18] MEDS ORDERED: HYDROcodone/Acetaminophen 10/325 mg Tablet PO PRN (18:47)
[2020-09-18] MEDS ORDERED: Dextrose 5% in Water 1,000 ML IV PRN (18:47)
[2020-09-18] MEDS ORDERED: Ondansetron PF 4 MG/2 ML Vial IVP PRN (18:47)
[2020-09-18] MEDS ORDERED: Ondansetron ODT 4 MG TAB ONE (18:49)
[2020-09-18] MEDS ORDERED: Fentanyl 100 MCG/2 ML VIAL ONE (18:52)
[2020-09-18] MEDS: Sodium Chloride 0.9% 1,000 ML IV SCH (20:34)
[2020-09-18] MEDS: Famotidine 20 MG TAB PO SCH (21:08)
[2020-09-18] MEDS: Famotidine/PF 20 mg/2ml Vial SLOW IVP SCH (21:08)
[2020-09-18] MEDS: busPIRone HCl 10 MG TAB PO SCH (21:08)
[2020-09-18] MEDS: HYDROcodone/Acetaminophen 10/325 mg Tablet PO PRN (21:09)
[2020-09-19 00:05] VITALS: BMI 74.3
[2020-09-19] MEDS: Piperacillin/Tazobactam 3.375 GM in Sodium Chloride 0.9% 100 ML IVPB SCH ×4 (00:59→20:58)
[2020-09-19] MEDS: HYDROcodone/Acetaminophen 10/325 mg Tablet PO PRN ×3 (03:54→17:53)
[2020-09-19] MEDS: Famotidine/PF 20 mg/2ml Vial SLOW IVP SCH ×2 (08:16→21:00)
[2020-09-19] MEDS: Sodium Chloride 0.9% 1,000 ML IV SCH ×2 (08:17→14:20)
[2020-09-19] MEDS: Famotidine 20 MG TAB PO SCH ×2 (08:18→21:00)
[2020-09-19] MEDS: busPIRone HCl 10 MG TAB PO SCH ×2 (08:18→21:00)
[2020-09-19] MEDS: Carvedilol 3.125 MG TAB PO SCH ×2 (08:18→17:54)
[2020-09-19] MEDS ORDERED: Acetaminophen 325 MG TAB PO PRN (13:55)
[2020-09-19] MEDS: metFORMIN 500 MG TAB PO SCH (21:00)
[2020-09-19] MEDS: Zinc Sulfate 220 MG CAP PO SCH (21:00)
[2020-09-19] MEDS: Fish Oil 1,000 MG CAP PO SCH (21:00)
[2020-09-19] MEDS: Cyclobenzaprine 10 MG TAB PO PRN (21:03)
[2020-09-19] MEDS: Spironolactone 25 MG TAB PO SCH (21:17)
[2020-09-20] MEDS: Sodium Chloride 0.9% 1,000 ML IV SCH ×3 (06:20→19:49)
[2020-09-20] MEDS: Piperacillin/Tazobactam 3.375 GM in Sodium Chloride 0.9% 100 ML IVPB SCH ×3 (06:20→22:14)
[2020-09-20] MEDS: HYDROcodone/Acetaminophen 10/325 mg Tablet PO PRN ×3 (06:21→16:22)
[2020-09-20] MEDS: Fish Oil 1,000 MG CAP PO SCH ×2 (08:50→19:47)
[2020-09-20] MEDS: Cholecalciferol 1,000 UNITS (25 MCG) TAB PO SCH (08:50)
[2020-09-20] MEDS: Citalopram 20 MG TAB PO SCH (08:50)
[2020-09-20] MEDS: Zinc Sulfate 220 MG CAP PO SCH ×2 (08:50→19:47)
[2020-09-20] MEDS: Aspirin Chewable 81 MG TAB PO SCH (08:51)
[2020-09-20] MEDS: metFORMIN 500 MG TAB PO SCH ×2 (08:51→19:48)
[2020-09-20] MEDS: Ferrous Sulfate 325 MG TAB PO SCH (08:51)
[2020-09-20] MEDS: busPIRone HCl 10 MG TAB PO SCH ×2 (08:51→19:48)
[2020-09-20] MEDS: Famotidine 20 MG TAB PO SCH ×2 (08:51→19:48)
[2020-09-20] MEDS: Metolazone 2.5 MG TAB PO SCH (08:51)
[2020-09-20] MEDS: Cyanocobalamin (Vitamin B-12) 1,000 MCG TAB PO SCH (08:52)
[2020-09-20] MEDS: Cyclobenzaprine 10 MG TAB PO PRN (08:54)
[2020-09-20] MEDS: Carvedilol 3.125 MG TAB PO SCH ×2 (08:55→16:23)
[2020-09-20] MEDS: Spironolactone 25 MG TAB PO SCH ×2 (09:23→19:47)
[2020-09-20] MEDS: Lisinopril 2.5 MG TAB PO SCH (09:23)
[2020-09-20] MEDS: Famotidine/PF 20 mg/2ml Vial SLOW IVP SCH ×2 (09:24→19:47)
[2020-09-21] MEDS: HYDROcodone/Acetaminophen 10/325 mg Tablet PO PRN ×4 (04:52→19:13)
[2020-09-21] MEDS: Piperacillin/Tazobactam 3.375 GM in Sodium Chloride 0.9% 100 ML IVPB SCH ×3 (04:57→13:57)
[2020-09-21] MEDS: Cyclobenzaprine 10 MG TAB PO PRN ×2 (07:04→19:13)
[2020-09-21] MEDS: Cholecalciferol 1,000 UNITS (25 MCG) TAB PO SCH (08:42)
[2020-09-21] MEDS: Sodium Chloride 0.9% 1,000 ML IV SCH ×2 (08:42→17:18)
[2020-09-21] MEDS: Metolazone 2.5 MG TAB PO SCH (08:42)
[2020-09-21] MEDS: Lisinopril 2.5 MG TAB PO SCH (08:42)
[2020-09-21] MEDS: Famotidine 20 MG TAB PO SCH ×2 (08:43→20:12)
[2020-09-21] MEDS: Zinc Sulfate 220 MG CAP PO SCH ×2 (08:43→20:12)
[2020-09-21] MEDS: Aspirin Chewable 81 MG TAB PO SCH (08:43)
[2020-09-21] MEDS: Spironolactone 25 MG TAB PO SCH ×2 (08:43→20:10)
[2020-09-21] MEDS: Citalopram 20 MG TAB PO SCH (08:43)
[2020-09-21] MEDS: Cyanocobalamin (Vitamin B-12) 1,000 MCG TAB PO SCH (08:44)
[2020-09-21] MEDS: Fish Oil 1,000 MG CAP PO SCH ×2 (08:44→20:12)
[2020-09-21] MEDS: Ferrous Sulfate 325 MG TAB PO SCH (08:44)
[2020-09-21] MEDS: Famotidine/PF 20 mg/2ml Vial SLOW IVP SCH ×2 (08:44→20:13)
[2020-09-21] MEDS: busPIRone HCl 10 MG TAB PO SCH ×2 (08:44→20:12)
[2020-09-21] MEDS: metFORMIN 500 MG TAB PO SCH ×2 (08:44→20:12)
[2020-09-21] MEDS: Carvedilol 3.125 MG TAB PO SCH ×2 (08:44→17:17)
[2020-09-21] MEDS: PUMPKIN SEED EXTRACT PO SCH ×2 (14:37→14:38)
[2020-09-21] MEDS: SOY GERM PO SCH ×2 (14:37→14:38)
[2020-09-21] MEDS: Linezolid 600 MG TAB PO SCH (20:12)
[2020-09-22] MEDS: HYDROcodone/Acetaminophen 10/325 mg Tablet PO PRN ×4 (00:17→20:24)
[2020-09-22] MEDS: Sodium Chloride 0.9% 1,000 ML IV SCH ×2 (03:10→11:43)
[2020-09-22] MEDS: Lisinopril 2.5 MG TAB PO SCH (08:32)
[2020-09-22] MEDS: Aspirin Chewable 81 MG TAB PO SCH (08:33)
[2020-09-22] MEDS: Cholecalciferol 1,000 UNITS (25 MCG) TAB PO SCH (08:34)
[2020-09-22] MEDS: Famotidine 20 MG TAB PO SCH ×2 (08:34→20:17)
[2020-09-22] MEDS: metFORMIN 500 MG TAB PO SCH ×2 (08:34→20:16)
[2020-09-22] MEDS: Linezolid 600 MG TAB PO SCH ×2 (08:34→20:16)
[2020-09-22] MEDS: Zinc Sulfate 220 MG CAP PO SCH ×2 (08:34→20:16)
[2020-09-22] MEDS: Citalopram 20 MG TAB PO SCH (08:34)
[2020-09-22] MEDS: Metolazone 2.5 MG TAB PO SCH (08:34)
[2020-09-22] MEDS: Ferrous Sulfate 325 MG TAB PO SCH (08:34)
[2020-09-22] MEDS: Spironolactone 25 MG TAB PO SCH ×2 (08:35→21:12)
[2020-09-22] MEDS: busPIRone HCl 10 MG TAB PO SCH ×2 (08:35→20:17)
[2020-09-22] MEDS: Fish Oil 1,000 MG CAP PO SCH ×2 (08:35→20:16)
[2020-09-22] MEDS: Cyanocobalamin (Vitamin B-12) 1,000 MCG TAB PO SCH (08:35)
[2020-09-22] MEDS: Carvedilol 3.125 MG TAB PO SCH ×2 (08:35→17:29)
[2020-09-22] MEDS: Famotidine/PF 20 mg/2ml Vial SLOW IVP SCH (08:36)
[2020-09-23] MEDS: HYDROcodone/Acetaminophen 10/325 mg Tablet PO PRN ×3 (04:47→19:21)
[2020-09-23] MEDS: Famotidine 20 MG TAB PO SCH ×2 (10:06→20:56)
[2020-09-23] MEDS: Linezolid 600 MG TAB PO SCH ×2 (10:06→20:55)
[2020-09-23] MEDS: metFORMIN 500 MG TAB PO SCH ×2 (10:07→20:55)
[2020-09-23] MEDS: Ferrous Sulfate 325 MG TAB PO SCH (10:07)
[2020-09-23] MEDS: Cyanocobalamin (Vitamin B-12) 1,000 MCG TAB PO SCH (10:07)
[2020-09-23] MEDS: Fish Oil 1,000 MG CAP PO SCH ×2 (10:07→20:56)
[2020-09-23] MEDS: Citalopram 20 MG TAB PO SCH (10:07)
[2020-09-23] MEDS: Metolazone 2.5 MG TAB PO SCH (10:07)
[2020-09-23] MEDS: Zinc Sulfate 220 MG CAP PO SCH ×2 (10:07→20:55)
[2020-09-23] MEDS: Cholecalciferol 1,000 UNITS (25 MCG) TAB PO SCH (10:08)
[2020-09-23] MEDS: Lisinopril 2.5 MG TAB PO SCH (10:08)
[2020-09-23] MEDS: busPIRone HCl 10 MG TAB PO SCH ×2 (10:08→20:55)
[2020-09-23] MEDS: Carvedilol 3.125 MG TAB PO SCH ×2 (10:09→16:27)
[2020-09-23] MEDS: Aspirin Chewable 81 MG TAB PO SCH (10:09)
[2020-09-23] MEDS: Spironolactone 25 MG TAB PO SCH ×2 (10:10→20:58)
[2020-09-23] MEDS: Pepto Bismol Chew TAB PO SCH (21:32)
[2020-09-24] MEDS: Linezolid 600 MG TAB PO SCH ×2 (09:09→20:46)
[2020-09-24] MEDS: Famotidine 20 MG TAB PO SCH ×2 (09:09→20:45)
[2020-09-24] MEDS: Citalopram 20 MG TAB PO SCH (09:09)
[2020-09-24] MEDS: Metolazone 2.5 MG TAB PO SCH (09:10)
[2020-09-24] MEDS: Spironolactone 25 MG TAB PO SCH ×3 (09:10→20:55)
[2020-09-24] MEDS: Zinc Sulfate 220 MG CAP PO SCH ×2 (09:10→20:46)
[2020-09-24] MEDS: Cyanocobalamin (Vitamin B-12) 1,000 MCG TAB PO SCH (09:10)
[2020-09-24] MEDS: Cholecalciferol 1,000 UNITS (25 MCG) TAB PO SCH (09:10)
[2020-09-24] MEDS: Carvedilol 3.125 MG TAB PO SCH ×2 (09:11→16:58)
[2020-09-24] MEDS: Fish Oil 1,000 MG CAP PO SCH ×2 (09:11→20:46)
[2020-09-24] MEDS: busPIRone HCl 10 MG TAB PO SCH ×2 (09:11→20:45)
[2020-09-24] MEDS: Lisinopril 2.5 MG TAB PO SCH (09:11)
[2020-09-24] MEDS: Aspirin Chewable 81 MG TAB PO SCH (09:11)
[2020-09-24] MEDS: HYDROcodone/Acetaminophen 10/325 mg Tablet PO PRN ×3 (09:11→21:20)
[2020-09-24] MEDS: metFORMIN 500 MG TAB PO SCH ×2 (09:11→20:46)
[2020-09-24] MEDS: Ferrous Sulfate 325 MG TAB PO SCH (09:11)
[2020-09-24] MEDS: Cyclobenzaprine 10 MG TAB PO PRN (11:41)
[2020-09-24] MEDS: Pepto Bismol Chew TAB PO SCH ×2 (17:30→17:31)
[2020-09-25] MEDS ORDERED: Ondansetron ODT 4 MG TAB PO PRN (09:20)
[2020-09-25] MEDS: HYDROcodone/Acetaminophen 10/325 mg Tablet PO PRN (09:35)
[2020-09-25] MEDS: Ferrous Sulfate 325 MG TAB PO SCH (09:36)
[2020-09-25] MEDS: Cyanocobalamin (Vitamin B-12) 1,000 MCG TAB PO SCH (09:36)
[2020-09-25] MEDS: Zinc Sulfate 220 MG CAP PO SCH (09:36)
[2020-09-25] MEDS: Aspirin Chewable 81 MG TAB PO SCH (09:36)
[2020-09-25] MEDS: Linezolid 600 MG TAB PO SCH (09:36)
[2020-09-25] MEDS: Cholecalciferol 1,000 UNITS (25 MCG) TAB PO SCH (09:36)
[2020-09-25] MEDS: busPIRone HCl 10 MG TAB PO SCH (09:37)
[2020-09-25] MEDS: Famotidine 20 MG TAB PO SCH (09:37)
[2020-09-25] MEDS: Carvedilol 3.125 MG TAB PO SCH (09:37)
[2020-09-25] MEDS: Lisinopril 2.5 MG TAB PO SCH (09:37)
[2020-09-25] MEDS: Citalopram 20 MG TAB PO SCH (09:37)
[2020-09-25] MEDS: Metolazone 2.5 MG TAB PO SCH (09:37)
[2020-09-25] MEDS: Spironolactone 25 MG TAB PO SCH (09:37)
[2020-09-25] MEDS: metFORMIN 500 MG TAB PO SCH (09:37)
[2020-09-25] MEDS: Fish Oil 1,000 MG CAP PO SCH (09:37)
[2020-09-25 11:23] VITALS: BP 119/79; TEMP 98.5
== END 2020-09-25 12:15 | disposition home health service (06) | DRG 857 ==
LOC: SJX 16:09 → SURG A 18:15
PROVIDERS: ADMIT Surgery; ATTEND Surgery
PROC: 0HD Skin and Breast, Extraction (ICD-10-PCS; principal; 2020-09-18)
DX: T81.49XA Infection following a procedure, other surgical site, initial encounter (principal); Z68.45 Body mass index [BMI] 70 or greater, adult; N61.1 Abscess of the breast and nipple; E66.01 Morbid (severe) obesity due to excess calories; E78.5 Hyperlipidemia, unspecified; M19.90 Unspecified osteoarthritis, unspecified site; Y83.8 Other surgical procedures as the cause of abnormal reaction of the patient, or of later complication, without mention of misadventure at the time of the procedure; B95.62 Methicillin resistant Staphylococcus aureus infection as the cause of diseases classified elsewhere; I50.9 Heart failure, unspecified; Z88.2 Allergy status to sulfonamides; Z79.899 Other long term (current) drug therapy; Z79.82 Long term (current) use of aspirin
CPT/HCPCS: 87070; 87077; 87186; 87205; 94640; J2405; J2543; J2704; J3010; J3490; J7620; Q0162; S0028

== ENCOUNTER 2020-11-05 03:04 | Emergency (ER) | payer MEDICARE, MEDICAID ==
[2020-11-05] MEDS ORDERED: Ketorolac Tromethamine 30 MG/ML VIAL ONE (03:21)
[2020-11-05 03:57] LABS: #Basophils 0.1 thou/uL (0.0-0.2); #Eosinphils 0.3 thou/uL (0.0-0.7); #Lymphocytes 2.9 thou/uL (1.20-3.40); #Monocytes 0.6 thou/uL (0.11-0.59); #Neutrophils 6.4 thou/uL (1.40-6.50); %Basophils 0.5 % (0.0-1.0); %Eosinophils 3.1 % (0.0-10.0); %Lymphocytes 28.1 % (21.0-51.0); %Monocytes 6.1 % (0.0-10.0); %Neutrophils 62.2 % (42.0-75.0); Hemoglobin 11.7 g/dL (12.0-16.0); Mean Corpuscular HGB CONC 32.7 g/dL (32.0-36.0); Mean Corpuscular Hemoglobin 31.2 pg (27.0-31.0); Mean Corpuscular Volume 95.2 fL (78.0-98.0); Mean Platelet Volume 8.6 fL (7.4-10.4); Platelet Count 206 thou/uL (130-400); RBC Distribution Width 14.6 % (11.5-14.5); Red Blood Cell (RBC) Count 3.74 mill/uL (4.20-5.40); White Blood Cell (WBC) Count 10.2 thou/uL (4.8-10.8)
[2020-11-05 04:18] LABS: ALT (SGPT) 13 U/L (8-55); AST (SGOT) 16 U/L (5-34); Albumin 3.7 g/dL (3.5-5.0); Alkaline Phosphatase 74 U/L (40-110); Anion Gap 12 mmol/L (10-20); BUN (Urea Nitrogen) 19 mg/dL (7.0-18.7); Bilirubin, Total 0.4 mg/dL (0.2-1.2); Calc. Creatinine Clearance 0 mL/min (70-130); Calcium 8.7 mg/dL (7.8-10.44); Carbon Dioxide 24 mmol/L (22-29); Chloride 103 mmol/L (98-107); Globulin 3.2 g/dL (2.4-3.5); Glucose 90 mg/dL (70-105); Potassium 4.6 mmol/L (3.5-5.1); Protein, Total 6.9 g/dL (6.0-8.3); Sodium 134 mmol/L (136-145)
== END 2020-11-05 06:06 | disposition home or self-care (01) ==
LOC: ERS 03:04
DX: R07.2 Precordial pain (principal); E11.9 Type 2 diabetes mellitus without complications; I11.0 Hypertensive heart disease with heart failure; I50.9 Heart failure, unspecified; E78.5 Hyperlipidemia, unspecified; D64.9 Anemia, unspecified; M19.90 Unspecified osteoarthritis, unspecified site; E66.01 Morbid (severe) obesity due to excess calories; K21.9 Gastro-esophageal reflux disease without esophagitis; Z87.891 Personal history of nicotine dependence; Z79.84 Long term (current) use of oral hypoglycemic drugs; Z79.899 Other long term (current) drug therapy
CPT/HCPCS: 36415; 71045; 80053; 84484; 85025; 93005; 94760; 96374; J1885

== ENCOUNTER 2021-01-17 16:17 | Emergency (ER) | payer MEDICARE, MEDICAID ==
[2021-01-17 17:07] LABS: #Eosinphils 0.3 thou/uL (0.0-0.7); #Lymphocytes 2.2 thou/uL (1.20-3.40); #Monocytes 0.5 thou/uL (0.11-0.59); %Basophils 0.3 % (0.0-1.0); %Eosinophils 3.6 % (0.0-10.0); %Lymphocytes 27.3 % (21.0-51.0); %Monocytes 6.3 % (0.0-10.0); %Neutrophils 62.5 % (42.0-75.0); Hemoglobin 12.2 g/dL (12.0-16.0); Mean Corpuscular HGB CONC 32.8 g/dL (32.0-36.0); Mean Corpuscular Volume 94.5 fL (78.0-98.0); Mean Platelet Volume 8.3 fL (7.4-10.4); Platelet Count 262 thou/uL (130-400); RBC Distribution Width 13.5 % (11.5-14.5); Red Blood Cell (RBC) Count 3.93 mill/uL (4.20-5.40); White Blood Cell (WBC) Count 7.9 thou/uL (4.8-10.8)
[2021-01-17] MEDS ORDERED: CEFAZOLIN 2 GM in Sodium Chloride 0.9% 100 ML IVPB SCH (17:15)
[2021-01-17] MEDS ORDERED: Lidocaine 1% w/Epinephrine 1:100K 20 ML VIAL ONE (17:31)
[2021-01-17 17:32] LABS: ALT (SGPT) 12 U/L (8-55); AST (SGOT) 14 U/L (5-34); Albumin 3.9 g/dL (3.5-5.0); Alkaline Phosphatase 97 U/L (40-110); Anion Gap 14 mmol/L (10-20); BUN (Urea Nitrogen) 12 mg/dL (7.0-18.7); Bilirubin, Total 0.6 mg/dL (0.2-1.2); Calc. Creatinine Clearance 0 mL/min (70-130); Calcium 9.4 mg/dL (7.8-10.44); Carbon Dioxide 27 mmol/L (22-29); Chloride 100 mmol/L (98-107); Globulin 3.4 g/dL (2.4-3.5); Glucose 110 mg/dL (70-105); Potassium 4.5 mmol/L (3.5-5.1); Protein, Total 7.3 g/dL (6.0-8.3); Sodium 136 mmol/L (136-145)
[2021-01-17] MEDS ORDERED: Midazolam HCl 2 mg/2 ml Vial ONE (17:38)
[2021-01-17] MEDS ORDERED: Morphine 4 MG/ML VIAL ONE (18:08)
[2021-01-17 18:09] LABS: SARS-CoV-2 NAA Rapid Test Not Detected (NotDetected)
[2021-01-17] MEDS ORDERED: Ondansetron PF 4 MG/2 ML Vial ONE (18:17)
== END 2021-01-17 19:42 | disposition home or self-care (01) ==
LOC: ERS 16:17
DX: N61.1 Abscess of the breast and nipple (principal); E11.9 Type 2 diabetes mellitus without complications; E78.5 Hyperlipidemia, unspecified; D64.9 Anemia, unspecified; I11.0 Hypertensive heart disease with heart failure; I50.9 Heart failure, unspecified; K21.9 Gastro-esophageal reflux disease without esophagitis; E66.01 Morbid (severe) obesity due to excess calories; Z20.822 Contact with and (suspected) exposure to COVID-19; Z87.891 Personal history of nicotine dependence; Z79.82 Long term (current) use of aspirin; Z79.84 Long term (current) use of oral hypoglycemic drugs; Z79.899 Other long term (current) drug therapy
CPT/HCPCS: 10060; 80053; 85025; 87070; 87205; 96365; 96375; 99284; U0002; J0690; J2250; J2270; J2405; J3490

== ENCOUNTER 2021-04-13 19:13 | Inpatient (IN) | payer MEDICARE, MEDICAID ==
[~2021-04-13 19:13] MED LIST changes: -Iopamidol 370 76% 100 ML VIAL ONE; +Iopamidol-370 76% 500 ML 1 ML ONE
[2021-04-13] MEDS ORDERED: Nitroglycerin 2% Ointment 1 INCH/1 GM Packet ONE (20:02)
[2021-04-13] MEDS ORDERED: Metoprolol Tartrate 5 MG/5 ML VIAL ONE (20:02)
[2021-04-13 20:19] LABS: #Basophils 0.1 thou/uL (0.0-0.2); #Eosinphils 0.3 thou/uL (0.0-0.7); #Lymphocytes 3.2 thou/uL (1.20-3.40); #Monocytes 0.7 thou/uL (0.11-0.59); #Neutrophils 7.1 thou/uL (1.40-6.50); %Basophils 0.5 % (0.0-1.0); %Eosinophils 2.4 % (0.0-10.0); %Lymphocytes 28.2 % (21.0-51.0); %Monocytes 6.2 % (0.0-10.0); %Neutrophils 62.7 % (42.0-75.0); Hemoglobin 12.6 g/dL (12.0-16.0); Mean Corpuscular HGB CONC 32.7 g/dL (32.0-36.0); Mean Corpuscular Hemoglobin 30.4 pg (27.0-31.0); Mean Corpuscular Volume 92.8 fL (78.0-98.0); Mean Platelet Volume 8.7 fL (7.4-10.4); Platelet Count 224 thou/uL (130-400); RBC Distribution Width 13.9 % (11.5-14.5); Red Blood Cell (RBC) Count 4.14 mill/uL (4.20-5.40); White Blood Cell (WBC) Count 11.3 thou/uL (4.8-10.8)
[2021-04-13 20:27] LABS: BHCG - Serum Negative (NEGATIVE); Pregs Control Background? CLEAR/WHITE (CLR/WHITE); Pregs Control Bar Appear? YES (CONTROL BAR)
[2021-04-13 20:55] LABS: Albumin 3.8 g/dL (3.5-5.0); Chloride 100 mmol/L (98-107); Potassium 5.3 mmol/L (3.5-5.1); Sodium 136 mmol/L (136-145)
[2021-04-13 20:56] LABS: Calcium 9.5 mg/dL (7.8-10.44)
[2021-04-13 20:58] LABS: Anion Gap 19 mmol/L (10-20); Bilirubin, Total 0.3 mg/dL (0.2-1.2); Carbon Dioxide 22 mmol/L (22-29); Globulin 4.6 g/dL (2.4-3.5); Glucose 132 mg/dL (70-105); Protein, Total 8.4 g/dL (6.0-8.3)
[2021-04-13 21:01] LABS: Alkaline Phosphatase 96 U/L (40-110); Calc. Creatinine Clearance 0 mL/min (70-130)
[2021-04-13 21:02] LABS: AST (SGOT) 30 U/L (5-34); BUN (Urea Nitrogen) 21 mg/dL (7.0-18.7)
[2021-04-13 21:04] LABS: ALT (SGPT) 16 U/L (8-55); Lipase 25 U/L (8-78)
[2021-04-13 21:46] LABS: SARS-CoV-2 NAA Rapid Test Not Detected (NotDetected)
[2021-04-14 00:59] LABS: Troponin I Less than 0.010 ng/mL (< 0.028)
[2021-04-14 03:47] LABS: Troponin I Less than 0.010 ng/mL (< 0.028)
[2021-04-14] MEDS ORDERED: Enoxaparin Sodium 100 MG/ML SYRINGE ONE ×2 (04:49→17:37)
[2021-04-14] MEDS ORDERED: Enoxaparin Sodium 80 MG/0.8 ML SYRINGE ONE ×2 (04:49→17:37)
[2021-04-14] MEDS ORDERED: Boostrix 0.5 ML (Tdap) VIAL ONE (06:13)
[2021-04-14] MEDS ORDERED: Dextrose 5% in Water 1,000 ML IV PRN (12:04)
[2021-04-14] MEDS ORDERED: HumaLOG 300 UNITS/3 ML VIAL SC PRN (12:04)
[2021-04-14] MEDS ORDERED: Dextrose 50% Abboject 50 ML SYRINGE SLOW IVP PRN (12:04)
[2021-04-14] MEDS ORDERED: hydrALAZINE 20 MG/ML VIAL SLOW IVP PRN (12:07)
[2021-04-14] MEDS ORDERED: Cyclobenzaprine 10 MG TAB PO PRN (12:11)
[2021-04-14] MEDS ORDERED: Electrolyte Replacement Protocol 1 EACH FS SCH (12:15)
[2021-04-14] MEDS ORDERED: Electrolyte Replacement Protocol FS PRN (12:45)
[2021-04-14 12:48] LABS: Magnesium 1.7 mg/dL (1.6-2.6)
[2021-04-14 13:00] LABS: Hemoglobin A1c 6.7 % (4.0-6.0)
[2021-04-14] MEDS ORDERED: Magnesium 2 GM/50 ML 2 GM in Premix Bag 1 BAG IVPB SCH (13:45)
[2021-04-14] MEDS ORDERED: Magnesium 2 GM/50 ML BAG (IN WATER) ONE (13:56)
[2021-04-14] MEDS ORDERED: Enoxaparin Sodium 80 MG/0.8 ML SYRINGE SC SCH ×2 (17:00→18:00)
[2021-04-14] MEDS ORDERED: Nitroglycerin 2% Ointment 1 INCH/1 GM Packet ONE (17:11)
[2021-04-14] MEDS: Nitroglycerin 2% Ointment 1 INCH/1 GM Packet TOP SCH ×2 (17:27→19:14)
[2021-04-14] MEDS: Carvedilol 3.125 MG TAB PO SCH (17:27)
[2021-04-14] MEDS ORDERED: Enoxaparin Sodium 100 MG/ML SYRINGE SC SCH (18:00)
[2021-04-14] MEDS ORDERED: Acetaminophen 325 MG TAB ONE (21:00)
[2021-04-14] MEDS ORDERED: Cyclobenzaprine 10 MG TAB ONE (21:00)
[2021-04-14] MEDS: busPIRone HCl 10 MG TAB PO SCH (21:03)
[2021-04-14] MEDS: Acetaminophen 325 MG TAB PO PRN (21:05)
[2021-04-14] MEDS: Spironolactone 25 MG TAB PO SCH (21:05)
[2021-04-15] MEDS: Nitroglycerin 2% Ointment 1 INCH/1 GM Packet TOP SCH ×3 (00:53→21:17)
[2021-04-15 08:42] LABS: #Eosinphils 0.2 thou/uL (0.0-0.7); #Lymphocytes 1.8 thou/uL (1.20-3.40); #Monocytes 0.5 thou/uL (0.11-0.59); #Neutrophils 4.2 thou/uL (1.40-6.50); %Basophils 0.2 % (0.0-1.0); %Eosinophils 3.5 % (0.0-10.0); %Lymphocytes 27.2 % (21.0-51.0); %Monocytes 6.8 % (0.0-10.0); %Neutrophils 62.3 % (42.0-75.0); Hemoglobin 11.2 g/dL (12.0-16.0); Mean Corpuscular HGB CONC 31.5 g/dL (32.0-36.0); Mean Corpuscular Hemoglobin 29.7 pg (27.0-31.0); Mean Corpuscular Volume 94.1 fL (78.0-98.0); Mean Platelet Volume 8.2 fL (7.4-10.4); Platelet Count 181 thou/uL (130-400); RBC Distribution Width 13.4 % (11.5-14.5); Red Blood Cell (RBC) Count 3.79 mill/uL (4.20-5.40); White Blood Cell (WBC) Count 6.8 thou/uL (4.8-10.8)
[2021-04-15] MEDS ORDERED: FLU VACC QS2021-22(6MOS UP)/PF 60 MCG/0.5 ML SYRINGE IM ONE (09:00)
[2021-04-15 09:09] LABS: Anion Gap 15 mmol/L (10-20); BUN (Urea Nitrogen) 19 mg/dL (7.0-18.7); Calc. Creatinine Clearance 163 mL/min (70-130); Calcium 9.3 mg/dL (7.8-10.44); Carbon Dioxide 27 mmol/L (22-29); Cardiac Risk 7.3 (Less than 4.5); Chloride 98 mmol/L (98-107); Cholesterol 218 mg/dl (< 200 Desired); Glucose 140 mg/dL (70-105); HDL Cholesterol 30 mg/dL (>60 Neg Risk); LDL Cholesterol, Calculated 137 mg/dL; Potassium 4.6 mmol/L (3.5-5.1); Sodium 135 mmol/L (136-145); Triglycerides 254 mg/dL (Less than 150)
[2021-04-15 10:12] VITALS: BMI 73.3
[2021-04-15] MEDS ORDERED: Regadenoson 0.4 MG/5 ML SYRINGE ONE (12:21)
[2021-04-15] MEDS: Citalopram 20 MG TAB PO SCH (12:38)
[2021-04-15] MEDS: Carvedilol 3.125 MG TAB PO SCH ×2 (12:38→17:01)
[2021-04-15] MEDS: Acetaminophen 325 MG TAB PO PRN ×2 (12:38→17:01)
[2021-04-15] MEDS: busPIRone HCl 10 MG TAB PO SCH ×2 (12:39→21:21)
[2021-04-15] MEDS: Spironolactone 25 MG TAB PO SCH ×2 (12:39→21:16)
[2021-04-15] MEDS: Lisinopril 2.5 MG TAB PO SCH (12:40)
[2021-04-15] MEDS: Metolazone 2.5 MG TAB PO SCH (12:40)
[2021-04-15] MEDS: Aspirin Chewable 81 MG TAB PO SCH (12:49)
[2021-04-15] MEDS ORDERED: Enoxaparin Sodium 100 MG/ML SYRINGE SC SCH (18:00)
[2021-04-15] MEDS ORDERED: Enoxaparin Sodium 80 MG/0.8 ML SYRINGE SC SCH (18:00)
[2021-04-15] MEDS: Atorvastatin Calcium 40 MG TAB PO SCH (21:22)
[2021-04-15] MEDS: Nitroglycerin 0.4 MG TAB (25 Tab Bottle) SL PRN ×3 (23:16→23:26)
[2021-04-16 00:22] LABS: Troponin I Less than 0.010 ng/mL (< 0.028)
[2021-04-16] MEDS: Acetaminophen 325 MG TAB PO PRN ×3 (02:29→22:22)
[2021-04-16] MEDS: Nitroglycerin 2% Ointment 1 INCH/1 GM Packet TOP SCH ×3 (04:59→22:22)
[2021-04-16 06:03] LABS: #Eosinphils 0.3 thou/uL (0.0-0.7); #Lymphocytes 2.5 thou/uL (1.20-3.40); #Monocytes 0.6 thou/uL (0.11-0.59); #Neutrophils 5.3 thou/uL (1.40-6.50); %Basophils 0.4 % (0.0-1.0); %Eosinophils 3.4 % (0.0-10.0); %Lymphocytes 28.9 % (21.0-51.0); %Neutrophils 60.3 % (42.0-75.0); Hemoglobin 11.7 g/dL (12.0-16.0); Mean Corpuscular HGB CONC 32.5 g/dL (32.0-36.0); Mean Corpuscular Hemoglobin 29.9 pg (27.0-31.0); Mean Corpuscular Volume 91.9 fL (78.0-98.0); Platelet Count 193 thou/uL (130-400); RBC Distribution Width 13.7 % (11.5-14.5); Red Blood Cell (RBC) Count 3.91 mill/uL (4.20-5.40); White Blood Cell (WBC) Count 8.8 thou/uL (4.8-10.8)
[2021-04-16 06:22] LABS: Anion Gap 13 mmol/L (10-20); BUN (Urea Nitrogen) 20 mg/dL (7.0-18.7); Calc. Creatinine Clearance 174 mL/min (70-130); Calcium 9.8 mg/dL (7.8-10.44); Carbon Dioxide 28 mmol/L (22-29); Chloride 99 mmol/L (98-107); Glucose 133 mg/dL (70-105); Potassium 4.3 mmol/L (3.5-5.1); Sodium 136 mmol/L (136-145)
[2021-04-16] MEDS: Citalopram 20 MG TAB PO SCH (10:58)
[2021-04-16] MEDS: busPIRone HCl 10 MG TAB PO SCH ×2 (10:58→22:22)
[2021-04-16] MEDS: Aspirin Chewable 81 MG TAB PO SCH (10:59)
[2021-04-16] MEDS: Lisinopril 2.5 MG TAB PO SCH (11:00)
[2021-04-16] MEDS: Carvedilol 3.125 MG TAB PO SCH (11:02)
[2021-04-16] MEDS: Enoxaparin Sodium 100 MG/ML SYRINGE SC SCH ×2 (11:03→18:03)
[2021-04-16] MEDS: Spironolactone 25 MG TAB PO SCH ×2 (11:03→22:34)
[2021-04-16] MEDS: Enoxaparin Sodium 80 MG/0.8 ML SYRINGE SC SCH ×2 (11:03→18:03)
[2021-04-16] MEDS: Metolazone 2.5 MG TAB PO SCH (11:03)
[2021-04-16] MEDS: HumaLOG 300 UNITS/3 ML VIAL SC PRN (11:04)
[2021-04-16] MEDS: Carvedilol 6.25 MG TAB PO SCH (16:19)
[2021-04-16] MEDS: Atorvastatin Calcium 40 MG TAB PO SCH (22:22)
[2021-04-16] MEDS: Ondansetron ODT 4 MG TAB PO PRN (22:25)
[2021-04-17] MEDS: Nitroglycerin 2% Ointment 1 INCH/1 GM Packet TOP SCH ×2 (06:44→14:47)
[2021-04-17] MEDS: HumaLOG 300 UNITS/3 ML VIAL SC PRN ×2 (06:44→12:20)
[2021-04-17] MEDS ORDERED: Enoxaparin Sodium 100 MG/ML SYRINGE SC SCH ×2 (09:00)
[2021-04-17] MEDS ORDERED: Enoxaparin Sodium 80 MG/0.8 ML SYRINGE SC SCH ×2 (09:00)
[2021-04-17] MEDS: Spironolactone 25 MG TAB PO SCH (09:00)
[2021-04-17] MEDS: Carvedilol 6.25 MG TAB PO SCH ×2 (09:04→17:43)
[2021-04-17] MEDS: busPIRone HCl 10 MG TAB PO SCH (09:05)
[2021-04-17] MEDS: Aspirin Chewable 81 MG TAB PO SCH (09:06)
[2021-04-17] MEDS: Lisinopril 2.5 MG TAB PO SCH (09:06)
[2021-04-17] MEDS: Citalopram 20 MG TAB PO SCH (09:07)
[2021-04-17] MEDS: Metolazone 2.5 MG TAB PO SCH (09:08)
[2021-04-17 11:19] LABS: Anion Gap 13 mmol/L (10-20); BUN (Urea Nitrogen) 18 mg/dL (7.0-18.7); Calc. Creatinine Clearance 167 mL/min (70-130); Calcium 9.7 mg/dL (7.8-10.44); Carbon Dioxide 29 mmol/L (22-29); Chloride 97 mmol/L (98-107); Glucose 170 mg/dL (70-105); Potassium 4.3 mmol/L (3.5-5.1); Sodium 135 mmol/L (136-145)
[2021-04-17 14:06] VITALS: TEMP 98.3
[2021-04-17] MEDS: Ondansetron ODT 4 MG TAB PO PRN (15:03)
[2021-04-17 17:24] VITALS: BP 131/84
[2021-04-17] MEDS ORDERED: Apixaban 5 MG TAB PO SCH (18:15)
== END 2021-04-17 18:55 | disposition home health service (06) | DRG 299 ==
LOC: ERS 19:13 → ERHOLD 23:57 → NEURO 04-15 09:14 → OBSVTOIN 04-16 15:22
PROVIDERS: ADMIT Student in an Organized Health Care Education/Training Program; ATTEND Family Medicine
DX: I82.432 Acute embolism and thrombosis of left popliteal vein (principal); Z20.822 Contact with and (suspected) exposure to COVID-19; Z23 Encounter for immunization; Z66 Do not resuscitate; I26.99 Other pulmonary embolism without acute cor pulmonale; I24.8 Other forms of acute ischemic heart disease; Z68.45 Body mass index [BMI] 70 or greater, adult; I50.22 Chronic systolic (congestive) heart failure; N17.9 Acute kidney failure, unspecified; J96.11 Chronic respiratory failure with hypoxia; I42.8 Other cardiomyopathies; I82.442 Acute embolism and thrombosis of left tibial vein; E11.9 Type 2 diabetes mellitus without complications; I11.0 Hypertensive heart disease with heart failure; F41.9 Anxiety disorder, unspecified; K21.9 Gastro-esophageal reflux disease without esophagitis; F32.A Depression, unspecified; E66.01 Morbid (severe) obesity due to excess calories; M19.90 Unspecified osteoarthritis, unspecified site; G89.29 Other chronic pain; M25.559 Pain in unspecified hip; D72.829 Elevated white blood cell count, unspecified; E78.2 Mixed hyperlipidemia; F32.9 Major depressive disorder, single episode, unspecified; F17.210 Nicotine dependence, cigarettes, uncomplicated; Z88.2 Allergy status to sulfonamides; Z79.899 Other long term (current) drug therapy; Z79.82 Long term (current) use of aspirin; Z79.84 Long term (current) use of oral hypoglycemic drugs; Z82.49 Family history of ischemic heart disease and other diseases of the circulatory system; Z80.9 Family history of malignant neoplasm, unspecified; Z86.718 Personal history of other venous thrombosis and embolism; Z00-Z99 Factors influencing health status and contact with health services; Z99.81 Dependence on supplemental oxygen
CPT/HCPCS: 0240U; 36415; 36416; 71045; 71275; 78452; 80048; 80053; 80061; 83036; 83605; 83690; 83735; 83880; 84443; 84484; 84703; 85025; 85379; 85520; 90471; 90686; 90715; 93005; 93010; 93017; 93970; 96365; 96372; A9500; G0008; G0378; J1650; J1815; J2785; J3475; Q0162; Q9967

== ENCOUNTER 2021-10-09 17:05 | Observation (INO) | payer OTHER ==
[2021-10-09 20:42] VITALS: BMI 78.0
[2021-10-09] MEDS ORDERED: Apixaban 5 MG TAB PO SCH (22:45)
[2021-10-09] MEDS ORDERED: Acetaminophen 325 MG TAB PO PRN (22:46)
[2021-10-09] MEDS ORDERED: Dextrose 50% Abboject 50 ML SYRINGE SLOW IVP PRN (22:48)
[2021-10-09] MEDS ORDERED: HumaLOG 300 UNITS/3 ML VIAL SC PRN ×2 (22:48)
[2021-10-09] MEDS ORDERED: Dextrose 5% in Water 1,000 ML IV PRN (22:48)
[2021-10-09] MEDS: Ondansetron PF 4 MG/2 ML Vial IVP PRN (23:21)
[2021-10-10] MEDS ORDERED: Sodium Chloride 0.9% 500 ML IV SCH (02:30)
[2021-10-10] MEDS ORDERED: hydrALAZINE 20 MG/ML VIAL SLOW IVP PRN (02:30)
[2021-10-10 04:10] LABS: #Eosinphils 0.3 thou/uL (0.0-0.7); #Lymphocytes 1.8 thou/uL (1.20-3.40); #Monocytes 0.5 thou/uL (0.11-0.59); #Neutrophils 6.1 thou/uL (1.40-6.50); %Basophils 0.4 % (0.0-1.0); %Eosinophils 3.2 % (0.0-10.0); %Lymphocytes 20.6 % (21.0-51.0); %Monocytes 5.2 % (0.0-10.0); %Neutrophils 70.6 % (42.0-75.0); Hemoglobin 10.6 g/dL (12.0-16.0); Mean Corpuscular HGB CONC 32.2 g/dL (32.0-36.0); Mean Corpuscular Hemoglobin 30.1 pg (27.0-31.0); Mean Corpuscular Volume 93.4 fL (78.0-98.0); Mean Platelet Volume 8.2 fL (7.4-10.4); Platelet Count 182 thou/uL (130-400); RBC Distribution Width 13.6 % (11.5-14.5); Red Blood Cell (RBC) Count 3.53 mill/uL (4.20-5.40); White Blood Cell (WBC) Count 8.6 thou/uL (4.8-10.8)
[2021-10-10 04:34] LABS: Anion Gap 17 mmol/L (10-20); BUN (Urea Nitrogen) 25 mg/dL (7.0-18.7); Calc. Creatinine Clearance 146 mL/min (70-130); Calcium 9.4 mg/dL (7.8-10.44); Carbon Dioxide 24 mmol/L (22-29); Chloride 100 mmol/L (98-107); Estimated GFR 41; Glucose 169 mg/dL (70-105); Potassium 4.7 mmol/L (3.5-5.1); Sodium 136 mmol/L (136-145)
[2021-10-10] MEDS: DULoxetine 30 MG CAP PO SCH ×2 (08:29→20:10)
[2021-10-10] MEDS: busPIRone HCl 10 MG TAB PO SCH ×2 (08:29→20:10)
[2021-10-10] MEDS: Ondansetron PF 4 MG/2 ML Vial IVP PRN (08:30)
[2021-10-10] MEDS ORDERED: Aspirin Chewable 81 MG TAB PO SCH (09:00)
[2021-10-10] MEDS ORDERED: Citalopram 20 MG TAB PO SCH (09:00)
[2021-10-10] MEDS ORDERED: Ferrous Sulfate 325 MG TAB PO SCH (09:00)
[2021-10-10 15:54] VITALS: BP 116/55; TEMP 97.8
[2021-10-10] MEDS ORDERED: traMADol HCl 50 MG TAB PO PRN (19:37)
== END 2021-10-10 21:10 | disposition home or self-care (01) ==
LOC: 2NO 17:05
PROVIDERS: ADMIT Internal Medicine; ATTEND Internal Medicine
DX: R07.9 Chest pain, unspecified (principal); I13.0 Hypertensive heart and chronic kidney disease with heart failure and stage 1 through stage 4 chronic kidney disease, or unspecified chronic kidney disease; E11.22 Type 2 diabetes mellitus with diabetic chronic kidney disease; N18.30 Chronic kidney disease, stage 3 unspecified; I50.22 Chronic systolic (congestive) heart failure; N17.9 Acute kidney failure, unspecified; D63.1 Anemia in chronic kidney disease; I42.8 Other cardiomyopathies; J96.11 Chronic respiratory failure with hypoxia; E78.5 Hyperlipidemia, unspecified; E11.42 Type 2 diabetes mellitus with diabetic polyneuropathy; E66.01 Morbid (severe) obesity due to excess calories; Z68.45 Body mass index [BMI] 70 or greater, adult; Z86.718 Personal history of other venous thrombosis and embolism; Z87.891 Personal history of nicotine dependence; Z79.01 Long term (current) use of anticoagulants; Z79.82 Long term (current) use of aspirin; Z79.84 Long term (current) use of oral hypoglycemic drugs; Z79.899 Other long term (current) drug therapy; Z88.2 Allergy status to sulfonamides; Z99.81 Dependence on supplemental oxygen; Z20.822 Contact with and (suspected) exposure to COVID-19
CPT/HCPCS: 80048; 82962; 85025; 96374; G0378 ×2; U0003; U0005; 36415; 36416; J2405

== ENCOUNTER 2021-12-03 12:57 | Inpatient (IN) | payer OTHER ==
[2021-12-03 13:38] LABS: #Eosinphils 0.2 thou/uL (0.0-0.7); #Lymphocytes 2.2 thou/uL (1.20-3.40); #Monocytes 0.5 thou/uL (0.11-0.59); #Neutrophils 3.1 thou/uL (1.40-6.50); %Basophils 0.3 % (0.0-1.0); %Eosinophils 3.3 % (0.0-10.0); %Monocytes 7.6 % (0.0-10.0); %Neutrophils 51.8 % (42.0-75.0); Hemoglobin 10.8 g/dL (12.0-16.0); Mean Corpuscular HGB CONC 31.7 g/dL (32.0-36.0); Mean Corpuscular Hemoglobin 29.9 pg (27.0-31.0); Mean Corpuscular Volume 94.5 fL (78.0-98.0); Mean Platelet Volume 8.5 fL (7.4-10.4); Platelet Count 187 thou/uL (130-400); RBC Distribution Width 14.2 % (11.5-14.5); Red Blood Cell (RBC) Count 3.59 mill/uL (4.20-5.40)
[2021-12-03 14:26] LABS: ALT (SGPT) 17 U/L (8-55); AST (SGOT) 15 U/L (5-34); Alkaline Phosphatase 84 U/L (40-110); Anion Gap 16 mmol/L (10-20); BUN (Urea Nitrogen) 24 mg/dL (7.0-18.7); Bilirubin, Total 0.4 mg/dL (0.2-1.2); Calc. Creatinine Clearance 0 mL/min (70-130); Calcium 9.4 mg/dL (7.8-10.44); Carbon Dioxide 25 mmol/L (22-29); Chloride 104 mmol/L (98-107); Estimated GFR 37; Globulin 2.8 g/dL (2.4-3.5); Glucose 163 mg/dL (70-105); Potassium 5.9 mmol/L (3.5-5.1); Protein, Total 6.8 g/dL (6.0-8.3); Sodium 139 mmol/L (136-145)
[2021-12-03] MEDS ORDERED: Sodium Bicarbonate 2.5 MEQ/5 ML VIAL ONE (14:52)
[2021-12-03] MEDS ORDERED: CALCIUM GLUC 1GM/NS 50ML BAG ONE (14:53)
[2021-12-03] MEDS ORDERED: Sodium Bicarb 50 MEQ/50 ML VIAL ONE (14:54)
[2021-12-03] MEDS ORDERED: Furosemide 40 MG/4 ML VIAL ONE (14:54)
[2021-12-03] MEDS ORDERED: Albuterol Sulfate 2.5 mg/3 ml Neb NEB PRN (15:26)
[2021-12-03] MEDS ORDERED: Insulin Regular 300 UNITS/3 ML VIAL IVP SCH (15:28)
[2021-12-03] MEDS ORDERED: Dextrose 50% Abboject 50 ML SYRINGE SLOW IVP SCH (15:30)
[2021-12-03 17:12] LABS: Troponin I Less than 0.010 ng/mL (< 0.028)
[2021-12-03] MEDS ORDERED: Albuterol Sulfate 2.5 mg/3 ml Neb NEB SCH (17:45)
[2021-12-03 19:44] LABS: Troponin I Less than 0.010 ng/mL (< 0.028)
[2021-12-03] MEDS ORDERED: traMADol HCl 50 MG TAB PO SCH (20:45)
[2021-12-03 21:06] LABS: Anion Gap 16 mmol/L (10-20); BUN (Urea Nitrogen) 21 mg/dL (7.0-18.7); Calc. Creatinine Clearance 0 mL/min (70-130); Calcium 9.5 mg/dL (7.8-10.44); Carbon Dioxide 26 mmol/L (22-29); Chloride 103 mmol/L (98-107); Estimated GFR 39; Glucose 93 mg/dL (70-105); Potassium 5.6 mmol/L (3.5-5.1); Sodium 139 mmol/L (136-145)
[2021-12-03 21:24] LABS: SARS-CoV-2 NAA Rapid Test Not Detected (NotDetected)
[2021-12-03] MEDS: Famotidine/PF 20 mg/2ml Vial SLOW IVP SCH (22:09)
[2021-12-03] MEDS: Apixaban 5 MG TAB PO SCH ×2 (22:12)
[2021-12-03 22:26] VITALS: BMI 80.8
[2021-12-04 04:50] LABS: #Eosinphils 0.2 thou/uL (0.0-0.7); #Monocytes 0.6 thou/uL (0.11-0.59); #Neutrophils 3.8 thou/uL (1.40-6.50); %Basophils 0.3 % (0.0-1.0); %Eosinophils 3.1 % (0.0-10.0); %Lymphocytes 30.2 % (21.0-51.0); %Monocytes 8.3 % (0.0-10.0); Hemoglobin 10.6 g/dL (12.0-16.0); Mean Corpuscular HGB CONC 31.8 g/dL (32.0-36.0); Mean Corpuscular Hemoglobin 30.1 pg (27.0-31.0); Mean Corpuscular Volume 94.6 fL (78.0-98.0); Mean Platelet Volume 8.8 fL (7.4-10.4); Platelet Count 177 thou/uL (130-400); RBC Distribution Width 13.9 % (11.5-14.5); Red Blood Cell (RBC) Count 3.51 mill/uL (4.20-5.40); White Blood Cell (WBC) Count 6.6 thou/uL (4.8-10.8)
[2021-12-04 05:06] LABS: Anion Gap 16 mmol/L (10-20); BUN (Urea Nitrogen) 22 mg/dL (7.0-18.7); Calc. Creatinine Clearance 154 mL/min (70-130); Calcium 9.3 mg/dL (7.8-10.44); Carbon Dioxide 26 mmol/L (22-29); Chloride 102 mmol/L (98-107); Estimated GFR 42; Glucose 154 mg/dL (70-105); Sodium 139 mmol/L (136-145)
[2021-12-04] MEDS ORDERED: traMADol HCl 50 MG TAB PO SCH (06:00)
[2021-12-04] MEDS: Furosemide 40 MG/4 ML VIAL SLOW IVP SCH ×2 (06:03→14:15)
[2021-12-04] MEDS ORDERED: Ondansetron PF 4 MG/2 ML Vial IVP SCH (08:45)
[2021-12-04] MEDS ORDERED: Enoxaparin Sodium 30 MG/0.3 ML SYRINGE SC SCH (09:00)
[2021-12-04] MEDS: Apixaban 5 MG TAB PO SCH ×2 (09:24→20:48)
[2021-12-04] MEDS: Famotidine/PF 20 mg/2ml Vial SLOW IVP SCH ×2 (09:24→20:49)
[2021-12-04] MEDS: Acetaminophen 325 MG TAB PO PRN (20:49)
[2021-12-04] MEDS: Ondansetron PF 4 MG/2 ML Vial IVP PRN (20:50)
[2021-12-05] MEDS: Acetaminophen 325 MG TAB PO PRN ×2 (03:28→08:37)
[2021-12-05] MEDS: Ondansetron PF 4 MG/2 ML Vial IVP PRN (03:35)
[2021-12-05 04:35] LABS: #Eosinphils 0.2 thou/uL (0.0-0.7); #Lymphocytes 2.1 thou/uL (1.20-3.40); #Monocytes 0.4 thou/uL (0.11-0.59); #Neutrophils 3.4 thou/uL (1.40-6.50); %Basophils 0.5 % (0.0-1.0); %Eosinophils 3.6 % (0.0-10.0); %Lymphocytes 33.6 % (21.0-51.0); %Monocytes 6.7 % (0.0-10.0); %Neutrophils 55.5 % (42.0-75.0); Hemoglobin 10.5 g/dL (12.0-16.0); Mean Corpuscular HGB CONC 32.1 g/dL (32.0-36.0); Mean Corpuscular Hemoglobin 30.4 pg (27.0-31.0); Mean Corpuscular Volume 94.7 fL (78.0-98.0); Mean Platelet Volume 8.3 fL (7.4-10.4); Platelet Count 183 thou/uL (130-400); RBC Distribution Width 13.8 % (11.5-14.5); Red Blood Cell (RBC) Count 3.46 mill/uL (4.20-5.40); White Blood Cell (WBC) Count 6.1 thou/uL (4.8-10.8)
[2021-12-05 04:56] LABS: Anion Gap 15 mmol/L (10-20); BUN (Urea Nitrogen) 20 mg/dL (7.0-18.7); Calc. Creatinine Clearance 154 mL/min (70-130); Calcium 9.3 mg/dL (7.8-10.44); Carbon Dioxide 29 mmol/L (22-29); Chloride 97 mmol/L (98-107); Estimated GFR 42; Glucose 119 mg/dL (70-105); Potassium 4.4 mmol/L (3.5-5.1); Sodium 137 mmol/L (136-145)
[2021-12-05] MEDS: Furosemide 40 MG/4 ML VIAL SLOW IVP SCH ×2 (05:31→13:12)
[2021-12-05] MEDS: Famotidine/PF 20 mg/2ml Vial SLOW IVP SCH (08:37)
[2021-12-05] MEDS: Apixaban 5 MG TAB PO SCH (08:37)
[2021-12-05 19:05] VITALS: BP 139/95; TEMP 98
== END 2021-12-05 16:30 | disposition home or self-care (01) | DRG 640 ==
LOC: ERS 12:57 → ERHOLD 15:24 → 2NO 21:40
PROVIDERS: ADMIT Internal Medicine; ATTEND Family Medicine
DX: E66.01 Morbid (severe) obesity due to excess calories (principal); J96.21 Acute and chronic respiratory failure with hypoxia; I42.8 Other cardiomyopathies; N17.9 Acute kidney failure, unspecified; I13.0 Hypertensive heart and chronic kidney disease with heart failure and stage 1 through stage 4 chronic kidney disease, or unspecified chronic kidney disease; I50.9 Heart failure, unspecified; E78.5 Hyperlipidemia, unspecified; E11.22 Type 2 diabetes mellitus with diabetic chronic kidney disease; D63.1 Anemia in chronic kidney disease; E11.42 Type 2 diabetes mellitus with diabetic polyneuropathy; F32.A Depression, unspecified; F41.9 Anxiety disorder, unspecified; E87.5 Hyperkalemia; N18.32 Chronic kidney disease, stage 3b; M19.90 Unspecified osteoarthritis, unspecified site; G89.29 Other chronic pain; K21.9 Gastro-esophageal reflux disease without esophagitis; Z20.822 Contact with and (suspected) exposure to COVID-19; Z88.2 Allergy status to sulfonamides; Z79.899 Other long term (current) drug therapy; Z79.82 Long term (current) use of aspirin; Z79.84 Long term (current) use of oral hypoglycemic drugs; Z79.01 Long term (current) use of anticoagulants; Z86.718 Personal history of other venous thrombosis and embolism; Z98.890 Other specified postprocedural states
CPT/HCPCS: 36415; 36416; 71045; 80048; 80053; 83880; 84484; 85025; 93005; 93010; 94640; J0610; J1815; J1940; J2405; J7611; J7999; S0028; U0002

== ENCOUNTER 2021-12-31 22:45 | Inpatient (IN) | payer OTHER ==
[2022-01-01] MEDS ORDERED: Acetaminophen 325 MG TAB PO PRN (02:34)
[2022-01-01] MEDS ORDERED: HYDROcodone/Acetaminophen 10/325 mg Tablet PO PRN (03:04)
[2022-01-01 03:05] LABS: #Eosinphils 0.2 thou/uL (0.0-0.7); #Monocytes 0.6 thou/uL (0.11-0.59); #Neutrophils 4.9 thou/uL (1.40-6.50); %Basophils 0.5 % (0.0-1.0); %Eosinophils 2.9 % (0.0-10.0); %Lymphocytes 26.1 % (21.0-51.0); %Monocytes 7.5 % (0.0-10.0); Hemoglobin 8.5 g/dL (12.0-16.0); Mean Corpuscular HGB CONC 31.4 g/dL (32.0-36.0); Mean Corpuscular Hemoglobin 30.2 pg (27.0-31.0); Mean Corpuscular Volume 96.2 fL (78.0-98.0); Mean Platelet Volume 8.7 fL (7.4-10.4); Platelet Count 185 thou/uL (130-400); RBC Distribution Width 13.8 % (11.5-14.5); White Blood Cell (WBC) Count 7.7 thou/uL (4.8-10.8)
[2022-01-01 03:26] LABS: Anion Gap 15 mmol/L (10-20); BUN (Urea Nitrogen) 62 mg/dL (7.0-18.7); Calc. Creatinine Clearance 0 mL/min (70-130); Carbon Dioxide 26 mmol/L (22-29); Chloride 103 mmol/L (98-107); Estimated GFR 15; Glucose 92 mg/dL (70-105); Iron 40 ug/dL (50-170); Iron Binding Capacity, Total 279 mcg/dL (265-497); Potassium 5.4 mmol/L (3.5-5.1); Sodium 139 mmol/L (136-145)
[2022-01-01 03:27] LABS: Iron 41 ug/dL (50-170); Iron Binding Capacity, Total 270 mcg/dL (265-497)
[2022-01-01 03:30] VITALS: BMI 81.3
[2022-01-01] MEDS: Sodium Chloride 0.9% 1,000 ML IV SCH ×2 (03:45→14:52)
[2022-01-01 03:50] LABS: Calcium 8.3 mg/dL (7.8-10.44)
[2022-01-01 04:13] LABS: Troponin I Less than 0.010 ng/mL (< 0.028)
[2022-01-01] MEDS ORDERED: Ferrous Sulfate 325 MG TAB PO SCH (08:00)
[2022-01-01] MEDS: Docusate 100 MG CAP PO SCH ×2 (08:29→21:22)
[2022-01-01] MEDS: Ondansetron PF 4 MG/2 ML Vial IVP PRN (08:34)
[2022-01-01] MEDS ORDERED: traMADol HCl 50 MG TAB PO PRN (11:01)
[2022-01-01] MEDS ORDERED: busPIRone HCl 10 MG TAB PO SCH (11:45)
[2022-01-01] MEDS ORDERED: Gabapentin 100 MG CAP PO SCH ×3 (11:45→21:00)
[2022-01-01] MEDS ORDERED: Citalopram 20 MG TAB PO SCH (11:45)
[2022-01-01] MEDS ORDERED: Metolazone 2.5 MG TAB PO SCH (11:45)
[2022-01-01] MEDS ORDERED: Aspirin Chewable 81 MG TAB PO SCH (11:45)
[2022-01-01] MEDS: Polyethylene Glycol 3350 17 GM Packet PO SCH (12:01)
[2022-01-01] MEDS ORDERED: Dextrose 5% in Water 1,000 ML IV PRN (12:24)
[2022-01-01] MEDS ORDERED: Dextrose 50% Abboject 50 ML SYRINGE SLOW IVP PRN (12:24)
[2022-01-01] MEDS ORDERED: HumaLOG 300 UNITS/3 ML VIAL SC PRN ×2 (12:24)
[2022-01-01] MEDS ORDERED: Naloxone HCl 0.4 mg/ml Vial IV PRN (14:44)
[2022-01-01] MEDS ORDERED: Gabapentin 300 MG CAP PO SCH (14:45)
[2022-01-01 15:41] LABS: Phosphorus 4.3 mg/dL (2.3-4.7)
[2022-01-01] MEDS: Morphine 4 MG/ML VIAL SLOW IVP PRN (16:23)
[2022-01-01 17:59] LABS: Anion Gap 13 mmol/L (10-20); BUN (Urea Nitrogen) 57 mg/dL (7.0-18.7); Calc. Creatinine Clearance 78 mL/min (70-130); Calcium 8.5 mg/dL (7.8-10.44); Carbon Dioxide 27 mmol/L (22-29); Chloride 104 mmol/L (98-107); Estimated GFR 19; Glucose 94 mg/dL (70-105); Potassium 5.3 mmol/L (3.5-5.1); Sodium 139 mmol/L (136-145)
[2022-01-01] MEDS ORDERED: LOKELMA 10 GM PACKET PO SCH (19:15)
[2022-01-01] MEDS ORDERED: Apixaban 5 MG TAB PO SCH (21:00)
[2022-01-01] MEDS ORDERED: Simvastatin 40 MG TAB PO SCH (21:00)
[2022-01-01] MEDS ORDERED: metFORMIN 500 MG TAB PO SCH (21:00)
[2022-01-01] MEDS: Gabapentin 300 MG CAP PO SCH (21:21)
[2022-01-01] MEDS: busPIRone HCl 10 MG TAB PO SCH (21:21)
[2022-01-01] MEDS: HYDROcodone/Acetaminophen 10/325 mg Tablet PO PRN (21:22)
[2022-01-01] MEDS: Apixaban 5 MG TAB PO SCH (21:22)
[2022-01-01] MEDS: Atorvastatin Calcium 20 MG TAB PO SCH (21:22)
[2022-01-02] MEDS: Morphine 4 MG/ML VIAL SLOW IVP PRN (04:39)
[2022-01-02 05:35] LABS: #Eosinphils 0.2 thou/uL (0.0-0.7); #Lymphocytes 1.2 thou/uL (1.20-3.40); #Monocytes 0.7 thou/uL (0.11-0.59); #Neutrophils 6.8 thou/uL (1.40-6.50); %Basophils 0.3 % (0.0-1.0); %Eosinophils 1.8 % (0.0-10.0); %Monocytes 7.3 % (0.0-10.0); %Neutrophils 76.6 % (42.0-75.0); Hemoglobin 9.1 g/dL (12.0-16.0); Mean Corpuscular HGB CONC 31.1 g/dL (32.0-36.0); Mean Corpuscular Hemoglobin 29.9 pg (27.0-31.0); Mean Platelet Volume 8.4 fL (7.4-10.4); Platelet Count 189 thou/uL (130-400); RBC Distribution Width 13.5 % (11.5-14.5); Red Blood Cell (RBC) Count 3.05 mill/uL (4.20-5.40); White Blood Cell (WBC) Count 8.9 thou/uL (4.8-10.8)
[2022-01-02 05:52] LABS: Anion Gap 13 mmol/L (10-20); BUN (Urea Nitrogen) 56 mg/dL (7.0-18.7); Calc. Creatinine Clearance 88 mL/min (70-130); Calcium 8.7 mg/dL (7.8-10.44); Carbon Dioxide 28 mmol/L (22-29); Chloride 104 mmol/L (98-107); Estimated GFR 22; Glucose 128 mg/dL (70-105); Potassium 5.4 mmol/L (3.5-5.1); Sodium 140 mmol/L (136-145)
[2022-01-02] MEDS ORDERED: Metolazone 2.5 MG TAB PO SCH (09:00)
[2022-01-02] MEDS ORDERED: Non-Formulary Item 1 EACH (Cholecalciferol (Vitamin D3) [Vitamin D3] 5,000 UNITS Capsule) PO SCH (09:00)
[2022-01-02] MEDS: Amitriptyline HCl 25 MG TAB PO SCH (10:06)
[2022-01-02] MEDS: Aspirin Chewable 81 MG TAB PO SCH (10:06)
[2022-01-02] MEDS: busPIRone HCl 10 MG TAB PO SCH ×2 (10:07→20:43)
[2022-01-02] MEDS: Citalopram 20 MG TAB PO SCH (10:07)
[2022-01-02] MEDS: Apixaban 5 MG TAB PO SCH ×2 (10:09→20:43)
[2022-01-02] MEDS: Ferrous Sulfate 325 MG TAB PO SCH (10:10)
[2022-01-02] MEDS: Docusate 100 MG CAP PO SCH ×2 (10:10→20:42)
[2022-01-02] MEDS: Cholecalciferol 1,000 UNITS (25 MCG) TAB PO SCH (10:10)
[2022-01-02] MEDS: Cyanocobalamin (Vitamin B-12) 1,000 MCG TAB PO SCH (10:11)
[2022-01-02] MEDS: HYDROcodone/Acetaminophen 10/325 mg Tablet PO PRN ×2 (10:11→14:54)
[2022-01-02] MEDS: Gabapentin 300 MG CAP PO SCH ×3 (10:11→20:42)
[2022-01-02] MEDS: Polyethylene Glycol 3350 17 GM Packet PO SCH (10:12)
[2022-01-02] MEDS: cefTRIAXone\\ROCEPHIN 1 GM in Sodium Chloride 0.9% 100 ML IVPB SCH (10:14)
[2022-01-02] MEDS: Ondansetron PF 4 MG/2 ML Vial IVP PRN (10:36)
[2022-01-02] MEDS: Sodium Chloride 0.9% 1,000 ML IV SCH (12:04)
[2022-01-02] MEDS ORDERED: LOKELMA 10 GM PACKET PO SCH (13:30)
[2022-01-02] MEDS ORDERED: Insulin Regular 300 UNITS/3 ML VIAL IVP SCH (14:15)
[2022-01-02] MEDS: HYDROmorphone 0.5 MG/0.5 ML SYRINGE SLOW IVP SCH (18:34)
[2022-01-02] MEDS: Atorvastatin Calcium 20 MG TAB PO SCH (20:42)
[2022-01-03] MEDS: HYDROcodone/Acetaminophen 10/325 mg Tablet PO PRN ×5 (04:01→22:40)
[2022-01-03] MEDS: HYDROmorphone 0.5 MG/0.5 ML SYRINGE SLOW IVP SCH ×2 (04:03→06:22)
[2022-01-03] MEDS: Sodium Chloride 0.9% 1,000 ML IV SCH (06:24)
[2022-01-03 06:25] LABS: #Eosinphils 0.2 thou/uL (0.0-0.7); #Lymphocytes 1.7 thou/uL (1.20-3.40); #Monocytes 0.6 thou/uL (0.11-0.59); %Basophils 0.6 % (0.0-1.0); %Eosinophils 2.9 % (0.0-10.0); %Lymphocytes 19.7 % (21.0-51.0); %Monocytes 7.3 % (0.0-10.0); %Neutrophils 69.6 % (42.0-75.0); Hemoglobin 9.5 g/dL (12.0-16.0); Mean Corpuscular HGB CONC 30.6 g/dL (32.0-36.0); Mean Corpuscular Hemoglobin 29.7 pg (27.0-31.0); Mean Corpuscular Volume 97.3 fL (78.0-98.0); Mean Platelet Volume 8.8 fL (7.4-10.4); Platelet Count 188 thou/uL (130-400); RBC Distribution Width 13.6 % (11.5-14.5); Red Blood Cell (RBC) Count 3.21 mill/uL (4.20-5.40); White Blood Cell (WBC) Count 8.6 thou/uL (4.8-10.8)
[2022-01-03 07:00] LABS: Anion Gap 16 mmol/L (10-20); BUN (Urea Nitrogen) 53 mg/dL (7.0-18.7); Calc. Creatinine Clearance 94 mL/min (70-130); Calcium 8.6 mg/dL (7.8-10.44); Carbon Dioxide 25 mmol/L (22-29); Chloride 100 mmol/L (98-107); Estimated GFR 23; Glucose 96 mg/dL (70-105); Magnesium 2.2 mg/dL (1.6-2.6); Potassium 4.8 mmol/L (3.5-5.1); Sodium 136 mmol/L (136-145)
[2022-01-03 07:27] LABS: Phosphorus 3.6 mg/dL (2.3-4.7)
[2022-01-03] MEDS: Polyethylene Glycol 3350 17 GM Packet PO SCH (09:18)
[2022-01-03] MEDS: cefTRIAXone\\ROCEPHIN 1 GM in Sodium Chloride 0.9% 100 ML IVPB SCH (09:18)
[2022-01-03] MEDS: Citalopram 20 MG TAB PO SCH (09:18)
[2022-01-03] MEDS: Cyanocobalamin (Vitamin B-12) 1,000 MCG TAB PO SCH (09:19)
[2022-01-03] MEDS: Cholecalciferol 1,000 UNITS (25 MCG) TAB PO SCH (09:19)
[2022-01-03] MEDS: Docusate 100 MG CAP PO SCH ×2 (09:19→19:53)
[2022-01-03] MEDS: Ferrous Sulfate 325 MG TAB PO SCH (09:19)
[2022-01-03] MEDS: Apixaban 5 MG TAB PO SCH ×2 (09:19→19:53)
[2022-01-03] MEDS: busPIRone HCl 10 MG TAB PO SCH ×2 (09:20→19:53)
[2022-01-03] MEDS: Aspirin Chewable 81 MG TAB PO SCH (09:20)
[2022-01-03] MEDS: Amitriptyline HCl 25 MG TAB PO SCH (09:20)
[2022-01-03] MEDS: Gabapentin 300 MG CAP PO SCH ×3 (09:20→19:53)
[2022-01-03] MEDS ORDERED: HYDROmorphone 0.5 MG/0.5 ML SYRINGE SLOW IVP PRN (09:49)
[2022-01-03] MEDS ORDERED: HYDROmorphone 0.5 MG/0.5 ML SYRINGE SLOW IVP SCH (12:00)
[2022-01-03] MEDS: Atorvastatin Calcium 20 MG TAB PO SCH (19:53)
[2022-01-03] MEDS: Cyclobenzaprine 10 MG TAB PO PRN (22:39)
[2022-01-04] MEDS: Sodium Chloride 0.9% 1,000 ML IV SCH (02:24)
[2022-01-04] MEDS ORDERED: FLU VACC QS2022-23(6MOS UP)/PF 60 MCG/0.5 ML SYRINGE IM ONE (04:15)
[2022-01-04 05:44] LABS: #Eosinphils 0.3 thou/uL (0.0-0.7); #Lymphocytes 1.3 thou/uL (1.20-3.40); #Monocytes 0.5 thou/uL (0.11-0.59); #Neutrophils 5.3 thou/uL (1.40-6.50); %Basophils 0.5 % (0.0-1.0); %Eosinophils 3.5 % (0.0-10.0); %Lymphocytes 17.8 % (21.0-51.0); %Monocytes 7.3 % (0.0-10.0); %Neutrophils 70.9 % (42.0-75.0); Hemoglobin 8.9 g/dL (12.0-16.0); Mean Corpuscular HGB CONC 30.8 g/dL (32.0-36.0); Mean Corpuscular Hemoglobin 29.8 pg (27.0-31.0); Mean Corpuscular Volume 96.8 fL (78.0-98.0); Mean Platelet Volume 8.1 fL (7.4-10.4); Platelet Count 200 thou/uL (130-400); RBC Distribution Width 13.3 % (11.5-14.5); White Blood Cell (WBC) Count 7.4 thou/uL (4.8-10.8)
[2022-01-04 06:01] LABS: Anion Gap 14 mmol/L (10-20); BUN (Urea Nitrogen) 42 mg/dL (7.0-18.7); Calc. Creatinine Clearance 121 mL/min (70-130); Calcium 8.9 mg/dL (7.8-10.44); Carbon Dioxide 25 mmol/L (22-29); Chloride 103 mmol/L (98-107); Estimated GFR 32; Glucose 142 mg/dL (70-105); Phosphorus 3.5 mg/dL (2.3-4.7); Sodium 137 mmol/L (136-145)
[2022-01-04] MEDS: Aspirin Chewable 81 MG TAB PO SCH (08:56)
[2022-01-04] MEDS: Cholecalciferol 1,000 UNITS (25 MCG) TAB PO SCH (08:57)
[2022-01-04] MEDS: busPIRone HCl 10 MG TAB PO SCH ×2 (08:57→20:06)
[2022-01-04] MEDS: Amitriptyline HCl 25 MG TAB PO SCH (08:57)
[2022-01-04] MEDS: Docusate 100 MG CAP PO SCH (08:57)
[2022-01-04] MEDS: Citalopram 20 MG TAB PO SCH (08:58)
[2022-01-04] MEDS: Gabapentin 300 MG CAP PO SCH ×3 (08:58→20:06)
[2022-01-04] MEDS: Polyethylene Glycol 3350 17 GM Packet PO SCH (08:59)
[2022-01-04] MEDS: Ferrous Sulfate 325 MG TAB PO SCH (08:59)
[2022-01-04] MEDS: Cyanocobalamin (Vitamin B-12) 1,000 MCG TAB PO SCH (08:59)
[2022-01-04] MEDS: Apixaban 5 MG TAB PO SCH ×2 (08:59→20:07)
[2022-01-04] MEDS: HYDROcodone/Acetaminophen 10/325 mg Tablet PO PRN ×3 (09:54→21:25)
[2022-01-04] MEDS: cefTRIAXone\\ROCEPHIN 1 GM in Sodium Chloride 0.9% 100 ML IVPB SCH (09:56)
[2022-01-04] MEDS: Diclofenac 1% 100 GM GEL TP SCH ×2 (17:53→20:05)
[2022-01-04] MEDS: Cefdinir 300 MG CAP PO SCH (20:06)
[2022-01-04] MEDS: Atorvastatin Calcium 20 MG TAB PO SCH (20:07)
[2022-01-04] MEDS ORDERED: Senokot 8.6 MG TAB PO PRN (21:21)
[2022-01-04] MEDS: Cyclobenzaprine 10 MG TAB PO PRN (21:25)
[2022-01-05] MEDS: Sodium Chloride 0.9% 1,000 ML IV SCH (02:54)
[2022-01-05] MEDS: HYDROcodone/Acetaminophen 10/325 mg Tablet PO PRN (06:06)
[2022-01-05 07:57] LABS: Anion Gap 9 mmol/L (10-20); BUN (Urea Nitrogen) 35 mg/dL (7.0-18.7); Calc. Creatinine Clearance 151 mL/min (70-130); Calcium 9.5 mg/dL (7.8-10.44); Carbon Dioxide 31 mmol/L (22-29); Chloride 103 mmol/L (98-107); Estimated GFR 41; Glucose 116 mg/dL (70-105); Potassium 4.8 mmol/L (3.5-5.1); Sodium 138 mmol/L (136-145)
[2022-01-05] MEDS: Cefdinir 300 MG CAP PO SCH (08:47)
[2022-01-05] MEDS: Apixaban 5 MG TAB PO SCH (08:47)
[2022-01-05] MEDS: busPIRone HCl 10 MG TAB PO SCH (08:47)
[2022-01-05] MEDS: Citalopram 20 MG TAB PO SCH (08:47)
[2022-01-05] MEDS: Cholecalciferol 1,000 UNITS (25 MCG) TAB PO SCH (08:48)
[2022-01-05] MEDS: Gabapentin 300 MG CAP PO SCH ×2 (08:48→15:19)
[2022-01-05] MEDS: Cyanocobalamin (Vitamin B-12) 1,000 MCG TAB PO SCH (08:48)
[2022-01-05] MEDS: Amitriptyline HCl 25 MG TAB PO SCH (08:48)
[2022-01-05] MEDS: Ferrous Sulfate 325 MG TAB PO SCH (08:49)
[2022-01-05] MEDS: Polyethylene Glycol 3350 17 GM Packet PO SCH (08:49)
[2022-01-05] MEDS: Aspirin Chewable 81 MG TAB PO SCH (08:49)
[2022-01-05] MEDS ORDERED: Lidocaine 5% Patch TD SCH (09:00)
[2022-01-05] MEDS: Diclofenac 1% 100 GM GEL TP SCH ×2 (10:18→13:33)
[2022-01-05] MEDS ORDERED: Fleet Enema 133 ML BOT PR SCH (12:30)
[2022-01-05] MEDS ORDERED: Ondansetron ODT 4 MG TAB PO PRN (13:05)
[2022-01-05 16:27] VITALS: BP 143/74; TEMP 97.7
[2022-01-09] MEDS ORDERED: Apixaban 5 MG TAB PO SCH (09:00)
== END 2022-01-05 17:19 | disposition home health service (06) | DRG 683 ==
LOC: NEURO 22:45 → OBSVTOIN 01-01 14:53 → T4-B 01-05 15:57
PROVIDERS: ADMIT Internal Medicine; ATTEND Family Medicine
DX: N17.9 Acute kidney failure, unspecified (principal); I42.8 Other cardiomyopathies; J96.11 Chronic respiratory failure with hypoxia; N39.0 Urinary tract infection, site not specified; Z68.45 Body mass index [BMI] 70 or greater, adult; N18.4 Chronic kidney disease, stage 4 (severe); Z66 Do not resuscitate; E11.22 Type 2 diabetes mellitus with diabetic chronic kidney disease; I12.9 Hypertensive chronic kidney disease with stage 1 through stage 4 chronic kidney disease, or unspecified chronic kidney disease; D63.1 Anemia in chronic kidney disease; E66.01 Morbid (severe) obesity due to excess calories; E11.40 Type 2 diabetes mellitus with diabetic neuropathy, unspecified; K21.9 Gastro-esophageal reflux disease without esophagitis; F41.9 Anxiety disorder, unspecified; F32.A Depression, unspecified; M19.90 Unspecified osteoarthritis, unspecified site; E78.5 Hyperlipidemia, unspecified; E87.5 Hyperkalemia; M54.41 Lumbago with sciatica, right side; B96.20 Unspecified Escherichia coli [E. coli] as the cause of diseases classified elsewhere; G47.00 Insomnia, unspecified; R07.89 Other chest pain; K59.00 Constipation, unspecified; Z20.822 Contact with and (suspected) exposure to COVID-19; Z99.81 Dependence on supplemental oxygen; Z88.2 Allergy status to sulfonamides; Z79.82 Long term (current) use of aspirin; Z79.899 Other long term (current) drug therapy; Z79.84 Long term (current) use of oral hypoglycemic drugs; Z79.01 Long term (current) use of anticoagulants; Z86.718 Personal history of other venous thrombosis and embolism; Z98.890 Other specified postprocedural states; Z82.49 Family history of ischemic heart disease and other diseases of the circulatory system; Z87.891 Personal history of nicotine dependence
CPT/HCPCS: 36415; 36416; 76770; 80048; 81001; 83540; 83550; 83735; 84100; 85025; 86850; 86900; 86901; 87077; 87086; 87186; 90471; 90686; G0008; G0378; J0696; J1170; J1815; J2270; J2405; J3490; J7050; Q0162; U0003; U0005

== ENCOUNTER 2022-01-06 18:01 | Emergency (ER) | payer OTHER ==
[2022-01-06] MEDS ORDERED: Fentanyl 100 MCG/2 ML VIAL ONE ×2 (18:30→20:14)
[2022-01-06 18:42] LABS: #Eosinphils 0.2 thou/uL (0.0-0.7); #Lymphocytes 1.6 thou/uL (1.20-3.40); #Monocytes 0.7 thou/uL (0.11-0.59); %Basophils 0.3 % (0.0-1.0); %Monocytes 7.6 % (0.0-10.0); %Neutrophils 73.1 % (42.0-75.0); Hemoglobin 9.1 g/dL (12.0-16.0); Mean Corpuscular HGB CONC 31.3 g/dL (32.0-36.0); Mean Corpuscular Hemoglobin 29.9 pg (27.0-31.0); Mean Corpuscular Volume 95.6 fL (78.0-98.0); Mean Platelet Volume 7.6 fL (7.4-10.4); Platelet Count 222 thou/uL (130-400); RBC Distribution Width 13.3 % (11.5-14.5); Red Blood Cell (RBC) Count 3.05 mill/uL (4.20-5.40); White Blood Cell (WBC) Count 9.6 thou/uL (4.8-10.8)
[2022-01-06 18:59] LABS: ALT (SGPT) 33 U/L (8-55); AST (SGOT) 36 U/L (5-34); Albumin 3.7 g/dL (3.5-5.0); Alkaline Phosphatase 78 U/L (40-110); Anion Gap 15 mmol/L (10-20); BUN (Urea Nitrogen) 28 mg/dL (7.0-18.7); Bilirubin, Total 0.4 mg/dL (0.2-1.2); Calc. Creatinine Clearance 0 mL/min (70-130); Calcium 10.2 mg/dL (7.8-10.44); Carbon Dioxide 27 mmol/L (22-29); Chloride 100 mmol/L (98-107); Estimated GFR 38; Globulin 3.8 g/dL (2.4-3.5); Glucose 86 mg/dL (70-105); Lipase 8 U/L (8-78); Potassium 4.5 mmol/L (3.5-5.1); Protein, Total 7.5 g/dL (6.0-8.3); Sodium 137 mmol/L (136-145)
[2022-01-06 19:30] LABS: BHCG - Serum Negative (NEGATIVE); Pregs Control Background? CLEAR/WHITE (CLR/WHITE); Pregs Control Bar Appear? YES (CONTROL BAR)
[2022-01-06] MEDS ORDERED: Ondansetron PF 4 MG/2 ML Vial ONE (20:14)
[2022-01-06 20:25] LABS: Bilirubin Negative (Negative); Blood, Urine Negative (Negative); Clarity Clear (Clear); Glucose, Urine (Dipstick) Normal (Negative); Ketone, Urine Negative (Negative); Leukocyte Negative Leu/uL (Negative); Nitrite Negative (Negative); Protein, Urine (Dipstick) Negative (Neg-Trace); Specific Gravity, Urine 1.017 (1.002-1.036); Urobilinogen Normal mg/dL (Less than 2); pH, Urine 5.5 (5.0-9.0)
== END 2022-01-06 22:46 | disposition short-term general hospital (02) ==
LOC: ERS 18:01
DX: R10.31 Right lower quadrant pain (principal); I13.2 Hypertensive heart and chronic kidney disease with heart failure and with stage 5 chronic kidney disease, or end stage renal disease; E11.22 Type 2 diabetes mellitus with diabetic chronic kidney disease; N18.6 End stage renal disease; I50.9 Heart failure, unspecified; N17.9 Acute kidney failure, unspecified; K21.9 Gastro-esophageal reflux disease without esophagitis; E78.00 Pure hypercholesterolemia, unspecified; D64.9 Anemia, unspecified; M19.90 Unspecified osteoarthritis, unspecified site; E66.9 Obesity, unspecified; Z86.718 Personal history of other venous thrombosis and embolism
CPT/HCPCS: 80053; 81003; 83605; 83690; 84703; 85025; 87086; 96374; 96375; 96376; J2405; J3010

== ENCOUNTER 2022-01-23 19:08 | Inpatient (IN) | payer OTHER ==
[2022-01-23 21:28] VITALS: BMI 75.9
[2022-01-23] MEDS ORDERED: Ondansetron ODT 4 MG TAB PO PRN (21:45)
[2022-01-23] MEDS ORDERED: Senokot S 8.6-50 MG TAB PO PRN (21:45)
[2022-01-23] MEDS ORDERED: HumaLOG 300 UNITS/3 ML VIAL SC PRN (21:50)
[2022-01-23] MEDS ORDERED: Dextrose 50% Abboject 50 ML SYRINGE SLOW IVP PRN (21:50)
[2022-01-23] MEDS ORDERED: Dextrose 5% in Water 1,000 ML IV PRN (21:50)
[2022-01-23 22:08] LABS: #Basophils 0.1 thou/uL (0.0-0.2); #Eosinphils 0.3 thou/uL (0.0-0.7); #Lymphocytes 3.1 thou/uL (1.20-3.40); #Monocytes 0.5 thou/uL (0.11-0.59); #Neutrophils 4.5 thou/uL (1.40-6.50); %Basophils 0.7 % (0.0-1.0); %Eosinophils 3.5 % (0.0-10.0); %Lymphocytes 36.4 % (21.0-51.0); %Monocytes 5.9 % (0.0-10.0); %Neutrophils 53.5 % (42.0-75.0); Hemoglobin 9.3 g/dL (12.0-16.0); Mean Corpuscular Hemoglobin 29.6 pg (27.0-31.0); Mean Corpuscular Volume 95.6 fl (78.0-98.0); Mean Platelet Volume 8.2 fL (7.4-10.4); Platelet Count 282 thou/uL (130-400); RBC Distribution Width 14.2 % (11.5-14.5); Red Blood Cell (RBC) Count 3.12 mill/uL (4.20-5.40); White Blood Cell (WBC) Count 8.4 thou/uL (4.8-10.8)
[2022-01-23] MEDS: HYDROcodone/Acetaminophen 5/325 mg Tablet PO PRN (23:01)
[2022-01-23 23:06] LABS: BHCG - Serum Negative (NEGATIVE); Pregs Control Background? CLEAR/WHITE (CLR/WHITE); Pregs Control Bar Appear? YES (CONTROL BAR)
[2022-01-23 23:08] LABS: ALT (SGPT) 10 U/L (8-55); AST (SGOT) 13 U/L (5-34); Albumin 3.9 g/dL (3.5-5.0); Alkaline Phosphatase 77 U/L (40-110); Anion Gap 17 mmol/L (10-20); BUN (Urea Nitrogen) 37 mg/dL (7.0-18.7); Bilirubin, Total 0.3 mg/dL (0.2-1.2); Calc. Creatinine Clearance 120 mL/min (70-130); Calcium 9.6 mg/dL (7.8-10.44); Carbon Dioxide 26 mmol/L (22-29); Chloride 100 mmol/L (98-107); Estimated GFR 34; Globulin 3.4 g/dL (2.4-3.5); Glucose 93 mg/dL (70-105); Potassium 4.2 mmol/L (3.5-5.1); Protein, Total 7.3 g/dL (6.0-8.3); Sodium 139 mmol/L (136-145)
[2022-01-24 06:33] LABS: #Eosinphils 0.3 thou/uL (0.0-0.7); #Lymphocytes 2.3 thou/uL (1.20-3.40); #Monocytes 0.6 thou/uL (0.11-0.59); #Neutrophils 3.8 thou/uL (1.40-6.50); %Basophils 0.2 % (0.0-1.0); %Eosinophils 4.5 % (0.0-10.0); %Lymphocytes 32.6 % (21.0-51.0); %Monocytes 8.4 % (0.0-10.0); %Neutrophils 54.3 % (42.0-75.0); Mean Corpuscular Hemoglobin 28.7 pg (27.0-31.0); Mean Corpuscular Volume 95.6 fl (78.0-98.0); Mean Platelet Volume 8.4 fL (7.4-10.4); Platelet Count 243 thou/uL (130-400); RBC Distribution Width 14.2 % (11.5-14.5); Red Blood Cell (RBC) Count 2.79 mill/uL (4.20-5.40)
[2022-01-24 06:51] LABS: ALT (SGPT) 9 U/L (8-55); AST (SGOT) 11 U/L (5-34); Albumin 3.5 g/dL (3.5-5.0); Alkaline Phosphatase 72 U/L (40-110); Anion Gap 13 mmol/L (10-20); BUN (Urea Nitrogen) 35 mg/dL (7.0-18.7); Bilirubin, Total 0.3 mg/dL (0.2-1.2); Calc. Creatinine Clearance 117 mL/min (70-130); Calcium 9.3 mg/dL (7.8-10.44); Carbon Dioxide 30 mmol/L (22-29); Chloride 100 mmol/L (98-107); Estimated GFR 33; Globulin 3.1 g/dL (2.4-3.5); Glucose 143 mg/dL (70-105); Potassium 4.1 mmol/L (3.5-5.1); Protein, Total 6.6 g/dL (6.0-8.3); Sodium 139 mmol/L (136-145)
[2022-01-24] MEDS ORDERED: NALTREXONE HCL PO SCH (09:00)
[2022-01-24] MEDS ORDERED: BUPROPION HCL PO SCH (09:00)
[2022-01-24] MEDS ORDERED: [UNRECOGNIZED DRUG - OTHER] PO SCH (09:00)
[2022-01-24] MEDS: Aspirin Chewable 81 MG TAB PO SCH (09:15)
[2022-01-24] MEDS: Cholecalciferol 1,000 UNITS (25 MCG) TAB PO SCH (09:15)
[2022-01-24] MEDS: Gabapentin 300 MG CAP PO SCH ×3 (09:15→19:41)
[2022-01-24] MEDS: Amitriptyline HCl 25 MG TAB PO SCH (09:16)
[2022-01-24] MEDS: Ferrous Sulfate 325 MG TAB PO SCH (09:16)
[2022-01-24] MEDS: HYDROcodone/Acetaminophen 5/325 mg Tablet PO PRN ×2 (10:49→19:40)
[2022-01-24] MEDS ORDERED: predniSONE 20 MG TAB PO SCH (17:00)
[2022-01-24] MEDS: Furosemide 40 MG TAB PO SCH (19:40)
[2022-01-24] MEDS: Atorvastatin Calcium 20 MG TAB PO SCH (19:41)
[2022-01-24] MEDS: Colchicine 0.6 MG TAB PO SCH (19:41)
[2022-01-24] MEDS: metFORMIN 500 MG TAB PO SCH (19:41)
[2022-01-25] MEDS: Cyclobenzaprine 10 MG TAB PO PRN (01:14)
[2022-01-25] MEDS: HYDROcodone/Acetaminophen 5/325 mg Tablet PO PRN ×2 (01:14→13:56)
[2022-01-25] MEDS: Aspirin Chewable 81 MG TAB PO SCH (08:33)
[2022-01-25] MEDS: Cholecalciferol 1,000 UNITS (25 MCG) TAB PO SCH (08:33)
[2022-01-25] MEDS: Gabapentin 300 MG CAP PO SCH ×3 (08:34→22:08)
[2022-01-25] MEDS: Furosemide 40 MG TAB PO SCH ×2 (08:34→22:09)
[2022-01-25] MEDS: Cyanocobalamin (Vitamin B-12) 1,000 MCG TAB PO SCH (08:35)
[2022-01-25] MEDS: Colchicine 0.6 MG TAB PO SCH ×2 (08:35→21:56)
[2022-01-25] MEDS: Amitriptyline HCl 25 MG TAB PO SCH (08:35)
[2022-01-25] MEDS: Fish Oil 1,000 MG CAP PO SCH (08:35)
[2022-01-25] MEDS: Ferrous Sulfate 325 MG TAB PO SCH (08:35)
[2022-01-25] MEDS: Citalopram 20 MG TAB PO SCH (08:35)
[2022-01-25] MEDS: metFORMIN 500 MG TAB PO SCH ×2 (08:35→21:56)
[2022-01-25] MEDS: Multivit, Therapeutic 1 TAB PO SCH (08:35)
[2022-01-25] MEDS: Bupropion 150 MG XL TAB PO SCH (08:35)
[2022-01-25] MEDS: predniSONE 20 MG TAB PO SCH (08:36)
[2022-01-25] MEDS: Loratadine 10 MG TAB PO SCH (08:36)
[2022-01-25 08:40] LABS: Anion Gap 12 mmol/L (10-20); BUN (Urea Nitrogen) 25 mg/dL (7.0-18.7); Calc. Creatinine Clearance 149 mL/min (70-130); Calcium 9.6 mg/dL (7.8-10.44); Carbon Dioxide 33 mmol/L (22-29); Chloride 98 mmol/L (98-107); Estimated GFR 44; Glucose 155 mg/dL (70-105); Potassium 4.8 mmol/L (3.5-5.1); Sodium 138 mmol/L (136-145)
[2022-01-25] MEDS: Apixaban 5 MG TAB PO SCH (21:56)
[2022-01-25] MEDS: Atorvastatin Calcium 20 MG TAB PO SCH (21:56)
[2022-01-26 01:03] LABS: Anion Gap 14 mmol/L (10-20); BUN (Urea Nitrogen) 28 mg/dL (7.0-18.7); Calc. Creatinine Clearance 137 mL/min (70-130); Calcium 9.5 mg/dL (7.8-10.44); Carbon Dioxide 34 mmol/L (22-29); Chloride 97 mmol/L (98-107); Estimated GFR 40; Glucose 128 mg/dL (70-105); Magnesium 1.5 mg/dL (1.6-2.6); Potassium 4.3 mmol/L (3.5-5.1); Sodium 141 mmol/L (136-145)
[2022-01-26 01:08] LABS: Troponin I Less than 0.010 ng/mL (< 0.028)
[2022-01-26 01:13] LABS: Hemoglobin 8.7 g/dL (12.0-16.0); Mean Corpuscular HGB CONC 29.9 g/dL (32.0-36.0); Mean Corpuscular Hemoglobin 28.5 pg (27.0-31.0); Mean Corpuscular Volume 95.2 fl (78.0-98.0); Mean Platelet Volume 8.4 fL (7.4-10.4); Platelet Count 270 thou/uL (130-400); RBC Distribution Width 13.9 % (11.5-14.5); Red Blood Cell (RBC) Count 3.05 mill/uL (4.20-5.40); White Blood Cell (WBC) Count 9.8 thou/uL (4.8-10.8)
[2022-01-26 01:14] LABS: #Eosinphils 0.2 thou/uL (0.0-0.7); #Lymphocytes 2.7 thou/uL (1.20-3.40); #Monocytes 0.7 thou/uL (0.11-0.59); #Neutrophils 6.1 thou/uL (1.40-6.50); %Basophils 0.3 % (0.0-1.0); %Eosinophils 2.4 % (0.0-10.0); %Lymphocytes 27.1 % (21.0-51.0); %Monocytes 7.3 % (0.0-10.0); %Neutrophils 62.8 % (42.0-75.0)
[2022-01-26] MEDS ORDERED: Magnesium 2 GM/50 ML(in water) 2 GM in Premix Bag 1 BAG IVPB SCH ×2 (01:30→12:00)
[2022-01-26] MEDS ORDERED: Electrolyte Replacement Protocol 1 EACH FS SCH (01:30)
[2022-01-26 06:46] LABS: Magnesium 1.7 mg/dL (1.6-2.6)
[2022-01-26 06:52] LABS: Troponin I Less than 0.010 ng/mL (< 0.028)
[2022-01-26] MEDS: Gabapentin 300 MG CAP PO SCH ×3 (08:21→20:00)
[2022-01-26] MEDS: Aspirin Chewable 81 MG TAB PO SCH (08:21)
[2022-01-26] MEDS: Cyanocobalamin (Vitamin B-12) 1,000 MCG TAB PO SCH (08:21)
[2022-01-26] MEDS: Furosemide 40 MG TAB PO SCH ×2 (08:21→20:00)
[2022-01-26] MEDS: metFORMIN 500 MG TAB PO SCH ×2 (08:21→20:00)
[2022-01-26] MEDS: Amitriptyline HCl 25 MG TAB PO SCH (08:21)
[2022-01-26] MEDS: Cholecalciferol 1,000 UNITS (25 MCG) TAB PO SCH (08:22)
[2022-01-26] MEDS: Colchicine 0.6 MG TAB PO SCH (08:22)
[2022-01-26] MEDS: Multivit, Therapeutic 1 TAB PO SCH (08:22)
[2022-01-26] MEDS: Loratadine 10 MG TAB PO SCH (08:22)
[2022-01-26] MEDS: Fish Oil 1,000 MG CAP PO SCH (08:22)
[2022-01-26] MEDS: Apixaban 5 MG TAB PO SCH ×2 (08:23→20:00)
[2022-01-26] MEDS: predniSONE 20 MG TAB PO SCH (08:23)
[2022-01-26] MEDS: Citalopram 20 MG TAB PO SCH (08:23)
[2022-01-26] MEDS: Ferrous Sulfate 325 MG TAB PO SCH (08:23)
[2022-01-26] MEDS: Bupropion 150 MG XL TAB PO SCH (08:43)
[2022-01-26 10:06] LABS: Troponin I Less than 0.010 ng/mL (< 0.028)
[2022-01-26] MEDS: HYDROcodone/Acetaminophen 5/325 mg Tablet PO PRN ×2 (11:49→18:37)
[2022-01-26] MEDS ORDERED: Sodium Chloride 0.65% Nasal 44 ML BOT EA NARE PRN (13:55)
[2022-01-26] MEDS: Acetaminophen 325 MG TAB PO PRN (14:17)
[2022-01-26] MEDS: Atorvastatin Calcium 20 MG TAB PO SCH (20:00)
[2022-01-26] MEDS: Cyclobenzaprine 10 MG TAB PO PRN (21:24)
[2022-01-27] MEDS: HYDROcodone/Acetaminophen 5/325 mg Tablet PO PRN ×2 (00:25→09:20)
[2022-01-27] MEDS: Acetaminophen 325 MG TAB PO PRN (04:21)
[2022-01-27 07:24] LABS: Anion Gap 14 mmol/L (10-20); BUN (Urea Nitrogen) 28 mg/dL (7.0-18.7); Calc. Creatinine Clearance 146 mL/min (70-130); Calcium 9.1 mg/dL (7.8-10.44); Carbon Dioxide 34 mmol/L (22-29); Chloride 95 mmol/L (98-107); Estimated GFR 43; Glucose 138 mg/dL (70-105); Magnesium 1.8 mg/dL (1.6-2.6); Potassium 4.2 mmol/L (3.5-5.1); Sodium 139 mmol/L (136-145)
[2022-01-27 08:27] VITALS: BP 128/77; TEMP 97.6
[2022-01-27] MEDS ORDERED: Colchicine 0.3 MG TAB PO SCH (09:00)
[2022-01-27] MEDS ORDERED: Magnesium 2 GM/50 ML(in water) 2 GM in Premix Bag 1 BAG IVPB SCH (09:00)
[2022-01-27] MEDS: Amitriptyline HCl 25 MG TAB PO SCH (09:17)
[2022-01-27] MEDS: Aspirin Chewable 81 MG TAB PO SCH (09:17)
[2022-01-27] MEDS: Cholecalciferol 1,000 UNITS (25 MCG) TAB PO SCH (09:17)
[2022-01-27] MEDS: Bupropion 150 MG XL TAB PO SCH (09:17)
[2022-01-27] MEDS: Apixaban 5 MG TAB PO SCH (09:17)
[2022-01-27] MEDS: predniSONE 20 MG TAB PO SCH (09:17)
[2022-01-27] MEDS: Citalopram 20 MG TAB PO SCH (09:18)
[2022-01-27] MEDS: Cyanocobalamin (Vitamin B-12) 1,000 MCG TAB PO SCH (09:18)
[2022-01-27] MEDS: Fish Oil 1,000 MG CAP PO SCH (09:18)
[2022-01-27] MEDS: Ferrous Sulfate 325 MG TAB PO SCH (09:18)
[2022-01-27] MEDS: Furosemide 40 MG TAB PO SCH (09:19)
[2022-01-27] MEDS: metFORMIN 500 MG TAB PO SCH (09:19)
[2022-01-27] MEDS: Gabapentin 300 MG CAP PO SCH (09:19)
[2022-01-27] MEDS: Multivit, Therapeutic 1 TAB PO SCH (09:19)
[2022-01-27] MEDS: Loratadine 10 MG TAB PO SCH (09:19)
== END 2022-01-27 12:02 | disposition home or self-care (01) | DRG 554 ==
LOC: T4-B 19:08 → OBSVTOIN 19:08
PROVIDERS: ADMIT Student in an Organized Health Care Education/Training Program; ATTEND Internal Medicine
DX: M10.9 Gout, unspecified (principal); E66.2 Morbid (severe) obesity with alveolar hypoventilation; Z68.45 Body mass index [BMI] 70 or greater, adult; J96.11 Chronic respiratory failure with hypoxia; E78.5 Hyperlipidemia, unspecified; G47.33 Obstructive sleep apnea (adult) (pediatric); G89.4 Chronic pain syndrome; E11.40 Type 2 diabetes mellitus with diabetic neuropathy, unspecified; F41.9 Anxiety disorder, unspecified; F32.A Depression, unspecified; N18.30 Chronic kidney disease, stage 3 unspecified; Z20.822 Contact with and (suspected) exposure to COVID-19; I12.9 Hypertensive chronic kidney disease with stage 1 through stage 4 chronic kidney disease, or unspecified chronic kidney disease; D63.1 Anemia in chronic kidney disease; E11.22 Type 2 diabetes mellitus with diabetic chronic kidney disease; Z88.2 Allergy status to sulfonamides; Z91.018 Allergy to other foods; Z79.82 Long term (current) use of aspirin; Z86.718 Personal history of other venous thrombosis and embolism; Z79.899 Other long term (current) drug therapy; Z79.84 Long term (current) use of oral hypoglycemic drugs; Z79.01 Long term (current) use of anticoagulants
CPT/HCPCS: 36415; 36416; 80048; 80053; 83735; 83880; 84100; 84484; 84550; 84703; 85025; 85652; 86140; 93005; 93010; J1815; J3475; J7512; Q0162; U0003; U0005

== ENCOUNTER 2022-03-10 13:53 | Emergency (ER) | payer OTHER ==
[2022-03-10 15:25] LABS: Hemoglobin 12.5 g/dL (12.0-16.0); Mean Corpuscular HGB CONC 31.7 g/dL (32.0-36.0); Mean Corpuscular Hemoglobin 28.9 pg (27.0-31.0); Mean Corpuscular Volume 91.1 fl (78.0-98.0); Platelet Count 216 10x3/uL (130-400); RBC Distribution Width 14.4 % (11.5-14.5); Red Blood Cell (RBC) Count 4.35 mill/uL (4.20-5.40); White Blood Cell (WBC) Count 7.1 10x3/uL (4.8-10.8)
[2022-03-10 15:43] LABS: ALT (SGPT) 19 U/L (8-55); AST (SGOT) 19 U/L (5-34); Albumin 4.4 g/dL (3.5-5.0); Alkaline Phosphatase 113 U/L (40-110); Anion Gap 15 mmol/L (10-20); BUN (Urea Nitrogen) 23 mg/dL (7.0-18.7); Bilirubin, Total 0.3 mg/dL (0.2-1.2); Calc. Creatinine Clearance 0 mL/min (70-130); Calcium 9.8 mg/dL (7.8-10.44); Carbon Dioxide 30 mmol/L (22-29); Chloride 95 mmol/L (98-107); Estimated GFR 39; Globulin 3.2 g/dL (2.4-3.5); Glucose 224 mg/dL (70-105); Potassium 3.9 mmol/L (3.5-5.1); Protein, Total 7.6 g/dL (6.0-8.3); Sodium 136 mmol/L (136-145)
[2022-03-10 15:44] LABS: Eosinophils 5 % (0-10); Lymphocytes 29 % (21-51); MDiff Complete? YES; Monocytes 6 % (0-10); Neutrophil 60 % (42-75); Platelet Morphology Comment Appears Adequate; RBC Morphology Normal
[2022-03-10] MEDS ORDERED: Ondansetron PF 4 MG/2 ML Vial ONE (16:24)
== END 2022-03-10 18:10 | disposition home or self-care (01) ==
LOC: ERS 13:53
DX: L03.116 Cellulitis of left lower limb (principal); R79.1 Abnormal coagulation profile; I11.0 Hypertensive heart disease with heart failure; I50.9 Heart failure, unspecified; K21.9 Gastro-esophageal reflux disease without esophagitis; E78.00 Pure hypercholesterolemia, unspecified; E11.9 Type 2 diabetes mellitus without complications; E66.9 Obesity, unspecified
CPT/HCPCS: 36415; 71045; 83605; 85379; 87040; 93005; 94760; 96374; J2405

== ENCOUNTER 2022-04-18 16:27 | Inpatient (IN) | payer MEDICARE ==
[2022-04-18 17:35] LABS: Actual Bicarbonate (HCO3v) 31 mEq/L (22-28); Base Excess 5.5 mEq/L (-2.0 to +3.0); Calcium, Ionized (venous) 1.09 mmol/L (1.16-1.32); Chloride (VBG) 98 mmol/L (98-106); Hemoglobin (Hb) 14.5 g/dL (11.7-16.0); Potassium (VBG) 3.63 mmol/L (3.70-5.30); Sodium 139.1 mmol/L (133-146); pH (venous) 7.41 (7.32-7.43)
[2022-04-18] MEDS ORDERED: Potassium Chloride 20 MEQ/100 ML PREMIX BAG ONE (18:59)
[2022-04-18] MEDS ORDERED: D5 1/2 NS w/20 mEq KCL 1,000 ML ONE (19:00)
[2022-04-18] MEDS ORDERED: D5 1/2 NS w/20 mEq KCL 1,000 ML IV PRN (20:05)
[2022-04-18] MEDS ORDERED: Sodium Chloride 0.9% 1,000 ML IV PRN ×4 (20:05)
[2022-04-18] MEDS ORDERED: Electrolyte Replacement Protocol 1 EACH IVPB ONE (20:05)
[2022-04-18] MEDS ORDERED: Dextrose 5 %-0.45 % NaCl 1,000 ML IV PRN (20:05)
[2022-04-18] MEDS ORDERED: NS 0.9% w/ 20 MEQ KCL 1,000 ML IV PRN ×2 (20:05)
[2022-04-18] MEDS ORDERED: HUMULIN R 100 UNITS in Sodium Chloride 0.9% 100 ML IVPB SCH (20:15)
[2022-04-18] MEDS ORDERED: Magnesium 2 GM/50 ML(in water) 2 GM in Premix Bag 1 BAG IVPB SCH (20:30)
[2022-04-18] MEDS ORDERED: Electrolyte Replacement Protocol FS PRN (20:30)
[2022-04-18 20:39] LABS: Anion Gap 17 mmol/L (10-20); BUN (Urea Nitrogen) 15 mg/dL (7.0-18.7); Calc. Creatinine Clearance 0 mL/min (70-130); Calcium 9.9 mg/dL (7.8-10.44); Carbon Dioxide 28 mmol/L (22-29); Chloride 96 mmol/L (98-107); Estimated GFR 28; Potassium 3.5 mmol/L (3.5-5.1); Sodium 137 mmol/L (136-145)
[2022-04-18 20:46] LABS: Glucose 558 mg/dL (70-105)
[2022-04-18] MEDS ORDERED: INSULIN REGULAR IN 0.9 % NACL 100 UNIT/100 ML BAG ONE (21:16)
[2022-04-18 22:35] VITALS: BMI 68.8
[2022-04-18] MEDS ORDERED: Dextrose 50% Abboject 50 ML SYRINGE ONE (23:09)
[2022-04-18] MEDS: Diclofenac 1% 100 GM GEL TP SCH (23:48)
[2022-04-18] MEDS: Heparin 5,000 UNITS/ML VIAL SC SCH (23:51)
[2022-04-18] MEDS: Atorvastatin Calcium 20 MG TAB PO SCH (23:51)
[2022-04-19 00:21] LABS: Anion Gap 14 mmol/L (10-20); BUN (Urea Nitrogen) 14 mg/dL (7.0-18.7); Calc. Creatinine Clearance 101 mL/min (70-130); Carbon Dioxide 32 mmol/L (22-29); Chloride 100 mmol/L (98-107); Potassium 3.3 mmol/L (3.5-5.1); Sodium 143 mmol/L (136-145)
[2022-04-19 00:22] LABS: Calcium 9.9 mg/dL (7.8-10.44); Estimated GFR 31; Glucose 136 mg/dL (70-105)
[2022-04-19] MEDS ORDERED: Dextrose 5 %-0.45 % NaCl 1,000 ML IV PRN (00:45)
[2022-04-19] MEDS ORDERED: Sodium Chloride 0.9% 1,000 ML IV PRN ×4 (00:45)
[2022-04-19] MEDS ORDERED: NS 0.9% w/ 20 MEQ KCL 1,000 ML/1,000 ML BAG IV PRN ×2 (00:45)
[2022-04-19] MEDS ORDERED: Potassium Chloride 20 MEQ TAB PO SCH (01:30)
[2022-04-19] MEDS: Potassium Chloride 20 MEQ in Premix Bag 1 BAG IVPB SCH ×2 (01:53→03:53)
[2022-04-19 04:47] LABS: Anion Gap 17 mmol/L (10-20); BUN (Urea Nitrogen) 14 mg/dL (7.0-18.7); Calc. Creatinine Clearance 98 mL/min (70-130); Calcium 9.4 mg/dL (7.8-10.44); Carbon Dioxide 29 mmol/L (22-29); Chloride 97 mmol/L (98-107); Estimated GFR 30; Glucose 330 mg/dL (70-105); Potassium 3.9 mmol/L (3.5-5.1); Sodium 139 mmol/L (136-145)
[2022-04-19] MEDS: Cyclobenzaprine 10 MG TAB PO PRN (05:26)
[2022-04-19] MEDS: Aspirin Chewable 81 MG TAB PO SCH (08:38)
[2022-04-19] MEDS: Furosemide 40 MG TAB PO SCH ×2 (08:38→15:07)
[2022-04-19] MEDS: Loratadine 10 MG TAB PO SCH (08:38)
[2022-04-19] MEDS: Citalopram 20 MG TAB PO SCH (08:38)
[2022-04-19] MEDS: Bupropion 150 MG XL TAB PO SCH (08:38)
[2022-04-19] MEDS: Ferrous Sulfate 325 MG TAB PO SCH (08:38)
[2022-04-19] MEDS: Cholecalciferol 1,000 UNITS (25 MCG) TAB PO SCH (08:38)
[2022-04-19] MEDS: Diclofenac 1% 100 GM GEL TP SCH ×4 (08:40→22:05)
[2022-04-19] MEDS: Nystatin Powder 15 GM BOT TOP SCH (08:40)
[2022-04-19] MEDS: Heparin 5,000 UNITS/ML VIAL SC SCH ×3 (08:40→20:32)
[2022-04-19 16:21] LABS: Anion Gap 13 mmol/L (10-20); BUN (Urea Nitrogen) 12 mg/dL (7.0-18.7); Calc. Creatinine Clearance 121 mL/min (70-130); Calcium 8.9 mg/dL (7.8-10.44); Carbon Dioxide 30 mmol/L (22-29); Chloride 100 mmol/L (98-107); Estimated GFR 39; Glucose 149 mg/dL (70-105); Potassium 3.6 mmol/L (3.5-5.1); Sodium 139 mmol/L (136-145)
[2022-04-19] MEDS ORDERED: Dextrose 5% in Water 1,000 ML IV PRN (17:43)
[2022-04-19] MEDS ORDERED: Dextrose 50% Abboject 50 ML SYRINGE SLOW IVP PRN (17:43)
[2022-04-19] MEDS ORDERED: Insulin Glargine 30 UNITS/0.3 ML VIAL SC SCH (17:45)
[2022-04-19] MEDS: Gabapentin 100 MG CAP PO SCH (20:30)
[2022-04-19] MEDS: traMADol HCl 50 MG TAB PO PRN (20:30)
[2022-04-19] MEDS: Atorvastatin Calcium 20 MG TAB PO SCH (20:31)
[2022-04-19] MEDS ORDERED: Ondansetron ODT 4 MG TAB PO PRN (23:54)
[2022-04-19] MEDS: Ondansetron PF 4 MG/2 ML Vial IVP PRN (23:59)
[2022-04-20 04:25] LABS: Hemoglobin A1c 13.2 % (4.0-6.0)
[2022-04-20 04:29] LABS: Hemoglobin 12.3 g/dL (12.0-16.0); Mean Corpuscular HGB CONC 32.6 g/dL (32.0-36.0); Mean Corpuscular Hemoglobin 29.4 pg (27.0-31.0); Mean Corpuscular Volume 90.1 fl (78.0-98.0); Mean Platelet Volume 10.9 fL (7.4-10.4); Platelet Count 114 10x3/uL (130-400); RBC Distribution Width 13.7 % (11.5-14.5); White Blood Cell (WBC) Count 9.8 10x3/uL (4.8-10.8)
[2022-04-20 04:41] LABS: Anion Gap 14 mmol/L (10-20); BUN (Urea Nitrogen) 12 mg/dL (7.0-18.7); Calc. Creatinine Clearance 127 mL/min (70-130); Calcium 8.7 mg/dL (7.8-10.44); Carbon Dioxide 30 mmol/L (22-29); Chloride 96 mmol/L (98-107); Estimated GFR 41; Glucose 330 mg/dL (70-105); Potassium 3.6 mmol/L (3.5-5.1); Sodium 136 mmol/L (136-145)
[2022-04-20] MEDS: HumaLOG 300 UNITS/3 ML VIAL SC PRN ×4 (05:44→20:27)
[2022-04-20] MEDS: Aspirin Chewable 81 MG TAB PO SCH (08:36)
[2022-04-20] MEDS: Ferrous Sulfate 325 MG TAB PO SCH (08:36)
[2022-04-20] MEDS: Bupropion 150 MG XL TAB PO SCH (08:37)
[2022-04-20] MEDS: Citalopram 20 MG TAB PO SCH (08:37)
[2022-04-20] MEDS: Ondansetron PF 4 MG/2 ML Vial IVP PRN ×2 (08:37→22:22)
[2022-04-20] MEDS: Furosemide 40 MG TAB PO SCH ×2 (08:37→13:00)
[2022-04-20] MEDS: Heparin 5,000 UNITS/ML VIAL SC SCH ×3 (08:37→20:28)
[2022-04-20] MEDS: Loratadine 10 MG TAB PO SCH (08:37)
[2022-04-20] MEDS: Gabapentin 100 MG CAP PO SCH ×2 (08:37→20:22)
[2022-04-20] MEDS: Cholecalciferol 1,000 UNITS (25 MCG) TAB PO SCH (08:37)
[2022-04-20] MEDS: Nystatin Powder 15 GM BOT TOP SCH (08:38)
[2022-04-20] MEDS: Diclofenac 1% 100 GM GEL TP SCH ×4 (08:38→20:40)
[2022-04-20] MEDS: traMADol HCl 50 MG TAB PO PRN (12:59)
[2022-04-20] MEDS: Cyclobenzaprine 10 MG TAB PO PRN (13:00)
[2022-04-20] MEDS: Atorvastatin Calcium 20 MG TAB PO SCH (20:23)
[2022-04-20] MEDS: Insulin Glargine 30 UNITS/0.3 ML VIAL SC SCH (20:26)
[2022-04-20] MEDS ORDERED: traMADol HCl 50 MG TAB PO SCH (20:30)
[2022-04-21 04:09] LABS: Anion Gap 12 mmol/L (10-20); BUN (Urea Nitrogen) 10 mg/dL (7.0-18.7); Calc. Creatinine Clearance 139 mL/min (70-130); Calcium 8.9 mg/dL (7.8-10.44); Carbon Dioxide 30 mmol/L (22-29); Chloride 96 mmol/L (98-107); Estimated GFR 45; Glucose 378 mg/dL (70-105); Potassium 3.6 mmol/L (3.5-5.1); Sodium 134 mmol/L (136-145)
[2022-04-21 04:22] LABS: Band 1 % (5-11); Eosinophils 23 % (0-10); Hemoglobin 12.6 g/dL (12.0-16.0); Lymphocytes 17 % (21-51); MDiff Complete? YES; Mean Corpuscular HGB CONC 33.3 g/dL (32.0-36.0); Mean Corpuscular Hemoglobin 29.8 pg (27.0-31.0); Mean Corpuscular Volume 89.5 fl (78.0-98.0); Mean Platelet Volume 11.5 fL (7.4-10.4); Monocytes 10 % (0-10); Neutrophil 45 % (42-75); Platelet Count 107 10x3/uL (130-400); Platelet Morphology Comment Appears Decreased; RBC Distribution Width 13.8 % (11.5-14.5); RBC Morphology Normal; Reactive Lymphocytes 4 % (0-10); Red Blood Cell (RBC) Count 4.22 mill/uL (4.20-5.40); White Blood Cell (WBC) Count 7.8 10x3/uL (4.8-10.8)
[2022-04-21] MEDS: HumaLOG 300 UNITS/3 ML VIAL SC PRN ×4 (06:18→20:43)
[2022-04-21] MEDS: Ondansetron PF 4 MG/2 ML Vial IVP PRN ×2 (06:23→15:55)
[2022-04-21] MEDS: Gabapentin 100 MG CAP PO SCH ×2 (08:49→20:35)
[2022-04-21] MEDS: Ferrous Sulfate 325 MG TAB PO SCH (08:49)
[2022-04-21] MEDS: Bupropion 150 MG XL TAB PO SCH (08:49)
[2022-04-21] MEDS: Heparin 5,000 UNITS/ML VIAL SC SCH ×3 (08:49→20:47)
[2022-04-21] MEDS: Cholecalciferol 1,000 UNITS (25 MCG) TAB PO SCH (08:49)
[2022-04-21] MEDS: Loratadine 10 MG TAB PO SCH (08:49)
[2022-04-21] MEDS: Aspirin Chewable 81 MG TAB PO SCH (08:49)
[2022-04-21] MEDS: Furosemide 40 MG TAB PO SCH ×2 (08:49→15:39)
[2022-04-21] MEDS: Citalopram 20 MG TAB PO SCH (08:49)
[2022-04-21] MEDS: Diclofenac 1% 100 GM GEL TP SCH ×4 (08:50→20:39)
[2022-04-21] MEDS: Nystatin Powder 15 GM BOT TOP SCH (08:50)
[2022-04-21] MEDS: Insulin Glargine 30 UNITS/0.3 ML VIAL SC SCH ×2 (11:44→20:44)
[2022-04-21] MEDS: Atorvastatin Calcium 20 MG TAB PO SCH (20:39)
[2022-04-22] MEDS: Cyclobenzaprine 10 MG TAB PO PRN (02:38)
[2022-04-22 06:05] LABS: Anion Gap 15 mmol/L (10-20); BUN (Urea Nitrogen) 10 mg/dL (7.0-18.7); Calc. Creatinine Clearance 142 mL/min (70-130); Calcium 8.9 mg/dL (7.8-10.44); Carbon Dioxide 29 mmol/L (22-29); Chloride 95 mmol/L (98-107); Estimated GFR 46; Glucose 328 mg/dL (70-105); Potassium 3.6 mmol/L (3.5-5.1); Sodium 135 mmol/L (136-145)
[2022-04-22] MEDS: HumaLOG 300 UNITS/3 ML VIAL SC PRN (06:30)
[2022-04-22 09:13] VITALS: BP 115/72; TEMP 98.2
[2022-04-22] MEDS: Citalopram 20 MG TAB PO SCH (09:54)
[2022-04-22] MEDS: Loratadine 10 MG TAB PO SCH (09:54)
[2022-04-22] MEDS: Aspirin Chewable 81 MG TAB PO SCH (09:54)
[2022-04-22] MEDS: Ferrous Sulfate 325 MG TAB PO SCH (09:55)
[2022-04-22] MEDS: Bupropion 150 MG XL TAB PO SCH (09:55)
[2022-04-22] MEDS: Gabapentin 100 MG CAP PO SCH (09:55)
[2022-04-22] MEDS: Nystatin Powder 15 GM BOT TOP SCH (09:57)
[2022-04-22] MEDS: Cholecalciferol 1,000 UNITS (25 MCG) TAB PO SCH (09:57)
[2022-04-22] MEDS: Diclofenac 1% 100 GM GEL TP SCH (09:58)
[2022-04-22] MEDS: Insulin Glargine 30 UNITS/0.3 ML VIAL SC SCH (10:06)
[2022-04-22] MEDS: Furosemide 40 MG TAB PO SCH (10:12)
[2022-04-22] MEDS: Heparin 5,000 UNITS/ML VIAL SC SCH (10:12)
== END 2022-04-22 11:07 | disposition home or self-care (01) | DRG 637 ==
LOC: ERS 16:27 → IMCU/EMU 21:48 → MSONC 04-21 19:47
PROVIDERS: ADMIT Student in an Organized Health Care Education/Training Program; ATTEND Family Medicine
DX: E11.00 Type 2 diabetes mellitus with hyperosmolarity without nonketotic hyperglycemic-hyperosmolar coma (NKHHC) (principal); G93.41 Metabolic encephalopathy; I13.0 Hypertensive heart and chronic kidney disease with heart failure and stage 1 through stage 4 chronic kidney disease, or unspecified chronic kidney disease; N17.9 Acute kidney failure, unspecified; Z68.44 Body mass index [BMI] 60.0-69.9, adult; J96.11 Chronic respiratory failure with hypoxia; E66.2 Morbid (severe) obesity with alveolar hypoventilation; E11.22 Type 2 diabetes mellitus with diabetic chronic kidney disease; E11.42 Type 2 diabetes mellitus with diabetic polyneuropathy; M10.9 Gout, unspecified; G89.29 Other chronic pain; L30.4 Erythema intertrigo; N18.30 Chronic kidney disease, stage 3 unspecified; D63.1 Anemia in chronic kidney disease; I50.9 Heart failure, unspecified; K21.9 Gastro-esophageal reflux disease without esophagitis; E78.00 Pure hypercholesterolemia, unspecified; F41.9 Anxiety disorder, unspecified; F32.A Depression, unspecified; Z86.718 Personal history of other venous thrombosis and embolism; Z88.2 Allergy status to sulfonamides; Z91.018 Allergy to other foods; Z79.82 Long term (current) use of aspirin; Z79.899 Other long term (current) drug therapy; Z79.84 Long term (current) use of oral hypoglycemic drugs; Z82.49 Family history of ischemic heart disease and other diseases of the circulatory system; Z83.3 Family history of diabetes mellitus
CPT/HCPCS: 36415; 36416; 70450; 80048; 82805; 83036; 83930; 85025; 85027; J1644; J1815; J2405; J3475; J3480; J7999; Q0162

== ENCOUNTER 2024-03-28 11:30 | Inpatient (IN) | payer MEDICARE, OTHER ==
[2024-03-28] MEDS ORDERED: Ondansetron PF 4 MG/2 ML Vial ONE (11:41)
[2024-03-28 12:59] LABS: Hemoglobin 13.5 g/dL (12.0-16.0); Mean Corpuscular HGB CONC 29.3 g/dL (32.0-36.0); Mean Corpuscular Hemoglobin 26.8 pg (27.0-31.0); Mean Corpuscular Volume 91.5 fL (78.0-98.0); Mean Platelet Volume 11.6 fL (7.4-10.4); Platelet Count 199 10x3/uL (130-400); RBC Distribution Width 16.8 % (11.5-14.5); Red Blood Cell (RBC) Count 5.03 mill/uL (4.20-5.40)
[2024-03-28 13:09] LABS: ALT (SGPT) 75 U/L (8-55); AST (SGOT) 68 U/L (5-34); Albumin 3.5 g/dL (3.5-5.0); Alkaline Phosphatase 122 U/L (40-110); Anion Gap 16 mmol/L (10-20); BUN (Urea Nitrogen) 23 mg/dL (9.8-20.1); Bilirubin, Total 1.2 mg/dL (0.2-1.2); Calc. Creatinine Clearance 0 mL/min (70-130); Carbon Dioxide 27 mmol/L (22-29); Chloride 101 mmol/L (98-107); Estimated GFR 42; Globulin 3.2 g/dL (2.4-3.5); Glucose 92 mg/dL (70-105); Potassium 3.9 mmol/L (3.5-5.1); Protein, Total 6.7 g/dL (6.0-8.3); Sodium 140 mmol/L (136-145)
[2024-03-28 13:13] LABS: Troponin I 0.026 ng/mL (< 0.028)
[2024-03-28 13:26] LABS: Anisocytosis SLIGHT = 6-15 cells HPF (0-5); Band 2 % (5-11); Burr Cells SLIGHT = 2-5 cells HPF (0-1); Eosinophils 1 % (0-10); Lymphocytes 11 % (21-51); Macrocytosis SLIGHT = 6-15 cells HPF (0-5); Monocytes 5 % (0-10); Neutrophil 77 % (42-75); Nucleated RBC (Manual Ct) 15 % (0); Plasma Cells 1 % (0-0); Platelet Adequacy Comment Platelets Normal; Polychromasia SLIGHT = 2-3 cells HPF (0-2); Reactive Lymphocytes 3 % (0-10)
[2024-03-28] MEDS ORDERED: Furosemide 40 MG (4 mL) VIAL ONE (13:27)
[2024-03-28] MEDS ORDERED: Heparin 5,000 UNITS/ML VIAL ONE (16:17)
[2024-03-28] MEDS ORDERED: Heparin 25,000 units/D5W 500 ML ONE (16:17)
[2024-03-28 16:48] LABS: INR-International Normal Ratio 1.2; Prothrombin Time 14.9 sec (12.0-14.7)
[2024-03-28 16:49] LABS: PTT 32.9 sec (22.9-36.1)
[2024-03-28] MEDS ORDERED: Bisacodyl 5 MG TAB PO PRN (17:06)
[2024-03-28] MEDS: Ondansetron PF 4 MG/2 ML Vial IVP PRN (20:29)
[2024-03-29 00:14] LABS: PTT Greater than 250.0 sec (22.9-36.1)
[2024-03-29] MEDS: Acetaminophen 325 MG TAB PO PRN (01:10)
[2024-03-29] MEDS: LevoFLOXacin 750 mg/D5W 750 MG in Premix 1 BAG IVPB SCH (02:21)
[2024-03-29 02:57] LABS: Hematocrit 46.9 % (36.0-47.0); Hemoglobin 13.4 g/dL (12.0-16.0); Mean Corpuscular HGB CONC 28.6 g/dL (32.0-36.0); Mean Corpuscular Hemoglobin 26.8 pg (27.0-31.0); Mean Corpuscular Volume 93.8 fL (78.0-98.0); Mean Platelet Volume 10.3 fL (7.4-10.4); Platelet Count 178 10x3/uL (130-400); RBC Distribution Width 16.7 % (11.5-14.5)
[2024-03-29 03:21] LABS: Anion Gap 16 mmol/L (10-20); BUN (Urea Nitrogen) 22 mg/dL (9.8-20.1); Calc. Creatinine Clearance 146 mL/min (70-130); Calcium 8.8 mg/dL (7.8-10.44); Carbon Dioxide 28 mmol/L (22-29); Chloride 102 mmol/L (98-107); Estimated GFR 44; Glucose 72 mg/dL (70-105); Potassium 3.7 mmol/L (3.5-5.1); Sodium 142 mmol/L (136-145)
[2024-03-29 03:49] LABS: Band 7 % (5-11); Large Platelets 8.8 % (0-5); Lymphocytes 28 % (21-51); Monocytes 3 % (0-10); Neutrophil 61 % (42-75); Nucleated RBC (Manual Ct) 10 % (0); Ovalocytes SLIGHT = 2-5 cells HPF (0-1); Platelet Adequacy Comment Platelets Normal; Polychromasia MODERATE = 3-4 cells HPF (0-2); Smudge Cells 16.7 %
[2024-03-29 03:52] LABS: PTT 130.5 sec (22.9-36.1)
[2024-03-29] MEDS: Furosemide 40 MG (4 mL) VIAL SLOW IVP SCH (05:35)
[2024-03-29 05:52] VITALS: BMI 76.0
[2024-03-29] MEDS: Heparin 5,000 UNITS/ML VIAL SC SCH (11:04)
[2024-03-30 03:35] LABS: Actual Bicarbonate (HCO3v) 37.2 mEq/L (22-28); Base Excess 8.5 mEq/L (-2.0 to +3.0); Calcium, Ionized (venous) 1.06 mmol/L (1.16-1.32); Chloride (VBG) 97 mmol/L (98-106); Hematocrit-VBG 42 % (36.0-47.0); Hemoglobin (Hb) 14.4 g/dL (11.7-16.0); Potassium (VBG) 3.85 mmol/L (3.70-5.30); Sodium 144 mmol/L (133-146)
[2024-03-30] MEDS: DULoxetine 60 MG CAP PO SCH (08:27)
[2024-03-30] MEDS: BuPROPion XL 150 MG ER.TAB PO SCH (08:27)
[2024-03-30] MEDS: busPIRone HCl 10 MG TAB PO SCH (08:27)
[2024-03-30] MEDS: FLU (Fluarix Triv) TS24-25(6MOS UP)/PF 45 MCG/0.5 ML Syringe IM ONE (08:27)
[2024-03-30] MEDS: Calcium Carbonate 500 MG ChewTAB PO PRN (19:23)
[2024-03-31 05:50] LABS: Anion Gap 13 mmol/L (10-20); BUN (Urea Nitrogen) 10 mg/dL (9.8-20.1); Calc. Creatinine Clearance 196 mL/min (70-130); Calcium 8.5 mg/dL (7.8-10.44); Carbon Dioxide 37 mmol/L (22-29); Chloride 95 mmol/L (98-107); Estimated GFR 64; Glucose 96 mg/dL (70-105); Magnesium 1.6 mg/dL (1.6-2.6); Potassium 3.1 mmol/L (3.5-5.1); Sodium 142 mmol/L (136-145)
[2024-03-31] MEDS ORDERED: Potassium Chloride 20 MEQ TAB PO SCH (08:00)
[2024-03-31] MEDS ORDERED: Electrolyte Replacement Protocol 1 EACH FS SCH (08:00)
[2024-03-31] MEDS ORDERED: Electrolyte Replacement Protocol FS PRN (08:15)
[2024-03-31] MEDS: Potassium Chloride 20 MEQ TAB PO SCH ×2 (08:30→17:25)
[2024-03-31] MEDS: Magnesium 2 GM/50 ML(in water) 2 GM in Premix 1 BAG IVPB SCH (09:27)
[2024-03-31] MEDS: acetaZOLAMIDE Sodium 500 mg Vial IVP SCH (11:04)
[2024-03-31 13:39] LABS: Base Excess 12.3 mEq/L (-2.0 to +3.0); Calcium, Ionized (venous) 0.99 mmol/L (1.16-1.32); Chloride (VBG) 95 mmol/L (98-106); Hematocrit-VBG 42 % (36.0-47.0); Hemoglobin (Hb) 14.2 g/dL (11.7-16.0); Potassium (VBG) 3.36 mmol/L (3.70-5.30); Sodium 139 mmol/L (133-146); pH (venous) 7.407 (7.32-7.43)
[2024-03-31 13:42] LABS: Potassium 3.4 mmol/L (3.5-5.1)
[2024-04-01 04:32] LABS: Anion Gap 13 mmol/L (10-20); BUN (Urea Nitrogen) 10 mg/dL (9.8-20.1); Calc. Creatinine Clearance 172 mL/min (70-130); Calcium 8.6 mg/dL (7.8-10.44); Carbon Dioxide 38 mmol/L (22-29); Chloride 95 mmol/L (98-107); Estimated GFR 55; Glucose 112 mg/dL (70-105); Potassium 3.5 mmol/L (3.5-5.1); Sodium 142 mmol/L (136-145)
[2024-04-01] MEDS: Potassium Chloride 20 MEQ TAB PO SCH (09:36)
[2024-04-01] MEDS: acetaZOLAMIDE Sodium 500 mg Vial IVP SCH (09:37)
[2024-04-01] MEDS: Magnesium 2 GM/50 ML(in water) 2 GM in Premix 1 BAG IVPB SCH (09:37)
[2024-04-01] MEDS: Furosemide 20 MG TAB PO SCH (12:55)
[2024-04-01] MEDS ORDERED: Furosemide 20 MG (2 mL) VIAL SLOW IVP SCH (14:00)
[2024-04-02 04:43] LABS: Anion Gap 12 mmol/L (10-20); BUN (Urea Nitrogen) 10 mg/dL (9.8-20.1); Calc. Creatinine Clearance 172 mL/min (70-130); Calcium 8.7 mg/dL (7.8-10.44); Carbon Dioxide 34 mmol/L (22-29); Chloride 96 mmol/L (98-107); Estimated GFR 57; Glucose 96 mg/dL (70-105); Potassium 3.4 mmol/L (3.5-5.1); Sodium 139 mmol/L (136-145)
[2024-04-02] MEDS: Potassium Chloride 20 MEQ TAB PO SCH (09:50)
[2024-04-03 04:35] LABS: #Basophils Less than 0.03 10x3/uL (0.0-0.2); %Basophils 0.4 % (0.0-1.0); %Eosinophils 5.4 % (0.0-10.0); %Lymphocytes 30.7 % (21.0-51.0); %Neutrophils 49.1 % (42.0-75.0); Hematocrit 44.9 % (36.0-47.0); Mean Corpuscular Hemoglobin 26.4 pg (27.0-31.0); Mean Corpuscular Volume 91.3 fL (78.0-98.0); Mean Platelet Volume 10.9 fL (7.4-10.4); Platelet Count 184 10x3/uL (130-400); RBC Distribution Width 16.3 % (11.5-14.5); Red Blood Cell (RBC) Count 4.92 mill/uL (4.20-5.40)
[2024-04-03 04:52] LABS: Anion Gap 11 mmol/L (10-20); BUN (Urea Nitrogen) 10 mg/dL (9.8-20.1); Calc. Creatinine Clearance 187 mL/min (70-130); Calcium 9.1 mg/dL (7.8-10.44); Carbon Dioxide 32 mmol/L (22-29); Chloride 100 mmol/L (98-107); Estimated GFR 62; Glucose 112 mg/dL (70-105); Magnesium 2.3 mg/dL (1.6-2.6); Potassium 3.6 mmol/L (3.5-5.1); Sodium 139 mmol/L (136-145)
[2024-04-04 04:53] LABS: #Basophils 0.03 10x3/uL (0.0-0.2); %Basophils 0.6 % (0.0-1.0); %Eosinophils 5.6 % (0.0-10.0); %Lymphocytes 32.8 % (21.0-51.0); %Monocytes 14.4 % (0.0-10.0); %Neutrophils 46.4 % (42.0-75.0); Hematocrit 47.7 % (36.0-47.0); Hemoglobin 13.5 g/dL (12.0-16.0); Mean Corpuscular HGB CONC 28.3 g/dL (32.0-36.0); Mean Corpuscular Hemoglobin 26.2 pg (27.0-31.0); Mean Corpuscular Volume 92.6 fL (78.0-98.0); Mean Platelet Volume 10.9 fL (7.4-10.4); Platelet Count 191 10x3/uL (130-400); RBC Distribution Width 16.3 % (11.5-14.5); Red Blood Cell (RBC) Count 5.15 mill/uL (4.20-5.40)
[2024-04-04 05:04] LABS: Anion Gap 14 mmol/L (10-20); BUN (Urea Nitrogen) 9 mg/dL (9.8-20.1); Calc. Creatinine Clearance 194 mL/min (70-130); Calcium 9.2 mg/dL (7.8-10.44); Carbon Dioxide 30 mmol/L (22-29); Chloride 102 mmol/L (98-107); Estimated GFR 69; Glucose 101 mg/dL (70-105); Potassium 3.6 mmol/L (3.5-5.1); Sodium 142 mmol/L (136-145)
[2024-04-04] MEDS: Potassium Chloride 20 MEQ TAB PO SCH (11:15)
[2024-04-04 15:29] VITALS: BP 125/73; TEMP 98
[2024-04-05] MEDS ORDERED: Dapagliflozin Propanediol 10 MG TAB PO SCH (09:00)
== END 2024-04-04 17:06 | disposition home health service (06) | DRG 291 ==
LOC: ERS 11:30 → IMCU/EMU 16:39 → 2NO 04-01 21:21
PROVIDERS: ADMIT Internal Medicine; ATTEND Family Medicine
DX: I11.0 Hypertensive heart disease with heart failure (principal); I50.43 Acute on chronic combined systolic (congestive) and diastolic (congestive) heart failure; J96.21 Acute and chronic respiratory failure with hypoxia; E66.2 Morbid (severe) obesity with alveolar hypoventilation; E87.3 Alkalosis; Z68.44 Body mass index [BMI] 60.0-69.9, adult; E11.22 Type 2 diabetes mellitus with diabetic chronic kidney disease; N18.30 Chronic kidney disease, stage 3 unspecified; Z88.2 Allergy status to sulfonamides; K21.9 Gastro-esophageal reflux disease without esophagitis; E78.00 Pure hypercholesterolemia, unspecified; M19.90 Unspecified osteoarthritis, unspecified site; F41.9 Anxiety disorder, unspecified; F32.A Depression, unspecified; D63.1 Anemia in chronic kidney disease; Z98.890 Other specified postprocedural states; Z79.01 Long term (current) use of anticoagulants; Z66 Do not resuscitate; Z79.4 Long term (current) use of insulin
CPT/HCPCS: 36415; 36416; 71045; 80048; 80053; 82805; 83735; 83880; 84145; 84443; 84484; 85025; 85379; 85610; 85730; 93005; 93970; 94660; 94760; 96374; 96375; J1120; J1644; J1940; J1956; J2405; J3475

== ENCOUNTER 2024-11-03 15:38 | Inpatient (IN) | payer MEDICARE, SELFPAY ==
[2024-11-03 16:25] LABS: Actual Bicarbonate (HCO3a) 43.8 mEq/L (22-28); Analyzer IN Cardio ER; Base Excess (BEa) 12.6 mEq/L (-2.0 to +3.0); Calcium, Ionized (arterial) 1.18 mmol/L (1.12-1.30); Hematocrit-ABG 39 % (36.0-47.0); Hemoglobin (Hb) 13.2 g/dL (12.0-16.0); O2 Tension (PaO2), arterial 102.2 mmHg (80.0-100.0); Potassium - ABG Lab 4.56 mmol/L (3.70-5.30); pH, Arterial 7.267 (7.35-7.45)
[2024-11-03] MEDS ORDERED: Furosemide 40 MG (4 mL) VIAL ONE ×2 (16:46→21:06)
[2024-11-03 16:56] LABS: #Basophils Less than 0.03 10x3/uL (0.0-0.2); #Eosinophils 0.16 10x3/uL (0.0-0.7); #Monocytes 0.62 10x3/uL (0.11-0.59); #Neutrophils 2.14 10x3/uL (1.40-6.50); %Basophils 0.5 % (0.0-1.0); %Eosinophils 3.9 % (0.0-10.0); %Lymphocytes 28.0 % (21.0-51.0); %Monocytes 15.1 % (0.0-10.0); %Neutrophils 52.3 % (42.0-75.0); Hematocrit 41.7 % (36.0-47.0); Hemoglobin 12.0 g/dL (12.0-16.0); Mean Corpuscular Hemoglobin 28.6 pg (27.0-31.0); Mean Corpuscular Volume 99.3 fL (78.0-98.0); Platelet Count 144 10x3/uL (130-400); Red Blood Cell (RBC) Count 4.20 mill/uL (4.20-5.40); White Blood Cell (WBC) Count 4.10 10x3/uL (4.8-10.8)
[2024-11-03 17:02] LABS: Troponin I Less than 0.010 ng/mL (< 0.028)
[2024-11-03 17:12] LABS: ALT (SGPT) 12 U/L (Less than 34); AST (SGOT) 19 U/L (11-34); Albumin 3.8 g/dL (3.1-4.5); Alkaline Phosphatase 107 U/L (40-110); Anion Gap 12 mmol/L (10-20); BUN (Urea Nitrogen) 19 mg/dL (9.8-20.1); Bilirubin, Total 0.7 mg/dL (0.3-1.2); CK (CPK) 85 U/L (29-168); Calc. Creatinine Clearance 0 mL/min (70-130); Calcium 9.1 mg/dL (7.8-10.44); Carbon Dioxide 41 mmol/L (22-29); Chloride 94 mmol/L (98-107); Globulin 3.5 g/dL (2.4-3.5); Glucose 109 mg/dL (70-105); Lipase 15 U/L (8-78); Magnesium 2.5 mg/dL (1.6-2.6); Potassium 4.6 mmol/L (3.5-5.1); Sodium 142 mmol/L (136-145)
[2024-11-03 18:14] LABS: Actual Bicarbonate (HCO3a) 40.9 mEq/L (22-28); Analyzer IN Cardio ER; Base Excess (BEa) 9.4 mEq/L (-2.0 to +3.0); Calcium, Ionized (arterial) 1.19 mmol/L (1.12-1.30); Hematocrit-ABG 39 % (36.0-47.0); Hemoglobin (Hb) 13.3 g/dL (12.0-16.0); O2 Tension (PaO2), arterial 76.6 mmHg (80.0-100.0); Potassium - ABG Lab 4.63 mmol/L (3.70-5.30); pH, Arterial 7.229 (7.35-7.45)
[2024-11-03] MEDS ORDERED: VANCOMYCIN 2 GRAM/400 ML BAG ONE (18:15)
[2024-11-03 18:20] LABS: ALV-art Gradient 225.950 mmHg (0-20); CO2 Tension 100.2 mmHg (35.0-45.0); Puncture Site Right Radial artery
[2024-11-03 18:29] LABS: Anisocytosis SLIGHT = 6-15 cells HPF (0-5); Macrocytosis SLIGHT = 6-15 cells HPF (0-5); Platelet Adequacy Comment Platelets Normal; Polychromasia SLIGHT = 2-3 cells HPF (0-2); Stomatocytes SLIGHT = 2-5 cells HPF (0-1)
[2024-11-03 19:24] LABS: Actual Bicarbonate (HCO3a) 49.5 mEq/L (22-28); Analyzer IN Cardio ER; Base Excess (BEa) 15.7 mEq/L (-2.0 to +3.0); Calcium, Ionized (arterial) 1.20 mmol/L (1.12-1.30); Hematocrit-ABG 39 % (36.0-47.0); Hemoglobin (Hb) 13.3 g/dL (12.0-16.0); O2 Tension (PaO2), arterial 155.3 mmHg (80.0-100.0); Potassium - ABG Lab 4.81 mmol/L (3.70-5.30)
[2024-11-03 19:26] LABS: ALV-art Gradient 216.325 mmHg (0-20); CO2 Tension 130.5 mmHg (35.0-45.0); Puncture Site Right Radial artery; pH, Arterial 7.197 (7.35-7.45)
[2024-11-03] MEDS ORDERED: KETAMINE 100 MG/ML (5ML VIAL) ONE (19:48)
[2024-11-03] MEDS ORDERED: Rocuronium Bromide 10 MG/ML (10ML VIAL) ONE (19:49)
[2024-11-03 20:50] LABS: Actual Bicarbonate (HCO3a) 39.7 mEq/L (22-28); Analyzer IN Cardio ER; Base Excess (BEa) 11.6 mEq/L (-2.0 to +3.0); Calcium, Ionized (arterial) 1.16 mmol/L (1.12-1.30); Hematocrit-ABG 39 % (36.0-47.0); Hemoglobin (Hb) 13.4 g/dL (12.0-16.0); O2 Tension (PaO2), arterial 88.0 mmHg (80.0-100.0); Potassium - ABG Lab 4.81 mmol/L (3.70-5.30); pH, Arterial 7.379 (7.35-7.45)
[2024-11-03 20:53] LABS: CO2 Tension 68.8 mmHg (35.0-45.0)
[2024-11-03 20:54] LABS: ALV-art Gradient 539.000 mmHg (0-20); Puncture Site Right Radial artery
[2024-11-03] MEDS ORDERED: DISCONTINUE PREVIOUS NARCOTIC PAIN MEDICATIONS AND BENZODIAZEPINES FS SCH (21:30)
[2024-11-03] MEDS ORDERED: Propofol BOLUS 1,000 MG/100 ML VIAL IV PRN (21:30)
[2024-11-03] MEDS ORDERED: Ventilator Sedation Protocol 1 EACH FS SCH (21:30)
[2024-11-03] MEDS ORDERED: Fentanyl BOLUS 100 ML IVPB PRN (21:30)
[2024-11-03] MEDS ORDERED: Calcium Carbonate 500 MG ChewTAB PO PRN (22:09)
[2024-11-03] MEDS ORDERED: Electrolyte Replacement Protocol 1 EACH FS PRN (22:15)
[2024-11-03 23:21] VITALS: BMI 81.3
[2024-11-03 23:31] LABS: Base Excess 13.6 mEq/L (-2.0 to +3.0); Calcium, Ionized (venous) 1.05 mmol/L (1.16-1.32); Chloride (VBG) 95 mmol/L (98-106); Hematocrit-VBG 41 % (36.0-47.0); Hemoglobin (Hb) 13.9 g/dL (11.7-16.0); Potassium (VBG) 4.44 mmol/L (3.70-5.30); Sodium 142 mmol/L (133-146)
[2024-11-03 23:32] LABS: Actual Bicarbonate (HCO3v) 39.5 mEq/L (22-28)
[2024-11-03] MEDS: Mupirocin 1 GM TUBE NASAL DECOLONIZATION TP SCH (23:34)
[2024-11-04 00:08] LABS: Troponin I 0.014 ng/mL (< 0.028)
[2024-11-04 05:26] LABS: #Basophils Less than 0.03 10x3/uL (0.0-0.2); #Eosinophils Less than 0.03 10x3/uL (0.0-0.7); #Monocytes 0.18 10x3/uL (0.11-0.59); #Neutrophils 3.78 10x3/uL (1.40-6.50); %Basophils 0.0 % (0.0-1.0); %Eosinophils 0.0 % (0.0-10.0); %Lymphocytes 14.8 % (21.0-51.0); %Monocytes 3.9 % (0.0-10.0); %Neutrophils 81.1 % (42.0-75.0); Hematocrit 39.8 % (36.0-47.0); Hemoglobin 11.5 g/dL (12.0-16.0); Mean Corpuscular Hemoglobin 28.2 pg (27.0-31.0); Mean Corpuscular Volume 97.5 fL (78.0-98.0); Platelet Count 134 10x3/uL (130-400); Red Blood Cell (RBC) Count 4.08 mill/uL (4.20-5.40); White Blood Cell (WBC) Count 4.66 10x3/uL (4.8-10.8)
[2024-11-04 05:45] LABS: ALT (SGPT) 11 U/L (Less than 34); AST (SGOT) 19 U/L (11-34); Albumin 3.3 g/dL (3.1-4.5); Alkaline Phosphatase 97 U/L (40-110); Anion Gap 14 mmol/L (10-20); BUN (Urea Nitrogen) 25 mg/dL (9.8-20.1); Bilirubin, Total 0.7 mg/dL (0.3-1.2); Calc. Creatinine Clearance 141 mL/min (70-130); Calcium 9.3 mg/dL (7.8-10.44); Carbon Dioxide 36 mmol/L (22-29); Chloride 95 mmol/L (98-107); Globulin 3.3 g/dL (2.4-3.5); Glucose 110 mg/dL (70-105); Magnesium 2.3 mg/dL (1.6-2.6); Potassium 4.1 mmol/L (3.5-5.1); Sodium 141 mmol/L (136-145)
[2024-11-04 05:46] LABS: Troponin I 0.019 ng/mL (< 0.028)
[2024-11-04 05:55] LABS: Platelet Adequacy Comment Platelets Normal; Polychromasia SLIGHT = 2-3 cells HPF (0-2)
[2024-11-04] MEDS: Furosemide 40 MG (4 mL) VIAL SLOW IVP SCH (06:04)
[2024-11-04 07:18] LABS: Actual Bicarbonate (HCO3a) 39.0 mEq/L (22-28); Base Excess (BEa) 14.0 mEq/L (-2.0 to +3.0); CO2 Tension 50.0 mmHg (35.0-45.0); Calcium, Ionized (arterial) 1.12 mmol/L (1.12-1.30); Hematocrit-ABG 38 % (36.0-47.0); Hemoglobin (Hb) 12.9 g/dL (12.0-16.0); Potassium - ABG Lab 4.02 mmol/L (3.70-5.30); pH, Arterial 7.510 (7.35-7.45)
[2024-11-04 07:20] LABS: ALV-art Gradient 238.900 mmHg (0-20); O2 Tension (PaO2), arterial 55.1 mmHg (80.0-100.0); Puncture Site Right Radial artery
[2024-11-04] MEDS: Pantoprazole 40 MG VIAL IVP SCH (08:07)
[2024-11-04] MEDS: Heparin 5,000 UNITS/ML VIAL SC SCH ×2 (08:07→08:38)
[2024-11-04] MEDS: Mupirocin 1 GM TUBE NASAL DECOLOIZATION TP SCH (08:07)
[2024-11-05 05:42] LABS: #Basophils 0.03 10x3/uL (0.0-0.2); #Eosinophils 0.05 10x3/uL (0.0-0.7); #Monocytes 0.85 10x3/uL (0.11-0.59); #Neutrophils 4.15 10x3/uL (1.40-6.50); %Basophils 0.5 % (0.0-1.0); %Eosinophils 0.8 % (0.0-10.0); %Lymphocytes 23.0 % (21.0-51.0); %Monocytes 12.9 % (0.0-10.0); %Neutrophils 62.6 % (42.0-75.0); Hematocrit 38.4 % (36.0-47.0); Hemoglobin 11.0 g/dL (12.0-16.0); Mean Corpuscular Hemoglobin 27.9 pg (27.0-31.0); Mean Corpuscular Volume 97.5 fL (78.0-98.0); Platelet Count 131 10x3/uL (130-400); Red Blood Cell (RBC) Count 3.94 mill/uL (4.20-5.40); White Blood Cell (WBC) Count 6.61 10x3/uL (4.8-10.8)
[2024-11-05 05:48] LABS: Anion Gap 15 mmol/L (10-20); BUN (Urea Nitrogen) 24 mg/dL (9.8-20.1); Calc. Creatinine Clearance 155 mL/min (70-130); Calcium 8.8 mg/dL (7.8-10.44); Carbon Dioxide 39 mmol/L (22-29); Chloride 93 mmol/L (98-107); Glucose 72 mg/dL (70-105); Potassium 4.1 mmol/L (3.5-5.1); Sodium 143 mmol/L (136-145)
[2024-11-06 05:37] LABS: #Basophils Less than 0.03 10x3/uL (0.0-0.2); #Eosinophils 0.11 10x3/uL (0.0-0.7); #Monocytes 0.90 10x3/uL (0.11-0.59); #Neutrophils 4.70 10x3/uL (1.40-6.50); %Basophils 0.3 % (0.0-1.0); %Eosinophils 1.6 % (0.0-10.0); %Lymphocytes 15.4 % (21.0-51.0); %Monocytes 13.2 % (0.0-10.0); %Neutrophils 68.9 % (42.0-75.0); Hematocrit 38.1 % (36.0-47.0); Hemoglobin 10.7 g/dL (12.0-16.0); Mean Corpuscular Hemoglobin 28.2 pg (27.0-31.0); Mean Corpuscular Volume 100.3 fL (78.0-98.0); Platelet Count 113 10x3/uL (130-400); Red Blood Cell (RBC) Count 3.80 mill/uL (4.20-5.40); White Blood Cell (WBC) Count 6.82 10x3/uL (4.8-10.8)
[2024-11-06 05:48] LABS: Anion Gap 14 mmol/L (10-20); BUN (Urea Nitrogen) 22 mg/dL (9.8-20.1); Calc. Creatinine Clearance 172 mL/min (70-130); Calcium 8.7 mg/dL (7.8-10.44); Carbon Dioxide 41 mmol/L (22-29); Chloride 97 mmol/L (98-107); Glucose 82 mg/dL (70-105); Potassium 3.8 mmol/L (3.5-5.1); Sodium 148 mmol/L (136-145)
[2024-11-06 06:14] LABS: Platelet Adequacy Comment Platelets Decreased; Polychromasia SLIGHT = 2-3 cells HPF (0-2)
[2024-11-07 06:27] LABS: Anion Gap 17 mmol/L (10-20); BUN (Urea Nitrogen) 20 mg/dL (9.8-20.1); Calc. Creatinine Clearance 185 mL/min (70-130); Calcium 8.8 mg/dL (7.8-10.44); Carbon Dioxide 37 mmol/L (22-29); Chloride 96 mmol/L (98-107); Glucose 82 mg/dL (70-105); Potassium 3.8 mmol/L (3.5-5.1); Sodium 146 mmol/L (136-145)
[2024-11-07 07:09] LABS: #Basophils Less than 0.03 10x3/uL (0.0-0.2); #Eosinophils 0.24 10x3/uL (0.0-0.7); #Monocytes 0.65 10x3/uL (0.11-0.59); #Neutrophils 3.58 10x3/uL (1.40-6.50); %Basophils 0.2 % (0.0-1.0); %Eosinophils 4.4 % (0.0-10.0); %Lymphocytes 17.4 % (21.0-51.0); %Monocytes 11.9 % (0.0-10.0); %Neutrophils 65.6 % (42.0-75.0); Hematocrit 38.7 % (36.0-47.0); Hemoglobin 10.9 g/dL (12.0-16.0); Mean Corpuscular Hemoglobin 28.3 pg (27.0-31.0); Mean Corpuscular Volume 100.5 fL (78.0-98.0); Platelet Count 108 10x3/uL (130-400); Red Blood Cell (RBC) Count 3.85 mill/uL (4.20-5.40); White Blood Cell (WBC) Count 5.46 10x3/uL (4.8-10.8)
[2024-11-07 14:15] LABS: Actual Bicarbonate (HCO3a) 42.5 mEq/L (22-28); Base Excess (BEa) 14.1 mEq/L (-2.0 to +3.0); Calcium, Ionized (arterial) 1.12 mmol/L (1.12-1.30); Hematocrit-ABG 36 % (36.0-47.0); Hemoglobin (Hb) 12.1 g/dL (12.0-16.0); Potassium - ABG Lab 3.71 mmol/L (3.70-5.30); pH, Arterial 7.370 (7.35-7.45)
[2024-11-07 16:42] LABS: CO2 Tension 75.2 mmHg (35.0-45.0)
[2024-11-07 16:43] LABS: O2 Tension (PaO2), arterial 49.6 mmHg (80.0-100.0)
[2024-11-08 05:07] LABS: #Basophils Less than 0.03 10x3/uL (0.0-0.2); #Eosinophils 0.27 10x3/uL (0.0-0.7); #Monocytes 0.71 10x3/uL (0.11-0.59); #Neutrophils 4.08 10x3/uL (1.40-6.50); %Basophils 0.3 % (0.0-1.0); %Eosinophils 4.4 % (0.0-10.0); %Lymphocytes 16.4 % (21.0-51.0); %Monocytes 11.6 % (0.0-10.0); %Neutrophils 67.0 % (42.0-75.0); Hematocrit 39.9 % (36.0-47.0); Hemoglobin 11.1 g/dL (12.0-16.0); Mean Corpuscular Hemoglobin 27.8 pg (27.0-31.0); Mean Corpuscular Volume 99.8 fL (78.0-98.0); Platelet Count 128 10x3/uL (130-400); Red Blood Cell (RBC) Count 4.00 mill/uL (4.20-5.40); White Blood Cell (WBC) Count 6.10 10x3/uL (4.8-10.8)
[2024-11-08 05:28] LABS: Anion Gap 15 mmol/L (10-20); BUN (Urea Nitrogen) 16 mg/dL (9.8-20.1); Calc. Creatinine Clearance 222 mL/min (70-130); Calcium 9.2 mg/dL (7.8-10.44); Carbon Dioxide 40 mmol/L (22-29); Chloride 97 mmol/L (98-107); Glucose 73 mg/dL (70-105); Potassium 3.5 mmol/L (3.5-5.1); Sodium 148 mmol/L (136-145)
[2024-11-08 05:54] LABS: Platelet Adequacy Comment Platelets Decreased; Polychromasia MODERATE = 3-4 cells HPF (0-2)
[2024-11-08] MEDS: Potassium Chloride 20 MEQ in Premix 1 BAG IVPB SCH (07:47)
[2024-11-08 14:30] VITALS: BMI 76.6
[2024-11-08] MEDS: DC Sedation Protocol FS ONE (16:53)
[2024-11-08] MEDS: Ondansetron PF 4 MG/2 ML Vial IVP PRN (22:30)
[2024-11-08] MEDS: Acetaminophen 325 MG TAB PO PRN (23:50)
[2024-11-09 05:08] LABS: #Basophils Less than 0.03 10x3/uL (0.0-0.2); #Eosinophils 0.30 10x3/uL (0.0-0.7); #Monocytes 0.67 10x3/uL (0.11-0.59); #Neutrophils 3.26 10x3/uL (1.40-6.50); %Basophils 0.4 % (0.0-1.0); %Eosinophils 5.5 % (0.0-10.0); %Lymphocytes 21.4 % (21.0-51.0); %Monocytes 12.3 % (0.0-10.0); %Neutrophils 60.0 % (42.0-75.0); Hematocrit 40.5 % (36.0-47.0); Hemoglobin 11.5 g/dL (12.0-16.0); Mean Corpuscular Hemoglobin 27.9 pg (27.0-31.0); Mean Corpuscular Volume 98.3 fL (78.0-98.0); Platelet Count 144 10x3/uL (130-400); Red Blood Cell (RBC) Count 4.12 mill/uL (4.20-5.40); White Blood Cell (WBC) Count 5.43 10x3/uL (4.8-10.8)
[2024-11-09 05:23] LABS: Anion Gap 15 mmol/L (10-20); BUN (Urea Nitrogen) 16 mg/dL (9.8-20.1); Calc. Creatinine Clearance 222 mL/min (70-130); Calcium 9.1 mg/dL (7.8-10.44); Carbon Dioxide 38 mmol/L (22-29); Chloride 97 mmol/L (98-107); Glucose 105 mg/dL (70-105); Magnesium 2.0 mg/dL (1.6-2.6); Potassium 3.7 mmol/L (3.5-5.1); Sodium 146 mmol/L (136-145)
[2024-11-09 05:39] LABS: Anisocytosis SLIGHT = 6-15 cells HPF (0-5); Platelet Adequacy Comment Platelets Normal; Polychromasia SLIGHT = 2-3 cells HPF (0-2)
[2024-11-09] MEDS: Magnesium 2 GM/50 ML(in water) 2 GM in Premix 1 BAG IVPB SCH (08:32)
[2024-11-09] MEDS: Pantoprazole 40 MG DR.TAB PO SCH (10:40)
[2024-11-09] MEDS: Sacubitril 24MG/Valsartan 26 MG TAB PO SCH (22:32)
[2024-11-09] MEDS: Senokot 8.6 MG TAB PO SCH (22:33)
[2024-11-10 04:55] LABS: #Basophils Less than 0.03 10x3/uL (0.0-0.2); #Eosinophils 0.36 10x3/uL (0.0-0.7); #Monocytes 0.69 10x3/uL (0.11-0.59); #Neutrophils 3.31 10x3/uL (1.40-6.50); %Basophils 0.4 % (0.0-1.0); %Eosinophils 6.3 % (0.0-10.0); %Lymphocytes 22.9 % (21.0-51.0); %Monocytes 12.1 % (0.0-10.0); %Neutrophils 57.9 % (42.0-75.0); Hematocrit 42.1 % (36.0-47.0); Hemoglobin 11.8 g/dL (12.0-16.0); Mean Corpuscular Hemoglobin 27.6 pg (27.0-31.0); Mean Corpuscular Volume 98.6 fL (78.0-98.0); Platelet Count 161 10x3/uL (130-400); Red Blood Cell (RBC) Count 4.27 mill/uL (4.20-5.40); White Blood Cell (WBC) Count 5.71 10x3/uL (4.8-10.8)
[2024-11-10 05:23] LABS: Anion Gap 14 mmol/L (10-20); BUN (Urea Nitrogen) 14 mg/dL (9.8-20.1); Calc. Creatinine Clearance 221 mL/min (70-130); Calcium 9.3 mg/dL (7.8-10.44); Carbon Dioxide 34 mmol/L (22-29); Chloride 99 mmol/L (98-107); Glucose 96 mg/dL (70-105); Potassium 3.7 mmol/L (3.5-5.1); Sodium 143 mmol/L (136-145)
[2024-11-10] MEDS ORDERED: Glucagon 1 MG/ML KIT IM PRN (10:19)
[2024-11-10] MEDS ORDERED: Dextrose 50% Abboject 50 ML SYRINGE SLOW IVP PRN (10:19)
[2024-11-10 11:30] LABS: Actual Bicarbonate (HCO3a) 35.5 mEq/L (22-28); Base Excess (BEa) 7.8 mEq/L (-2.0 to +3.0); Calcium, Ionized (arterial) 1.26 mmol/L (1.12-1.30); Hematocrit-ABG 38 % (36.0-47.0); Hemoglobin (Hb) 12.9 g/dL (12.0-16.0); O2 Tension (PaO2), arterial 66.7 mmHg (80.0-100.0); Potassium - ABG Lab 3.81 mmol/L (3.70-5.30); pH, Arterial 7.358 (7.35-7.45)
[2024-11-10 11:31] LABS: CO2 Tension 64.5 mmHg (35.0-45.0)
[2024-11-10 11:32] LABS: Puncture Site Left Radial artery
[2024-11-10] MEDS: Carvedilol 3.125 MG TAB PO SCH (16:05)
[2024-11-11 04:10] LABS: #Basophils 0.03 10x3/uL (0.0-0.2); #Eosinophils 0.37 10x3/uL (0.0-0.7); #Monocytes 0.78 10x3/uL (0.11-0.59); #Neutrophils 3.54 10x3/uL (1.40-6.50); %Basophils 0.5 % (0.0-1.0); %Eosinophils 5.8 % (0.0-10.0); %Lymphocytes 25.4 % (21.0-51.0); %Monocytes 12.2 % (0.0-10.0); %Neutrophils 55.6 % (42.0-75.0); Hematocrit 43.3 % (36.0-47.0); Hemoglobin 11.9 g/dL (12.0-16.0); Mean Corpuscular Hemoglobin 27.0 pg (27.0-31.0); Mean Corpuscular Volume 98.2 fL (78.0-98.0); Platelet Count 157 10x3/uL (130-400); Red Blood Cell (RBC) Count 4.41 mill/uL (4.20-5.40); White Blood Cell (WBC) Count 6.37 10x3/uL (4.8-10.8)
[2024-11-11 04:23] LABS: Anion Gap 13 mmol/L (10-20); BUN (Urea Nitrogen) 16 mg/dL (9.8-20.1); Calc. Creatinine Clearance 171 mL/min (70-130); Calcium 9.1 mg/dL (7.8-10.44); Carbon Dioxide 30 mmol/L (22-29); Chloride 103 mmol/L (98-107); Glucose 82 mg/dL (70-105); Magnesium 2.2 mg/dL (1.6-2.6); Potassium 3.7 mmol/L (3.5-5.1); Sodium 142 mmol/L (136-145)
[2024-11-11 04:46] LABS: Platelet Adequacy Comment Platelets Normal; Polychromasia SLIGHT = 2-3 cells HPF (0-2)
[2024-11-11] MEDS: Aspirin Chewable 81 MG TAB PO SCH (09:27)
[2024-11-12 04:13] LABS: #Basophils Less than 0.03 10x3/uL (0.0-0.2); #Eosinophils 0.37 10x3/uL (0.0-0.7); #Monocytes 0.71 10x3/uL (0.11-0.59); #Neutrophils 3.37 10x3/uL (1.40-6.50); %Basophils 0.3 % (0.0-1.0); %Eosinophils 6.1 % (0.0-10.0); %Lymphocytes 25.1 % (21.0-51.0); %Monocytes 11.8 % (0.0-10.0); %Neutrophils 56.0 % (42.0-75.0); Hematocrit 41.9 % (36.0-47.0); Hemoglobin 12.2 g/dL (12.0-16.0); Mean Corpuscular Hemoglobin 27.9 pg (27.0-31.0); Mean Corpuscular Volume 95.9 fL (78.0-98.0); Platelet Count 171 10x3/uL (130-400); Red Blood Cell (RBC) Count 4.37 mill/uL (4.20-5.40); White Blood Cell (WBC) Count 6.02 10x3/uL (4.8-10.8)
[2024-11-12 04:24] LABS: Anion Gap 12 mmol/L (10-20); BUN (Urea Nitrogen) 17 mg/dL (9.8-20.1); Calc. Creatinine Clearance 172 mL/min (70-130); Calcium 8.9 mg/dL (7.8-10.44); Carbon Dioxide 29 mmol/L (22-29); Chloride 104 mmol/L (98-107); Glucose 92 mg/dL (70-105); Potassium 3.8 mmol/L (3.5-5.1); Sodium 141 mmol/L (136-145)
[2024-11-13 04:27] LABS: #Basophils 0.03 10x3/uL (0.0-0.2); #Eosinophils 0.31 10x3/uL (0.0-0.7); #Monocytes 0.66 10x3/uL (0.11-0.59); #Neutrophils 3.37 10x3/uL (1.40-6.50); %Basophils 0.5 % (0.0-1.0); %Eosinophils 5.2 % (0.0-10.0); %Lymphocytes 26.0 % (21.0-51.0); %Monocytes 11.1 % (0.0-10.0); %Neutrophils 56.5 % (42.0-75.0); Hematocrit 42.4 % (36.0-47.0); Hemoglobin 12.3 g/dL (12.0-16.0); Mean Corpuscular Hemoglobin 27.8 pg (27.0-31.0); Mean Corpuscular Volume 95.7 fL (78.0-98.0); Platelet Count 187 10x3/uL (130-400); Red Blood Cell (RBC) Count 4.43 mill/uL (4.20-5.40); White Blood Cell (WBC) Count 5.96 10x3/uL (4.8-10.8)
[2024-11-13 04:36] LABS: Anion Gap 12 mmol/L (10-20); BUN (Urea Nitrogen) 16 mg/dL (9.8-20.1); Calc. Creatinine Clearance 198 mL/min (70-130); Calcium 8.4 mg/dL (7.8-10.44); Carbon Dioxide 27 mmol/L (22-29); Chloride 107 mmol/L (98-107); Glucose 102 mg/dL (70-105); Potassium 4.0 mmol/L (3.5-5.1); Sodium 142 mmol/L (136-145)
[2024-11-14] MEDS: Albumin 25% 25 GM (100 mL) BOT IVPB SCH (00:20)
[2024-11-14 04:19] LABS: #Basophils Less than 0.03 10x3/uL (0.0-0.2); #Eosinophils 0.26 10x3/uL (0.0-0.7); #Monocytes 0.53 10x3/uL (0.11-0.59); #Neutrophils 2.59 10x3/uL (1.40-6.50); %Basophils 0.4 % (0.0-1.0); %Eosinophils 5.2 % (0.0-10.0); %Lymphocytes 30.9 % (21.0-51.0); %Monocytes 10.6 % (0.0-10.0); %Neutrophils 52.1 % (42.0-75.0); Hematocrit 39.5 % (36.0-47.0); Hemoglobin 11.6 g/dL (12.0-16.0); Mean Corpuscular Hemoglobin 27.8 pg (27.0-31.0); Mean Corpuscular Volume 94.7 fL (78.0-98.0); Platelet Count 177 10x3/uL (130-400); Red Blood Cell (RBC) Count 4.17 mill/uL (4.20-5.40); White Blood Cell (WBC) Count 4.98 10x3/uL (4.8-10.8)
[2024-11-14 04:29] LABS: Anion Gap 12 mmol/L (10-20); BUN (Urea Nitrogen) 17 mg/dL (9.8-20.1); Calc. Creatinine Clearance 210 mL/min (70-130); Calcium 8.7 mg/dL (7.8-10.44); Carbon Dioxide 25 mmol/L (22-29); Chloride 110 mmol/L (98-107); Glucose 106 mg/dL (70-105); Potassium 3.7 mmol/L (3.5-5.1); Sodium 143 mmol/L (136-145)
[2024-11-14 12:50] LABS: CO2 Tension 98.2 mmHg (35.0-45.0)
[2024-11-15 03:35] LABS: #Basophils Less than 0.03 10x3/uL (0.0-0.2); #Eosinophils 0.28 10x3/uL (0.0-0.7); #Monocytes 0.55 10x3/uL (0.11-0.59); #Neutrophils 2.53 10x3/uL (1.40-6.50); %Basophils 0.4 % (0.0-1.0); %Eosinophils 5.3 % (0.0-10.0); %Lymphocytes 35.0 % (21.0-51.0); %Monocytes 10.5 % (0.0-10.0); %Neutrophils 48.2 % (42.0-75.0); Hematocrit 40.5 % (36.0-47.0); Hemoglobin 11.8 g/dL (12.0-16.0); Mean Corpuscular Hemoglobin 27.6 pg (27.0-31.0); Mean Corpuscular Volume 94.8 fL (78.0-98.0); Platelet Count 187 10x3/uL (130-400); Red Blood Cell (RBC) Count 4.27 mill/uL (4.20-5.40); White Blood Cell (WBC) Count 5.25 10x3/uL (4.8-10.8)
[2024-11-15 03:58] LABS: Anion Gap 11 mmol/L (10-20); BUN (Urea Nitrogen) 17 mg/dL (9.8-20.1); Calc. Creatinine Clearance 193 mL/min (70-130); Calcium 8.9 mg/dL (7.8-10.44); Carbon Dioxide 24 mmol/L (22-29); Chloride 112 mmol/L (98-107); Glucose 90 mg/dL (70-105); Potassium 4.0 mmol/L (3.5-5.1); Sodium 143 mmol/L (136-145)
[2024-11-15 09:16] VITALS: BP 95/56; TEMP 98.6
== END 2024-11-15 11:08 | disposition home or self-care (01) | DRG 208 ==
LOC: ERS 15:38 → CCU 20:49 → PCU 11-09 20:11 → OBS 11-09 22:44 → PCU 11-09 22:45
PROVIDERS: ADMIT Student in an Organized Health Care Education/Training Program; ATTEND Student in an Organized Health Care Education/Training Program
PROC: 3E03329 Introduction of Other Anti-infective into Peripheral Vein, Percutaneous Approach (ICD-10-PCS; principal; 2024-11-03)
PROC: 5A1945Z Respiratory Ventilation, 24-96 Consecutive Hours (ICD-10-PCS; 2024-11-03)
PROC: 4A133R1 Monitoring of Arterial Saturation, Peripheral, Percutaneous Approach (ICD-10-PCS; 2024-11-03)
PROC: 0BH17EZ Insertion of Endotracheal Airway into Trachea, Via Natural or Artificial Opening (ICD-10-PCS; 2024-11-03)
PROC: 0T9B70Z Drainage of Bladder with Drainage Device, Via Natural or Artificial Opening (ICD-10-PCS; 2024-11-03)
PROC: 0D9670Z Drainage of Stomach with Drainage Device, Via Natural or Artificial Opening (ICD-10-PCS; 2024-11-03)
PROC: 5A09357 Assistance with Respiratory Ventilation, Less than 24 Consecutive Hours, Continuous Positive Airway Pressure (ICD-10-PCS; 2024-11-07)
PROC: 30233J1 Transfusion of Nonautologous Serum Albumin into Peripheral Vein, Percutaneous Approach (ICD-10-PCS; 2024-11-13)
DX: J96.22 Acute and chronic respiratory failure with hypercapnia (principal); I50.33 Acute on chronic diastolic (congestive) heart failure; J18.9 Pneumonia, unspecified organism; G93.41 Metabolic encephalopathy; I13.0 Hypertensive heart and chronic kidney disease with heart failure and stage 1 through stage 4 chronic kidney disease, or unspecified chronic kidney disease; E66.2 Morbid (severe) obesity with alveolar hypoventilation; Z68.45 Body mass index [BMI] 70 or greater, adult; N17.9 Acute kidney failure, unspecified; E87.29 Other acidosis; E87.0 Hyperosmolality and hypernatremia; J96.21 Acute and chronic respiratory failure with hypoxia; E78.5 Hyperlipidemia, unspecified; E11.22 Type 2 diabetes mellitus with diabetic chronic kidney disease; E87.6 Hypokalemia; E83.42 Hypomagnesemia; Z88.2 Allergy status to sulfonamides; Z98.890 Other specified postprocedural states; Z83.3 Family history of diabetes mellitus; Z82.49 Family history of ischemic heart disease and other diseases of the circulatory system; Z91.018 Allergy to other foods; Z79.51 Long term (current) use of inhaled steroids; Z79.899 Other long term (current) drug therapy; Z79.4 Long term (current) use of insulin; D63.1 Anemia in chronic kidney disease; Z86.718 Personal history of other venous thrombosis and embolism; K21.9 Gastro-esophageal reflux disease without esophagitis; M10.9 Gout, unspecified; F41.9 Anxiety disorder, unspecified; F32.A Depression, unspecified; N18.2 Chronic kidney disease, stage 2 (mild); F17.210 Nicotine dependence, cigarettes, uncomplicated; Z99.81 Dependence on supplemental oxygen; E11.40 Type 2 diabetes mellitus with diabetic neuropathy, unspecified; Z91.148 Patient's other noncompliance with medication regimen for other reason; R55 Syncope and collapse; R25.1 Tremor, unspecified; I27.20 Pulmonary hypertension, unspecified; D69.6 Thrombocytopenia, unspecified; W19.XXXA Unspecified fall, initial encounter; Y92.009 Unspecified place in unspecified non-institutional (private) residence as the place of occurrence of the external cause
CPT/HCPCS: 31500; 36415; 36416; 36600; 71045; 80048; 80053; 82550; 82805; 83605; 83690; 83735; 83880; 84145; 84443; 84484; 85025; 87040; 93005; 93306; 94002; 94003; 94660; 96365; 96366; 96367; 96375; J1120; J1644; J1940; J2060; J2250; J2270; J2405; J2470; J2543; J2704; J2919; J3010; J3375; J3475; J3480; J7030; J7620; P9047; Q0162